=== PATIENT | male | born 1975 | race Two or more races ===

== ENCOUNTER → 2020-04-30 13:24 | Outpatient (BNVA) | payer OTHER, SELFPAY | PROVIDERS: PCP Internal Medicine Geriatric Medicine; Referring Provider Internal Medicine Geriatric Medicine; Visit Provider Orthopaedic Surgery | DX: M87.051 Idiopathic aseptic necrosis of right femur (principal); M87.052 Idiopathic aseptic necrosis of left femur | CPT/HCPCS: 99212 ==

== ENCOUNTER → 2020-07-11 10:07 | Outpatient (BNVA) | payer OTHER, SELFPAY | PROVIDERS: PCP Internal Medicine Geriatric Medicine; Visit Provider Orthopaedic Surgery | DX: Z01.812 Encounter for preprocedural laboratory examination (principal); Z01.810 Encounter for preprocedural cardiovascular examination ==

== ENCOUNTER 2020-08-09 13:16 | Outpatient (REF) | payer OTHER, SELFPAY ==
--- NOTE | ~2020-08-09 | XR_ITS ---
EXAMINATION: XR HIP, LEFT CLINICAL INFORMATION: Idiopathic avascular necrosis. COMPARISON: None TECHNIQUE: Two views of the left hip. FINDINGS: Again seen is deformity in the left femoral head with sclerotic and lucent components. Mild left hip degenerative joint changes are seen. The left hemipelvis is intact. The soft tissues are unremarkable. XR/XR hip LT 1V IMPRESSION: Deformity in the left hip consistent with the patient's known avascular necrosis. The overall appearance is similar to the previous study.
== END 2020-08-09 13:17 | disposition home or self-care (01) ==
LOC: HO.HOSX 13:16
PROVIDERS: Visit Provider Physician Assistant
DX: Z01.818 Encounter for other preprocedural examination (principal); M87.051 Idiopathic aseptic necrosis of right femur; M87.052 Idiopathic aseptic necrosis of left femur
CPT/HCPCS: 73501; 99212

== ENCOUNTER 2020-08-14 06:00 | Inpatient (IN) | payer OTHER, SELFPAY ==
--- NOTE | 2020-07-11 11:41 | ECG_ITS ---
Test Reason : PREPROC EXAM Blood Pressure : / mmHG Vent. Rate : 069 BPM Atrial Rate : 069 BPM P-R Int : 156 ms QRS Dur : 092 ms QT Int : 384 ms P-R-T Axes : 079 065 038 degrees QTc Int : 411 ms Normal sinus rhythm Possible Left atrial enlargement Borderline ECG When compared with ECG of 22-SEP-2017 23:40, Vent. rate has decreased BY 35 BPM QT has shortened Referred By: Christian Macias Electronically Signed By:RUDOLPH CARPENTER
[2020-07-11 12:30] LABS: MANUAL DIFF FLAG NO
[2020-07-11 12:41] LABS: Basophils Percent Auto 0.7 % (0-2); Eosinophils Absolute Auto 0.1 X10*3/uL (0.0-0.4); Eosinophils Percent Auto 1.8 % (0-4); Hematocrit 46.2 % (42-52); Hemoglobin 14.3 g/dl (14.0-18.0); Imm Gran Abs Auto 0.01 X10*3/uL (0.00-0.03); Imm Gran Pct Auto 0.2 % (0.0-0.4); Lymphocytes Absolute Auto 0.7 X10*3/uL (1.2-4.9); Lymphocytes Percent Auto 11.6 % (20-40); Mean Corpuscular Hemoglobin 26.5 pg (27.0-33.0); Mean Corpuscular Volume 85.6 fL (80-98); Mean Platelet Volume 11.8 fL (9.4-12.4); Monocytes Absolute Auto 0.5 X10*3/uL (0.1-1.2); Monocytes Percent Auto 7.8 % (2-11); Neutrophils Absolute Auto 4.7 X10*3/uL (2.0-8.3); Neutrophils Percent Auto 77.9 % (45-73); Platelet Count 213 X10*3/uL (160-400); Red Cell Distribution Width 13.2 % (11.0-16.0)
[2020-07-11 13:08] LABS: Anion Gap 15 (12-20); Blood Urea Nitrogen 14 mg/dL (9-16); Calcium 9.3 mg/dL (8.4-10.2); Carbon Dioxide 25 mmol/L (22-29); Chloride 101 mmol/L (96-108); Estimated Glomerular Filt Rate > 60; Glucose Random 94 mg/dL (60-115); Potassium 4.7 mmol/l (3.3-5.1); Sodium 136 mmol/L (135-145)
[2020-08-07 11:51] VITALS: BP 127/80; PULSE 80; RESP 20; O2SAT 97; BMI 29.0
--- NOTE | 2020-08-07 12:27 | HO.ANESPROP2 ---
Documented by User: Shellie Wisdomney 08/13/20 10:59 HPI - Anesthesia Eval Consult details Narrative: 45yo M for L Total Hip Replacement s/p Renal Transplant - h/o ESRD (htn nephrosclerosis) with dialysis. AV fistula in RUE. No dialysis now. PCP cleared Renal cleared [facility] Active Problems Active Problems: All Active Problems (Updated 08/07/20 @ 12:10 by Rosalinda Nieto) Avascular necrosis of bones of both hips (Acute) Past Medical History Medical History A-V fistula Allergic rhinitis Asthma Avascular necrosis Avascular necrosis of bones of both hips Chronic back pain CKD (chronic kidney disease) Depression ESRD (end stage renal disease) GERD (gastroesophageal reflux disease) Hx of anxiety disorder Hx of gout Hyperlipidemia Hypertension Hypothyroidism FLORENTINO (obstructive sleep apnea) Family History Family History Mother No problems noted. Father No problems noted. Family history of problems with anesthesia: No Surgical History Surgical History Kidney replaced by transplant History of Problems with Anesthesia: No Social History Social History Are you a primary customer care representative to a significant other at home: No Do you presently have visiting nurse or other home services: No (home health aide) Alcohol intake: never Smoking Status: Former smoker Smoked in Last 30 Days: No Smoking Quit Date: 2 yrs ago Second Hand Smoke Exposure: No Use of substances other than those prescribed or required for medical reasons: No Have you been hit, kicked, punched, or otherwise hurt by someone within the past year? If so, by whom?: No Confucianist Healthcare Practices: Religion Advance Directives: No Advance Directives Information Provided: No Advance Directives on File: No Recently lost weight without trying: No Current occupational status: disabled Current occupation: Right Handed Narrative Narrative: No recent illness. >4 mets with walking/rn radiation oncology. Asthma stable Meds Allergies Allergy/AdvReac Type Severity Reaction Status Date / Time ibuprofen [From MOTRIN] Allergy Unknown PT STATES Verified 08/07/20 11:50 HE CAN'T TAKE BECAUSE OF MY KIDNEY GRASS Allergy Unknown SINUS Uncoded 08/07/20 11:50 PROBLEMS Home Medications Medication Instructions Recorded Confirmed Last Taken Type albuterol sulfate 2.5 mg INHALATION NEEDED PRN 04/11/20 08/14/20 Unknown History aspirin 81 mg tablet,delayed 81 mg PO DAILY 04/11/20 08/03/20 08/09/20 History release atorvastatin 20 mg tablet 20 mg PO DAILY 04/11/20 08/03/20 Unknown History clonazepam 1 mg tablet 1 mg PO BID 04/11/20 08/14/20 08/14/20 History clotrimazole 10 mg wally 10 mg MUCOUS MEMBRANE TID 04/11/20 08/03/20 Unknown History levothyroxine 200 mcg tablet 200 mcg PO DAILY 04/11/20 08/03/20 08/14/20 History montelukast 10 mg tablet 10 mg PO BEDTIME 04/11/20 08/03/20 Unknown History omeprazole 20 mg capsule,delayed 40 mg PO DAILY 04/11/20 08/14/20 08/14/20 History release cholecalciferol (vitamin D3) 1 cap PO DAILY 08/03/20 08/03/20 Unknown History citalopram 1 tab PO DAILY 08/03/20 08/03/20 08/14/20 History docusate sodium [Stool Softener] 100 mg PO DAILY 08/03/20 08/03/20 Unknown History fluticasone propionate 1 spray INTRANASAL DAILY 08/03/20 08/14/20 Unknown History magnesium oxide 1 tab PO DAILY 08/03/20 08/03/20 Unknown History oxycodone 1 tab PO TID PRN 08/03/20 08/03/20 Unknown History zolpidem 1 tab PO BEDTIME 08/03/20 08/03/20 Unknown History mycophenolate sodium [Myfortic] 540 mg PO BID 08/07/20 08/07/20 08/14/20 History tacrolimus [Envarsus XR] 4 mg PO QAM 08/07/20 08/07/20 08/14/20 History Exam Exam Date and Time: August 07, 2020 1227 Height,Weight and Vital Signs: Height 5 ft 8.9 in Weight 88.904 kg Last Vital Signs Pulse 80 08/07/20 11:51 Resp 20 08/07/20 11:51 BP 127/80 08/07/20 11:51 Pulse Ox 97 08/07/20 11:51 Pertinent Lab Results Pertinent Lab Results: Laboratory Tests 07/11/20 07/11/20 11:51 11:51 WBC 6.0 RBC 5.40 Hgb 14.3 Hct 46.2 MCV 85.6 MCH 26.5 L MCHC 31.0 RDW 13.2 Plt Count 213 MPV 11.8 Immature Gran % (Auto) 0.2 Neut % (Auto) 77.9 H Lymph % (Auto) 11.6 L Lares % (Auto) 7.8 Eos % (Auto) 1.8 Baso % (Auto) 0.7 Lymph # (Auto) 0.7 L Lares # (Auto) 0.5 Eos # (Auto) 0.1 Baso # (Auto) 0.0 Abs Immat Gran (auto) 0.01 Absolute Neuts (auto) 4.7 Absolute Nucleated RBC 0.000 Nucleated RBC % (auto) 0.0 Sodium 136 Potassium 4.7 Chloride 101 Carbon Dioxide 25 Anion Gap 15 BUN 14 Creatinine 1.00 Estim Creat Clear Calc TNP Estimated GFR > 60 Random Glucose 94 Calcium 9.3 Laboratory Tests 07/11/20 07/11/20 08/07/20 11:51 11:51 13:05 Blood Type O Positive Antibody Screen NEGATIVE Narrative Narrative: EKG Normal sinus rhythm Possible Left atrial enlargement Borderline ECG When compared with ECG of 22-SEP-2017 23:40, Vent. rate has decreased BY 35 BPM QT has shortened Airway Mallampati Class: II TM Dist: >3cm Neck ROM: Full Loose/Missing/Broken Teeth: Yes (Missing molars) Heart: RRR Lungs: CTAB Assessment and Plan Assessment Anesthesia Assessment: Anesthesia Plan Discussed (Discussed GA with possible fascia iliaca block) and PAT Visit Documented by User: Timothy Rodriguez MD 08/14/20 07:32 [facility] Past Medical History Medical History A-V fistula Allergic rhinitis Asthma Avascular necrosis Avascular necrosis of bones of both hips Chronic back pain CKD (chronic kidney disease) Depression ESRD (end stage renal disease) GERD (gastroesophageal reflux disease) Hx of anxiety disorder Hx of gout Hyperlipidemia Hypertension Hypothyroidism FLORENTINO (obstructive sleep apnea) Family History Family History Mother No problems noted. Father No problems noted. Surgical History Surgical History Kidney replaced by transplant Social History Social History Are you a primary customer care representative to a significant other at home: No Do you presently have visiting nurse or other home services: No (home health aide) Alcohol intake: never Smoking Status: Former smoker Smoked in Last 30 Days: No Smoking Quit Date: 2 yrs ago Second Hand Smoke Exposure: No Use of substances other than those prescribed or required for medical reasons: No Have you been hit, kicked, punched, or otherwise hurt by someone within the past year? If so, by whom?: No Confucianist Healthcare Practices: Religion Advance Directives: No Advance Directives Information Provided: No Advance Directives on File: No Recently lost weight without trying: No Current occupational status: disabled Current occupation: Right Handed Meds Allergies Allergy/AdvReac Type Severity Reaction Status Date / Time ibuprofen [From MOTRIN] Allergy Unknown PT STATES Verified 08/07/20 11:50 HE CAN'T TAKE BECAUSE OF MY KIDNEY GRASS Allergy Unknown SINUS Uncoded 08/07/20 11:50 PROBLEMS Home Medications Medication Instructions Recorded Confirmed Last Taken Type albuterol sulfate 2.5 mg INHALATION NEEDED PRN 04/11/20 08/14/20 Unknown History aspirin 81 mg tablet,delayed 81 mg PO DAILY 04/11/20 08/03/20 08/09/20 History release atorvastatin 20 mg tablet 20 mg PO DAILY 04/11/20 08/03/20 Unknown History clonazepam 1 mg tablet 1 mg PO BID 04/11/20 08/14/20 08/14/20 History clotrimazole 10 mg wally 10 mg MUCOUS MEMBRANE TID 04/11/20 08/03/20 Unknown History levothyroxine 200 mcg tablet 200 mcg PO DAILY 04/11/20 08/03/20 08/14/20 History montelukast 10 mg tablet 10 mg PO BEDTIME 04/11/20 08/03/20 Unknown History omeprazole 20 mg capsule,delayed 40 mg PO DAILY 04/11/20 08/14/20 08/14/20 History release cholecalciferol (vitamin D3) 1 cap PO DAILY 08/03/20 08/03/20 Unknown History citalopram 1 tab PO DAILY 08/03/20 08/03/20 08/14/20 History docusate sodium [Stool Softener] 100 mg PO DAILY 08/03/20 08/03/20 Unknown History fluticasone propionate 1 spray INTRANASAL DAILY 08/03/20 08/14/20 Unknown History magnesium oxide 1 tab PO DAILY 08/03/20 08/03/20 Unknown History oxycodone 1 tab PO TID PRN 08/03/20 08/03/20 Unknown History zolpidem 1 tab PO BEDTIME 08/03/20 08/03/20 Unknown History mycophenolate sodium [Myfortic] 540 mg PO BID 08/07/20 08/07/20 08/14/20 History tacrolimus [Envarsus XR] 4 mg PO QAM 08/07/20 08/07/20 08/14/20 History Exam Airway Mallampati Class: II TM Dist: >3cm Neck ROM: Full Loose/Missing/Broken Teeth: Yes (None loose per report) Heart: Lungs: Nonlabored Assessment and Plan Assessment Anesthesia Assessment: Anesthesia Plan Discussed and Chart Reviewed Final Anesthetic Review NPO: Yes ASA Class: III Final Preanesthetic Review: No Changes in Pt Med Stat, Meds/Allgs Chart Reviewed, Consent Obtained/Reviewed and Anes Risks/Benef Reviewed Patient Risk: High Procedure Risk: Intermediate Anesthetic Plan Anesthetic Plan: GA Disposition: Standard PACU
[2020-08-07 16:16] LABS: MRSA Nasal PCR NEGATIVE (Negative); SA Nasal PCR NEGATIVE (Negative)
[2020-08-14] VITALS (13 sets, daily range): BP systolic 119–149; BP diastolic 71–87; PULSE 18–102; RESP 15–20; TEMP 36.5–37.7; O2SAT 94–100
--- NOTE | ~2020-08-14 | XR_ITS ---
EXAMINATION: XR CHEST CLINICAL INFORMATION: Fever, rule out pneumonia COMPARISON: 09/22/2017 TECHNIQUE: Frontal view of the chest was obtained. FINDINGS: Normal cardiac and mediastinal silhouette. Patchy left basilar opacities from atelectasis or infiltrate. No effusion, edema or pneumothorax. XR/XR chest 1V IMPRESSION: Left basilar patchy opacities from atelectasis or infiltrate.
--- NOTE | ~2020-08-14 | XR_ITS ---
EXAMINATION: XR PELVIS CLINICAL INFORMATION: Post left hip replacement COMPARISON: Previous x-ray 08/09/2020 TECHNIQUE: AP view of the pelvis. FINDINGS: There is a new left hip replacement in satisfactory position. No fracture or dislocation is seen. There are postoperative changes to the soft tissues. XR/XR pelvis 1-2V IMPRESSION: Satisfactory appearance of left hip replacement.
[2020-08-14] MEDS: Gabapentin 600 MG TABLET PO (06:41)
[2020-08-14] MEDS: oxyCODONE HCl ER 10 MG TAB.ER.12H PO ×2 (06:42→21:55)
[2020-08-14 06:44] LABS: COVID-19 Test Negative (Negative); IDNOW Serial# 9DD0AD1C
--- NOTE | 2020-08-14 06:55 | PC.NURSE ---
Right arm A-V fistula assessed. Positive thrill and bruit.
[2020-08-14] MEDS: 0.9 % Sodium Chloride 1,000 ML 50 ML IVCONT (07:09)
--- NOTE | 2020-08-14 07:31 | MHC.SHP ---
Pre-Procedural Eval Section A The patient is an INPATIENT: No Changes since office visit: Yes Patient answered all questions; No Cold of Flu in the past 2 weeks, No New Medical Problems and No Changes in Medication The History & Physical has been completed within 30 days and I have reviewed it.: Yes Section B Chief Complaint: s/p left total hip replacement Allergies: Allergies Allergy/AdvReac Type Severity Reaction Status Date / Time ibuprofen [From MOTRIN] Allergy Unknown PT STATES Verified 08/07/20 11:50 HE CAN'T TAKE BECAUSE OF MY KIDNEY GRASS Allergy Unknown SINUS Uncoded 08/07/20 11:50 PROBLEMS Plan I have reviewed the history and physical and performed a pertinent physical examination on my patient. No changes have occurred unless specified.
--- NOTE | 2020-08-14 09:29 | PM.OP ---
Brief Operative Note Date of Service: 08/14/20 Pre-op diagnosis: left hip avn Post-op diagnosis: same Procedure: left EHSAN Implants: styker trident2 52/20 deg liner accolade #4 with 36 + 2.5 fem head Surgeon: Christian Macias MD Anesthesia: GETA Estimated blood loss (mL): 200 IV fluids (mL): 1,000 Pathology: other Condition: stable Disposition: PACU
--- NOTE | 2020-08-14 09:35 | W.PM.OPN ---
Operative Note Operative Note Date of Service: 08/14/20 Narrative: Attending MD: Christian Macias Python Django Developer: CLIVE Calvert Pre-operative disgnosis: Left hip AVN Post op diagnosis: same Procedure performed; Left EHSAN Anesthesia:general Blood loss:200 Fluids:1000 Implants:nancy trident2 52/20 deg lip; accolade#4, 36 +2.5 ceramic head Complications: none known Indications: This is a 45 yo M with painful AVN left hip. He was consented to undergo left EHSAN Procedure in detail: Patient was brought into the operating room and placed in a right lateral decubitus position. All bony prominences were well padded and the limb was prepped and draped in standard sterile fashion. Time-out was called to identify proper site procedure proper surgeon IV antibiotics and 1 g of trans to make acid were administered. I began by making a curvilinear incision over the posterolateral aspect of the greater trochanter. Dissection was taken down to the tensor fascia which was incised in line with the incision and a Charnley retractor was placed. Hip was internally rotated and the external rotators were identified. The vessels were cauterized and a full-thickness capsular/external rotator layer was developed starting just proximal to the piriformis. Dull Hohmann retractor was placed underneath the neck in the hip was dislocated. A neck cut was made 1 cm proximal to the lesser trochanter and the head and neck were removed and measured on the back table. Placed my anterior-posterior acetabular retractors and performed a labrectomy. I then sequentially reamed up to a size _51__ and impacted a _52___ cup at approximately 45 degrees of inclination and 25 degrees of version. I then placed a 20 degree posterior lipped liner and turned my attention to the femur. All I used cautery to identify the piriformis start site and used this as a starting point for my abdirizakie cutter. I then used a Charnley awl to identify the canal and a curved curette to remove the lateral bone. I then sequentially broached in the patient's natural version to a size _4__ had and placed my trial implants. I took the hip through range of motion with a +0 head and I was very happy with the stability and length. Therefore removed all instrumentation copiously irrigated placed my final femoral implant. I again took the hip through range of motion and was happy with the stability and length and rain using a +2.5 head and so my final femoral head was placed. I then irrigated for 3 minutes with iodine and placed 1 g of local TXA. I then performed a capsular closure with FiberWire, Ally's fascia with 0 Vicryl, subcuticular with 2-0 vicryl and skin with shiraz. Patient was placed into a sterile dressing. Radiographs were obtained at the completion of the case and I was happy with the component position. Patient was extubated brought to the recovery room in stable condition.
[2020-08-14] MEDS: HYDROmorphone HCl 0.5 MG/0.5 ML SYRINGE IVPUSH (09:52)
[2020-08-14] MEDS: Dextrose 5 % and 0.45 % NaCl 1,000 ML 80 ML IVCONT (11:25)
[2020-08-14] MEDS: HYDROmorphone HCl 0.5 MG/0.5 ML SYRINGE 0.25 MG IVPUSH ×2 (13:20→18:19)
[2020-08-14] MEDS: ceFAZolin Sodium/Dextrose,Iso 2 GM/50 ML PIGGYBACK IV (13:21)
--- NOTE | 2020-08-14 16:39 | P.CONIM_ITS ---
History of Present Illness Data of Consult Service Date: 08/14/20 Requesting physician: Christian Macias Primary Care Provider: Shaka Ashley MD [facility] Reason for consult: Medical management 45-year-old male admitted for elective hip surgery, patient underwent hip surgery, Medicine was consulted for medical management, patient seen and examined at bedside Patient denies any chest pain shortness of breath abdominal pain Review of Systems Review of Systems: Yes all other systems are reviewed and are negative Constitutional: Constitutional: Denies weakness Cardiovascular: Cardiovascular: Denies dyspnea Respiratory: Respiratory: Denies dyspnea Gastrointestinal: Gastrointestinal: Denies vomiting Neurologic: Denies focal weakness and Denies weakness Endocrine: Endocrine: Denies no additional endocrine complaints [facility] Medical History (Updated 08/14/20 @ 16:47 by Jack Grier MD) A-V fistula Allergic rhinitis Asthma Avascular necrosis Avascular necrosis of bones of both hips Chronic back pain CKD (chronic kidney disease) Depression ESRD (end stage renal disease) GERD (gastroesophageal reflux disease) Hx of anxiety disorder Hx of gout Hyperlipidemia Hypertension Hypothyroidism FLORENTINO (obstructive sleep apnea) Family History Mother No problems noted. Father No problems noted. Surgical History Kidney replaced by transplant Social History Are you a primary customer care professional to a significant other at home: No Do you presently have visiting nurse or other home services: No (home health aide) Alcohol intake: never Smoking Status: Former smoker Smoked in Last 30 Days: No Smoking Quit Date: 2 yrs ago Second Hand Smoke Exposure: No Use of substances other than those prescribed or required for medical reasons: No Have you been hit, kicked, punched, or otherwise hurt by someone within the past year? If so, by whom?: No Scientology Healthcare Practices: Shinto Advance Directives: No Advance Directives Information Provided: No Advance Directives on File: No Recently lost weight without trying: No Current occupational status: disabled Current occupation: Right Handed Meds Allergies Allergy/AdvReac Type Severity Reaction Status Date / Time ibuprofen [From MOTRIN] Allergy Unknown PT STATES Verified 08/07/20 11:50 HE CAN'T TAKE BECAUSE OF MY KIDNEY GRASS Allergy Unknown SINUS Uncoded 08/07/20 11:50 PROBLEMS Active Medications: Current Medications Generic Name Dose Route Start Last Admin Trade Name Freq PRN Reason Stop Dose Admin Acetaminophen 650 mg 08/14/20 11:08 Acetaminophen 325 Mg Tablet PO Q6H PRN Pain, Mild (Pain Scale 1-3) Hydromorphone HCl 0.25 mg 08/14/20 11:08 08/14/20 13:20 Hydromorphone Hcl 0.5 Mg/0.5 Ml Syringe IVPUSH 0.25 mg Q4H PRN Administration Pain, Severe (Pain Scale 7-10) Dextrose/Sodium Chloride 1,000 mls @ 80 mls/hr 08/14/20 11:08 08/14/20 11:25 D51/2ns IVCONT 80 mls/hr .[id number] JOSEPH Administration Naloxone HCl 0.2 mg 08/14/20 11:08 Naloxone Hcl 0.4 Mg/Ml Vial IVPUSH Q2M PRN Excessive sedation or RR < 8 Non-Formulary Medication 4 mg 08/15/20 09:00 Tacrolimus [Envarsus Xr] PO DAILY [facility] Ondansetron HCl 4 mg 08/14/20 11:08 Ondansetron Hcl 4 Mg/2 Ml Vial IVPUSH Q8H PRN Nausea and Vomiting Oxycodone HCl 10 mg 08/14/20 11:08 Oxycodone Hcl Immed Release 5 Mg Tablet PO Q4H PRN Pain, Moderate (Pain Scale 4-6 Oxycodone HCl 10 mg 08/14/20 21:00 Oxycodone Hcl Er 10 Mg Tab.Er.12h PO BID [facility] Senna 17.2 mg 08/14/20 11:08 Sennosides 8.6 Mg Tablet PO BEDTIME PRN Constipation Sodium Chloride 3 ml 08/14/20 16:00 0.9 % Sodium Chloride Flush 3 Ml Syringe IVFLUSH QSHIFT [facility] Home Medications Medication Instructions Recorded Confirmed Last Taken Type albuterol sulfate 2.5 mg INHALATION NEEDED PRN 04/11/20 08/14/20 Unknown History aspirin 81 mg tablet,delayed 81 mg PO DAILY 04/11/20 08/03/20 08/09/20 History release atorvastatin 20 mg tablet 20 mg PO DAILY 04/11/20 08/03/20 Unknown History clonazepam 1 mg tablet 1 mg PO BID 04/11/20 08/14/20 08/14/20 History clotrimazole 10 mg wally 10 mg MUCOUS MEMBRANE TID 04/11/20 08/03/20 Unknown History levothyroxine 200 mcg tablet 200 mcg PO DAILY 04/11/20 08/03/20 08/14/20 History montelukast 10 mg tablet 10 mg PO BEDTIME 04/11/20 08/03/20 Unknown History omeprazole 20 mg capsule,delayed 40 mg PO DAILY 04/11/20 08/14/20 08/14/20 History release cholecalciferol (vitamin D3) 1 cap PO DAILY 08/03/20 08/03/20 Unknown History citalopram 1 tab PO DAILY 08/03/20 08/03/20 08/14/20 History docusate sodium [Stool Softener] 100 mg PO DAILY 08/03/20 08/03/20 Unknown History fluticasone propionate 1 spray INTRANASAL DAILY 08/03/20 08/14/20 Unknown Histo ry magnesium oxide 1 tab PO DAILY 08/03/20 08/03/20 Unknown History oxycodone 1 tab PO TID PRN 08/03/20 08/03/20 Unknown History zolpidem 1 tab PO BEDTIME 08/03/20 08/03/20 Unknown History mycophenolate sodium [Myfortic] 540 mg PO BID 08/07/20 08/07/20 08/14/20 History tacrolimus [Envarsus XR] 4 mg PO QAM 08/07/20 08/07/20 08/14/20 History Physical Exam Vital Signs and Narrative: Vital Signs: Last Vital Signs Temp 98.2 F 08/14/20 15:29 Pulse 96 08/14/20 15:29 Resp 18 08/14/20 15:29 BP 139/77 08/14/20 15:29 Pulse Ox 95 08/14/20 15:29 Body Mass Index 29.0 Const: General: cooperative and no acute distress Neck: Yes normal visual inspection Cardio: Jugular venous distension: no JVD Rate: regular rate GI: Inspection: Yes normal to inspection Auscultation: normal bowel sounds Skin: General skin exam: no rashes or lesions noted Neuro: Motor exam (neuro): 5/5 motor strength present throughout Results Labs CBC and Chem 7: 07/11/20 11:51 07/11/20 11:51 Labs: Laboratory Results - last 24 hr 08/14/20 06:13 COVID-19 (EDVIN) Negative COVID-19 Clin Com See Note Imaging Radiologist's Impressions: Impressions Pelvis X-Ray 08/14/20 08:22 IMPRESSION: Satisfactory appearance of left hip replacement. Assessment and Plan (1) Asthma: Status: Acute (2) Chronic back pain: Status: Acute (3) CKD (chronic kidney disease): Status: Acute (4) Hypothyroidism: Status: Acute (5) Hyperlipidemia: Status: Acute (6) FLORENTINO (obstructive sleep apnea): Problem details: 2018- Sleep Study Status: Acute 45-year-old male with history of ESRD status post renal transplant last year admitted for elective hip replacement, patient underwent EHSAN, Medicine was consulted for medical management Status post EHSAN Continue pain management PT consult Management per Ortho Asthma stable Continue inhaler as needed History of renal transplant Continue home medication Hypothyroidism Continue levothyroxine History of GERD Continue Prilosec History of anxiety and depression Continue home meds DVT prophylaxis currently on Venodyne , as per Ortho
[2020-08-14] MEDS: Levothyroxine Sodium 200 MCG TABLET PO (18:06)
[2020-08-14] MEDS: Fluticasone Propionate Nasal 16 GM SPRAY 1 SPRAY NOSTRIL-B (18:19)
[2020-08-14] MEDS: Mycophenolate Sodium 180 MG TABLET.DR 540 MG PO (21:54)
[2020-08-14] MEDS: Montelukast Sodium 10 MG TABLET PO (21:55)
[2020-08-14] MEDS: clonazePAM 1 MG TABLET PO (21:55)
[2020-08-14] MEDS: oxyCODONE HCl Immed Release 5 MG TABLET 10 MG PO (22:20)
[2020-08-14] MEDS: Zolpidem Tartrate 5 MG TABLET 10 MG PO (22:20)
[2020-08-15] VITALS (9 sets, daily range): BP systolic 131–178; BP diastolic 63–90; PULSE 94–113; RESP 17–20; TEMP 37.3–38.8; O2SAT 94–97
[2020-08-15] MEDS: Dextrose 5 % and 0.45 % NaCl 1,000 ML 80 ML IVCONT ×2 (00:02→13:53)
[2020-08-15] MEDS: HYDROmorphone HCl 0.5 MG/0.5 ML SYRINGE 0.25 MG IVPUSH ×4 (00:17→22:01)
[2020-08-15] MEDS: Acetaminophen 325 MG TABLET 650 MG PO ×3 (02:14→23:53)
[2020-08-15] MEDS: oxyCODONE HCl Immed Release 5 MG TABLET 10 MG PO ×4 (03:55→23:53)
[2020-08-15] MEDS: Omeprazole 20 MG CAPSULE.DR 40 MG PO (05:57)
[2020-08-15 07:01] LABS: MANUAL DIFF FLAG NO
[2020-08-15 07:09] LABS: Basophils Percent Auto 0.1 % (0-2); Eosinophils Percent Auto 0.2 % (0-4); Hematocrit 41.3 % (42-52); Hemoglobin 12.8 g/dl (14.0-18.0); Imm Gran Abs Auto 0.03 X10*3/uL (0.00-0.03); Imm Gran Pct Auto 0.3 % (0.0-0.4); Lymphocytes Absolute Auto 1.1 X10*3/uL (1.2-4.9); Lymphocytes Percent Auto 11.9 % (20-40); Mean Corpuscular Hemoglobin 26.3 pg (27.0-33.0); Mean Platelet Volume 12.1 fL (9.4-12.4); Monocytes Absolute Auto 1.3 X10*3/uL (0.1-1.2); Monocytes Percent Auto 14.7 % (2-11); Neutrophils Absolute Auto 6.6 X10*3/uL (2.0-8.3); Neutrophils Percent Auto 72.8 % (45-73); Platelet Count 185 X10*3/uL (160-400); Red Blood Count 4.86 X10*6/uL (4.60-5.80); Red Cell Distribution Width 12.7 % (11.0-16.0); White Blood Count 9.1 X10*3/uL (4.8-10.8)
--- NOTE | 2020-08-15 07:25 | P.PNOP_ITS ---
Subjective Subjective Date of Service: 08/15/20 Interval history: POD1 left EHSAN patient is resting comfortably in bed. He states he worked with [employer] yesterday and was walking. Pain is well managed. No overnight events. Physical Exam Vital Signs: Vital Signs: Last Vital Signs Temp 99.6 F 08/15/20 05:00 Pulse 96 08/15/20 05:00 Resp 20 08/15/20 05:00 BP 148/79 H 08/15/20 05:00 Pulse Ox 97 08/15/20 05:00 Body Mass Index 29.0 Const: General: cooperative, healthy appearing and no acute distress Resp: Effort & Inspection: normal respiratory effort and able to speak in complete sentences Cardio: Rate: regular rate Peripheral pulses: Peripheral pulses 2+ throughout GI: Palpation (GI): Soft to palpation Skin: Lesions: no lesions Rashes: no rashes Extrem: Other: left hip no ecchymosis, redness, or drainage. Aquacel is clean, dry, and intact. NVI. Progress Note: A&P Assessment and plan (1) Status post total hip replacement, left: Status: Acute Assessment and Plan: Continue pain mgmnt Consult with nephrology for dvt ppx Continue PT for left EHSAN Dispo planning-Pending PT eval, pain mgmnt Fall Risk Details Current Medications: Current Medications Generic Name Dose Route Start Last Admin Trade Name Freq PRN Reason Stop Dose Admin Acetaminophen 650 mg 08/14/20 11:08 08/15/20 02:14 Acetaminophen 325 Mg Tablet PO 650 mg Q6H PRN Administration Pain, Mild (Pain Scale 1-3) Albuterol Sulfate 2.5 mg 08/14/20 16:43 Albuterol Sulfate (0.083%) 2.5 Mg/3 Ml Vial.Neb INHALE Q4H PRN Shortness Of Breath Atorvastatin Calcium 20 mg 08/15/20 09:00 Atorvastatin Calcium 20 Mg Tablet PO DAILY [facility] Clonazepam 1 mg 08/14/20 21:00 08/14/20 21:55 Clonazepam 1 Mg Tablet PO 1 mg BID [facility]SEPH Administration Clotrimazole 10 mg 08/14/20 21:00 08/14/20 21:54 Clotrimazole 10 Mg Jaja MUCOUS MEM 10 mg TID JOSEPH Administration Docusate Sodium 100 mg 08/15/20 09:00 Docusate Sodium 100 Mg Capsule PO DAILY [facility] Escitalopram Oxalate 20 mg 08/15/20 09:00 Escitalopram Oxalate 20 Mg Tablet PO DAILY [facility] Fluticasone Propionate 1 spray 08/14/20 16:45 08/14/20 18:19 Fluticasone Propionate Nasal 16 Gm [place] NOSTRIL-B 1 spray DAILY [facility] Administration Hydromorphone HCl 0.25 mg 08/14/20 11:08 08/15/20 00:17 Hydromorphone Hcl 0.5 Mg/0.5 Ml Syringe IVPUSH 0.25 mg Q4H PRN Administration Pain, Severe (Pain Scale 7-10) Dextrose/Sodium Chloride 1,000 mls @ 80 mls/hr 08/14/20 11:08 08/15/20 00:02 D51/2ns IVCONT 80 mls/hr .[id number] [facility] Administration Levothyroxine Sodium 200 mcg 08/14/20 16:45 08/14/20 18:06 Levothyroxine Sodium 200 Mcg Tablet PO 200 mcg DAILY [facility] Administration Magnesium Oxide 200 mg 08/15/20 09:00 Magnesium Oxide 400 Mg Tablet PO DAILY [facility] Montelukast Sodium 10 mg 08/14/20 21:00 08/14/20 21:55 Montelukast Sodium 10 Mg Tablet PO 10 mg BEDTIME [facility] Administration Mycophenolate Sodium 540 mg 08/14/20 21:00 08/14/20 21:54 Mycophenolate Sodium 180 Mg Tablet. PO 540 mg BID [facility] Administration Naloxone HCl 0.2 mg 08/14/20 11:08 Naloxone Hcl 0.4 Mg/Ml Vial IVPUSH Q2M PRN Excessive sedation or RR < 8 Non-Formulary Medication 4 mg 08/15/20 09:00 Tacrolimus [Envarsus Xr] PO DAILY [facility] Omeprazole 40 mg 08/15/20 06:30 08/15/20 05:57 Omeprazole 20 Mg Capsule. PO 40 mg DAILY@0630 [facility] Administration Ondansetron HCl 4 mg 08/14/20 11:08 Ondansetron Hcl 4 Mg/2 Ml Vial IVPUSH Q8H PRN Nausea and Vomiting Oxycodone HCl 10 mg 08/14/20 11:08 08/15/20 03:55 Oxycodone Hcl Immed Release 5 Mg Tablet PO 10 mg Q4H PRN Administration Pain, Moderate (Pain Scale 4-6 Oxycodone HCl 10 mg 08/14/20 21:00 08/14/20 21:55 Oxycodone Hcl Er 10 Mg Tab.Er.12h PO 10 mg BID [facility] Administration Senna 17.2 mg 08/14/20 11:08 Sennosides 8.6 Mg Tablet PO BEDTIME PRN Constipation Sodium Chloride 3 ml 08/14/20 16:00 08/15/20 00:20 0.9 % Sodium Chloride Flush 3 Ml Syringe IVFLUSH Not Given QSHIFT [facility] Vitamin D 50 mcg 08/15/20 09:00 Cholecalciferol (Vitamin D3) 25 Mcg Tablet PO DAILY [facility] Zolpidem Tartrate 10 mg 08/14/20 22:15 08/14/20 22:20 Zolpidem Tartrate 5 Mg Tablet PO 10 mg BEDTIME [facility] Administration Time Spent With Patient Time: Total time spent is greater than 50% in coordination of care (as documented) at patient's floor/unit and/or counseling patient: Time with patient: less than 15 minutes Procedures Date of Service Date of Service: 08/15/20
[2020-08-15 07:43] LABS: Anion Gap 11 (12-20); Blood Urea Nitrogen 13 mg/dL (9-16); Calcium 8.5 mg/dL (8.4-10.2); Carbon Dioxide 27 mmol/L (22-29); Chloride 102 mmol/L (96-108); Creatinine Clr Calc Pharmacy 117.3; Estimated Glomerular Filt Rate > 60; Glucose Fasting 131 mg/dL (60-99); Sodium 136 mmol/L (135-145)
[2020-08-15] MEDS: oxyCODONE HCl ER 10 MG TAB.ER.12H PO ×2 (09:02→20:14)
[2020-08-15] MEDS: Atorvastatin Calcium 20 MG TABLET PO (09:02)
[2020-08-15] MEDS: 0.9 % Sodium Chloride Flush 3 ML SYRINGE IVFLUSH ×2 (09:02→15:11)
[2020-08-15] MEDS: Mycophenolate Sodium 180 MG TABLET.DR 540 MG PO ×2 (09:02→20:13)
[2020-08-15] MEDS: Levothyroxine Sodium 200 MCG TABLET PO (09:03)
[2020-08-15] MEDS: Cholecalciferol (Vitamin D3) 25 MCG TABLET 50 MCG PO (09:03)
[2020-08-15] MEDS: clonazePAM 1 MG TABLET PO ×2 (09:03→20:14)
[2020-08-15] MEDS: Docusate Sodium 100 MG CAPSULE PO (09:03)
[2020-08-15] MEDS: Escitalopram Oxalate 20 MG TABLET PO (09:03)
[2020-08-15] MEDS: Magnesium Oxide 400 MG TABLET 200 MG PO (09:03)
--- NOTE | 2020-08-15 09:11 | MHC.CM.PN ---
IMM08/15/20, EMR REVIEWED, PT ADMITTED S/P LEFT TOTAL HIP REPLACEMENT, CM MET WITH PT WHO IS ALERT AND ORIENTED, PT REPORTS HE LIVES WITH HIS 3 DAUGHTERS AND GRANDSON, PT REPORTS HE HAS ASSISTANCE FROM HIS DAUGHTER SAMUEL WHO IS HIS HAY BALER 24HR/WK, PT CANNOT RECALL WHICH COMPANY, PT REPORTS HE USES A WALKER AT HOME, A TOILET SEAT RAISER, A CPAP AND PT USES INHALERS AND HAS A NEBULIZER WHEN NEEDED, PT DENIES VNA SERVICES AND HAS NO PREFERENCE ON COMPANY, CM DID CALL [facility] AND SPOKE WITH ZEKE AT 9:10AM AT [phone] TO SEE IF THEY COULD PROVIDE SERVICES HOWEVER THEY ARE CURRENTLY UNABLE TO ACCOMMODATE AT THIS TIME, THEY WERE MADE AWARE OF PT'S ANTICIPATED D/C FOR 08/16/20. PT DOES HAVE DIAGNOSES OF ANXIETY AND DEPRESSION AND TAKES CITALOPRAM, KLONOPIN AND AMBIEN, PT REPORTS HIS THERAPIST AND PSYCHIATRIST ARE THROUGH THE [facility] [place] ON [facility] IN [place]. PT REPORTS HE FEELS STABLE ON CURRENT MEDS, DENIES SUICIDAL IDEATION AND DENIES NEED TO SPEAK WITH CARE TEAM. PT VERIFIES PCP AND PHARMACY. HCP: SAMUEL VALLES (DAUGHTER)[phone], [place] ALTERNATE, COPY REQUESTED BY AGATHA PCP: ANGIE NAME PHARACY: [facility]
[2020-08-15] MEDS: Fluticasone Propionate Nasal 16 GM SPRAY 1 SPRAY NOSTRIL-B (09:32)
[2020-08-15] MEDS: Enoxaparin Sodium 40 MG/0.4 ML SYRINGE SUBCUT (10:55)
--- NOTE | 2020-08-15 11:01 | P.PNIM_ITS ---
Subjective Subjective Date of Service: 08/15/20 Interval History: Patient seen and examined at bedside Patient reported some pain at surgical side Constitutional Constitutional: Denies weakness Cardiovascular Cardiovascular: Denies dyspnea Respiratory Respiratory: Denies dyspnea Gastrointestinal Gastrointestinal: Denies vomiting Neurologic Neurologic: Denies focal weakness and Denies weakness Endocrine Endocrine: Denies no additional endocrine complaints Physical Exam Vital Signs: Vital Signs: Last Vital Signs Temp 99.9 F 08/15/20 07:48 Pulse 94 08/15/20 07:48 Resp 18 08/15/20 07:48 BP 135/63 08/15/20 07:48 Pulse Ox 96 08/15/20 07:48 Body Mass Index 29.0 Const: General: cooperative and no acute distress Neck: Neck: Yes normal visual inspection Cardio: Jugular venous distension: no JVD Rate: regular rate GI: Inspection: Yes normal to inspection Auscultation: normal bowel sounds Skin: General skin exam: no rashes or lesions noted Neuro: Motor exam (neuro): 5/5 motor strength present throughout Objective Data Current Medications Generic Name Dose Route Start Last Admin Trade Name Freq PRN Reason Stop Dose Admin Acetaminophen 650 mg 08/14/20 11:08 08/15/20 02:14 Acetaminophen 325 Mg Tablet PO 650 mg Q6H PRN Administration Pain, Mild (Pain Scale 1-3) Albuterol Sulfate 2.5 mg 08/14/20 16:43 Albuterol Sulfate (0.083%) 2.5 Mg/3 Ml Vial.Neb INHALE Q4H PRN Shortness Of Breath Atorvastatin Calcium 20 mg 08/15/20 09:00 08/15/20 09:02 Atorvastatin Calcium 20 Mg Tablet PO 20 mg DAILY [facility] Administration Clonazepam 1 mg 08/14/20 21:00 08/15/20 09:03 Clonazepam 1 Mg Tablet PO 1 mg BID [facility] Administration Clotrimazole 10 mg 08/14/20 21:00 08/15/20 09:03 Clotrimazole 10 Mg Jaja MUCOUS MEM 10 mg TID [facility] Administration Docusate Sodium 100 mg 08/15/20 09:00 08/15/20 09:03 Docusate Sodium 100 Mg Capsule PO 100 mg DAILY [facility] Administration Enoxaparin Sodium 40 mg 08/15/20 10:00 08/15/20 10:55 Enoxaparin Sodium 40 Mg/0.4 Ml Syringe SUBCUT 40 mg Q24H [facility] Administration Escitalopram Oxalate 20 mg 08/15/20 09:00 08/15/20 09:03 Escitalopram Oxalate 20 Mg Tablet PO 20 mg DAILY [facility] Administration Fluticasone Propionate 1 spray 08/14/20 16:45 08/15/20 09:32 Fluticasone Propionate Nasal 16 Gm [place] NOSTRIL-B 1 spray DAILY [facility] Administration Hydromorphone HCl 0.25 mg 08/14/20 11:08 08/15/20 00:17 Hydromorphone Hcl 0.5 Mg/0.5 Ml Syringe IVPUSH 0.25 mg Q4H PRN Administration Pain, Severe (Pain Scale 7-10) Dextrose/Sodium Chloride 1,000 mls @ 80 mls/hr 08/14/20 11:08 08/15/20 00:02 D51/2ns IVCONT 80 mls/hr .[id number] [facility] Administration Levothyroxine Sodium 200 mcg 08/14/20 16:45 08/15/20 09:03 Levothyroxine Sodium 200 Mcg Tablet PO 200 mcg DAILY [facility] Administration Magnesium Oxide 200 mg 08/15/20 09:00 08/15/20 09:03 Magnesium Oxide 400 Mg Tablet PO 200 mg DAILY [facility] Administration Montelukast Sodium 10 mg 08/14/20 21:00 08/14/20 21:55 Montelukast Sodium 10 Mg Tablet PO 10 mg BEDTIME [facility] Administration Mycophenolate Sodium 540 mg 08/14/20 21:00 08/15/20 09:02 Mycophenolate Sodium 180 Mg Tablet. PO 540 mg BID [facility] Administration Naloxone HCl 0.2 mg 08/14/20 11:08 Naloxone Hcl 0.4 Mg/Ml Vial IVPUSH Q2M PRN Excessive sedation or RR < 8 Non-Formulary Medication 4 mg 08/15/20 09:00 08/15/20 09:30 Tacrolimus [Envarsus Xr] PO 4 mg DAILY [facility] Administration Omeprazole 40 mg 08/15/20 06:30 08/15/20 05:57 Omeprazole 20 Mg Capsule. PO 40 mg DAILY@0630 [facility] Administration Ondansetron HCl 4 mg 08/14/20 11:08 Ondansetron Hcl 4 Mg/2 Ml Vial IVPUSH Q8H PRN Nausea and Vomiting Oxycodone HCl 10 mg 08/14/20 11:08 08/15/20 03:55 Oxycodone Hcl Immed Release 5 Mg Tablet PO 10 mg Q4H PRN Administration Pain, Moderate (Pain Scale 4-6 Oxycodone HCl 10 mg 08/14/20 21:00 08/15/20 09:02 Oxycodone Hcl Er 10 Mg Tab.Er.12h PO 10 mg BID [facility] Administration Senna 17.2 mg 08/14/20 11:08 Sennosides 8.6 Mg Tablet PO BEDTIME PRN Constipation Sodium Chloride 3 ml 08/14/20 16:00 08/15/20 09:02 0.9 % Sodium Chloride Flush 3 Ml Syringe IVFLUSH 3 ml QSHIFT [facility] Administration Vitamin D 50 mcg 08/15/20 09:00 08/15/20 09:03 Cholecalciferol (Vitamin D3) 25 Mcg Tablet PO 50 mcg DAILY [facility] Administration Zolpidem Tartrate 10 mg 08/14/20 22:15 08/14/20 22:20 Zolpidem Tartrate 5 Mg Tablet PO 10 mg BEDTIME [facility] Administration Labs CBC & Chem 7: 08/15/20 05:53 08/15/20 05:53 Assessment and Plan (1) Asthma: Status: Acute (2) Chronic back pain: Status: Acute (3) CKD (chronic kidney disease): Status: Acute (4) Hypothyroidism: Status: Acute (5) Hyperlipidemia: Status: Acute (6) FLORENTINO (obstructive sleep apnea): Problem details: 2017- Sleep Study Status: Acute Assessment and Plan: 45-year-old male with history of ESRD status post renal transplant last year admitted for elective hip replacement, patient underwent EHSAN, Medicine was consulted for medical management Status post EHSAN Continue pain managemen Management per Ortho Asthma stable Continue inhaler as needed History of renal transplant Continue mycophenolate and tacrolimus Hypothyroidism Continue levothyroxine History of GERD Continue Prilosec History of anxiety and depression Continue Klonopin and citalopram Sleep apnea Continue CPAP at night DVT prophylaxis Lovenox per Ortho
--- NOTE | 2020-08-15 13:46 | HO.POSTANES ---
Post Anesthesia Evaluation Post Anesthesia Evaluation Vital Signs: Vital Signs Temp Pulse Resp BP Pulse Ox 08/15/20 11:49 99.1 F 97 17 131/67 94 08/15/20 07:48 99.9 F 94 18 135/63 96 08/15/20 05:00 99.6 F 96 20 148/79 H 97 08/15/20 03:45 99.6 F 96 20 148/79 H 97 Anesthesia: General Mental Status: Awake Pain Control: Satisfactory Nausea/Vomiting: None Hydration: Adequate Anesthesia-Related Issues: No Anes. Related Issues
[2020-08-15] MEDS: Montelukast Sodium 10 MG TABLET PO (20:14)
[2020-08-15] MEDS: Zolpidem Tartrate 5 MG TABLET 10 MG PO (22:00)
[2020-08-16] MEDS: Dextrose 5 % and 0.45 % NaCl 1,000 ML 80 ML IVCONT (03:15)
[2020-08-16] MEDS: HYDROmorphone HCl 0.5 MG/0.5 ML SYRINGE 0.25 MG IVPUSH (03:23)
[2020-08-16 03:28] LABS: Glucose Urine UA NEG (NEG); Leukocyte Esterase Urine NEG (NEG); Nitrite Urine NEG (NEG); PH 6.5 (5.0-8.0); Specific Gravity - Urine 1.015 (1.005-1.025); Urine Blood NEG (NEG); Urine Ketones NEG (NEG); Urine Protein NEG (NEG-TRACE)
[2020-08-16 03:29] VITALS: BP 148/82; PULSE 108; RESP 18; TEMP 37.7; O2SAT 92
[2020-08-16 03:33] LABS: Appearance Urine CLEAR; Color Urine YELLOW
[2020-08-16] MEDS: Omeprazole 20 MG CAPSULE.DR 40 MG PO (06:01)
[2020-08-16 06:17] LABS: MANUAL DIFF FLAG NO
[2020-08-16] MEDS: oxyCODONE HCl Immed Release 5 MG TABLET 10 MG PO (06:51)
[2020-08-16 06:52] LABS: Basophils Percent Auto 0.4 % (0-2); Eosinophils Absolute Auto 0.1 X10*3/uL (0.0-0.4); Eosinophils Percent Auto 1.1 % (0-4); Hematocrit 42.4 % (42-52); Imm Gran Abs Auto 0.02 X10*3/uL (0.00-0.03); Imm Gran Pct Auto 0.3 % (0.0-0.4); Lymphocytes Percent Auto 12.9 % (20-40); Mean Corpuscular HGB Conc 30.7 g/dl (31.0-36.0); Mean Corpuscular Hemoglobin 26.6 pg (27.0-33.0); Mean Corpuscular Volume 86.9 fL (80-98); Mean Platelet Volume 11.2 fL (9.4-12.4); Monocytes Percent Auto 12.7 % (2-11); Neutrophils Absolute Auto 5.7 X10*3/uL (2.0-8.3); Neutrophils Percent Auto 72.6 % (45-73); Platelet Count 185 X10*3/uL (160-400); Red Blood Count 4.88 X10*6/uL (4.60-5.80); Red Cell Distribution Width 12.9 % (11.0-16.0); White Blood Count 7.9 X10*3/uL (4.8-10.8)
[2020-08-16 07:01] LABS: Anion Gap 11 (12-20); Blood Urea Nitrogen 10 mg/dL (9-16); Calcium 9.1 mg/dL (8.4-10.2); Carbon Dioxide 30 mmol/L (22-29); Chloride 101 mmol/L (96-108); Creatinine Clr Calc Pharmacy 103.1; Estimated Glomerular Filt Rate > 60; Glucose Fasting 150 mg/dL (60-99); Potassium 4.4 mmol/L (3.3-5.1); Sodium 138 mmol/L (135-145)
--- NOTE | 2020-08-16 07:38 | PC.NURSE ---
Pt IV became dislodged, 22g placed in left forearm, fluids restarted. PT transferred OOB to recliner 1x assist using walker. He was able to bear weight on left lower extremity for short amount of time during the transfer.
[2020-08-16 07:43] VITALS: BP 145/73; PULSE 103; RESP 17; TEMP 36.8; O2SAT 94
[2020-08-16 08:30] LABS: COVID-19 Test Negative (Negative)
[2020-08-16] MEDS: Mycophenolate Sodium 180 MG TABLET.DR 540 MG PO (09:23)
[2020-08-16] MEDS: Escitalopram Oxalate 20 MG TABLET PO (09:23)
[2020-08-16] MEDS: clonazePAM 1 MG TABLET PO (09:23)
[2020-08-16] MEDS: Magnesium Oxide 400 MG TABLET 200 MG PO (09:23)
[2020-08-16] MEDS: Cholecalciferol (Vitamin D3) 25 MCG TABLET 50 MCG PO (09:24)
[2020-08-16] MEDS: Docusate Sodium 100 MG CAPSULE PO (09:24)
[2020-08-16] MEDS: oxyCODONE HCl ER 10 MG TAB.ER.12H PO (09:24)
[2020-08-16] MEDS: Levothyroxine Sodium 200 MCG TABLET PO (09:24)
[2020-08-16] MEDS: Atorvastatin Calcium 20 MG TABLET PO (09:24)
[2020-08-16] MEDS: Enoxaparin Sodium 40 MG/0.4 ML SYRINGE SUBCUT (09:24)
[2020-08-16] MEDS: Fluticasone Propionate Nasal 16 GM SPRAY 1 SPRAY NOSTRIL-B (09:34)
[2020-08-16 11:15] VITALS: BP 166/93; PULSE 91; RESP 15; TEMP 36.1; O2SAT 94
--- NOTE | 2020-08-16 11:33 | MHC.CM.PN ---
nurse critical care technician note electronic medical record reviewed case discussed with staff nurse and orthopedic surgical pa , patient will now be started on sc lovenox i spoke with his bedside nurse and she will have it ordered from pharmacy and begin the teaching for administration, he will require nursing with the critical access hospital in addition to his home physical therapy, i spoke with liawaqas Banks and confirmed that nursing will, out tomorrow 08/17/20
--- NOTE | 2020-08-16 12:15 | W.MHC.F2F ---
Service Date Service Date: 08/16/20 Reasons for Services Reason for physical therapy: home safety and mobility, therapeutic exercises, restore joint function, gait/transfer training and ADL training Reason for occupational therapy: home safety and mobility, therapeutic exercises, restore joint function, gait/transfer training and ADL training Homebound: Leaving the home is medically contraindicated at this time without the asist of a device and/or another person due th the listed conditions above and below. Reason homebound: unsteady gait / fall risk, leg weakness, pain with ambulation, pain with transfers, poor balance / fall risk and unable to drive Homebound supporting statement: Pt. is considered homebound due to recent surgery. Unable to drive, poor balance, poor gait mechanics. Certification: Based on the above findings, I certify that this patient is confined to the home and needs intermittent nursing home care, physical therapy and/or speech therapy, or continues to need occupational therapy. The patient is under my care, and I have initiated the establishment of the plan of care. The patient will be followed by a physician who will periodically review the plan of care.
--- NOTE | 2020-08-16 12:35 | CONS_ITS ---
DATE OF SERVICE: 08/15/2020 REASON FOR CONSULTATION: Consult requested by the orthopedic team to evaluate and help in management of patient with history of end-stage renal disease who is status post renal transplantation, who was admitted status post hip surgery. HISTORY OF PRESENT ILLNESS: The patient is a 45-year-old male with history of long-standing hypertension, history of obstructive sleep apnea, who was admitted for an elective hip surgery. The patient underwent the surgery yesterday and was admitted to the medical floor and renal consult has been requested to help with management of his renal issues. He is status post renal transplantation and followed up by our transplant team. He is resting in the chair at the present time, feeling well. He denies any chest pain. He denies any dysuria or urgency of urination. He does have some pain in the left hip area. He denies any problems with his appetite. His renal function has been stable with a creatinine level of 0.87. PAST MEDICAL HISTORY: History of ESRD on hemodialysis, status post renal transplant at the present time followed up by our renal transplant team, history of allergic rhinitis, asthma, avascular necrosis of both hips, chronic back pain, depression, GERD, history of anxiety, gout, hyperlipidemia, hypertension, hypothyroidism, and obstructive sleep apnea. PAST SURGICAL HISTORY: AV fistula placement. FAMILY HISTORY: Significant for hypertension. PAST SURGICAL HISTORY: Renal transplant done in the past. PERSONAL AND SOCIAL HISTORY: The patient does not smoke at the present time, quit about 2 years ago. Denies recreational drug use. ALLERGIES: INCLUDE IBUPROFEN. MEDICATIONS: Active medications include Tylenol, hydromorphone, , tacrolimus 4 mg daily, ondansetron 4 mg as needed for nausea, oxycodone, senna. He is also on mycophenolate (Myfortic) 540 mg p.o. b.i.d. PHYSICAL EXAMINATION: GENERAL: The patient is resting in the bed. Awake, alert, oriented x3. No significant distress. VITAL SIGNS: Blood pressure was 131/67, pulse 100, temperature 100.5 degree Fahrenheit. HEENT: Pupils equal, round, and reactive bilaterally to light. No jugular venous distention is noted. NECK: Supple. No thyromegaly is noted. Mucosa is moist. There is no scleral icterus or conjunctival congestion. CARDIOVASCULAR SYSTEM: S1, S2 without rub or murmur. RESPIRATORY SYSTEM: Air entry decreased in the bases. ABDOMEN: Obese, soft, nontender. No guarding. No rigidity. Bowel sounds normal. There was no tenderness of the transplant site. Left hip area had surgical dressing. EXTREMITIES: Showed no edema. There is no peripheral cyanosis or clubbing. NEURO: Essentially nonfocal. LABORATORY DATA: Labs done today. WBC 9.1, hemoglobin 12.8, hematocrit 41.3, platelets were normal. Sodium 136, potassium 4.0, chloride 102, CO2 of 27, BUN was 13, creatinine 0.87, glucose 131. IMPRESSION: 1. 45-year-old male with history of ESRD, status post renal transplant with renal function close to his baseline. 2. Status post hip surgery for left hip avascular necrosis. 3. Hypertension. 4. History of asthma. 5. Obstructive sleep apnea. RECOMMENDATIONS: At this juncture, the patient's volume status is acceptable. He is on IV fluids, normal saline at 80 mL/h, and if he is able to take adequate p.o., we can discontinue this IV fluids over the next 24 hours. He should continue his present dose of tacrolimus and Myfortic. We need to monitor his renal function. I discussed with the orthopedic team and informed them that they can use DVT prophylactic dose of Lovenox 40 mg subcu. I would avoid using more than 325 mg of aspirin per day in this patient with history of renal disease and transplant. The patient is discharged. He needs to follow up with renal transplant associate and he has a followup appointment. Thank you for allowing me to participate in the medical management of the patient. MD MAYUR Blackwood/JES / [id number]
--- NOTE | 2020-08-16 13:04 | HO.PM.IMPN ---
Subjective Subjective Date of Service: 08/16/20 Interval History: Patient seen and examined at bedside Patient spiked fever yesterday No fever since last night Denies any cough shortness of breath diarrhea nausea vomiting Reported feeling better Constitutional Constitutional: Denies weakness Cardiovascular Cardiovascular: Denies dyspnea Respiratory Respiratory: Denies dyspnea Gastrointestinal Gastrointestinal: Denies vomiting Neurologic Neurologic: Denies focal weakness and Denies weakness Endocrine Endocrine: Denies no additional endocrine complaints Physical Exam Vital Signs: Vital Signs: Last Vital Signs Temp 97.0 F 08/16/20 11:15 Pulse 91 08/16/20 11:15 Resp 15 08/16/20 11:15 BP 166/93 H 08/16/20 11:15 Pulse Ox 94 08/16/20 11:15 Body Mass Index 29.0 Const: General: cooperative and no acute distress Neck: Neck: Yes normal visual inspection Cardio: Jugular venous distension: no JVD Rate: regular rate GI: Inspection: Yes normal to inspection Auscultation: normal bowel sounds Skin: General skin exam: no rashes or lesions noted Neuro: Motor exam (neuro): 5/5 motor strength present throughout Objective Data Current Medications Generic Name Dose Route Start Last Admin Trade Name Freq PRN Reason Stop Dose Admin Acetaminophen 650 mg 08/14/20 11:08 08/15/20 23:53 Acetaminophen 325 Mg Tablet PO 650 mg Q6H PRN Administration Pain, Mild (Pain Scale 1-3) Albuterol Sulfate 2.5 mg 08/14/20 16:43 Albuterol Sulfate (0.083%) 2.5 Mg/3 Ml Vial.Neb INHALE Q4H PRN Shortness Of Breath Atorvastatin Calcium 20 mg 08/15/20 09:00 08/16/20 09:24 Atorvastatin Calcium 20 Mg Tablet PO 20 mg DAILY [facility] Administration Clonazepam 1 mg 08/14/20 21:00 08/16/20 09:23 Clonazepam 1 Mg Tablet PO 1 mg BID [facility]SEPH Administration Clotrimazole 10 mg 08/14/20 21:00 08/16/20 09:24 Clotrimazole 10 Mg Jaja MUCOUS MEM 10 mg TID JOSEPH Administration Docusate Sodium 100 mg 08/15/20 09:00 08/16/20 09:24 Docusate Sodium 100 Mg Capsule PO 100 mg DAILY [facility] Administration Enoxaparin Sodium 40 mg 08/15/20 10:00 08/16/20 09:24 Enoxaparin Sodium 40 Mg/0.4 Ml Syringe SUBCUT 40 mg Q24H JOSEPH Administration Escitalopram Oxalate 20 mg 08/15/20 09:00 08/16/20 09:23 Escitalopram Oxalate 20 Mg Tablet PO 20 mg DAILY [facility] Administration Fluticasone Propionate 1 spray 08/14/20 16:45 08/16/20 09:34 Fluticasone Propionate Nasal 16 Gm [place] NOSTRIL-B 1 spray DAILY [facility] Administration Hydromorphone HCl 0.25 mg 08/14/20 11:08 08/16/20 03:23 Hydromorphone Hcl 0.5 Mg/0.5 Ml Syringe IVPUSH 0.25 mg Q4H PRN Administration Pain, Severe (Pain Scale 7-10) Dextrose/Sodium Chloride 1,000 mls @ 80 mls/hr 08/14/20 11:08 08/16/20 03:15 D51/2ns IVCONT 80 mls/hr .[id number] [facility]SE[facility] Administration Levothyroxine Sodium 200 mcg 08/14/20 16:45 08/16/20 09:24 Levothyroxine Sodium 200 Mcg Tablet PO 200 mcg DAILY [facility] Administration Magnesium Oxide 200 mg 08/15/20 09:00 08/16/20 09:23 Magnesium Oxide 400 Mg Tablet PO 200 mg DAILY [facility] Administration Montelukast Sodium 10 mg 08/14/20 21:00 08/15/20 20:14 Montelukast Sodium 10 Mg Tablet PO 10 mg BEDTIME [facility] Administration Mycophenolate Sodium 540 mg 08/14/20 21:00 08/16/20 09:23 Mycophenolate Sodium 180 Mg Tablet. PO 540 mg BID [facility]SE[facility] Administration Naloxone HCl 0.2 mg 08/14/20 11:08 Naloxone Hcl 0.4 Mg/Ml Vial IVPUSH Q2M PRN Excessive sedation or RR < 8 Non-Formulary Medication 4 mg 08/15/20 09:00 08/16/20 09:34 Tacrolimus [Envarsus Xr] PO 4 mg DAILY [facility] Administration Omeprazole 40 mg 08/15/20 06:30 08/16/20 06:01 Omeprazole 20 Mg Capsule. PO 40 mg DAILY@0630 [facility] Administration Ondansetron HCl 4 mg 08/14/20 11:08 Ondansetron Hcl 4 Mg/2 Ml Vial IVPUSH Q8H PRN Nausea and Vomiting Oxycodone HCl 10 mg 08/14/20 11:08 08/16/20 06:51 Oxycodone Hcl Immed Release 5 Mg Tablet PO 10 mg Q4H PRN Administration Pain, Moderate (Pain Scale 4-6 Oxycodone HCl 10 mg 08/14/20 21:00 08/16/20 09:24 Oxycodone Hcl Er 10 Mg Tab.Er.12h PO 10 mg BID [facility] Administration Senna 17.2 mg 08/14/20 11:08 Sennosides 8.6 Mg Tablet PO BEDTIME PRN Constipation Sodium Chloride 3 ml 08/14/20 16:00 08/16/20 09:22 0.9 % Sodium Chloride Flush 3 Ml Syringe IVFLUSH Not Given QSHIFT [facility]SEPH Vitamin D 50 mcg 08/15/20 09:00 08/16/20 09:24 Cholecalciferol (Vitamin D3) 25 Mcg Tablet PO 50 mcg DAILY [facility] Administration Zolpidem Tartrate 10 mg 08/14/20 22:15 08/15/20 22:00 Zolpidem Tartrate 5 Mg Tablet PO 10 mg BEDTIME [facility] Administration Labs CBC & Chem 7: 08/16/20 05:50 08/16/20 05:50 Assessment and Plan (1) Asthma: Status: Acute (2) Chronic back pain: Status: Acute (3) CKD (chronic kidney disease): Status: Acute (4) Hypothyroidism: Status: Acute (5) Hyperlipidemia: Status: Acute (6) FLORENTINO (obstructive sleep apnea): Problem details: 2017- Sleep Study Status: Acute Assessment and Plan: 45-year-old male with history of ESRD status post renal transplant last year admitted for elective hip replacement, patient underwent EHSAN, Medicine was consulted for medical management Status post EHSAN Continue pain managemen Management per Ortho Spiked fever yesterday etiology not clear likely postop resolved now No fever since last night UA was negative Repeat COVID test was negative Chest x-ray shows left basilar infiltrates versus atelectasis but patient has no respiratory symptoms denies any cough shortness of breath No need for antibiotic at this time Cultures pending Asthma stable Continue inhaler as needed History of renal transplant Continue mycophenolate and tacrolimus Hypothyroidism Continue levothyroxine History of GERD Continue Prilosec History of anxiety and depression Continue Klonopin and citalopram Sleep apnea Continue CPAP at night DVT prophylaxis Lovenox per Ortho
--- NOTE | 2020-08-16 18:56 | P.DS_ITS ---
DS: Providers Provider Date of Service: 08/16/20 Date of admission: 08/14/20 06:00 Primary care physician: Shaka Ashley MD Consults: 08/14/20 11:08 Consult to Hospitalist Routine Consulting Provider: Hospitalist Reason For Exam: post op medical management, s/p kidney transplant Consult to Nephrology Routine Consulting Provider: Gilson Lester Reason for consultation: h/o kidney transplant, recs for post op dvt ppx DS: Diagnosis Discharge Diagnosis (1) Asthma: Status: Acute (2) Chronic back pain: Status: Acute (3) CKD (chronic kidney disease): Status: Acute (4) Hypothyroidism: Status: Acute (5) Hyperlipidemia: Status: Acute (6) FLORENTINO (obstructive sleep apnea): Status: Acute Problem details: 2018- Sleep Study (7) Status post total hip replacement, left: Status: Acute Problem details: Mr. Tyrone Bundy is a 45 yo male who presented to the office with ongoing left hip pain. He was found to have painful AVN of the left hip and failed all conservative treatment. He continued to have difficulties with ambulation and daily activities. Therefore, he consented to move forward with a left total hip arthroplasty. DS: Medications Discharge Medications Home Medications: Home Medications Medication Instructions Recorded Confirmed albuterol sulfate 2.5 mg INHALATION NEEDED PRN 04/11/20 08/14/20 atorvastatin 20 mg tablet 20 mg PO DAILY 04/11/20 08/03/20 clonazepam 1 mg tablet 1 mg PO BID 04/11/20 08/14/20 clotrimazole 10 mg wally 10 mg MUCOUS MEMBRANE TID 04/11/20 08/03/20 levothyroxine 200 mcg tablet 200 mcg PO DAILY 04/11/20 08/03/20 montelukast 10 mg tablet 10 mg PO BEDTIME 04/11/20 08/03/20 omeprazole 20 mg capsule,delayed 40 mg PO DAILY 04/11/20 08/14/20 release cholecalciferol (vitamin D3) 1 cap PO DAILY 08/03/20 08/03/20 citalopram 1 tab PO DAILY 08/03/20 08/03/20 docusate sodium [Stool Softener] 100 mg PO DAILY 08/03/20 08/03/20 fluticasone propionate 1 spray INTRANASAL DAILY 08/03/20 08/14/20 magnesium oxide 1 tab PO DAILY 08/03/20 08/03/20 oxycodone 1 tab PO TID PRN 08/03/20 08/03/20 zolpidem 1 tab PO BEDTIME 08/03/20 08/03/20 Envarsus XR 4 mg PO QAM 08/07/20 08/07/20 mycophenolate sodium [Myfortic] 540 mg PO BID 08/07/20 08/07/20 Previous Rx's Medication Instructions Recorded Raised toilet seat #1 ea 08/09/20 walker #1 ea 08/09/20 acetaminophen 650 mg PO Q6H PRN 30 Days #240 tab 08/16/20 aspirin 81 mg PO DAILY 30 Days #30 tab 08/16/20 enoxaparin 40 mg/0.4 mL 40 mg SUBCUT DAILY 28 Days #11.2 ml 08/16/20 subcutaneous syringe oxycodone 10 mg PO Q6H PRN #28 tab 08/16/20 sennosides [Senna Lax] 17.2 mg PO BEDTIME PRN 30 Days tab 08/16/20 DS: Summary Hospital Course Hospital Course: Mr. Tyrone Bundy underwent a successful left total hip arthroplasty, they were transferred to PACU and then to the floor to recover. During their stay, their vitals were stable, afebrile at 97.0. Labs were unremarkable, H/H 13.0/42.4. POD 1 they were started on Lovenox 40 mg SubQ qd for DVT ppx, he also received Physical Therapy services twice a day. Prior to discharge, their dressing was changed, incision clean dry and intact, new Aquacel dressing applied and the plan was to be discharged home with VNA services. Time Spent with Patient Time attestation: Total time spent providing and/or coordinating discharge services: Discharge coordination time: Less than 30 minutes Physical Exam Vital Signs: Vital Signs: Last Vital Signs Temp 97.0 F 08/16/20 11:15 Pulse 91 08/16/20 11:15 Resp 15 08/16/20 11:15 BP 166/93 H 08/16/20 11:15 Pulse Ox 94 08/16/20 11:15 Body Mass Index 29.0 Const: General: cooperative, healthy appearing and no acute distress Resp: Effort & Inspection: normal respiratory effort and able to speak in complete sentences Cardio: Rate: regular rate Peripheral pulses: Peripheral pulses 2+ throughout GI: Palpation (GI): Soft to palpation Skin: Lesions: no lesions Rashes: no rashes Extrem: Other: Left hip no ecchymosis, redness, or drainage. Eloise intact. Incision is approximated and healing well. Aquacel dressing was changed, clean, dry, and intact. NVI. DS: Data Data Completed and Pending Completed studies during hospitalization [Text1]: Pending at discharge 08/14/20 09:03 Surgical [PTH] Routine Labs on day of discharge: Laboratory Results - last 24 hr 08/16/20 08/16/20 08/16/20 03:20 05:50 05:50 WBC 7.9 RBC 4.88 Hgb 13.0 L Hct 42.4 MCV 86.9 MCH 26.6 L MCHC 30.7 L RDW 12.9 Plt Count 185 MPV 11.2 Immature Gran % (Auto) 0.3 Neut % (Auto) 72.6 Lymph % (Auto) 12.9 L [place] % (Auto) 12.7 H Eos % (Auto) 1.1 Baso % (Auto) 0.4 Lymph # (Auto) 1.0 L [place] # (Auto) 1.0 Eos # (Auto) 0.1 Baso # (Auto) 0.0 Abs Immat Gran (auto) 0.02 Absolute Neuts (auto) 5.7 Absolute Nucleated RBC 0.000 Nucleated RBC % (auto) 0.0 Sodium 138 Potassium 4.4 Chloride 101 Carbon Dioxide 30 H Anion Gap 11 L BUN 10 Creatinine 0.99 Estim Creat Clear Calc 103.1 Estimated GFR > 60 Fasting Glucose 150 H Calcium 9.1 D Urine Color YELLOW Urine Appearance CLEAR Urine pH 6.5 Ur Specific [place] 1.015 Urine Protein NEG Urine Glucose (UA) NEG Urine Ketones NEG Urine Blood NEG Urine Nitrite NEG Ur Leukocyte Esterase NEG COVID-19 (EDVIN) COVID-19 Clin Com 08/16/20 07:55 WBC RBC Hgb Hct MCV MCH MCHC RDW Plt Count MPV Immature Gran % (Auto) Neut % (Auto) Lymph % (Auto) [place] % (Auto) Eos % (Auto) Baso % (Auto) Lymph # (Auto) [place] # (Auto) Eos # (Auto) Baso # (Auto) Abs Immat Gran (auto) Absolute Neuts (auto) Absolute Nucleated RBC Nucleated RBC % (auto) Sodium Potassium Chloride Carbon Dioxide Anion Gap BUN Creatinine Estim Creat Clear Calc Estimated GFR Fasting Glucose Calcium Urine Color Urine Appearance Urine pH Ur Specific [place] Urine Protein Urine Glucose (UA) Urine Ketones Urine Blood Urine Nitrite Ur Leukocyte Esterase COVID-19 (EDVIN) Negative COVID-19 Clin Com See Note Discharge Plan Discharge Patient Disposition: Home Health Service Referrals: [facility] [Outside] - 1 Day (REFERRAL TO [facility] FOR HOME PHYSICAL THEAPRY PATIENT TO SELF RESUME HIS COUNSELING TRANSPORTATION FAMILY PCP PATIENT TO CALL FOR POST HOSPITAL DISCHARGE FOLLOW UP ORTHOPEDIC SURGERY FOLLOW UP INDICATED ON THE DISCHARGE INSTRUCTIONS) Caleb Calvert PA-C [Physician Insect Control Aide] - (08/30/20 at 2:15pm ) Discharge Medications: New acetaminophen 325 mg Tablet 650 mg PO Q6H PRN (Reason: Pain, Mild (Pain Scale 1-3)) 30 Days Qty: 240 RF: 0 sennosides [Senna Lax] 8.6 mg Tablet 17.2 mg PO BEDTIME PRN (Reason: Constipation) 30 Days RF: 0 oxycodone 10 mg tablet 10 mg PO Q6H PRN (Reason: pain, mild) Qty: 28 RF: 0 aspirin 81 mg tablet,delayed release (DR/EC) 81 mg PO DAILY 30 Days Qty: 30 RF: 0 Continued enoxaparin [Lovenox] 40 mg/0.4 mL syringe 40 mg subcut DAILY 28 Days Qty: 11.2 RF: 0 citalopram 40 mg tablet 1 tab PO DAILY RF: 0 docusate sodium [Stool Softener] 100 mg capsule 100 mg PO DAILY RF: 0 zolpidem 10 mg tablet 1 tab PO BEDTIME RF: 0 fluticasone propionate 50 mcg/actuation spray,suspension 1 spray intranasal DAILY RF: 0 magnesium oxide 250 mg magnesium tablet 1 tab PO DAILY RF: 0 oxycodone 10 mg tablet 1 tab PO TID PRN (Reason: Pain) RF: 0 cholecalciferol (vitamin D3) 50 mcg (2,000 unit) capsule 1 cap PO DAILY RF: 0 mycophenolate sodium [Myfortic] 180 mg Tablet,Delayed Release (Dr/Ec) 540 mg PO BID RF: 0 Envarsus XR 1 mg Tablet Extended Release 24 Hr 4 mg PO QAM RF: 0 omeprazole 20 mg capsule,delayed release(DR/EC) 40 mg PO DAILY RF: 0 clotrimazole 10 mg wally 10 mg mucous membrane TID RF: 0 atorvastatin 20 mg tablet 20 mg PO DAILY RF: 0 clonazepam 1 mg tablet 1 mg PO BID RF: 0 levothyroxine 200 mcg tablet 200 mcg PO DAILY RF: 0 albuterol sulfate 2.5 mg /3 mL (0.083 %) solution for nebulization 2.5 mg inhalation NEEDED PRN (Reason: Shortness Of Breath) RF: 0 montelukast 10 mg tablet 10 mg PO BEDTIME RF: 0 (DME) walker Misc See Rx Instructions .MEDSUPPLY Qty: 1 RF: 0 (DME) Raised toilet seat See Rx Instructions .ROUTE .MEDSUPPLY Qty: 1 RF: 0 Discontinued aspirin [Adult Low Dose Aspirin] 81 mg tablet,delayed release (DR/EC) 81 mg PO DAILY RF: 0 Discharge Orders: Discharge Order (Routine); Ordered 08/16/20 Ordered By: Tamia Jon Diet: regular diet Activity on Discharge: Use cane or walker Stand Alone Forms: Patient Portal Discharge page Care Plan Goals: restor fx of left hip Health Concerns: none Plan of Treatment: * Physical Therapy for Total hip arthroplasty: posterior precautions, gait training, ROM, strength * Limit stair climbing * No showering, no tub bath-keep dressing clean, dry and intact * No driving x6 weeks * Continue Lovenox tabs once a day x 4 weeks * Follow up with [facility] Orthopedics in 2 weeks Discharge Date/Time: 08/16/20 12:45
== END 2020-08-16 12:45 | disposition home health service (06) | DRG 469 ==
LOC: HO.SSSA 06:02 → HO.S3 10:27
PROVIDERS: Internal Medicine; Physician Assistant; Admitting Provider Orthopaedic Surgery; PCP Internal Medicine Geriatric Medicine; Visit Provider Orthopaedic Surgery
PROC: 0SRB0JA Replacement of Left Hip Joint with Synthetic Substitute, Uncemented, Open Approach (ICD-10-PCS; CPT 27130; principal; 2020-08-14 07:30)
DX: M87.9 Osteonecrosis, unspecified (principal); N18.6 End stage renal disease; Z94.0 Kidney transplant status; I12.0 Hypertensive chronic kidney disease with stage 5 chronic kidney disease or end stage renal disease; K21.9 Gastro-esophageal reflux disease without esophagitis; J45.909 Unspecified asthma, uncomplicated; G89.29 Other chronic pain; M54.9 Dorsalgia, unspecified; E03.9 Hypothyroidism, unspecified; E78.5 Hyperlipidemia, unspecified; G47.33 Obstructive sleep apnea (adult) (pediatric); Z99.2 Dependence on renal dialysis; Z20.822 Contact with and (suspected) exposure to COVID-19; Z79.52 Long term (current) use of systemic steroids; Z79.82 Long term (current) use of aspirin; Z79.891 Long term (current) use of opiate analgesic; Z79.899 Other long term (current) drug therapy
CPT/HCPCS: 36415; 71045; 72170; 80048; 81003; 85025; 86850; 86900; 86901; 87040; 87635; 87640; 87641; 88304; 88305; 88311; 93005; 97110; 97116; 97161; 97165; 97535; C1776; J0131; J0690; J1100; J1170; J1650; J2250; J2405; J3010

== ENCOUNTER 2020-08-18 11:17 | Emergency (ER) | payer OTHER, SELFPAY ==
--- NOTE | ~2020-08-18 | XR_ITS ---
EXAMINATION: CHEST 2 VIEWS CLINICAL INFORMATION: Fever. COMPARISON: August 16, 2020. TECHNIQUE: PA and lateral views of the chest were obtained. FINDINGS: The cardiac silhouette is not enlarged. The mediastinal and hilar contours are unremarkable. There are neither pleural effusions nor pneumothoraces. There are no consolidations. The osseous structures are unremarkable. XR/XR chest 2V IMPRESSION: No evidence for acute disease.
[2020-08-18 11:26] VITALS: BP 128/88; PULSE 100; PULSE 108; RESP 16; TEMP 36.6; O2SAT 94; O2SAT 96; BMI 27.9
[2020-08-18 12:09] VITALS: BP 144/86; PULSE 98; RESP 18; TEMP 36.9; O2SAT 96
--- NOTE | 2020-08-18 12:42 | ED_ITS ---
HPI - Fever General Chief Complaint: Fever Stated Complaint: S/P HIP REPLACEMENT,FEVER Time Seen by Provider: 08/18/20 11:46 Source: patient Mode of arrival: ambulatory Limitations: no limitations History of Present Illness HPI Narrative: 45-year-old male with a past medical history of hypertension, obstructive sleep apnea, history of end-stage renal disease status post renal transplant in 2019 (on envarnus and cellcept), allergic rhinitis, asthma, avascular necrosis of bilateral hips, chronic back pain, depression, GERD, anxiety, gout, hyperlipidemia, hypothyroidism here with reports of fever. Per patient he was discharged from this facility on August 16 after being admitted for left total hip for avascular necrosis. He tells me that he has had intermittent fevers during his hospitalization which have continued at home with a max temp of a 100.6 degrees. Took APAP [employer]. Patient denies cough, shortness of breath, abdominal pain, vomiting, diarrhea, urinary symptoms. Tells me he does have some pain at the left hip surgical site and a dressing was changed once with no reports of redness or drainage. On lovenox SQ daily since post-operative. MD elicited complaint: fever Related Data Home Medications Medication Instructions Recorded Confirmed albuterol sulfate 2.5 mg INHALATION NEEDED PRN 04/11/20 08/14/20 atorvastatin 20 mg tablet 20 mg PO DAILY 04/11/20 08/03/20 clonazepam 1 mg tablet 1 mg PO BID 04/11/20 08/14/20 clotrimazole 10 mg wally 10 mg MUCOUS MEMBRANE TID 04/11/20 08/03/20 levothyroxine 200 mcg tablet 200 mcg PO DAILY 04/11/20 08/03/20 montelukast 10 mg tablet 10 mg PO BEDTIME 04/11/20 08/03/20 omeprazole 20 mg capsule,delayed 40 mg PO DAILY 04/11/20 08/14/20 release cholecalciferol (vitamin D3) 1 cap PO DAILY 08/03/20 08/03/20 citalopram 1 tab PO DAILY 08/03/20 08/03/20 docusate sodium [Stool Softener] 100 mg PO DAILY 08/03/20 08/03/20 fluticasone propionate 1 spray INTRANASAL DAILY 08/03/20 08/14/20 magnesium oxide 1 tab PO DAILY 08/03/20 08/03/20 oxycodone 1 tab PO TID PRN 08/03/20 08/03/20 zolpidem 1 tab PO BEDTIME 08/03/20 08/03/20 Envarsus XR 4 mg PO QAM 08/07/20 08/07/20 mycophenolate sodium [Myfortic] 540 mg PO BID 08/07/20 08/07/20 Previous Rx's Medication Instructions Recorded Raised toilet seat #1 ea 08/09/20 walker #1 ea 08/09/20 acetaminophen 650 mg PO Q6H PRN 30 Days #240 tab 08/16/20 aspirin 81 mg PO DAILY 30 Days #30 tab 08/16/20 enoxaparin 40 mg/0.4 mL 40 mg SUBCUT DAILY 28 Days #11.2 ml 08/16/20 subcutaneous syringe oxycodone 10 mg PO Q6H PRN #28 tab 08/16/20 sennosides [Senna Lax] 17.2 mg PO BEDTIME PRN 30 Days tab 08/16/20 Allergies Allergy/AdvReac Type Severity Reaction Status Date / Time ibuprofen [From MOTRIN] Allergy Unknown PT STATES Verified 08/07/20 11:50 HE CAN'T TAKE BECAUSE OF MY KIDNEY GRASS Allergy Unknown SINUS Uncoded 08/07/20 11:50 PROBLEMS Review of Systems Review of Systems: Yes all other systems are reviewed and are negative Constitutional: Constitutional: Reports no additional constitutional complaints, Denies body ache(s), Denies chills, Reports fever(s), Denies headache(s) and Denies weakness Eyes: Eyes: Reports no additional eye complaints and Denies change in vision ENT: Reports system reviewed and no additional complaints, except as documented, Denies dizziness, Denies headache(s), Denies nasal congestion, Denies nasal discharge and Denies neck pain Cardiovascular: Cardiovascular: Reports no additional cardiovascular complaints, Denies chest pain, Denies leg edema and Denies dyspnea Respiratory: Respiratory: Reports no additional respiratory complaints, Denies cough and Denies dyspnea Gastrointestinal: Gastrointestinal: Reports no additional gastrointestinal complaints, Denies abdominal pain, Denies diarrhea, Denies nausea and Denies vomiting Genitourinary: Genitourinary: Denies urinary incontinence Musculoskeletal: Musculoskeletal: Reports no additional musculoskeletal complaints, Denies back pain, Reports arthralgias, Denies joint swelling, Denies neck pain, Denies numbness and Denies tingling Integumentary/Breasts: Skin/Breast: Reports system reviewed and no additional complaints, except as docu and Denies rash Neurologic: Reports system reviewed and no additional complaints, except as documented, Denies Abnormal speech present, Denies dizziness, Denies headache(s), Denies numbness, Denies tingling and Denies weakness PMFSH Past Medical History Attestation statement: The following information was validated with the patient. Source: old records reviewed and nursing notes reviewed Medical History A-V fistula Allergic rhinitis Asthma Avascular necrosis Avascular necrosis of bones of both hips Chronic back pain CKD (chronic kidney disease) Depression ESRD (end stage renal disease) GERD (gastroesophageal reflux disease) Hx of anxiety disorder Hx of gout Hyperlipidemia Hypertension Hypothyroidism FLORENTINO (obstructive sleep apnea) Surgical History Kidney replaced by transplant Family History Family History Mother No problems noted. Father No problems noted. Social History Social History Alcohol intake: never Smoking Status: Never smoker Smoked in Last 30 Days: No Second Hand Smoke Exposure: No Use of substances other than those prescribed or required for medical reasons: No Advance Directives: No Advance Directives Information Provided: Yes service: No Current occupational status: disabled Current occupation: Right Handed Physical Exam Vital Signs: Vital Signs: Last Vital Signs Temp 98.4 F 08/18/20 12:09 Pulse 98 08/18/20 12:09 Resp 18 08/18/20 12:09 BP 144/86 H 08/18/20 12:09 Pulse Ox 96 08/18/20 12:09 Body Mass Index 27.9 Const: General: cooperative, healthy appearing, comfortable and no acute distress Orientation/consciousness: patient oriented x3 Limitations: no limitations HENMT: Head: Yes normal to inspection Ears: hearing grossly normal bilaterally General nose exam: Normal external nose present Face and sinus: Yes normal facial exam Mouth: Normal oral and palatal mucosa present Throat: Yes posterior oropharynx normal Eyes: General: appearance normal, both eyes and all related structures Pupils: Equal, round and reactive pupils present Neck: Neck: Yes normal visual inspection Chest: Chest palpation & inspection: normal inspection of the chest Resp: Effort & Inspection: normal respiratory effort Auscultation: clear to auscultation bilaterally Cardio: Rate: regular rate Rhythm: regular rhythm Peripheral pulses: Peripheral pulses 2+ throughout GI: Inspection: Yes normal to inspection Palpation (GI): Soft to palpation and nontender Auscultation: normal bowel sounds Back/Spine/Pelvis: Thoracic/Lumbar Spine: thoracic and lumbar spine normal to inspection Skin: General skin exam: no rashes or lesions noted Neuro: General: patient oriented x3, no focal motor deficits and normal sensation to monofilament Cranial nerves: Yes Equal, round and reactive pupil s present Cognition (Neuro): normal cognition Speech: No Abnormal speech present Gait exam (Neuro): Normal gait present Motor exam (neuro): 5/5 motor strength present throughout Extrem: Other: Surgical sites noted to the left hip. Dressing was removed and there are shiraz present which are intact, the area is well approximated. There is no redness, drainage. General: Yes normal to inspection Course Course Course Narrative: 45-year-old male postop day 5 for left total hip for AVN here with reports of intermittent fever since postoperative. Max temp a 100.6 degrees. No complaints other than some mild discomfort at the surgical incision site. Will check labs including blood cultures and lactic acid, COVID screen, chest x- ray, UA 1300-Labs unremarkable. COVID screen negative. CXR negative. UA pending. No fever here. From patient's reports only having low grade fevers intermittent, ?post-operative. Orthopedic PA Nando) made aware with no additional recommendations. To f/u in office. 1400-UA negative. Will discuss with renal d/t history of transplant. 1500-discussed with renal. Less likely rejection with normal creatinine. Do not give prophylactic antibiotic. They will follow-up with patient in the office on Thursday. Orthopedics was updated on plan of care. Reviewed worrisome signs and symptoms and when to return to the emergency department. Comfortable discharge home. MDM - Fever MDM Narrative Medical decision making narrative: UTI, pneumonia, viral syndrome, infected surgical site, PE, transplant rejection Less likely UTI with normal UA. Less likely COVID 19 with negative test. Less likely PNA with negative chest x-ray and no symptoms of cough or shortness of breath. Less likely infected surgical site with normal appearance. Less likely PE with no hypoxia, no tachycardia, no clinical signs and symptoms of DVT and no reports of shortness of breath or cough or chest discomfort. Medical Records Attestation: I reviewed the patient's medical records. Lab Data Attestation: I reviewed the patient's lab results. Result diagrams: 08/18/20 12:35 08/18/20 12:35 Labs: Lab Results 08/18/20 08/18/20 08/18/20 Range/Units 12:35 12:35 12:35 WBC 7.0 (4.8-10.8) X10*3/uL RBC 4.39 L (4.60-5.80) X10*6/uL Hgb 11.5 L (14.0-18.0) g/dl Hct 37.7 L (42-52) % MCV 85.9 (80-98) fL MCH 26.2 L (27.0-33.0) pg MCHC 30.5 L (31.0-36.0) g/dl RDW 12.6 (11.0-16.0) % Plt Count 215 (160-400) X10*3/uL MPV 11.1 (9.4-12.4) fL Immature Gran % (Auto) 0.3 (0.0-0.4) % Neut % (Auto) 71.4 (45-73) % Lymph % (Auto) 14.6 L (20-40) % [place] % (Auto) 10.7 (2-11) % Eos % (Auto) 2.9 (0-4) % Baso % (Auto) 0.1 (0-2) % Lymph # (Auto) 1.0 L (1.2-4.9) X10*3/uL [place] # (Auto) 0.8 (0.1-1.2) X10*3/uL Eos # (Auto) 0.2 (0.0-0.4) X10*3/uL Baso # (Auto) 0.0 (0.0-0.2) X10*3/uL Abs Immat Gran (auto) 0.02 (0.00-0.03) X10*3/uL Absolute Neuts (auto) 5.0 (2.0-8.3) X10*3/uL Absolute Nucleated RBC 0.000 (0.0-0.012) X10*3/uL Nucleated RBC % (auto) 0.0 (0.0-0.2) /100WBC PT 13.6 H (10.8-13.0) SEC INR 1.1 (0.9-1.1) Sodium 137 (135-145) mmol/L Potassium 4.1 (3.3-5.1) mmol/L Chloride 103 (96-108) mmol/L Carbon Dioxide 29 (22-29) mmol/L Anion Gap 9 L (12-20) BUN 11 (9-16) mg/dL Creatinine 0.81 (0.5-1.4) mg/dL Estim Creat Clear Calc 130.3 Estimated GFR > 60 Random Glucose 125 H (60-115) mg/dL Lactic Acid (0.5-2.0) mmol/L Calcium 8.6 (8.4-10.2) mg/dL Magnesium 1.7 (1.6-2.6) mg/dL Total Bilirubin 0.6 (0.0-1.0) mg/dL Direct Bilirubin 0.3 (0.0-0.5) mg/dL AST 32 (5-37) U/L ALT 31 (0-40) U/L Alkaline Phosphatase 75 (39-117) U/L Total Protein 6.1 L (6.5-8.0) g/dL Albumin 3.6 (3.5-5.0) g/dL Urine Color Urine Appearance Urine pH (5.0-8.0) Ur Specific [place] (1.005-1.025) Urine Protein (NEG-TRACE) MG/DL Urine Glucose (UA) (NEG) MG/DL Urine Ketones (NEG) MG/DL Urine Blood (NEG) Urine Nitrite (NEG) Ur Leukocyte Esterase (NEG) COVID-19 (EDVIN) (Negative) COVID-19 Clin Com 08/18/20 08/18/20 08/18/20 Range/Units 12:35 12:36 13:33 WBC (4.8-10.8) X10*3/uL RBC (4.60-5.80) X10*6/uL Hgb (14.0-18.0) g/dl Hct (42-52) % MCV (80-98) fL MCH (27.0-33.0) pg MCHC (31.0-36.0) g/dl RDW (11.0-16.0) % Plt Count (160-400) X10*3/uL MPV (9.4-12.4) fL Immature Gran % (Auto) (0.0-0.4) % Neut % (Auto) (45-73) % Lymph % (Auto) (20-40) % [place] % (Auto) (2-11) % Eos % (Auto) (0-4) % Baso % (Auto) (0-2) % Lymph # (Auto) (1.2-4.9) X10*3/uL [place] # (Auto) (0.1-1.2) X10*3/uL Eos # (Auto) (0.0-0.4) X10*3/uL Baso # (Auto) (0.0-0.2) X10*3/uL Abs Immat Gran (auto) (0.00-0.03) X10*3/uL Absolute Neuts (auto) (2.0-8.3) X10*3/uL Absolute Nucleated RBC (0.0-0.012) X10*3/uL Nucleated RBC % (auto) (0.0-0.2) /100WBC PT (10.8-13.0) SEC INR (0.9-1.1) Sodium (135-145) mmol/L Potassium (3.3-5.1) mmol/L Chloride (96-108) mmol/L Carbon Dioxide (22-29) mmol/L Anion Gap (12-20) BUN (9-16) mg/dL Creatinine (0.5-1.4) mg/dL Estim Creat Clear Calc Estimated GFR Random Glucose (60-115) mg/dL Lactic Acid 0.7 (0.5-2.0) mmol/L Calcium (8.4-10.2) mg/dL Magnesium (1.6-2.6) mg/dL Total Bilirubin (0.0-1.0) mg/dL Direct Bilirubin (0.0-0.5) mg/dL AST (5-37) U/L ALT (0-40) U/L Alkaline Phosphatase (39-117) U/L Total Protein (6.5-8.0) g/dL Albumin (3.5-5.0) g/dL Urine Color YELLOW Urine Appearance CLEAR Urine pH 7.0 (5.0-8.0) Ur Specific [place] 1.010 (1.005-1.025) Urine Protein NEG (NEG-TRACE) MG/DL Urine Glucose (UA) NEG (NEG) MG/DL Urine Ketones NEG (NEG) MG/DL Urine Blood NEG (NEG) Urine Nitrite NEG (NEG) Ur Leukocyte Esterase NEG (NEG) COVID-19 (EDVIN) Negative (Negative) COVID-19 Clin Com See Note Imaging Data Chest x-ray: Attestation: I personally reviewed and interpreted this imaging study as follows: Radiologist's impression: cc: EZEQUIEL [employer]OR TESTER~ EXAMINATION: CHEST 2 VIEWS CLINICAL INFORMATION: Fever. COMPARISON: August 16, 2020. TECHNIQUE: PA and lateral views of the chest were obtained. FINDINGS: The cardiac silhouette is not enlarged. The mediastinal and hilar contours are unremarkable. There are neither pleural effusions nor pneumothoraces. There are no consolidations. The osseous structures are unremarkable. XR/XR chest 2V IMPRESSION: No evidence for acute disease. Discharge Plan Discharge Clinical Impression: Fever Patient Disposition: Home, Self-Care Instructions: Fever in Adults (ED) Additional Instructions: Continue to monitor temperatures. Return here for high fever or any other symptoms that are concerning. I did speak to Nephrology and they will follow-up with you on Thursday. I also spoke to the orthopedic team and they are aware that your here. Continue your follow-up with them Prescriptions: No Action enoxaparin [Lovenox] 40 mg/0.4 mL syringe 40 mg subcut DAILY 28 Days Qty: 11.2 RF: 0 citalopram 40 mg tablet 1 tab PO DAILY RF: 0 docusate sodium [Stool Softener] 100 mg capsule 100 mg PO DAILY RF: 0 zolpidem 10 mg tablet 1 tab PO BEDTIME RF: 0 fluticasone propionate 50 mcg/actuation spray,suspension 1 spray intranasal DAILY RF: 0 magnesium oxide 250 mg magnesium tablet 1 tab PO DAILY RF: 0 oxycodone 10 mg tablet 1 tab PO TID PRN (Reason: Pain) RF: 0 cholecalciferol (vitamin D3) 50 mcg (2,000 unit) capsule 1 cap PO DAILY RF: 0 mycophenolate sodium [Myfortic] 180 mg Tablet,Delayed Release (Dr/Ec) 540 mg PO BID RF: 0 Envarsus XR 1 mg Tablet Extended Release 24 Hr 4 mg PO QAM RF: 0 acetaminophen 325 mg Tablet 650 mg PO Q6H PRN (Reason: Pain, Mild (Pain Scale 1-3)) 30 Days Qty: 240 RF: 0 sennosides [Senna Lax] 8.6 mg Tablet 17.2 mg PO BEDTIME PRN (Reason: Constipation) 30 Days RF: 0 oxycodone 10 mg tablet 10 mg PO Q6H PRN (Reason: pain, mild) Qty: 28 RF: 0 aspirin 81 mg tablet,delayed release (DR/EC) 81 mg PO DAILY 30 Days Qty: 30 RF: 0 omeprazole 20 mg capsule,delayed release(DR/EC) 40 mg PO DAILY RF: 0 clotrimazole 10 mg wally 10 mg mucous membrane TID RF: 0 atorvastatin 20 mg tablet 20 mg PO DAILY RF: 0 clonazepam 1 mg tablet 1 mg PO BID RF: 0 levothyroxine 200 mcg tablet 200 mcg PO DAILY RF: 0 albuterol sulfate 2.5 mg /3 mL (0.083 %) solution for nebulization 2.5 mg inhalation NEEDED PRN (Reason: Shortness Of Breath) RF: 0 montelukast 10 mg tablet 10 mg PO BEDTIME RF: 0 (DME) walker Misc See Rx Instructions .MEDSUPPLY Qty: 1 RF: 0 (DME) Raised toilet seat See Rx Instructions .ROUTE .MEDSUPPLY Qty: 1 RF: 0 Referrals: Name,MD Shaka [Primary Care Provider] - 2 days Interventions: ED Discharge Assessment Last Done: 08/18/20 15:51 Discharge Date/Time: 08/18/20 16:47
[2020-08-18 12:45] LABS: MANUAL DIFF FLAG NO
[2020-08-18 12:47] LABS: Basophils Percent Auto 0.1 % (0-2); Eosinophils Absolute Auto 0.2 X10*3/uL (0.0-0.4); Eosinophils Percent Auto 2.9 % (0-4); Hematocrit 37.7 % (42-52); Hemoglobin 11.5 g/dl (14.0-18.0); Imm Gran Abs Auto 0.02 X10*3/uL (0.00-0.03); Imm Gran Pct Auto 0.3 % (0.0-0.4); Lymphocytes Percent Auto 14.6 % (20-40); Mean Corpuscular HGB Conc 30.5 g/dl (31.0-36.0); Mean Corpuscular Hemoglobin 26.2 pg (27.0-33.0); Mean Corpuscular Volume 85.9 fL (80-98); Mean Platelet Volume 11.1 fL (9.4-12.4); Monocytes Absolute Auto 0.8 X10*3/uL (0.1-1.2); Monocytes Percent Auto 10.7 % (2-11); Neutrophils Percent Auto 71.4 % (45-73); Platelet Count 215 X10*3/uL (160-400); Red Blood Count 4.39 X10*6/uL (4.60-5.80); Red Cell Distribution Width 12.6 % (11.0-16.0)
[2020-08-18 12:56] LABS: INTERNATIONAL NORM RATIO 1.1 (0.9-1.1); Prothrombin Time 13.6 SEC (10.8-13.0)
[2020-08-18 13:02] LABS: COVID-19 Test Negative (Negative); IDNOW Serial# 9DD0AD1C
[2020-08-18 13:06] LABS: Lactic Acid 0.7 mmol/L (0.5-2.0)
[2020-08-18 13:13] LABS: Alanine Aminotransferase 31 U/L (0-40); Albumin Level 3.6 g/dL (3.5-5.0); Alkaline Phosphatase 75 U/L (39-117); Anion Gap 9 (12-20); Aspartate Amino Transferase 32 U/L (5-37); Bilirubin Direct 0.3 mg/dL (0.0-0.5); Bilirubin Total 0.6 mg/dL (0.0-1.0); Blood Urea Nitrogen 11 mg/dL (9-16); Calcium 8.6 mg/dL (8.4-10.2); Carbon Dioxide 29 mmol/L (22-29); Chloride 103 mmol/L (96-108); Creatinine Clr Calc Pharmacy 130.3; Estimated Glomerular Filt Rate > 60; Glucose Random 125 mg/dL (60-115); Magnesium 1.7 mg/dL (1.6-2.6); Potassium 4.1 mmol/L (3.3-5.1); Sodium 137 mmol/L (135-145); Total Protein 6.1 g/dL (6.5-8.0)
[2020-08-18 13:42] LABS: Glucose Urine UA NEG (NEG); Leukocyte Esterase Urine NEG (NEG); Nitrite Urine NEG (NEG); Urine Blood NEG (NEG); Urine Ketones NEG (NEG); Urine Protein NEG (NEG-TRACE)
[2020-08-18 13:44] LABS: Appearance Urine CLEAR; Color Urine YELLOW
--- NOTE | 2020-08-18 15:27 | PC.NURSE ---
Received male patient alert and oriented times four. Provider at bedside re-eval. Patient receiving verbal discharge instructions.
[2020-08-18] MEDS: oxyCODONE HCl Immed Release 5 MG TABLET 10 MG PO (15:47)
== END 2020-08-18 16:47 | disposition home or self-care (01) ==
PROVIDERS: Nurse Practitioner Family; Emergency Provider Emergency Medicine Emergency Medical Services; PCP Internal Medicine Geriatric Medicine
DX: R50.9 Fever, unspecified (principal); M25.552 Pain in left hip; Z98.890 Other specified postprocedural states; Z96.642 Presence of left artificial hip joint; Z20.822 Contact with and (suspected) exposure to COVID-19; I10 Essential (primary) hypertension; J45.909 Unspecified asthma, uncomplicated; F32.9 Major depressive disorder, single episode, unspecified; F41.9 Anxiety disorder, unspecified; E78.5 Hyperlipidemia, unspecified; Z94.0 Kidney transplant status; Z79.01 Long term (current) use of anticoagulants; Z79.02 Long term (current) use of antithrombotics/antiplatelets; Z79.899 Other long term (current) drug therapy
CPT/HCPCS: 36415; 71046; 80048; 80076; 81003; 83605; 83735; 85025; 85610; 87040; 87635; 99284

== ENCOUNTER → 2020-08-27 14:42 | Outpatient (BNVA) | payer OTHER, SELFPAY | PROVIDERS: PCP Internal Medicine Geriatric Medicine; Visit Provider Orthopaedic Surgery ==

== ENCOUNTER → 2020-08-30 14:00 | Outpatient (BNVA) | payer OTHER, SELFPAY | PROVIDERS: PCP Internal Medicine Geriatric Medicine; Visit Provider Physician Assistant | DX: Z96.642 Presence of left artificial hip joint (principal) | CPT/HCPCS: 99212 ==

== ENCOUNTER 2020-09-27 08:15 | Outpatient (REF) | payer OTHER, SELFPAY ==
--- NOTE | ~2020-09-27 | XR_ITS ---
EXAMINATION: XR PELVIS XR HIP, LEFT CLINICAL INFORMATION: Pain. COMPARISON: 08/14/2020 TECHNIQUE: AP view of the pelvis. Crosstable lateral view of the left hip. FINDINGS: There is a total left hip arthroplasty. The femoral head component articulates appropriately with the acetabular component. No periprosthetic lucency or fracture. The right hip is well aligned with heterogeneous appearance of the femoral head, unchanged from previous. This may represent avascular process. The pelvic rim is intact. The sacroiliac joints and pubic symphysis are intact. Surgical clips overlie the right pelvis. The bowel gas pattern is unremarkable. XR/XR hip LT 1V IMPRESSION: Total left hip arthroplasty in typical positioning and alignment. Similar heterogeneous appearance of the right femoral head which may represent avascular necrosis.
--- NOTE | ~2020-09-27 | XR_ITS ---
EXAMINATION: XR PELVIS XR HIP, LEFT CLINICAL INFORMATION: Pain. COMPARISON: 08/14/2020 TECHNIQUE: AP view of the pelvis. Crosstable lateral view of the left hip. FINDINGS: There is a total left hip arthroplasty. The femoral head component articulates appropriately with the acetabular component. No periprosthetic lucency or fracture. The right hip is well aligned with heterogeneous appearance of the femoral head, unchanged from previous. This may represent avascular process. The pelvic rim is intact. The sacroiliac joints and pubic symphysis are intact. Surgical clips overlie the right pelvis. The bowel gas pattern is unremarkable. XR/XR pelvis 1-2V IMPRESSION: Total left hip arthroplasty in typical positioning and alignment. Similar heterogeneous appearance of the right femoral head which may represent avascular necrosis.
== END 2020-09-27 08:16 | disposition home or self-care (01) ==
LOC: HO.HOSX 08:15
PROVIDERS: Visit Provider Orthopaedic Surgery
DX: M25.552 Pain in left hip (principal); M87.9 Osteonecrosis, unspecified; I12.0 Hypertensive chronic kidney disease with stage 5 chronic kidney disease or end stage renal disease; N18.6 End stage renal disease; E78.5 Hyperlipidemia, unspecified; E03.9 Hypothyroidism, unspecified; G47.33 Obstructive sleep apnea (adult) (pediatric); J30.1 Allergic rhinitis due to pollen; Z96.642 Presence of left artificial hip joint; Z88.6 Allergy status to analgesic agent
CPT/HCPCS: 72170; 73501; 73502; 99212

== ENCOUNTER 2020-09-27 16:54 | Outpatient (REF) | payer OTHER, SELFPAY ==
--- NOTE | ~2020-09-27 | XR_ITS ---
EXAMINATION: XR HAND/WRIST, LEFT CLINICAL INFORMATION: Pain COMPARISON: None TECHNIQUE: 4 views of the left hand/wrist FINDINGS: There is no fracture or dislocation. Small osteophyte at the radial styloid. Carpal rows are well aligned. Joint spaces are maintained. The soft tissues are unremarkable. XR/XR hand wrist LT IMPRESSION: Mild degenerative change at the distal radius noted. Otherwise unremarkable appearance of the left wrist/hand.
--- NOTE | ~2020-09-27 | XR_ITS ---
EXAMINATION: XR SHOULDER, RIGHT CLINICAL INFORMATION: Pain COMPARISON: None TECHNIQUE: AP external rotation, Grashey, scapular Y, and axillary views of the right shoulder. FINDINGS: There is no fracture or dislocation. The glenohumeral joint is well aligned. The joint space is maintained. The acromioclavicular joint is intact. The visualized lung is clear. The visualized ribs are intact. XR/XR shoulder RT min 2V IMPRESSION: Normal right shoulder.
== END 2020-09-27 16:55 | disposition home or self-care (01) ==
LOC: HO.XRAY 16:54
PROVIDERS: PCP Internal Medicine Geriatric Medicine; Visit Provider Registered Nurse
DX: M25.511 Pain in right shoulder (principal); M25.532 Pain in left wrist; M79.642 Pain in left hand; M25.531 Pain in right wrist
CPT/HCPCS: 73030; 73110; 73130

== ENCOUNTER 2020-10-17 10:00 | Outpatient (RCR) | payer OTHER, SELFPAY ==
--- NOTE | 2020-09-07 14:39 | MHC.PT.EP ---
[facility] [place] Office [place] Office [place] Office [address] [phone] F: [phone] F: [phone] F: [phone] F: [phone] Physical Therapy Plan of Care Date of Evaluation: 09/07/20 Date of Surgery: 08/14/20 L THR SECONDARY TO AVN Diagnosis: L THR Assessment: Pt IS 45 YO M REFERRED TO PT FROM ORTHO ([place]) S/P L THR SECONDARY TO AVN ON 08/14/20. DC HOME 08/15/20 WITH HOME PT UNTIL 2 DAYS AGO. PRESENTS TO PT WITH ANTALGIC GT, L HIP PAIN, DECREASED L HIP STRENGTH AND ROM. SHOULD BENEFIT FROM PT TO ADDRESS THESE ISSUES Frequency and Duration: The patient will be seen 2X/WK X 6 WEEKS Short Term Goals: 1. GT WITH EQUAL STANCE TIME WITHOUT AD 2. INCREASED AWARENESS HIP CARE 3. I HEP WITH DC EX PLAN 4. IMPROVED SLEEP Half-Way Goals: 1. DECREASED L HIP PAIN AT LEAST 50% WITH ADLS 2. INCREASED L HIP STRENGTH 1/2-1 MM GRADE 3. INCREASED L HIP FLEX TO 90 DEGREES 4. IMPROVED SPADI Treatment Plan: Modalities to reduce pain, spasms and effusion. Manual therapy to restore motion and function. Therapeutic exercise to improve strength and flexibility. Neuromuscular re-education for posture and balance. Therapeutic activities to return to functional activities of daily living. Electronically signed by: JESUS CORREA PT Please sign and return to therapist. Thank you for your referral.
--- NOTE | 2020-11-05 15:51 | MHC.PT.DC ---
[facility] [place] Office [place] Office [place] Office [address] [phone] F: [phone] F: [phone] F: [phone] F: [phone] Physical Therapy Discharge Report Diagnosis: L THR Date of Surgery: 08/14/20 L THR SECONDARY TO AVN Date of Evaluation: 09/07/20 Date of Discharge: 11/05/20 Treatments to Date: 12 Cancellations to Date: No Shows to Date: Discharge Status: Achieved Goals Improved Function Independent with HEP Discharge Summary: PER LAST NOTE:Pt able to increase walking pace with no gait deviation and no pain. Pt demonstrating control with lifting and squatting techniques with no pain or deviation. Electronically signed by: JESUS CORREA PT Please sign and return to therapist. Thank you for your referral.
== END 2020-11-05 15:52 | disposition other institution (70) ==
LOC: HO.PT 10:00
PROVIDERS: PCP Internal Medicine Geriatric Medicine; Visit Provider Physician Assistant
DX: Z96.642 Presence of left artificial hip joint (principal)
CPT/HCPCS: 97110; 97112; 97162; 97530; 97535

== ENCOUNTER 2020-11-08 08:32 | Outpatient (REF) | payer OTHER, SELFPAY ==
--- NOTE | ~2020-11-08 | XR_ITS ---
EXAMINATION: XR PELVIS XR HIP, LEFT CLINICAL INFORMATION: Pain. COMPARISON: Most recent pelvic and left hip radiographs dated 09/27/2020. TECHNIQUE: AP view of the pelvis. AP and crosstable lateral views of the left hip. FINDINGS: Left hip arthroplasty. No acute hardware or osseous fracture. No periarticular lucency to suggest loosening or infection. No lytic or blastic osseous lesion. Mild right hip joint space narrowing with small marginal osteophytes, unchanged. Right pelvic surgical clips. XR/XR hip LT 1V IMPRESSION: Left hip arthroplasty without evidence of complication. Wwoa-fk-axbtoiao right hip osteotomy arthritis, unchanged.
--- NOTE | ~2020-11-08 | XR_ITS ---
EXAMINATION: XR PELVIS XR HIP, LEFT CLINICAL INFORMATION: Pain. COMPARISON: Most recent pelvic and left hip radiographs dated 09/27/2020. TECHNIQUE: AP view of the pelvis. AP and crosstable lateral views of the left hip. FINDINGS: Left hip arthroplasty. No acute hardware or osseous fracture. No periarticular lucency to suggest loosening or infection. No lytic or blastic osseous lesion. Mild right hip joint space narrowing with small marginal osteophytes, unchanged. Right pelvic surgical clips. XR/XR pelvis 1-2V IMPRESSION: Left hip arthroplasty without evidence of complication. Enty-wg-puuvpknp right hip osteotomy arthritis, unchanged.
== END 2020-11-08 08:33 | disposition home or self-care (01) ==
LOC: HO.HOSX 08:32
PROVIDERS: Visit Provider Orthopaedic Surgery
DX: M25.561 Pain in right knee (principal); M87.051 Idiopathic aseptic necrosis of right femur; M87.052 Idiopathic aseptic necrosis of left femur; Z96.642 Presence of left artificial hip joint
CPT/HCPCS: 20610; 72170; 73501; 99212; J1100

== ENCOUNTER 2020-12-03 10:15 | Outpatient (REF) | payer OTHER, SELFPAY ==
[2020-12-03 12:23] LABS: Source Synovial Fluid RT KNEE
[2020-12-03 13:00] LABS: MN% 97.2 %; PMN% 2.8 %; WBC Synovial Fluid 0.159 X10*3/uL
[2020-12-03 13:21] LABS: RBC Synovial Fluid < 0.002 X10*6/uL
[2020-12-03 14:09] LABS: Lymphocytes Synovial Fluid 2 %; Monocytes Synovial Fluid 14 %
[2020-12-03 14:10] LABS: BF Shift QC OK YES; Other Cells Synovial Fluid 84
== END 2020-12-03 10:16 | disposition home or self-care (01) ==
LOC: HO.LNP 10:15
PROVIDERS: Visit Provider Orthopaedic Surgery
DX: M25.461 Effusion, right knee (principal)
CPT/HCPCS: 20610; 87071; 87073; 87205; 89051; 89060; 99212

== ENCOUNTER 2020-12-06 10:04 | Outpatient (REF) | payer OTHER, SELFPAY ==
--- NOTE | 2020-12-06 10:08 | EMG_ITS ---
Left median and ulnar motor and sensory studies were performed. Left radial sensory study was performed and paraspinal muscles were tested. IMPRESSION: 1. Cejx-of-vlhaokjn left median neuropathy across carpal tunnel. 2. Mild left ulnar neuropathy across cubital tunnel. MD ALEXIS Patton/JSE / [id number]
== END 2020-12-06 10:05 | disposition home or self-care (01) ==
LOC: HO.NEURO 10:04
PROVIDERS: Visit Provider Registered Nurse
DX: M25.532 Pain in left wrist (principal); M79.642 Pain in left hand
CPT/HCPCS: 95886; 95909

== ENCOUNTER → 2021-01-21 08:21 | Outpatient (BNVA) | payer OTHER, SELFPAY | PROVIDERS: Visit Provider Orthopaedic Surgery | DX: M25.461 Effusion, right knee (principal) | CPT/HCPCS: 99212 ==

== ENCOUNTER → 2021-03-05 10:58 | Outpatient (BNVA) | payer OTHER, SELFPAY | PROVIDERS: PCP Internal Medicine Geriatric Medicine; Referring Provider Internal Medicine Geriatric Medicine; Visit Provider Psychiatry & Neurology Neurology | DX: G47.33 Obstructive sleep apnea (adult) (pediatric) (principal) | CPT/HCPCS: 99202 ==

== ENCOUNTER 2021-03-11 08:47 | Outpatient (REF) | payer OTHER, SELFPAY | END 2021-03-11 08:48 | disposition home or self-care (01) | LOC: HO.MRI 08:47 | PROVIDERS: PCP Internal Medicine Geriatric Medicine; Visit Provider Psychiatry & Neurology Neurology | DX: Z13.89 Encounter for screening for other disorder (principal) ==

== ENCOUNTER 2021-04-01 09:40 | Outpatient (REF) | payer OTHER, SELFPAY ==
--- NOTE | ~2021-04-01 | XR_ITS ---
EXAMINATION: RIGHT WRIST X-RAY CLINICAL INFORMATION: Pain COMPARISON: Previous x-ray July 2019 TECHNIQUE: 4 views of the right wrist FINDINGS: Bone alignment is normal. No fracture or dislocation is seen. The joint spaces are normal. There is soft tissue arterial calcification. There are surgical clips in the soft tissues of the radial distal forearm. XR/XR wrist RT w scaphoid IMPRESSION: Soft tissue arterial calcification and surgical clips in the soft tissues of the distal forearm. Otherwise unremarkable exam
== END 2021-04-01 09:41 | disposition home or self-care (01) ==
LOC: HO.XRAY 09:40
PROVIDERS: PCP Internal Medicine Geriatric Medicine; Visit Provider Psychiatry & Neurology Neurology
DX: M79.641 Pain in right hand (principal)
CPT/HCPCS: 73110

== ENCOUNTER → 2021-06-24 20:50 | Outpatient (REF) | payer OTHER, SELFPAY | LOC: HO.SL 20:50 | PROVIDERS: PCP Internal Medicine Geriatric Medicine; Visit Provider Psychiatry & Neurology Neurology | DX: G47.33 Obstructive sleep apnea (adult) (pediatric) (principal) | CPT/HCPCS: 95810 ==

== ENCOUNTER → 2021-07-23 11:18 | Outpatient (BNVA) | payer OTHER, SELFPAY | PROVIDERS: PCP Internal Medicine Geriatric Medicine; Referring Provider Internal Medicine Geriatric Medicine; Visit Provider Psychiatry & Neurology Neurology | DX: G47.33 Obstructive sleep apnea (adult) (pediatric) (principal) | CPT/HCPCS: 99212 ==

== ENCOUNTER → 2021-10-22 09:00 | Outpatient (BNVA) | payer OTHER, SELFPAY | PROVIDERS: PCP Internal Medicine Geriatric Medicine; Visit Provider Nurse Practitioner Family | DX: G47.33 Obstructive sleep apnea (adult) (pediatric) (principal); Z99.89 Dependence on other enabling machines and devices | CPT/HCPCS: 99212 ==

== ENCOUNTER 2021-10-24 10:06 | Emergency (ER) | payer OTHER, SELFPAY ==
--- NOTE | ~2021-10-24 | XR_ITS ---
EXAMINATION: XR FINGER, RIGHT CLINICAL INFORMATION: Laceration. Injury from saw. Question fracture or foreign body. COMPARISON: None TECHNIQUE: 3 views of the right hand second digit. FINDINGS: There are tiny fracture fragments involving the radial aspect of the tuft of the second digit distal phalanx. This is in the area of soft tissue injury. No additional fractures are seen. Joint spaces are maintained. XR/XR finger RT min 2V IMPRESSION: Injury to the soft tissues of the distal aspect of the second digit with underlying small ossific fragments of the distal phalanx tuft.
[2021-10-24 10:16] VITALS: BP 143/92; PULSE 77; RESP 18; TEMP 37.1; O2SAT 97; BMI 28.1
--- NOTE | 2021-10-24 10:17 | ED_ITS ---
HPI - Wound/Laceration General Chief Complaint: Wound/Laceration Stated Complaint: r index finger laceration Time Seen by Provider: 10/24/21 10:16 Source: patient Mode of arrival: ambulatory Limitations: no limitations History of Present Illness HPI narrative: Patient presents to the emergency department for evaluation of a laceration to his right index finger. He reports prior to arrival wall working with a saw he cut the finger. He placed an elastic bandage over it to stop the bleeding. Reports pain to this area but denies numbness or tingling. Unaware of his last tetanus vaccine. Denies any additional injury to the right hand. Related Data Home Medications Medication Instructions Recorded Confirmed albuterol sulfate 2.5 mg INHALATION NEEDED PRN 04/11/20 10/22/21 atorvastatin 20 mg tablet 20 mg PO DAILY 04/11/20 10/22/21 clonazepam 1 mg tablet 1 mg PO BID 04/11/20 10/22/21 clotrimazole 10 mg wally 10 mg MUCOUS MEMBRANE TID 04/11/20 10/22/21 montelukast 10 mg tablet 10 mg PO BEDTIME 04/11/20 10/22/21 omeprazole 20 mg capsule,delayed 40 mg PO DAILY 04/11/20 10/22/21 release docusate sodium 100 mg capsule 100 mg PO DAILY 08/03/20 10/22/21 (Stool Softener) fluticasone propionate 50 1 spray INTRANASAL DAILY 08/03/20 10/22/21 mcg/actuation nasal spray,suspension magnesium oxide 1 tab PO DAILY 08/03/20 10/22/21 oxycodone 10 mg tablet 1 tab PO TID PRN 08/03/20 10/22/21 zolpidem 10 mg tablet 1 tab PO BEDTIME 08/03/20 10/22/21 mycophenolate sodium 180 mg 540 mg PO BID 08/07/20 10/22/21 tablet,delayed release (Myfortic) tacrolimus 1 mg tablet,extended 4 mg PO QAM 08/07/20 10/22/21 release 24 hr (Envarsus XR) ciclopirox 0.77 % topical cream appl TOPICAL BID 12/03/20 10/22/21 ampicillin 500 mg capsule 0 cap PO 10/22/21 10/22/21 azelastine 0.05 % eye drops 0 drp OPHTHALMIC (EYE) 10/22/21 10/22/21 escitalopram oxalate 5 mg tablet 5 mg PO DAILY 10/22/21 10/22/21 levothyroxine 200 mcg tablet 150 mcg PO .COMPLEX tab 10/22/21 10/22/21 loratadine 10 mg tablet 10 mg PO DAILY 10/22/21 10/22/21 sildenafil 100 mg tablet (Viagra) 100 mg PO DAILY PRN 10/22/21 10/22/21 Previous Rx's Medication Instructions Recorded Raised toilet seat #1 ea 08/09/20 walker #1 ea 08/09/20 aspirin 81 mg tablet,delayed 81 mg PO DAILY 30 Days #30 tab 08/16/20 release cane #1 ea 08/30/20 acetaminophen 325 mg tablet 650 mg PO Q6H PRN 30 Days #240 tab 10/01/21 cephalexin 500 mg capsule 500 mg PO QID 7 Days #28 cap 10/24/21 Allergies Allergy/AdvReac Type Severity Reaction Status Date / Time ibuprofen [From MOTRIN] Allergy Unknown PT STATES Verified 10/22/21 09:02 HE CAN'T TAKE BECAUSE OF MY KIDNEY GRASS Allergy Unknown SINUS Uncoded 12/03/20 10:28 PROBLEMS Review of Systems Review of Systems: Constitutional: No, fever, chills, weakness or fatigue. Skin: Positive laceration. No rash or itching. Cardiovascular: No chest pain. No palpitations. Respiratory: No shortness of breath. no cough. Musculoskeletal: No muscle pain, back pain, joint pain or stiffness. Yes all other systems are reviewed and are negative PMFSH Past Medical History Attestation statement: The following information was validated with the patient. Source: old records reviewed Medical History A-V fistula Allergic rhinitis Asthma Avascular necrosis Avascular necrosis of bones of both hips Chronic back pain CKD (chronic kidney disease) Depression ESRD (end stage renal disease) GERD (gastroesophageal reflux disease) Hx of anxiety disorder Hx of gout Hyperlipidemia Hypertension Hypothyroidism Knee effusion, right FLORENTINO (obstructive sleep apnea) Surgical History Kidney replaced by transplant Family History Family History Mother No problems noted. Father No problems noted. Social History Social History Are you a primary career resource specialist to a significant other at home: No Do you presently have visiting nurse or other home services: No (home health aide) Alcohol intake: never Second Hand Smoke Exposure: No Advance Directives: No Advance Directives Information Provided: Yes service: No Current occupational status: disabled Current occupation: leftHanded Physical Exam Vital Signs: Vital Signs: Last Vital Signs Temp 98.7 F 10/24/21 10:16 Pulse 77 10/24/21 10:16 Resp 18 10/24/21 10:16 BP 143/92 H 10/24/21 10:16 Pulse Ox 97 10/24/21 10:16 BMI result Body Mass Index 28.1 Vital signs have been reviewed as normal and appeared to be correct. Blood pressure normal.? Heart rate normal.? Respiration rate normal. Temperature no rmal.? Oxygen saturation normal. Appearance: Alert.?Oriented to person, place and time. No acute distress.?Normal affect. Eyes: Pupils equal, round and reactive to light.? ENT: Pharynx normal.?? Neck: Normal inspection.? Neck supple.?? CVS: Heart sounds normal. Normal heart rate and rhythm.? Pulses normal.?? Respiratory: No respiratory distress.? Lung sounds clear to auscultation bilaterally?? Abdomen: Soft and non-tender.?? Skin: 3cm laceration to the palm are aspect of the 2nd digit starting near the DIP and extends laterally along radial aspect involving the nail plate. Skin warm and dry.? Normal skin color.? Extremities: No lower extremity edema.? Neuro: Moves all extremities spontaneously. Sensation intact bilaterally. No focal neuro deficits. Ambulates with normal steady gait. Course Course Course Narrative: Patient is a 46-year-old male presenting to the emergency department for evaluation of a laceration to his right index finger that he sustained from a saw. Last tetanus vaccine is unknown therefore updated today. X-ray reveals with underlying small ossific fragments of the phalanx tuft. At this time no subungual hematoma. Nail plate was adhered to nailbed with skin glue. Laceration cleansed with normal saline, repaired under aseptic technique requiring placement of 4 sutures, tolerated well, placed in finger splint, advised outpatient follow-up with Orthopedics within 3-5 days, given a prescription for Keflex 4 times daily for 1 week. Advised to reasons to return back to the emergency department. All questions were answered. He was discharged in stable condition. MDM - Wound/Laceration Medical Records Attestation: I reviewed the patient's medical records. Imaging Data xr finger: Radiologist's impression: XR/XR finger RT min 2V IMPRESSION: Injury to the soft tissues of the distal aspect of the second digit with underlying small ossific fragments of the distal phalanx tuft. Procedures Laceration Laceration 1: Side (If applicable): right Size (cm): 3 Description: irregular Depth: simple, single layer Local Anesthetic: lidocaine 1% Amount of anesthesia used (mL): 5 Pre-repair: wound explored and irrigated extensively Skin layer closed with: nylon Size (cm): 5-0 Number of sutures: 4 Technique: simple, interrupted Discharge Plan Discharge Clinical Impression: Laceration of finger nail bed, Fracture of phalanx of digit of hand Patient Disposition: Home, Self-Care Instructions: Finger Fracture (ED), Finger Laceration (ED) Additional Instructions: Contact Orthopedics to schedule a follow-up appointment with them 3-5 days. The stitches will need to be removed in 10 days, please return back to the emergency department for removal. Leave the finger splint in place. You have been given prescription for an antibiotic please take this entire course. Return back to the emergency department with any new symptoms or concerns, if you develop increasing redness, swelling, numbness, tingling, drainage, or pus from the wound you should be re-evaluated. Prescriptions: New cephalexin 500 mg capsule 500 mg PO QID 7 Days Qty: 28 0RF No Action acetaminophen 325 mg tablet 650 mg PO Q6H PRN (Reason: for mild pain) 30 Days Qty: 240 0RF docusate sodium [Stool Softener] 100 mg capsule 100 mg PO DAILY 0RF zolpidem 10 mg tablet 1 tab PO BEDTIME 0RF fluticasone propionate 50 mcg/actuation spray,suspension 1 spray intranasal DAILY 0RF magnesium oxide 250 mg magnesium tablet 1 tab PO DAILY 0RF oxycodone 10 mg tablet 1 tab PO TID PRN (Reason: Pain) 0RF mycophenolate sodium [Myfortic] 180 mg Tablet,Delayed Release (Dr/Ec) 540 mg PO BID 0RF Envarsus XR 1 mg Tablet Extended Release 24 Hr 4 mg PO QAM 0RF aspirin 81 mg tablet,delayed release (DR/EC) 81 mg PO DAILY 30 Days Qty: 30 0RF ciclopirox 0.77 % cream topical BID 0RF omeprazole 20 mg capsule,delayed release(DR/EC) 40 mg PO DAILY 0RF clotrimazole 10 mg wally 10 mg mucous membrane TID 0RF atorvastatin 20 mg tablet 20 mg PO DAILY 0RF clonazepam 1 mg tablet 1 mg PO BID 0RF Rx Instructions: administer 30 minutes before bedtime albuterol sulfate 2.5 mg /3 mL (0.083 %) solution for nebulization 2.5 mg inhalation NEEDED PRN (Reason: Shortness Of Breath) 0RF montelukast 10 mg tablet 10 mg PO BEDTIME 0RF levothyroxine 200 mcg tablet 150 mcg PO .COMPLEX 0RF Rx Instructions: 150 mcg PO Thu to Thursday, skip Thursday and Thursday; (DME) walker Misc See Rx Instructions .MEDSUPPLY Qty: 1 0RF Rx Instructions: Folding Front wheeled walker (DME) Raised toilet seat See Rx Instructions .ROUTE .MEDSUPPLY Qty: 1 0RF Rx Instructions: As directed (DME) cane Device See Rx Instructions .MEDSUPPLY Qty: 1 0RF Rx Instructions: As directed ampicillin 500 mg capsule 0 cap PO 0RF loratadine 10 mg tablet 10 mg PO DAILY 0RF sildenafil [Viagra] 100 mg tablet 100 mg PO DAILY PRN0RF azelastine 0.05 % drops 0 drp ophthalmic (eye) 0RF escitalopram oxalate 5 mg tablet 5 mg PO DAILY 0RF Referrals: Christian Macias MD [Physician] - 5 days Interventions: ED Discharge Assessment Last Done: 10/24/21 12:24 Discharge Date/Time: 10/24/21 12:26
[2021-10-24] MEDS: Lidocaine HCl 1 % MPF 5 ML VIAL 10 ML SUBCUT (10:38)
[2021-10-24] MEDS: Diphth,Pertus(ACell),Tet Adult 0.5 ML SYRINGE IM (10:38)
--- NOTE | 2021-10-24 10:49 | PC.NURSE ---
RIGHT HAND, RIGHT 2ND FINGER IRRIGATED AND SOAKED IN NORMAL SALINE.
== END 2021-10-24 12:26 | disposition home or self-care (01) ==
PROVIDERS: Emergency Provider Emergency Medicine; PCP Internal Medicine Geriatric Medicine
DX: S61.210A Laceration without foreign body of right index finger without damage to nail, initial encounter (principal); S62.600A Fracture of unspecified phalanx of right index finger, initial encounter for closed fracture; S60.511A Abrasion of right hand, initial encounter; M79.644 Pain in right finger(s); W27.0XXA Contact with workbench tool, initial encounter; Y93.9 Activity, unspecified; Y92.9 Unspecified place or not applicable; Y99.9 Unspecified external cause status
CPT/HCPCS: 12002; 29130; 73140; 90471; 90715; 99282; 99284

== ENCOUNTER → 2021-10-29 11:57 | Outpatient (BNVA) | payer OTHER, SELFPAY | PROVIDERS: PCP Internal Medicine Geriatric Medicine; Visit Provider Orthopaedic Surgery | DX: S62.630B Displaced fracture of distal phalanx of right index finger, initial encounter for open fracture (principal); S69.91XA Unspecified injury of right wrist, hand and finger(s), initial encounter | CPT/HCPCS: 26750; 99202 ==

== ENCOUNTER → 2021-11-06 14:23 | Outpatient (BNVA) | payer OTHER, SELFPAY | PROVIDERS: PCP Internal Medicine Geriatric Medicine; Visit Provider Orthopaedic Surgery | DX: Z48.02 Encounter for removal of sutures (principal); S69.91XD Unspecified injury of right wrist, hand and finger(s), subsequent encounter; S62.630D Displaced fracture of distal phalanx of right index finger, subsequent encounter for fracture with routine healing | CPT/HCPCS: 99212 ==

== ENCOUNTER → 2021-11-13 14:20 | Outpatient (BNVA) | payer OTHER, SELFPAY | PROVIDERS: PCP Internal Medicine Geriatric Medicine; Visit Provider Orthopaedic Surgery | DX: Z48.1 Encounter for planned postprocedural wound closure (principal); S62.630D Displaced fracture of distal phalanx of right index finger, subsequent encounter for fracture with routine healing; S69.91XD Unspecified injury of right wrist, hand and finger(s), subsequent encounter | CPT/HCPCS: 99212 ==

== ENCOUNTER 2021-12-31 13:36 | Outpatient (REF) | payer OTHER, SELFPAY ==
--- NOTE | ~2021-12-31 | XR_ITS ---
EXAMINATION: LEFT FOOT AND LEFT TIBIA AND FIBULA CLINICAL INFORMATION: Pain left foot COMPARISON: None TECHNIQUE: 3 views left foot. 2 views left tibia and fibula. FINDINGS: Left foot: There is no visible acute fracture, dislocation or subluxation seen. The ankle mortise and subtalar joints are normal. There is a small calcaneal heel and retrocalcaneal enthesophytes. There is mild dorsal midfoot soft tissue swelling. Left tibia and fibula: There is no visible fracture or bony abnormality. The ankle mortise and subtalar joints are normal. The soft tissues are normal. XR/XR foot LT min 3V IMPRESSION: Mild dorsal midfoot soft tissue swelling. No visible acute fracture, dislocation or subluxation seen.
--- NOTE | ~2021-12-31 | XR_ITS ---
EXAMINATION: LEFT FOOT AND LEFT TIBIA AND FIBULA CLINICAL INFORMATION: Pain left foot COMPARISON: None TECHNIQUE: 3 views left foot. 2 views left tibia and fibula. FINDINGS: Left foot: There is no visible acute fracture, dislocation or subluxation seen. The ankle mortise and subtalar joints are normal. There is a small calcaneal heel and retrocalcaneal enthesophytes. There is mild dorsal midfoot soft tissue swelling. Left tibia and fibula: There is no visible fracture or bony abnormality. The ankle mortise and subtalar joints are normal. The soft tissues are normal. XR/XR tibia fibula LT 2V IMPRESSION: Mild dorsal midfoot soft tissue swelling. No visible acute fracture, dislocation or subluxation seen.
== END 2021-12-31 13:37 | disposition home or self-care (01) ==
LOC: HO.XRAY 13:36
PROVIDERS: PCP Internal Medicine Geriatric Medicine; Visit Provider Emergency Medicine
DX: M79.672 Pain in left foot (principal); M89.8X6 Other specified disorders of bone, lower leg; Z91.81 History of falling
CPT/HCPCS: 73590; 73630

== ENCOUNTER 2022-04-29 12:02 | Emergency (ER) | payer OTHER, SELFPAY ==
--- NOTE | ~2022-04-29 | CT_ITS ---
EXAMINATION: CT ABDOMEN AND PELVIS WITHOUT CONTRAST CLINICAL INFORMATION: Right flank pain. Abdominal pain. COMPARISON: Ultrasound abdomen 04/29/2022 TECHNIQUE: Multidetector volumetric imaging was performed from the superior aspect of the liver through the pubic symphysis. Sagittal and coronal reformatted images were obtained on the technologist's workstation. This CT examination was performed using dose optimization techniques as appropriate, variously including the following: *Automated exposure control *Adjustment of mA and/or kV according to patient size (this includes techniques or standardized protocols for targeted exams where dose is matched to indication/reason for exam; i.e. extremities or head) *Use of iterative reconstruction technique DLP: 651 mGy-cm FINDINGS: LUNG BASES: The visualized lung bases are unremarkable. LIVER, GALLBLADDER, AND BILIARY TREE: The liver is normal in size, shape, and attenuation. No focal hepatic lesion or biliary ductal dilatation is present. The gallbladder is unremarkable with no evidence of radiopaque gallstones, gallbladder wall thickening, or obvious pericholecystic inflammatory changes. PANCREAS: Unremarkable. SPLEEN: Unremarkable. ADRENAL GLANDS: Unremarkable. KIDNEYS AND URETERS: The [place] kidneys are atrophic. Transplant kidney right lower quadrant. There is no calculus or hydronephrosis. BLADDER: Unremarkable. GASTROINTESTINAL TRACT: The small and large bowel are unremarkable. The appendix is unremarkable. ABDOMINAL WALL: No significant hernia is appreciated. LYMPH NODES: Normal. VASCULAR: Vascular calcifications of aorta and iliac arteries. There is no aneurysm. PELVIC VISCERA: Unremarkable. OSSEOUS STRUCTURES: Status post left hip replacement. CT/CT abdomen pelvis wo IV con IMPRESSION: No acute abnormality CT scan abdomen pelvis. Fleischner guidelines were followed.
--- NOTE | ~2022-04-29 | US_ITS ---
EXAMINATION: US ABDOMEN LIMITED CLINICAL INFORMATION: Right upper quadrant pain. COMPARISON: None TECHNIQUE: Real-time imaging of the right upper quadrant abdominal viscera. FINDINGS: PANCREAS: Pancreas could not be evaluated as it was obscured by bowel gas. LIVER: The liver is normal in size. The liver contour is normal. There is diffuse increased liver parenchymal echogenicity, consistent with hepatic steatosis. Focal fatty sparing noted around the gallbladder. No worrisome solid focal hepatic lesion. There is no intrahepatic biliary duct dilatation seen. GALLBLADDER: The gallbladder is physiologically distended without evidence of stones, sludge, polyps, wall thickening or pericholecystic fluid. COMMON BILE DUCT: Normal in caliber measuring 0.2 cm in diameter. TRANSPLANT KIDNEY: The transplant kidney is present in the pelvis without hydronephrosis, calculi or focal parenchymal lesions. The kidney measures 12.4 cm in maximum dimension. [place] kidneys are barely visible. FREE FLUID: None. US/US abdomen limited IMPRESSION: 1. Echogenic liver consistent with hepatic steatosis. 2. Normal-appearing transplant kidney. 3. The pancreas could not be evaluated. 4. A cause for the patient's acute right upper quadrant pain has not been elucidated.
[2022-04-29 12:32] VITALS: BP 170/103; PULSE 78; RESP 20; TEMP 36.4; O2SAT 98; BMI 29.8
[2022-04-29 12:57] LABS: MANUAL DIFF FLAG NO
[2022-04-29 13:01] LABS: Basophils Percent Auto 0.3 % (0-2); Eosinophils Absolute Auto 0.1 X10*3/uL (0.0-0.4); Eosinophils Percent Auto 1.1 % (0-4); Hematocrit 48.8 % (42.0-52.0); Hemoglobin 15.3 g/dl (14.0-18.0); Imm Gran Abs Auto 0.02 X10*3/uL (0.00-0.03); Imm Gran Pct Auto 0.3 % (0.0-0.4); Lymphocytes Absolute Auto 1.6 X10*3/uL (1.2-4.9); Lymphocytes Percent Auto 22.2 % (20-40); Mean Corpuscular HGB Conc 31.4 g/dl (31.0-36.0); Mean Corpuscular Hemoglobin 26.6 pg (27.0-33.0); Mean Corpuscular Volume 84.9 fL (80.0-98.0); Mean Platelet Volume 11.5 fL (9.4-12.4); Monocytes Absolute Auto 0.7 X10*3/uL (0.1-1.2); Monocytes Percent Auto 9.5 % (2-11); Neutrophils Absolute Auto 4.8 x10*3/uL (2.0-8.3); Neutrophils Percent Auto 66.6 % (45-73); Platelet Count 204 X10*3/uL (160-400); Red Blood Count 5.75 X10*6/uL (4.60-5.80); Red Cell Distribution Width 13.2 % (11.0-16.0); White Blood Count 7.3 X10*3/uL (4.8-10.8)
[2022-04-29 13:35] LABS: Alanine Aminotransferase 119 U/L (0-40); Albumin Level 4.8 g/dL (3.5-5.0); Alkaline Phosphatase 87 U/L (39-117); Anion Gap 18 (12-20); Aspartate Amino Transferase 48 U/L (5-37); Bilirubin Direct 0.2 mg/dL (0.0-0.5); Bilirubin Total 0.4 mg/dL (0.0-1.0); Blood Urea Nitrogen 12 mg/dL (9-16); Calcium 9.8 mg/dL (8.4-10.2); Carbon Dioxide 26 mmol/L (22-29); Chloride 101 mmol/L (96-108); Creatinine Clr Calc Pharmacy 101.3; Estimated Glomerular Filt Rate > 60; Glucose Random 129 mg/dL (60-115); Potassium 4.8 mmol/L (3.3-5.1); Sodium 140 mmol/L (135-145); Total Protein 8.1 g/dL (6.5-8.0)
[2022-04-29] MEDS: Acetaminophen 325 MG TABLET 650 MG PO (15:26)
--- OUTSIDE RECORDS SUMMARY | 2022-04-29 22:38 | XMS_ITS | Continuity of Care Document ---
:1975 Author Organization [facility] Address [address] [place] [id number]- Care Team Providers Name Role Phone Name Shaka TURNER Primary Care Phys[place] [facility] [place] 06/03/[address] [address]- Discharge Disposition: A-D/C Home Attending Physician: Maryann Pepper DO Admitting Physician: Maryann Pepper DO Referring Physician: Not on Staff, Referring MD Allergies, Adverse Reactions, Alerts Substance Reaction Severity Status Grass Sneezing Persistent Mild Active Medications albuterol 0.083% inhalation solution 3 mL = 2.5 mg, By Mouth, 3 times a day, PRN for wheezing, 0 Refills, Maintenance, 11/23/19 11:24:00 EDT, Solution Start Date: 11/23/19 Status: Orderedallopurinol 100 mg oral tablet 100 mg, 1, tablet, By Mouth, Daily, # 30 tablet, Refills 2, Tot. Refills 2, Maintenance, 12/15/19 9:54:00 EDT, Route to Pharmacy Electronically, [facility], Please deliver 12/16/19, 178, cm, 12/15/19 8:07:00 EDT, Height, 80.5, kg, 11/20... Start Date: 12/15/19 Stop Date: 03/14/20 Status: OrderedAmbien 10 mg oral tablet 1 tablet = 10 mg, By Mouth, Daily at bedtime, 0 Refills, Maintenance Start Date: 12/01/12 Status: OrderedAmmonium Lactate 12% Topical See Instructions, Topically 2 times a day, 0 Refills, Maintenance Start Date: 12/21/18 Status: Orderedaspirin 81 mg oral delayed release tablet 81 mg, 1, tablet, By Mouth, Daily, # 30 tablet, Refills 0, Maintenance, 12/07/19 10:38:00 EDT Start Date: 12/07/19 Status: Orderedatorvastatin 20 mg oral tablet 1 tablet = 20 mg, By Mouth, Daily, 0 Refills, Maintenance, Tablet Start Date: 11/22/15 Status: OrderedBactrim 400 mg-80 mg oral tablet 1 tablet, By Mouth, Daily, # 30 tablet, 6 Refills, Acute 06/20/20 10:00:00 EST, 12/06/19 9:56:00 EDT, Tablet, [facility], 1 tablet By Mouth Daily, 178, cm, 12/06/19 7:08:00 EDT, Height, 80.5, kg, 12/02/19 13:50:00 EDT, Dry Weight Start Date: 12/06/19 Stop Date: 06/20/20 Status: Orderedcitalopram 40 mg oral tablet 40 mg, 1, tablet, By Mouth, Daily, # 30 tablet, Refills 0, Maintenance, 12/21/18 14:55:00 EDT Start Date: 12/21/18 Status: OrderedclonazePAM 1 mg oral tablet, disintegrating = 1 mg, By Mouth, 2 times a day, # 60 tablet, 2 Refills, Maintenance, 12/15/19 11:15:00 EDT, DIS Tablet, Please deliver 12/16/19 Start Date: 12/15/19 Stop Date: 03/14/20 Status: Ordereddocusate sodium 100 mg oral capsule 100 mg, 1, capsule, By Mouth, 3 times a day, PRN, # 90 capsule, Refills 2, Tot. Refills 2, Maintenance, for constipation, 01/05/20 11:22:00 EDT, Route to Pharmacy Electronically, [facility], 178, cm, 01/05/20 7:58:00 EDT, Height, 80.5... Start Date: 01/05/20 Stop Date: 04/04/20 Status: OrderedEnvarsus XR 1 mg oral tablet, extended release 8 tablet = 8 mg, By Mouth, Daily in AM, # 240 tablet, 11 Refills, Maintenance, 12/06/19 10:01:00 EDT, [facility], 178, cm, 12/06/19 7:08:00 EDT, Height, 80.5, kg, 12/02/19 13:50:00 EDT, Dry Weight Start Date: 12/06/19 Status: Orderedferrous sulfate 325 mg oral enteric coated tablet 325 mg, 1, tablet, By Mouth, Daily, # 30 tablet, Refills 1, Tot. Refills 1, Maintenance, 12/08/19 16:40:00 EDT, Route to Pharmacy Electronically, [facility]/pharmacy #[id number], 178, cm, 12/08/19 8:05:00 EDT, Height, 80.5, kg, 12/02/19 13:50:00 EDT, Dry Weight Start Date: 12/08/19 Stop Date: 02/06/20 Status: OrderedKayexcelate Powder Kayexcelate Powder, 30 grams, By Mouth, Once, # 454 Gm, Refills 0, Tot. Refills 0, Soft Stop, Mix 8 teaspoons in water or apple juice & drink by mouth once & then as directed, 02/23/20 16:03:00EDT, Needs delivery 02/24/20, Supply, 178, cm, 02/23/20 8:5... Start Date: 02/23/20 Status: Orderedlevothyroxine 0.2 mg oral tablet 1 tablet = 200 mcg, By Mouth, Daily, # 90 tablet, 0 Refills, Maintenance, 12/21/18 14:45:31 EDT, Tablet Start Date: 12/21/18 Status: Orderedloratadine 10 mg oral tablet 1 tablet = 10 mg, By Mouth, Daily, 0 Refills, Maintenance Start Date: 12/01/12 Status: Orderedmontelukast 10 mg oral tablet 10 mg, 1, tablet, By Mouth, Daily before dinner, # 30 tablet, Refills 2, Tot. Refills 2, Maintenance, 12/15/19 9:50:00 EDT, Route to Pharmacy Electronically, [facility], Please deliver12/16/19, 178, cm, 12/15/19 8:07:00 EDT, Height, 8... Start Date: 12/15/19 Stop Date: 03/14/20 Status: Orderedmycophenolic acid 180 mg oral delayed release tablet 3 tablet = 540 mg, By Mouth, 2 times a day, # 180 tablet, 11 Refills, Maintenance, 12/07/19 17:01:00EDT, EC Tablet, [facility], 178, cm, 12/07/19 16:12:00 EDT, Height, 80.5, kg, 12/02/19 13:50:00 EDT, Dry Weight Start Date: 12/07/19 Status: Orderedomeprazole 20 mg oral enteric coated capsule 2 capsule = 40 mg, By Mouth, Daily, 0 Refills, Maintenance, 12/01/12 10:55:04 EDT Start Date: 12/01/12 Status: Orderedvalganciclovir 450 mg oral tablet 450 mg, 1, tablet, By Mouth, Daily, # 30 tablet, Refills 6, Tot. Refills 6, Acute 06/20/20 10:00:00 EST, 12/06/19 9:56:00 EDT, Route to Pharmacy Electronically, [facility], 178, cm, 12/06/19 7:08:00 EDT, Height, 80.5, kg, 12/02/19 13:... Start Date: 12/06/19 Stop Date: 06/20/20 Status: OrderedVicodin ES 1 tablet, By Mouth, 3 times a day, 0 Refills, Maintenance, 07/07/18 12:40:41 EST Start Date: 07/07/18 Status: Ordered Problem List Condition Effective Dates Status Health Status Informant Acne(Confirmed) Active Allergic rhinitis(Confirmed) Active Anxiety(Confirmed) Active Asthma(Confirmed) Active Chronic nonalcoholic liver Active disease(Confirmed) Essential hypertension(Confirmed) Active Heartburn(Confirmed) Active -donor kidney transplant 12/03/19 Active recipient(Confirmed)1 Hypothyroidism(Confirmed) Active Kidney disease(Confirmed) Active Low back pain(Confirmed) Active Pure hypercholesterolemia(Confirmed) Active 1campath induction Results Radiology Reports Exam Date Time Procedure Performing Provider Status 06/02/20 10:47 PM Chest 2 Views Frontal and Lat Bethany Jin; Dusty (Verified) Notes:(Chest 2 Views Frontal and Lat) Reason For Exam: Shortness of Breath RESULT: Chest 2 Views Frontal and Lat Chest 2 Views Frontal and Lat Hx of Present Illness: Kidney transplant patient presents from home with complaints of asthma symptoms including difficulty breathing, wheezing and cough since .; Reason: Shortness of Breath;Clinical Question(s): Pneumonia; Special Instructions: This is a protocol film and radiologist should call any findings to the Charge Nurse COMPARISON: None. FINDINGS: LINES AND TUBES: None. LUNGS AND PLEURA: Clear lungs. Normal pulmonary vascularity. No pleural effusion. No pneumothorax. HEART, MEDIASTINUM AND MACARENA: Heart is normal in size. Normal upper mediastinal and hilar contour. BONES AND SOFT TISSUES: No acute abnormality. IMPRESSION: No acute abnormality. WSN: [id number] Ordering Physician: Abhinav Gaona Dictated By: Sergio Jorge MD Dictated Date/Time: 06/02/20 10:50 p Reviewed By: Sergio Jorge MD Signed By: Sergio Jorge MD Signed Date/Time: 06/02/20 10:50 pm Transcribed By: MANDI Transcribed Date/Time: 06/02/20 10:48 pm Vital Signs Most recent to oldest 1 2 3 [Reference Range]: Oxygen Saturation [94-100 99 % 99 % 98 % %] (06/03/20 3:42 AM) (06/03/20 12:42 AM) (06/02/20 7:16 PM) Pulse Rate [55-90 bpm] 74 bpm 74 bpm 84 bpm (06/03/20 3:42 AM) (06/03/20 12:42 AM) (06/02/20 7:16 PM) Blood Pressure 149/81 mm Hg 156/93 mm Hg 133/65 mm Hg [90-138/55-84 mm Hg] *H* *H* (06/02/20 7 :16 PM) (06/03/20 3:42 AM) (06/03/20 12:42 AM) Respiratory Rate [16-30 16 br/min 18 br/min 16 br/mi n br/min] (06/03/20 3:42 AM) (06/03/20 12:42 AM) (06/02/20 7:16 PM) Temperature [96.8-100.4 97.8 DegF 97.9 DegF 98.1 Deg F 1 DegF] (06/03/20 3:42 AM) (06/03/20 12:42 AM) (06/02/20 3:35 PM) Mode of Delivery (Oxygen) Room air Room air Room a ir (06/03/20 3:42 AM) (06/03/20 12:42 AM) (06/02/20 7:16 PM) Blood pressure sites Arm, left Arm, left Arm, left (06/03/20 3:42 AM) (06/03/20 12:42 AM) (06/02/20 7:16 PM) Temperature Route Oral Oral Oral (06/03/20 3:42 AM) (06/03/20 12:42 AM) (06/02/20 3:35 PM) 1Result Comment: Verified 98.1 Social History Social History Type Response Smoking Status Current some day smoker; Tob acco user in household: No; Type: Cigarettes; Previous treatment: cold turkey; Interested in cessation: Yes; Tobacco use times per day: 1-2 cigarettes/day; Number of years: 15; entered on: 11/22/15 Sex
--- OUTSIDE RECORDS SUMMARY | 2022-04-29 22:38 | XMS_ITS | Continuity of Care Document ---
:1975 Author Organization [facility] Address Unavailable , Care Team Providers Name Role Phone Name Shaka TURNER Primary Care Physician Encounter [facility] Date(s): 01/10/22 - 02/09/22 [facility] Attending Physician: Saray Pritchard Admitting Physician: Saray Pritchard Referring Physician: Saray Pritchard Allergies, Adverse Reactions, Alerts No Known Medication Allergies Substance Reaction Severity Status Grass Sneezing Persistent Mild Active Immunizations Given and Recorded Vaccine Date Status Refusal Reason SARS-CoV-2 (COVID-19) mRNA BNT-162b2 vac 01/17/21 Recorde d Medications albuterol 0.083% inhalation solution 3 mL = 2.5 mg, By Mouth, 3 times a day, PRN for wheezing, 0 Refills, Maintenance, 11/23/19 11:24:00 EDT, Solution Start Date: 11/23/19 Status: Orderedallopurinol 100 mg oral tablet 100 mg, 1, tablet, By Mouth, Daily, # 30 tablet, Refills 2, Tot. Refills 2, Maintenance, 12/15/19 9:54:00 EDT, Route to Pharmacy Electronically, [facility], Please deliver 12/16/19, 178, cm, 12/15/19 8:07:00 EDT, Height, 80.5, kg, 11/20... Start Date: 12/15/19 Stop Date: 03/14/20 Status: OrderedAmbien 10 mg oral tablet 1 tablet = 10 mg, By Mouth, Daily at bedtime, 0 Refills, Maintenance, 12/01/12 10:56:30 EDT Start Date: 12/01/12 Status: Orderedaspirin 81 mg oral delayed release tablet 81 mg, 1, tablet, By Mouth, Daily, # 30 tablet, Refills 0, Maintenance, 12/07/19 10:38:00 EDT Start Date: 12/07/19 Status: Orderedatorvastatin 20 mg oral tablet 1 tablet = 20 mg, By Mouth, Daily at bedtime, 0 Refills, Maintenance, Tablet Start Date: 11/22/15 Status: OrderedclonazePAM 1 mg oral tablet, disintegrating = 1 mg, By Mouth, 2 times a day, # 60 tablet, 2 Refills, Maintenance, 12/15/19 11:15:00 EDT, DIS Tablet, Please deliver 12/16/19 Start Date: 12/15/19 Stop Date: 03/14/20 Status: Ordereddiclofenac 1% topical gel 1 application, Topically, 4 times a day, # 100 Gm, 0 Refills, Maintenance, 07/05/21 11:53:00 EST, Gel, Partial fill upon patient request if the prescription is for a schedule II opioid drug. Start Date: 07/05/21 Status: Ordereddocusate sodium 100 mg oral capsule 100 mg, 1, capsule, By Mouth, 3 times a day, PRN, # 90 capsule, Refills 2, Tot. Refills 2, Maintenance, for constipation, 01/05/20 11:22:00 EDT, Route to Pharmacy Electronically, [facility], 178, cm, 01/05/20 7:58:00 EDT, Height, 80.5... Start Date: 01/05/20 Stop Date: 04/04/20 Status: OrderedEnvarsus XR 1 mg oral tablet, extended release See Instructions, TAKE TWO TABLETS BY MOUTH ONCE DAILY, # 60 tablet, 5 Refills, [facility], 177.8, cm, 07/30/21 16:10:00 EST, Height, 100, kg, 07/05/21 12:06:00 EST, Dry Weight Start Date: 01/27/22 Status: Orderedfluticasone 50 mcg/inh nasal spray 0 Refills, Maintenance, 06/06/21 10:15:00 EST, Partial fill upon patient request if the prescriptionis for a schedule II opioid drug. Start Date: 06/06/21 Status: Orderedlevothyroxine 0.2 mg oral tablet 1 tablet = 200 mcg, By Mouth, Daily, # 90 tablet, 0 Refills, Maintenance, 12/21/18 14:45:31 EDT, Tablet Start Date: 12/21/18 Status: Orderedloratadine 10 mg oral tablet 1 tablet = 10 mg, By Mouth, Daily, 0 Refills, Maintenance Start Date: 12/01/12 Status: Orderedmagnesium oxide 250 mg oral tablet 0 Refills, Maintenance, 06/06/21 10:15:00 EST, Partial fill upon patient request if the prescriptionis for a schedule II opioid drug. Start Date: 06/06/21 Status: Orderedmontelukast 10 mg oral tablet 10 mg, 1, tablet, By Mouth, Daily before dinner, # 30 tablet, Refills 2, Tot. Refills 2, Maintenance, 12/15/19 9:50:00 EDT, Route to Pharmacy Electronically, [facility], Please deliver12/16/19, 178, cm, 12/15/19 8:07:00 EDT, Height, 8... Start Date: 12/15/19 Stop Date: 03/14/20 Status: Orderedmycophenolic acid 180 mg oral delayed release tablet 3 tablet = 540 mg, By Mouth, 2 times a day, # 180 tablet, 11 Refills, Maintenance, 12/07/19 17:01:00EDT, EC Tablet, [facility], 178, cm, 12/07/19 16:12:00 EDT, Height, 80.5, kg, 12/02/19 13:50:00 EDT, Dry Weight Start Date: 12/07/19 Status: Orderedomeprazole 20 mg oral enteric coated capsule 2 capsule = 40 mg, By Mouth, Daily, 0 Refills, Maintenance, 12/01/12 10:55:04 EDT Start Date: 12/01/12 Status: OrderedoxyCODONE 10 mg oral tablet 0 Refills, Maintenance, 06/06/21 10:15:00 EST, Partial fill upon patient request if the prescriptionis for a schedule II opioid drug. Start Date: 06/06/21 Status: Ordered Problem List Condition Effective Dates Status Health Status Informant Acne(Confirmed) Active Allergic rhinitis(Confirmed) Active Anxiety(Confirmed) Active Asthma(Confirmed) Active Chronic nonalcoholic liver Active disease(Confirmed) Essential hypertension(Confirmed) Active Heartburn(Confirmed) Active -donor kidney transplant 12/03/19 Active recipient(Confirmed)1 Hypothyroidism(Confirmed) Active Kidney disease(Confirmed) Active Low back pain(Confirmed) Active Obese class I(Confirmed) Active Pure hypercholesterolemia(Confirmed) Active 1campath induction Vital Signs Most recent to oldest [Reference Range]: 1 Height 174 cm (12/02/19 9:53 AM) Dry Weight 80 kg (12/02/19 9:53 AM) Social History Social History Type Response Smoking Status Current some day smoker; Tob acco user in household: No; Type: Cigarettes; Previous treatment: cold turkey; Interested in cessation: Yes; Tobacco use times per day: 1-2 cigarettes/day; Number of years: 15; entered on: 11/22/15 Sex
--- OUTSIDE RECORDS SUMMARY | 2022-04-29 22:38 | XMS_ITS | Continuity of Care Document ---
:1975 Author Organization [facility] Address [address] [place] [id number]- Care Team Providers Name Role Phone Name Shaka TURNER Primary Care Physician Encounter [facility] [place] Date(s): 07/30/21 - 08/06/21 [facility] [address] [place] [id number] Attending Physician: Cortez Hernandez MD Admitting Physician: Cortez Hernandez MD Referring Physician: Name Shaka TURNER Allergies, Adverse Reactions, Alerts No Known Medication [...] 12/15/19 9:54:00 EDT, Route to Pharmacy Electronically, [facility], Please deliver 12/16/19, 178, [...] 01/05/20 11:22:00 EDT, Route to Pharmacy Electronically, [facility], 178, cm, 01/05/20 7:58:00 EDT, Height, 80.5... Start Date: 01/05/20 Stop Date: 04/04/20 Status: OrderedEnvarsus XR 1 mg oral tablet, extended release 8 tablet = 8 mg, By Mouth, Daily in AM, # 240 tablet, 11 Refills, Maintenance, 12/06/19 10:01:00 EDT, [facility], 178, cm, 12/06/19 7:08:00 EDT, Height, 80.5, kg, 12/02/19 13:50:00 EDT, Dry Weight Start Date: 12/06/19 Status: Orderedfluticasone 50 mcg/inh nasal spray 0 [...] 12/15/19 9:50:00 EDT, Route to Pharmacy Electronically, [facility], Please deliver12/16/19, 178, cm, 12/15/19 8:07:00 EDT, Height, 8... Start Date: 12/15/19 Stop Date: 03/14/20 Status: Orderedmycophenolic acid 180 mg oral delayed release tablet 3 tablet = 540 mg, By Mouth, 2 times a day, # 180 tablet, 11 Refills, Maintenance, 12/07/19 17:01:00EDT, EC Tablet, [facility], 178, cm, 12/07/19 16:12:00 [...] recent to oldest [Reference Range]: 1 Height 177.8 cm (07/30/21 4:10 PM) Weight 97.72 kg (07/30/21 4:10 PM) Oxygen Saturation [94-100 %] 98 % (07/30/21 4:10 PM) Pulse Rate [55-90 bpm] 74 bpm (07/30/21 4:10 PM) Body Mass Index [18.5-24.99] 30.91 *>HHI* (07/30/21 4:10 PM) Blood Pressure [90-138/55-84 mm Hg] 110/70 mm Hg (07/30/21 4:10 PM) Mode of Delivery (Oxygen) Room air (07/30/21 4:10 PM) Blood pressure sites Arm, right (07/30/21 4:10 PM) Weight Obtained Via Patient/family stated (07/30/21 4:10 PM) Social History Social History Type Response Smoking Status Current some day smoker; Tob acco user in household: No; Type: Cigarettes; Previous treatment: cold turkey; Interested in cessation: Yes; Tobacco use times per day: 1-2 cigarettes/day; Number of years: 15; entered on: 11/22/15 Sex
--- OUTSIDE RECORDS SUMMARY | 2022-04-29 22:38 | XMS_ITS | Continuity of Care Document ---
:1975 Author Organization [facility] Address [address] [place] [id number]- Care Team Providers Name Role Phone Name Shaka TURNER Primary Care Physician Encounter [facility] [place] Date(s): 07/12/21 - 07/12/[address] [id number] Discharge Disposition: A-D/C Home Attending Physician: Cortez Hernandez MD Admitting Physician: Cortez Hernandez MD Referring Physician: Cortez Hernandez MD Allergies, Adverse Reactions, Alerts No Known Medication [...] 12/15/19 9:54:00 EDT, Route to Pharmacy Electronically, [facility], Please deliver 12/16/19, 178, [...] 01/05/20 11:22:00 EDT, Route to Pharmacy Electronically, [facility], 178, cm, 01/05/20 7:58:00 EDT, Height, 80.5... Start Date: 01/05/20 Stop Date: 04/04/20 Status: OrderedEnvarsus XR 1 mg oral tablet, extended release 8 tablet = 8 mg, By Mouth, Daily in AM, # 240 tablet, 11 Refills, Maintenance, 12/06/19 10:01:00 EDT, [facility], 178, cm, 12/06/19 7:08:00 [...] 12/15/19 9:50:00 EDT, Route to Pharmacy Electronically, [facility], Please deliver12/16/19, 178, cm, 12/15/19 8:07:00 EDT, Height, 8... Start Date: 12/15/19 Stop Date: 03/14/20 Status: Orderedmycophenolic acid 180 mg oral delayed release tablet 3 tablet = 540 mg, By Mouth, 2 times a day, # 180 tablet, 11 Refills, Maintenance, 12/07/19 17:01:00EDT, EC Tablet, [facility], 178, cm, 12/07/19 16:12:00 EDT, Height, [...] II opioid drug. Start Date: 06/06/21 Status: OrderedOxyCODONE IR Tablet 5 mg, Tablet, By Mouth, Every 4 hours for 1 days, in PACU ONLY, if patient can tolerate PO, PRN for Pain , Mild, Routine, 07/12/21 8:26:00 EST, Stop date 07/13/21 8:25:00 EST Start Date: 07/12/21 Stop Date: 07/12/21 Status: Discontinued Problem List Condition Effective Dates Status Health Status Informant Acne(Confirmed) Active Allergic rhinitis(Confirmed) Active Anxiety(Confirmed) Active Asthma(Confirmed) Active Chronic nonalcoholic liver Active disease(Confirmed) Essential hypertension(Confirmed) Active Heartburn(Confirmed) Active -donor kidney transplant 12/03/19 Active recipient(Confirmed)1 Hypothyroidism(Confirmed) Active Kidney disease(Confirmed) Active Low back pain(Confirmed) Active Obese class I(Confirmed) Active Pure hypercholesterolemia(Confirmed) Active 1campath induction Vital Signs Most recent to oldest 1 2 3 [Reference Range]: Height 177.8 cm 177.8 cm (07/12/21 6:51 AM) (07/05/21 12:06 PM) Weight 99.9 kg 100 kg (07/12/21 6:51 AM) (07/05/21 12:06 PM) Oxygen Saturation [94-100 96 % 95 % 96 % %] (07/12/21 1:00 PM) (07/12/21 12:45 PM) (07/12/21 12 :30 PM) Pulse Rate [55-90 bpm] 73 bpm (07/12/21 6:51 AM) Body Mass Index 31.6 31.63 [18.5-24.99] *>HHI* *>HHI* (07/12/21 6:51 AM) (07/05/21 12:06 PM) Blood Pressure 134/95 mm Hg 134/95 mm Hg 139/90 mm Hg [90-138/55-84 mm Hg] (07/12/21 1:00 PM) (07/12/21 12:45 PM) *H* (07/12/21 12:30 P M) Respiratory Rate [16-30 13 br/min 16 br/min 14 br/mi n br/min] *L* (07/12/21 12:50 PM) *L* (07/12/21 1:00 PM) (07/12/21 12:30 PM) Temperature [96.8-100.4 97.8 DegF 98.2 DegF DegF] (07/12/21 9:45 AM) (07/12/21 6:51 AM) Liters per Minute 2 L/min 2 L/min 2 L/min (07/12/21 11:00 AM) (07/12/21 10:45 AM) (07/12/21 1 0:30 AM) Mode of Delivery (Oxygen) Room air Room air Room a ir (07/12/21 1:00 PM) (07/12/21 12:45 PM) (07/12/21 12 :30 PM) Blood pressure sites Arm, left Arm, left Arm, left (07/12/21 1:00 PM) (07/12/21 12:45 PM) (07/12/21 12 :30 PM) Temperature Route Temporal Temporal (07/12/21 9:45 AM) (07/12/21 6:51 AM) Dry Weight 100 kg (07/05/21 12:06 PM) Weight Obtained Via Patient/family stated (07/05/21 12:06 PM) Dry Weight Obtained Via Patient/family stated (07/05/21 12:06 PM) Social History Social History Type Response Smoking Status Current some day smoker; Tob acco user in household: No; Type: Cigarettes; Previous treatment: cold turkey; Interested in cessation: Yes; Tobacco use times per day: 1-2 cigarettes/day; Number of years: 15; entered on: 11/22/15 Sex
--- OUTSIDE RECORDS SUMMARY | 2022-04-29 22:38 | XMS_ITS | Continuity of Care Document ---
:1975 Author Organization [facility] Address [address] [facility] [address] [place] [address]- Care Team Providers Name Role Phone Name Shaka TURNER Primary Care Physician [place] [facility] [place](s): 12/28/19 - 02/18/20 [facility] [address] [facility] [place] [address]- [facility] Attending Physician: Eleonora Strickland MD Admitting Physician: Eleonora Strickland MD Allergies, Adverse Reactions, Alerts Substance Reaction [...] 12/15/19 9:54:00 EDT, Route to Pharmacy Electronically, [facility], Please deliver 12/16/19, 178, [...] 06/20/20 10:00:00 EST, 12/06/19 9:56:00 EDT, Tablet, [facility], 1 tablet By Mouth [...] Start Date: 12/15/19 Stop Date: 03/14/20 Status: Orderedclotrimazole 10 mg oral lozenge 10 mg, 1, lozenge, By Mouth, 3 times a day, # 90 lozenge, Refills 3, Tot. Refills 3, Acute 03/21/20 10:00:00 EDT, 12/06/19 9:56:00 EDT, Route to Pharmacy Electronically, [facility], 178, cm, 12/06/19 7:08:00 EDT, Height, 80.5, kg, ... Start Date: 12/06/19 Stop Date: 03/21/20 Status: Ordereddocusate sodium 100 mg oral capsule 100 mg, 1, capsule, By Mouth, 3 times a day, PRN, # 90 capsule, Refills 2, Tot. Refills 2, Maintenance, for constipation, 01/05/20 11:22:00 EDT, Route to Pharmacy Electronically, [facility], 178, cm, 01/05/20 7:58:00 EDT, Height, 80.5... Start Date: 01/05/20 Stop Date: 04/04/20 Status: OrderedEnvarsus XR 1 mg oral tablet, extended release 8 tablet = 8 mg, By Mouth, Daily in AM, # 240 tablet, 11 Refills, Maintenance, 12/06/19 10:01:00 EDT, [facility], 178, cm, 12/06/19 7:08:00 EDT, Height, 80.5, kg, 12/02/19 13:50:00 EDT, Dry Weight Start Date: 12/06/19 Status: Orderedferrous sulfate 325 mg oral enteric coated tablet 325 mg, 1, tablet, By Mouth, Daily, # 30 tablet, Refills 1, Tot. Refills 1, Maintenance, 12/08/19 16:40:00 EDT, Route to Pharmacy Electronically, [facility]/pharmacy #[id number], 178, cm, 12/08/19 8:05:00 EDT, Height, 80.5, kg, 12/02/19 13:50:00 EDT, Dry Weight Start Date: 12/08/19 Stop Date: 02/06/20 Status: Orderedlevothyroxine 0.2 mg oral tablet 1 tablet = 200 mcg, By Mouth, Daily, # 90 tablet, 0 Refills, Maintenance, 12/21/18 14:45:31 EDT, Tablet Start Date: 12/21/18 Status: Orderedloratadine 10 mg oral tablet 1 tablet = 10 mg, By Mouth, Daily, 0 Refills, Maintenance Start Date: 12/01/12 Status: Orderedmagnesium oxide 250 mg oral tablet 1 tablet = 250 mg, By Mouth, Daily, for 30 days, # 30 tablet, 1 Refills, Acute 03/12/20 15:15:00 EDT, 01/12/20 15:15:00 EDT, [facility], [facility]Lease deliver 01/13/20, 178, cm, 01/12/20 8:15:00 EDT, Height, 80.5, kg, 12/02/19 13:50:00 EDT, D... Start Date: 01/12/20 Stop Date: 03/12/20 Status: Orderedmontelukast 10 mg oral tablet 10 mg, 1, tablet, By Mouth, Daily before dinner, # 30 tablet, Refills 2, Tot. Refills 2, Maintenance, 12/15/19 9:50:00 EDT, Route to Pharmacy Electronically, [facility], Please deliver12/16/19, 178, cm, 12/15/19 8:07:00 EDT, Height, 8... Start Date: 12/15/19 Stop Date: 03/14/20 Status: Orderedmycophenolic acid 180 mg oral delayed release tablet 3 tablet = 540 mg, By Mouth, 2 times a day, # 180 tablet, 11 Refills, Maintenance, 12/07/19 17:01:00EDT, EC Tablet, [facility], 178, cm, 12/07/19 16:12:00 EDT, Height, [...] 12/06/19 9:56:00 EDT, Route to Pharmacy Electronically, [facility], 178, cm, 12/06/19 7:08:00 EDT, Height, [...] Active disease(Confirmed) Essential hypertension(Confirmed) Active Heartburn(Confirmed) Active Hypothyroidism(Confirmed) Active Kidney disease(Confirmed) Active Low back pain(Confirmed) Active Pure hypercholesterolemia(Confirmed) Active Social History Social History Type Response Smoking Status Current some day smoker; Tob acco user in household: No; Type: Cigarettes; Previous treatment: cold turkey; Interested in cessation: Yes; Tobacco use times per day: 1-2 cigarettes/day; Number of years: 15; entered on: 11/22/15 Sex
--- OUTSIDE RECORDS SUMMARY | 2022-04-29 22:38 | XMS_ITS | Continuity of Care Document ---
:1975 Author Organization [facility] Address [address] [place] [address]- Care Team Providers Name Role Phone Name Shaka TURNER Primary Care Physician [place] [facility] [place] 07/30/21 - 08/29/21 [facility] [address] [place] [id number] Attending Physician: Saray Pritchard Admitting Physician: AdmSaray huston Referring Physician: Admtr, [id number] Allergies, Adverse Reactions, Alerts No Known Medication [...] 12/15/19 9:54:00 EDT, Route to Pharmacy Electronically, [facility], Please deliver 12/16/19, 178, [...] 01/05/20 11:22:00 EDT, Route to Pharmacy Electronically, [facility], 178, cm, 01/05/20 7:58:00 EDT, Height, 80.5... Start Date: 01/05/20 Stop Date: 04/04/20 Status: OrderedEnvarsus XR 1 mg oral tablet, extended release 8 tablet = 8 mg, By Mouth, Daily in AM, # 240 tablet, 11 Refills, Maintenance, 12/06/19 10:01:00 EDT, [facility], 178, cm, 12/06/19 7:08:00 [...] 12/15/19 9:50:00 EDT, Route to Pharmacy Electronically, [facility], Please deliver12/16/19, 178, cm, 12/15/19 8:07:00 EDT, Height, 8... Start Date: 12/15/19 Stop Date: 03/14/20 Status: Orderedmycophenolic acid 180 mg oral delayed release tablet 3 tablet = 540 mg, By Mouth, 2 times a day, # 180 tablet, 11 Refills, Maintenance, 12/07/19 17:01:00EDT, EC Tablet, [facility], 178, cm, 12/07/19 16:12:00 [...] I(Confirmed) Active Pure hypercholesterolemia(Confirmed) Active 1campath induction Social History Social History Type Response Smoking Status Current some day smoker; Tob acco user in household: No; Type: Cigarettes; Previous treatment: cold turkey; Interested in cessation: Yes; Tobacco use times per day: 1-2 cigarettes/day; Number of years: 15; entered on: 11/22/15 Sex
--- OUTSIDE RECORDS SUMMARY | 2022-04-29 22:39 | XMS_ITS | Continuity of Care Document ---
:1975 Author Organization [facility] Address [address] [facility] [address] [place] [address]- Care Team Providers Name Role Phone Name Shaka TURNER Primary Care Physician Encounter [facility] [place] [facility] [place] [id number] Date(s): 12/28/19 - 02/22/20 [facility] [address] [facility] [address] [place] [address]- [facility] Attending Physician: Eleonora Strickland MD Admitting [...] 12/15/19 9:54:00 EDT, Route to Pharmacy Electronically, [facility], Please deliver 12/16/19, 178, cm, [...] 06/20/20 10:00:00 EST, 12/06/19 9:56:00 EDT, Tablet, [facility], 1 tablet By Mouth Daily, [...] 12/06/19 9:56:00 EDT, Route to Pharmacy Electronically, [facility], 178, cm, 12/06/19 7:08:00 EDT, Height, 80.5, kg, ... Start Date: 12/06/19 Stop Date: 03/21/20 Status: Ordereddocusate sodium 100 mg oral capsule 100 mg, 1, capsule, By Mouth, 3 times a day, PRN, # 90 capsule, Refills 2, Tot. Refills 2, Maintenance, for constipation, 01/05/20 11:22:00 EDT, Route to Pharmacy Electronically, [facility], 178, cm, 01/05/20 7:58:00 EDT, Height, 80.5... Start Date: 01/05/20 Stop Date: 04/04/20 Status: OrderedEnvarsus XR 1 mg oral tablet, extended release 8 tablet = 8 mg, By Mouth, Daily in AM, # 240 tablet, 11 Refills, Maintenance, 12/06/19 10:01:00 EDT, [facility], 178, cm, 12/06/19 7:08:00 EDT, Height, 80.5, kg, 12/02/19 13:50:00 EDT, Dry Weight Start Date: 12/06/19 Status: Orderedferrous sulfate 325 mg oral enteric coated tablet 325 mg, 1, tablet, By Mouth, Daily, # 30 tablet, Refills 1, Tot. Refills 1, Maintenance, 12/08/19 16:40:00 EDT, Route to Pharmacy Electronically, [facility]/pharmacy #[id number], 178, cm, 12/08/19 8:05:00 EDT, [...] Acute 03/12/20 15:15:00 EDT, 01/12/20 15:15:00 EDT, [facility], [facility] deliver 01/13/20, 178, cm, 01/12/20 8:15:00 EDT, Height, 80.5, kg, 12/02/19 13:50:00 EDT, D... Start Date: 01/12/20 Stop Date: 03/12/20 Status: Orderedmontelukast 10 mg oral tablet 10 mg, 1, tablet, By Mouth, Daily before dinner, # 30 tablet, Refills 2, Tot. Refills 2, Maintenance, 12/15/19 9:50:00 EDT, Route to Pharmacy Electronically, [facility], Please deliver12/16/19, 178, cm, 12/15/19 8:07:00 EDT, Height, 8... Start Date: 12/15/19 Stop Date: 03/14/20 Status: Orderedmycophenolic acid 180 mg oral delayed release tablet 3 tablet = 540 mg, By Mouth, 2 times a day, # 180 tablet, 11 Refills, Maintenance, 12/07/19 17:01:00EDT, EC Tablet, [facility], 178, cm, 12/07/19 16:12:00 EDT, Height, [...] 12/06/19 9:56:00 EDT, Route to Pharmacy Electronically, [facility], 178, cm, 12/06/19 7:08:00 EDT, Height, [...]
--- OUTSIDE RECORDS SUMMARY | 2022-04-29 22:39 | XMS_ITS | Continuity of Care Document ---
:1975 Author Organization [facility] Address [address] [place] [address]- Care Team Providers Name Role Phone Name Shaka TURNER Primary Care Physician Encounter [facility] [place] Date(s): 07/15/21 - 08/14/21 [facility] [address] [place] [id number] Allergies, Adverse Reactions, Alerts No Known Medication [...] 12/15/19 9:54:00 EDT, Route to Pharmacy Electronically, [facility], Please deliver 12/16/19, [...] 01/05/20 11:22:00 EDT, Route to Pharmacy Electronically, [facility], 178, cm, 01/05/20 7:58:00 EDT, Height, 80.5... Start Date: 01/05/20 Stop Date: 04/04/20 Status: OrderedEnvarsus XR 1 mg oral tablet, extended release 8 tablet = 8 mg, By Mouth, Daily in AM, # 240 tablet, 11 Refills, Maintenance, 12/06/19 10:01:00 EDT, [facility], 178, cm, 12/06/19 [...] 12/15/19 9:50:00 EDT, Route to Pharmacy Electronically, [facility], Please deliver12/16/19, 178, cm, 12/15/19 8:07:00 EDT, Height, 8... Start Date: 12/15/19 Stop Date: 03/14/20 Status: Orderedmycophenolic acid 180 mg oral delayed release tablet 3 tablet = 540 mg, By Mouth, 2 times a day, # 180 tablet, 11 Refills, Maintenance, 12/07/19 17:01:00EDT, EC Tablet, [facility], 178, cm, 12/07/19 16:12:00 EDT, [...]
--- OUTSIDE RECORDS SUMMARY | 2022-04-29 22:39 | XMS_ITS | Continuity of Care Document ---
:1975 Author Organization [facility] Address [address] [place] [address]- Care Team Providers Name Role Phone Name Shaka TURNER Primary Care Physician [place] [facility] [place] 12/[place]19 - 02/11/20 [facility] [address] [place] [address]- [facility] Attending Physician: Eleonora Strickland MD [...] 12/15/19 9:54:00 EDT, Route to Pharmacy Electronically, [facility], Please deliver 12/16/19, 178, cm, [...] 06/20/20 10:00:00 EST, 12/06/19 9:56:00 EDT, Tablet, [facility], 1 tablet By Mouth Daily, [...] 12/06/19 9:56:00 EDT, Route to Pharmacy Electronically, [facility], 178, cm, 12/06/19 7:08:00 EDT, Height, 80.5, kg, ... Start Date: 12/06/19 Stop Date: 03/21/20 Status: Ordereddocusate sodium 100 mg oral capsule 100 mg, 1, capsule, By Mouth, 3 times a day, PRN, # 90 capsule, Refills 2, Tot. Refills 2, Maintenance, for constipation, 01/05/20 11:22:00 EDT, Route to Pharmacy Electronically, [facility], 178, cm, 01/05/20 7:58:00 EDT, Height, 80.5... Start Date: 01/05/20 Stop Date: 04/04/20 Status: OrderedEnvarsus XR 1 mg oral tablet, extended release 8 tablet = 8 mg, By Mouth, Daily in AM, # 240 tablet, 11 Refills, Maintenance, 12/06/19 10:01:00 EDT, [facility], 178, cm, 12/06/19 7:08:00 EDT, Height, 80.5, kg, 12/02/19 13:50:00 EDT, Dry Weight Start Date: 12/06/19 Status: Orderedferrous sulfate 325 mg oral enteric coated tablet 325 mg, 1, tablet, By Mouth, Daily, # 30 tablet, Refills 1, Tot. Refills 1, Maintenance, 12/08/19 16:40:00 EDT, Route to Pharmacy Electronically, [facility]acy #[id number], 178, cm, 12/08/19 8:05:00 EDT, Height, [...] Acute 03/12/20 15:15:00 EDT, 01/12/20 15:15:00 EDT, [facility], [facility]ase deliver 01/13/20, 178, cm, 01/12/20 8:15:00 EDT, Height, 80.5, kg, 12/02/19 13:50:00 EDT, D... Start Date: 01/12/20 Stop Date: 03/12/20 Status: Orderedmontelukast 10 mg oral tablet 10 mg, 1, tablet, By Mouth, Daily before dinner, # 30 tablet, Refills 2, Tot. Refills 2, Maintenance, 12/15/19 9:50:00 EDT, Route to Pharmacy Electronically, [facility], Please deliver12/16/19, 178, cm, 12/15/19 8:07:00 EDT, Height, 8... Start Date: 12/15/19 Stop Date: 03/14/20 Status: Orderedmycophenolic acid 180 mg oral delayed release tablet 3 tablet = 540 mg, By Mouth, 2 times a day, # 180 tablet, 11 Refills, Maintenance, 12/07/19 17:01:00EDT, EC Tablet, [facility], 178, cm, 12/07/19 16:12:00 EDT, [...] 12/06/19 9:56:00 EDT, Route to Pharmacy Electronically, [facility], 178, cm, 12/06/19 7:08:00 EDT, Height, [...]
--- OUTSIDE RECORDS SUMMARY | 2022-04-29 22:39 | XMS_ITS | Continuity of Care Document ---
:1975 Author Organization [facility] Address [address] [facility] [address] [place] [address]- Care Team Providers Name Role Phone Name Shaka TURNER Primary Care Physician En[place] [facility] [place](s): 03/05/20 - 04/04/20 [facility] [address] [facility] [address] [place] [address]- [facility] Attending Physician: Saray Pritchard Admitting Physician: AdmSaray huston Referring Physician: [id number] Allergies, Adverse Reactions, Alerts Substance Reaction Severity [...] 12/15/19 9:54:00 EDT, Route to Pharmacy Electronically, [facility], Please deliver 12/16/19, 178, [...] 06/20/20 10:00:00 EST, 12/06/19 9:56:00 EDT, Tablet, [facility], 1 tablet By Mouth [...] 01/05/20 11:22:00 EDT, Route to Pharmacy Electronically, [facility], 178, cm, 01/05/20 7:58:00 EDT, Height, 80.5... Start Date: 01/05/20 Stop Date: 04/04/20 Status: OrderedEnvarsus XR 1 mg oral tablet, extended release 8 tablet = 8 mg, By Mouth, Daily in AM, # 240 tablet, 11 Refills, Maintenance, 12/06/19 10:01:00 EDT, [facility], 178, cm, 12/06/19 7:08:00 EDT, Height, 80.5, kg, 12/02/19 13:50:00 EDT, Dry Weight Start Date: 12/06/19 Status: Orderedferrous sulfate 325 mg oral enteric coated tablet 325 mg, 1, tablet, By Mouth, Daily, # 30 tablet, Refills 1, Tot. Refills 1, Maintenance, 12/08/19 16:40:00 EDT, Route to Pharmacy Electronically, [facility]/pharmacy #[id number], 178, cm, 12/08/19 8:05:00 EDT, [...] 12/15/19 9:50:00 EDT, Route to Pharmacy Electronically, [facility], Please deliver12/16/19, 178, cm, 12/15/19 8:07:00 EDT, Height, 8... Start Date: 12/15/19 Stop Date: 03/14/20 Status: Orderedmycophenolic acid 180 mg oral delayed release tablet 3 tablet = 540 mg, By Mouth, 2 times a day, # 180 tablet, 11 Refills, Maintenance, 12/07/19 17:01:00EDT, EC Tablet, [facility], 178, cm, 12/07/19 16:12:00 [...] 12/06/19 9:56:00 EDT, Route to Pharmacy Electronically, [facility], 178, cm, 12/06/19 7:08:00 [...] pain(Confirmed) Active Pure hypercholesterolemia(Confirmed) Active 1campath induction Social History Social History Type Response Smoking Status Current some day smoker; Tob acco user in household: No; Type: Cigarettes; Previous treatment: cold turkey; Interested in cessation: Yes; Tobacco use times per day: 1-2 cigarettes/day; Number of years: 15; entered on: 11/22/15 Sex
--- OUTSIDE RECORDS SUMMARY | 2022-04-29 22:39 | XMS_ITS | Continuity of Care Document ---
:1975 Author Organization [facility] Address [address] [place] [address]- Care Team Providers Name Role Phone Name Shaka TURNER Primary Care Physician Encounter [facility] [place] Date(s): 06/06/21 - 06/13/21 [facility] [address] [place] [id number] Attending Physician: Cortez Hernandez MD Admitting Physician: Cortez Hernandez MD Referring Physician: Chang Hernandez MD Allergies, Adverse Reactions, Alerts Substance Reaction [...] 12/15/19 9:54:00 EDT, Route to Pharmacy Electronically, [facility], Please deliver 12/16/19, [...] 01/05/20 11:22:00 EDT, Route to Pharmacy Electronically, [facility], 178, cm, 01/05/20 7:58:00 EDT, Height, 80.5... Start Date: 01/05/20 Stop Date: 04/04/20 Status: OrderedEnvarsus XR 1 mg oral tablet, extended release 8 tablet = 8 mg, By Mouth, Daily in AM, # 240 tablet, 11 Refills, Maintenance, 12/06/19 10:01:00 EDT, [facility], 178, cm, 12/06/19 7:08:00 EDT, Height, 80.5, kg, 12/02/19 13:50:00 EDT, Dry Weight Start Date: 12/06/19 Status: Orderedferrous sulfate 325 mg oral enteric coated tablet 325 mg, 1, tablet, By Mouth, Daily, # 30 tablet, Refills 1, Tot. Refills 1, Maintenance, 12/08/19 16:40:00 EDT, Route to Pharmacy Electronically, [facility]/pharmacy #[id number], 178, cm, 12/08/19 8:05:00 EDT, Height, 80.5, kg, 12/02/19 13:50:00 EDT, Dry Weight Start Date: 12/08/19 Stop Date: 02/06/20 Status: Orderedfluticasone 50 mcg/inh nasal spray 0 Refills, Maintenance, 06/06/21 10:15:00 EST, Partial fill upon patient request if the prescriptionis for a schedule II opioid drug. Start Date: 06/06/21 Status: OrderedKayexcelate Powder Kayexcelate Powder, 30 grams, [...] 12/15/19 9:50:00 EDT, Route to Pharmacy Electronically, [facility], Please deliver12/16/19, 178joe, 12/15/19 8:07:00 EDT, Height, 8... Start Date: 12/15/19 Stop Date: 03/14/20 Status: Orderedmycophenolic acid 180 mg oral delayed release tablet 3 tablet = 540 mg, By Mouth, 2 times a day, # 180 tablet, 11 Refills, Maintenance, 12/07/19 17:01:00EDT, EC Tablet, [facility], 178, cm, 12/07/19 16:12:00 EDT, [...] recent to oldest [Reference Range]: 1 Height 178 cm (06/06/21 10:04 AM) Weight 97.72 kg (06/06/21 10:04 AM) Oxygen Saturation [94-100 %] 98 % (06/06/21 10:04 AM) Pulse Rate [55-90 bpm] 88 bpm (06/06/21 10:04 AM) Body Mass Index [18.5-24.99] 30.84 *>HHI* (06/06/21 10:04 AM) Blood Pressure [90-138/55-84 mm Hg] 134/70 mm Hg (06/06/21 10:04 AM) Mode of Delivery (Oxygen) Room air (06/06/21 10:04 AM) Blood pressure sites Arm, left (06/06/21 10:04 AM) Weight Obtained Via Patient/family stated (06/06/21 10:04 AM) Social History Social History Type Response Smoking Status Current some day smoker; Tob acco user in household: No; Type: Cigarettes; Previous treatment: cold turkey; Interested in cessation: Yes; Tobacco use times per day: 1-2 cigarettes/day; Number of years: 15; entered on: 11/22/15 Sex
--- OUTSIDE RECORDS SUMMARY | 2022-04-29 22:39 | XMS_ITS | Continuity of Care Document ---
:1975 Author Organization [facility] Address [address] [facility] [address] [place] [address]- Care Team Providers Name Role Phone Name Shaka TURNER Primary Care Physician Encounter [facility] [place] Date(s): 12/21/20 - 01/20/21 [facility] [address] [facility] [address] [place], [place] [address] Attending Physician: Saray Pritchard Admitting Physician: AdmSaray huston Referring Physician: AdmtrSaray Allergies, Adverse Reactions, Alerts Substance Reaction Severity [...] 12/15/19 9:54:00 EDT, Route to Pharmacy Electronically, [facility], Please deliver 12/16/19, 178, cm, [...] Refills, Maintenance, Tablet Start Date: 11/22/15 Status: Orderedcitalopram 40 mg oral tablet 40 [...] 01/05/20 11:22:00 EDT, Route to Pharmacy Electronically, [facility], 178, cm, 01/05/20 7:58:00 EDT, Height, 80.5... Start Date: 01/05/20 Stop Date: 04/04/20 Status: OrderedEnvarsus XR 1 mg oral tablet, extended release 8 tablet = 8 mg, By Mouth, Daily in AM, # 240 tablet, 11 Refills, Maintenance, 12/06/19 10:01:00 EDT, [facility], 178, cm, 12/06/19 7:08:00 EDT, Height, 80.5, kg, 12/02/19 13:50:00 EDT, Dry Weight Start Date: 12/06/19 Status: Orderedferrous sulfate 325 mg oral enteric coated tablet 325 mg, 1, tablet, By Mouth, Daily, # 30 tablet, Refills 1, Tot. Refills 1, Maintenance, 12/08/19 16:40:00 EDT, Route to Pharmacy Electronically, [facility]/pharmacy #[id number], 178, cm, 12/08/19 8:05:00 EDT, Height, [...] 12/15/19 9:50:00 EDT, Route to Pharmacy Electronically, [facility], Please deliver12/16/19, 178, cm, 12/15/19 8:07:00 EDT, Height, 8... Start Date: 12/15/19 Stop Date: 03/14/20 Status: Orderedmycophenolic acid 180 mg oral delayed release tablet 3 tablet = 540 mg, By Mouth, 2 times a day, # 180 tablet, 11 Refills, Maintenance, 12/07/19 17:01:00EDT, EC Tablet, [facility], 178, cm, 12/07/19 16:12:00 EDT, Height, 80.5, kg, 12/02/19 13:50:00 EDT, Dry Weight Start Date: 12/07/19 Status: Orderedomeprazole 20 mg oral enteric coated capsule 2 capsule = 40 mg, By Mouth, Daily, 0 Refills, Maintenance, 12/01/12 10:55:04 EDT Start Date: 12/01/12 Status: OrderedVicodin ES 1 tablet, By Mouth, [...] pain(Confirmed) Active Pure hypercholesterolemia(Confirmed) Active 1campath induction Vital [...]
--- OUTSIDE RECORDS SUMMARY | 2022-04-29 22:39 | XMS_ITS | Continuity of Care Document ---
:1975 Author Organization [facility] Address [address] [place] [address]- Care Team Providers Name Role Phone Name Shaka TURNER Primary Care Physician Encounter [facility] [place] Date(s): 07/02/21 - 08/01/[address] [address] Attending Physician: Cortez Hernandez MD Admitting Physician: Cortez Hernandez MD Allergies, Adverse Reactions, [...] 12/15/19 9:54:00 EDT, Route to Pharmacy Electronically, [facility], Please deliver [...] 01/05/20 11:22:00 EDT, Route to Pharmacy Electronically, [facility], 178, cm, 01/05/20 7:58:00 EDT, Height, 80.5... Start Date: 01/05/20 Stop Date: 04/04/20 Status: OrderedEnvarsus XR 1 mg oral tablet, extended release 8 tablet = 8 mg, By Mouth, Daily in AM, # 240 tablet, 11 Refills, Maintenance, 12/06/19 10:01:00 EDT, [facility], 178, cm, [...] 12/15/19 9:50:00 EDT, Route to Pharmacy Electronically, [facility], Please deliver12/16/19, 178, cm, 12/15/19 8:07:00 EDT, Height, 8... Start Date: 12/15/19 Stop Date: 03/14/20 Status: Orderedmycophenolic acid 180 mg oral delayed release tablet 3 tablet = 540 mg, By Mouth, 2 times a day, # 180 tablet, 11 Refills, Maintenance, 12/07/19 17:01:00EDT, EC Tablet, [facility], 178, cm, 12/07/19 [...]
--- OUTSIDE RECORDS SUMMARY | 2022-04-29 22:39 | XMS_ITS | Continuity of Care Document ---
:1975 Author Organization [facility] Address [address] [place] [address]- Care Team Providers Name Role Phone Name Shaka TURNER Primary Care Physician Encounter [facility] [place] [facility] R [id number] Date(s): 06/06/21 - 07/25/21 [facility] [address] [place] [id number] [place] Attending Physician: Cortez Hernandez MD Admitting Physician: [...] 12/15/19 9:54:00 EDT, Route to Pharmacy Electronically, [facility], Please deliver 12/16/19, 178, [...] 01/05/20 11:22:00 EDT, Route to Pharmacy Electronically, [facility], 178, cm, 01/05/20 7:58:00 EDT, Height, 80.5... Start Date: 01/05/20 Stop Date: 04/04/20 Status: OrderedEnvarsus XR 1 mg oral tablet, extended release 8 tablet = 8 mg, By Mouth, Daily in AM, # 240 tablet, 11 Refills, Maintenance, 12/06/19 10:01:00 EDT, [facility], 178, cm, 12/06/19 7:08:00 [...] 12/15/19 9:50:00 EDT, Route to Pharmacy Electronically, [facility], Please deliver12/16/19, 178, cm, 12/15/19 8:07:00 EDT, Height, 8... Start Date: 12/15/19 Stop Date: 03/14/20 Status: Orderedmycophenolic acid 180 mg oral delayed release tablet 3 tablet = 540 mg, By Mouth, 2 times a day, # 180 tablet, 11 Refills, Maintenance, 12/07/19 17:01:00EDT, EC Tablet, [facility], 178, cm, 12/07/19 16:12:00 [...]
--- OUTSIDE RECORDS SUMMARY | 2022-04-29 22:39 | XMS_ITS | Continuity of Care Document ---
:1975 Author Organization [facility] Address [address] [place] [address]- Care Team Providers Name Role Phone Name Shaka TURNER Primary Care Physician Encounter [facility] [place] Date(s): 06/11/21 - 07/11/21 [facility] [address] [place] [id number] Attending Physician: Saray Pritchard Admitting Physician: AdmSaray huston Referring Physician: Admtr, Saray Allergies, Adverse Reactions, Alerts No Known Medication [...] 12/15/19 9:54:00 EDT, Route to Pharmacy Electronically, [facility], Please deliver 12/16/19, 178, [...] 01/05/20 11:22:00 EDT, Route to Pharmacy Electronically, [facility], 178, cm, 01/05/20 7:58:00 EDT, Height, 80.5... Start Date: 01/05/20 Stop Date: 04/04/20 Status: OrderedEnvarsus XR 1 mg oral tablet, extended release 8 tablet = 8 mg, By Mouth, Daily in AM, # 240 tablet, 11 Refills, Maintenance, 12/06/19 10:01:00 EDT, [facility], 178, cm, 12/06/19 7:08:00 [...] 12/15/19 9:50:00 EDT, Route to Pharmacy Electronically, [facility], Please deliver12/16/19, 178, cm, 12/15/19 8:07:00 EDT, Height, 8... Start Date: 12/15/19 Stop Date: 03/14/20 Status: Orderedmycophenolic acid 180 mg oral delayed release tablet 3 tablet = 540 mg, By Mouth, 2 times a day, # 180 tablet, 11 Refills, Maintenance, 12/07/19 17:01:00EDT, EC Tablet, [facility], 178, cm, 12/07/19 16:12:00 [...]
--- OUTSIDE RECORDS SUMMARY | 2022-04-29 22:39 | XMS_ITS | Continuity of Care Document ---
:1975 Author Organization [facility] Address [address] [facility] [address] [place] [address]- Care Team Providers Name Role Phone Name Shaka TURNER Primary Care Physician [facility] [place] [id number] Date(s): 08/31/19 - 09/10/19 [facility] [address] [facility] [address] [place] [address]- [facility] Attending Physician: Saray Pritchard Admitting Physician: Saray Pritchard Referring Physician: trSaray Allergies, Adverse Reactions, Alerts Substance Reaction Severity Status Grass Sneezing Persistent Mild Active Medications Allopurinol Tablet 100 mg, By Mouth, Maintenance, 12/01/12 10:53:52 Start Date: 12/01/12 Status: OrderedAmbien 10 mg oral tablet 1 tablet = 10 mg, By Mouth, Daily at bedtime, 0 Refills, Maintenance Start Date: 12/01/12 Status: OrderedAmmonium Lactate 12% Topical See Instructions, Topically 2 times a day, 0 Refills, Maintenance Start Date: 12/21/18 Status: Orderedaspirin 81 mg oral tablet 1 tablet = 81 mg, By Mouth, Daily, 0 Refills, Maintenance, 11/22/15 9:18:37, Tablet Start Date: 11/22/15 Status: Orderedatorvastatin 20 mg oral tablet 1 tablet = 20 mg, By Mouth, Daily, 0 Refills, Maintenance, Tablet Start Date: 11/22/15 Status: Orderedcitalopram 40 mg oral tablet 40 mg, 1, tablet, By Mouth, Daily, # 30 tablet, Refills 0, Maintenance, 12/21/18 14:55:00 EDT Start Date: 12/21/18 Status: OrderedClonazepam = 1 mg, By Mouth, 3 times a day, 0 Refills, Maintenance, 02/10/13 7:57:44 EDT Start Date: 02/10/13 Status: OrderedDaily Anne oral tablet 1 tablet, By Mouth, Daily, # 30 tablet, 0 Refills, Maintenance, 12/21/18 14:54:24 EDT, Tablet Start Date: 12/21/18 Status: Orderedlevothyroxine 0.2 mg oral tablet 1 tablet = 200 mcg, By Mouth, Daily, # 90 tablet, 0 Refills, Maintenance, 12/21/18 14:45:31 EDT, Tablet Start Date: 12/21/18 Status: Orderedloratadine 10 mg oral tablet 1 tablet = 10 mg, By Mouth, Daily, 0 Refills, Maintenance Start Date: 12/01/12 Status: Orderedmontelukast 10 mg oral tablet 1 tablet = 10 mg, By Mouth, Daily before dinner, 0 Refills, Maintenance Start Date: 12/01/12 Status: Orderedomeprazole 20 mg oral enteric coated capsule 1 capsule = 20 mg, By Mouth, Daily, 0 Refills, Maintenance Start Date: 12/01/12 Status: OrderedRenvela 800 mg oral tablet 4 tablet = 3,200 mg, By Mouth, 3 times a day, 1-2 tablets for light meals, 0 Refills, Maintenance, 11/22/15 9:16:56 EDT, Tablet Start Date: 11/22/15 Status: OrderedVicodin ES 1 tablet, By Mouth, Every 12 hours, per last fills 12/09/18, 0 Refills, Maintenance, 07/07/18 12:40:41 EST Start Date: 07/07/18 Status: OrderedVitamin D3 2000 intl units oral capsule 1 capsule = 2,000 International_Units, By Mouth, Daily, 0 Refills, Maintenance, 12/21/18 14:54:46 EDT Start Date: 12/21/18 Status: Ordered Problem List Condition Effective Dates [...]
--- OUTSIDE RECORDS SUMMARY | 2022-04-29 22:39 | XMS_ITS | Continuity of Care Document ---
:1975 Author Organization [facility] Address [address] [place] [address]- Care Team Providers Name Role Phone Name Shaka TURNER Primary Care Physician [place] [facility] [place] 12/28/19 - 02/08/20 [facility] [address] [place] [address]- [facility] Attending Physician: Eleonora Strickland MD Admitting [...] 12/15/19 9:54:00 EDT, Route to Pharmacy Electronically, [facility], Please deliver 12/16/19, 178, [...] 06/20/20 10:00:00 EST, 12/06/19 9:56:00 EDT, Tablet, [facility], 1 tablet By Mouth [...] 12/06/19 9:56:00 EDT, Route to Pharmacy Electronically, [facility], 178, cm, 12/06/19 7:08:00 EDT, Height, 80.5, kg, ... Start Date: 12/06/19 Stop Date: 03/21/20 Status: Ordereddocusate sodium 100 mg oral capsule 100 mg, 1, capsule, By Mouth, 3 times a day, PRN, # 90 capsule, Refills 2, Tot. Refills 2, Maintenance, for constipation, 01/05/20 11:22:00 EDT, Route to Pharmacy Electronically, [facility], 178, cm, 01/05/20 7:58:00 EDT, Height, 80.5... Start Date: 01/05/20 Stop Date: 04/04/20 Status: OrderedEnvarsus XR 1 mg oral tablet, extended release 8 tablet = 8 mg, By Mouth, Daily in AM, # 240 tablet, 11 Refills, Maintenance, 12/06/19 10:01:00 EDT, [facility], 178, cm, 12/06/19 7:08:00 EDT, Height, 80.5, kg, 12/02/19 13:50:00 EDT, Dry Weight Start Date: 12/06/19 Status: Orderedferrous sulfate 325 mg oral enteric coated tablet 325 mg, 1, tablet, By Mouth, Daily, # 30 tablet, Refills 1, Tot. Refills 1, Maintenance, 12/08/19 16:40:00 EDT, Route to Pharmacy Electronically, [facility]/pharmacy #[id number], 178, cm, 12/08/19 8:05:00 [...] Acute 03/12/20 15:15:00 EDT, 01/12/20 15:15:00 EDT, [facility], [facility] deliver 01/13/20, 178, cm, 01/12/20 8:15:00 EDT, Height, 80.5, kg, 12/02/19 13:50:00 EDT, D... Start Date: 01/12/20 Stop Date: 03/12/20 Status: Orderedmontelukast 10 mg oral tablet 10 mg, 1, tablet, By Mouth, Daily before dinner, # 30 tablet, Refills 2, Tot. Refills 2, Maintenance, 12/15/19 9:50:00 EDT, Route to Pharmacy Electronically, [facility], Please deliver12/16/19, 178, cm, 12/15/19 8:07:00 EDT, Height, 8... Start Date: 12/15/19 Stop Date: 03/14/20 Status: Orderedmycophenolic acid 180 mg oral delayed release tablet 3 tablet = 540 mg, By Mouth, 2 times a day, # 180 tablet, 11 Refills, Maintenance, 12/07/19 17:01:00EDT, EC Tablet, [facility], 178, cm, 12/07/19 16:12:00 EDT, [...] 12/06/19 9:56:00 EDT, Route to Pharmacy Electronically, [facility], 178, cm, 12/06/19 7:08:00 EDT, [...]
--- OUTSIDE RECORDS SUMMARY | 2022-04-29 22:39 | XMS_ITS | Continuity of Care Document ---
:1975 Author Organization [facility] Address [address] [place] [id number]- Care Team Providers Name Role Phone Name Shaka TURNER Primary Care Physician Encounter [facility] [place] Date(s): 12/02/19 - 12/07/[address] [address]- [facility] Discharge Disposition: A-D/C Home Attending Physician: Kevin Gallego MD Admitting Physician: Kevin Gallego MD Referring Physician: Kevin Gallego MD Allergies, Adverse Reactions, Alerts Substance Reaction Severity Status Grass Sneezing Persistent Mild Active Medications albuterol 0.083% inhalation solution 3 mL = 2.5 mg, By Mouth, 3 times a day, PRN for wheezing, 0 Refills, Maintenance, 11/23/19 11:24:00 EDT, Solution Start Date: 11/23/19 Status: OrderedAllopurinol Tablet 100 mg, By Mouth, Maintenance, 12/01/12 [...] 06/20/20 10:00:00 EST, 12/06/19 9:56:00 EDT, Tablet, [facility], 1 tablet By Mouth Daily, [...] 02/10/13 7:57:44 EDT Start Date: 02/10/13 Status: Orderedclotrimazole 10 mg oral lozenge 10 mg, 1, lozenge, By Mouth, 3 times a day, # 90 lozenge, Refills 3, Tot. Refills 3, Acute 03/21/20 10:00:00 EDT, 12/06/19 9:56:00 EDT, Route to Pharmacy Electronically, [facility], 178, cm, 12/06/19 7:08:00 EDT, Height, 80.5, kg, ... Start Date: 12/06/19 Stop Date: 03/21/20 Status: OrderedDaily Anne oral tablet 1 tablet, By Mouth, Daily, # 30 tablet, 0 Refills, Maintenance, 12/21/18 14:54:24 EDT, Tablet Start Date: 12/21/18 Status: Ordereddocusate sodium 100 mg oral capsule 100 mg, 1, capsule, By Mouth, 3 times a day, PRN, # 90 capsule, Refills 0, Tot. Refills 0, Maintenance, for constipation, 12/06/19 9:57:00 EDT, Route to Pharmacy Electronically, [facility], 178, cm, 12/06/19 7:08:00 EDT, Height, 80.5,... Start Date: 12/06/19 Status: OrderedEnvarsus XR 1 mg oral tablet, extended release 8 tablet = 8 mg, By Mouth, Daily in AM, # 240 tablet, 11 Refills, Maintenance, 12/06/19 10:01:00 EDT, [facility], 178, cm, 12/06/19 7:08:00 EDT, Height, 80.5, kg, 12/02/19 13:50:00 EDT, Dry Weight Start Date: 12/06/19 Status: Orderedfurosemide 80 mg oral tablet 80 mg, 1, tablet, By Mouth, Daily, # 15 tablet, Refills 0, Tot. Refills 0, Maintenance, 12/07/19 9:26:00 EDT, Route to Pharmacy Electronically, [facility], 178, cm, 12/07/19 7:21:00 EDT, Height, 80.5, kg, 12/02/19 13:50:00 EDT, Dry We... Start Date: 12/07/19 Status: OrderedhydrOXYzine pamoate 50 mg oral capsule See Instructions, 3-4capsule By Mouth Daily at bedtime as needed, 0 Refills, Maintenance, 11/23/19 11:23:00 EDT, Capsule Start Date: 11/23/19 Status: Orderedlevothyroxine 0.2 mg oral tablet 1 [...] 0 Refills, Maintenance Start Date: 12/01/12 Status: Orderedmycophenolic acid 180 mg oral delayed release tablet 3 tablet = 540 mg, By Mouth, 2 times a day, # 180 tablet, 11 Refills, Maintenance, 12/07/19 17:01:00EDT, EC Tablet, [facility], 178, cm, 12/07/19 16:12:00 EDT, Height, 80.5, kg, 12/02/19 13:50:00 EDT, Dry Weight Start Date: 12/07/19 Status: Orderedomeprazole 20 mg oral enteric coated capsule 1 capsule = 20 mg, By Mouth, Daily, 0 Refills, Maintenance Start Date: 12/01/12 Status: OrderedoxyCODONE 5 mg oral tablet 5 mg, 1, tablet, By Mouth, Every 4 hours, PRN, for 5 days, # 20 tablet, Refills 0, Tot. Refills 0, Acute 12/12/19 14:18:00 EDT, as needed for pain, 12/07/19 14:18:00 EDT, Route to Pharmacy Electronically, [facility], Partial fill upon pa... Start Date: 12/07/19 Stop Date: 12/12/19 Status: Orderedvalganciclovir 450 mg oral tablet 450 mg, 1, tablet, By Mouth, Daily, # 30 tablet, Refills 6, Tot. Refills 6, Acute 06/20/20 10:00:00 EST, 12/06/19 9:56:00 EDT, Route to Pharmacy Electronically, [facility], 178, cm, 12/06/19 7:08:00 EDT, [...] Low back pain(Confirmed) Active Pure hypercholesterolemia(Confirmed) Active Results Orders for Microbiology Reports Name Date Sterile Body Fluid Culture W/ Gram Smear (STERILE FLUI D CULT.) 12/03/19 Microbiology Reports TEST:Sterile Fluid Culture STATUS:Auth (Verified) BODY SITE: SOURCE:DONOR COLLECTED DATE/TIME:12/03/19 4:46 PMSterile Fluid Culture SPECIMEN DESCRIPTION : DONOR MEDIA DONOR KIDNEY PRESERVATIVE FLUID SPECIAL REQUESTS : NONE GRAM STAIN : NOT DONE CULTURE : NO GROWTH 2 DAYS REPORT STATUS : FINAL 12/06/2019Radiology Reports Exam Date Time Procedure Performing Provider Status 12/02/19 3:19 PM Chest 2 Views Frontal and Lat aPlmira Ferreira; [facility] ([facility] Notes:(Chest 2 Views Frontal and Lat) Reason For Exam: PreopRESULT: Chest 2 Views Frontal and Lat Chest 2 Views Frontal and Lat Indication: Preop; Renal Transplant COMPARISON: Multiple priors most recent 10/22/2017. FINDINGS: LINES AND TUBES: None. LUNGS AND PLEURA: Clear lungs. Normal pulmonary vascularity. No pleural effusion. No pneumothorax. Chronic elevation of the right hemidiaphragm. HEART, MEDIASTINUM AND MACARENA: Heart is normal in size. Normal mediastinal and hilar contour. BONES AND SOFT TISSUES: No acute abnormality. IMPRESSION: No acute abnormality. I have personally reviewed the images and I agree with this report. WSN: [id number] Ordering Physician: Leeanne Camejo Dictated By: Kate Boland MD Dictated Date/Time: 12/02/19 3:37 pm Reviewed By: Varun Garcia MD Signed By: Varun Garcia MD Signed Date/Time: 12/02/19 3:42 pm Transcribed By: MANDI Transcribed Date/Time: 12/02/19 3:23 pm Vital Signs Most recent to oldest 1 2 3 [Reference Range]: Height 178 cm 178 cm 178 cm (12/07/19 4:12 PM) (12/07/19 3:02 PM) (12/07/19 7:2 1 AM) Weight 83.75 kg 87.7 kg 86.5 kg (12/07/19 6:46 AM) (12/06/19 6:35 AM) (12/05/19 5:2 1 AM) Oxygen Saturation [94-100 97 % 97 % 99 % %] (12/07/19 3:02 PM) (12/07/19 7:21 AM) (12/06/19 11: 23 PM) Pulse Rate [55-90 bpm] 87 bpm 78 bpm 73 bpm (12/07/19 3:02 PM) (12/07/19 7:21 AM) (12/06/19 11: 23 PM) Body Mass Index 25.6 25.44 [18.5-24.99] *H* *H* (12/03/19 3:48 PM) (12/02/19 1:04 PM) Blood Pressure 114/79 mm Hg 159/95 mm Hg 147/91 mm Hg [90-138/55-84 mm Hg] (12/07/19 4:12 PM) *H* *H* (12/07/19 3:02 PM) (12/07/19 7:21 AM) Respiratory Rate [16-30 18 br/min 18 br/min 18 br/mi n br/min] (12/07/19 3:02 PM) (12/07/19 1:44 PM) (12/07/19 1:4 1 PM) Temperature [96.8-100.4 98.5 DegF 98.0 DegF 97.9 Deg F DegF] (12/07/19 3:02 PM) (12/07/19 7:21 AM) (12/06/19 11: 23 PM) Liters per Minute 2 L/min 3 L/min 3 L/min (12/04/19 1:50 PM) (12/04/19 5:14 AM) (12/04/19 1:0 6 AM) Mode of Delivery (Oxygen) Room air Room air Room a ir (12/07/19 3:02 PM) (12/07/19 7:21 AM) (12/06/19 11: 23 PM) Blood pressure sites Arm, left Arm, left Arm, left (12/07/19 4:12 PM) (12/07/19 7:21 AM) (12/06/19 11: 23 PM) Temperature Route Oral Oral Oral (12/07/19 3:02 PM) (12/07/19 7:21 AM) (12/06/19 11: 23 PM) Dry Weight 80.5 kg (12/02/19 1:04 PM) Weight Obtained Via Standing scale Standing scale Standing sca le (12/07/19 6:46 AM) (12/06/19 6:35 AM) (12/05/19 5:2 1 AM) Dry Weight Obtained Via Patient/family stated (6/12/20 1:04 PM) Social History Social History Type Response Smoking Status Current some day smoker; Tob acco user in household: No; Type: Cigarettes; Previous treatment: cold turkey; Interested in cessation: Yes; Tobacco use times per day: 1-2 cigarettes/day; Number of years: 15; entered on: 11/22/15 Sex
--- OUTSIDE RECORDS SUMMARY | 2022-04-29 22:39 | XMS_ITS | Continuity of Care Document ---
:1975 Author Organization [facility] Address [address] [place] [address]- Care Team Providers Name Role Phone Name Shaka TURNER Primary Care Physician Encounter [facility] [place] Date(s): 12/28/19 - 02/25/20 [facility] [address] [place] [address]- [facility] Attending Physician: Eleonora Strickland MD Admitting Physician: [...] 12/15/19 9:54:00 EDT, Route to Pharmacy Electronically, [facility], Please deliver 12/16/19, [...] 06/20/20 10:00:00 EST, 12/06/19 9:56:00 EDT, Tablet, [facility], 1 tablet By [...] 12/06/19 9:56:00 EDT, Route to Pharmacy Electronically, [facility], 178, cm, 12/06/19 7:08:00 EDT, Height, 80.5, kg, ... Start Date: 12/06/19 Stop Date: 03/21/20 Status: Ordereddocusate sodium 100 mg oral capsule 100 mg, 1, capsule, By Mouth, 3 times a day, PRN, # 90 capsule, Refills 2, Tot. Refills 2, Maintenance, for constipation, 01/05/20 11:22:00 EDT, Route to Pharmacy Electronically, [facility], 178, cm, 01/05/20 7:58:00 EDT, Height, 80.5... Start Date: 01/05/20 Stop Date: 04/04/20 Status: OrderedEnvarsus XR 1 mg oral tablet, extended release 8 tablet = 8 mg, By Mouth, Daily in AM, # 240 tablet, 11 Refills, Maintenance, 12/06/19 10:01:00 EDT, [facility], 178, cm, 12/06/19 7:08:00 EDT, Height, 80.5, kg, 12/02/19 13:50:00 EDT, Dry Weight Start Date: 12/06/19 Status: Orderedferrous sulfate 325 mg oral enteric coated tablet 325 mg, 1, tablet, By Mouth, Daily, # 30 tablet, Refills 1, Tot. Refills 1, Maintenance, 12/08/19 16:40:00 EDT, Route to Pharmacy Electronically, [facility]/pharmacy #[id number], 178, cm, 12/08/19 8:05:00 EDT, Height, [...] Acute 03/12/20 15:15:00 EDT, 01/12/20 15:15:00 EDT, [facility], [facility] deliver 01/13/20, 178, cm, 01/12/20 8:15:00 EDT, Height, 80.5, kg, 12/02/19 13:50:00 EDT, D... Start Date: 01/12/20 Stop Date: 03/12/20 Status: Orderedmontelukast 10 mg oral tablet 10 mg, 1, tablet, By Mouth, Daily before dinner, # 30 tablet, Refills 2, Tot. Refills 2, Maintenance, 12/15/19 9:50:00 EDT, Route to Pharmacy Electronically, [facility], Please deliver12/16/19, 178, cm, 12/15/19 8:07:00 EDT, Height, 8... Start Date: 12/15/19 Stop Date: 03/14/20 Status: Orderedmycophenolic acid 180 mg oral delayed release tablet 3 tablet = 540 mg, By Mouth, 2 times a day, # 180 tablet, 11 Refills, Maintenance, 12/07/19 17:01:00EDT, EC Tablet, [facility], 178, cm, 12/07/19 16:12:00 [...] 12/06/19 9:56:00 EDT, Route to Pharmacy Electronically, [facility], 178, cm, 12/06/19 7:08:00 EDT, [...]
--- OUTSIDE RECORDS SUMMARY | 2022-04-29 22:39 | XMS_ITS | Continuity of Care Document ---
:1975 Author Organization [facility] Address [address] [place] [address]- Care Team Providers Name Role Phone Name Shaka TURNER Primary Care Physician Encounter [facility] [place] Date(s): 12/28/19 - 02/15/20 [facility] [address] [place] [address]- [facility] Attending Physician: Eleonora Strickland MD Admitting Physician: [...] 12/15/19 9:54:00 EDT, Route to Pharmacy Electronically, [facility], Please deliver 12/16/19, 178, [...] 06/20/20 10:00:00 EST, 12/06/19 9:56:00 EDT, Tablet, [facility], 1 tablet By Mouth [...] 12/06/19 9:56:00 EDT, Route to Pharmacy Electronically, [facility], 178, cm, 12/06/19 7:08:00 EDT, Height, 80.5, kg, ... Start Date: 12/06/19 Stop Date: 03/21/20 Status: Ordereddocusate sodium 100 mg oral capsule 100 mg, 1, capsule, By Mouth, 3 times a day, PRN, # 90 capsule, Refills 2, Tot. Refills 2, Maintenance, for constipation, 01/05/20 11:22:00 EDT, Route to Pharmacy Electronically, [facility], 178, cm, 01/05/20 7:58:00 EDT, Height, 80.5... Start Date: 01/05/20 Stop Date: 04/04/20 Status: OrderedEnvarsus XR 1 mg oral tablet, extended release 8 tablet = 8 mg, By Mouth, Daily in AM, # 240 tablet, 11 Refills, Maintenance, 12/06/19 10:01:00 EDT, [facility], 178, cm, 12/06/19 7:08:00 EDT, Height, [...] Acute 03/12/20 15:15:00 EDT, 01/12/20 15:15:00 EDT, [facility], [facility] deliver 01/13/20, 178, cm, 01/12/20 8:15:00 EDT, Height, 80.5, kg, 12/02/19 13:50:00 EDT, D... Start Date: 01/12/20 Stop Date: 03/12/20 Status: Orderedmontelukast 10 mg oral tablet 10 mg, 1, tablet, By Mouth, Daily before dinner, # 30 tablet, Refills 2, Tot. Refills 2, Maintenance, 12/15/19 9:50:00 EDT, Route to Pharmacy Electronically, [facility], Please deliver12/16/19, 178, cm, 12/15/19 8:07:00 EDT, Height, 8... Start Date: 12/15/19 Stop Date: 03/14/20 Status: Orderedmycophenolic acid 180 mg oral delayed release tablet 3 tablet = 540 mg, By Mouth, 2 times a day, # 180 tablet, 11 Refills, Maintenance, 12/07/19 17:01:00EDT, EC Tablet, [facility], 178, cm, 12/07/19 16:12:00 EDT, Height, [...] 12/06/19 9:56:00 EDT, Route to Pharmacy Electronically, [facility], 178, cm, 12/06/19 7:08:00 EDT, Height, [...]
--- OUTSIDE RECORDS SUMMARY | 2022-04-29 22:39 | XMS_ITS | Continuity of Care Document ---
:1975 Author Organization [address], [address] [place] [address]- Care Team Providers Name Role Phone Name Shaka TURNER Primary Care Phys[place] [facility] [place] 04/22/[address], [address] [place], [place] [address] Attending Physician: Bebo Becerra MD Referring Physician: Quincy TURNER , Boyd Cat Allergies, Adverse Reactions, Alerts Substance Reaction Severity [...] 12/15/19 9:54:00 EDT, Route to Pharmacy Electronically, [facility], Please deliver 12/16/19, 178, [...] 01/05/20 11:22:00 EDT, Route to Pharmacy Electronically, [facility], 178, cm, 01/05/20 7:58:00 EDT, Height, 80.5... Start Date: 01/05/20 Stop Date: 04/04/20 Status: OrderedEnvarsus XR 1 mg oral tablet, extended release 8 tablet = 8 mg, By Mouth, Daily in AM, # 240 tablet, 11 Refills, Maintenance, 12/06/19 10:01:00 EDT, [facility], 178, cm, 12/06/19 7:08:00 EDT, Height, 80.5, kg, 12/02/19 13:50:00 EDT, Dry Weight Start Date: 12/06/19 Status: Orderedferrous sulfate 325 mg oral enteric coated tablet 325 mg, 1, tablet, By Mouth, Daily, # 30 tablet, Refills 1, Tot. Refills 1, Maintenance, 12/08/19 16:40:00 EDT, Route to Pharmacy Electronically, [facility]/pharmacy #[id number], 178, cm, 12/08/19 8:05:00 EDT, [...] 12/15/19 9:50:00 EDT, Route to Pharmacy Electronically, [facility], Please deliver12/16/19, 178, cm, 12/15/19 8:07:00 EDT, Height, 8... Start Date: 12/15/19 Stop Date: 03/14/20 Status: Orderedmycophenolic acid 180 mg oral delayed release tablet 3 tablet = 540 mg, By Mouth, 2 times a day, # 180 tablet, 11 Refills, Maintenance, 12/07/19 17:01:00EDT, EC Tablet, [facility], 178, cm, 12/07/19 16:12:00 [...] oldest [Reference Range]: 1 Height 178 cm (04/15/21 2:25 PM) Weight 84.4 kg (04/15/21 2:25 PM) Body Mass Index [18.5-24.99] 26.64 *H* (04/15/21 2:25 PM) Social History Social History Type Response Smoking Status Current some day smoker; Tob acco user in household: No; Type: Cigarettes; Previous treatment: cold turkey; Interested in cessation: Yes; Tobacco use times per day: 1-2 cigarettes/day; Number of years: 15; entered on: 11/22/15 Sex
--- OUTSIDE RECORDS SUMMARY | 2022-04-29 22:39 | XMS_ITS | Continuity of Care Document ---
:1975 Author Organization [address], [address] [place] [address]- Care Team Providers Name Role Phone Name Shaka TURNER Primary Care Physician Encounter [facility] [place] Date(s): 04/15/21 - 05/15/[address], [address] [place] [address]- Attending Physician: Saray Pritchard Admitting Physician: Admtr, Saray Referring Physician: Admtr, Ar8 Allergies, Adverse Reactions, Alerts Substance Reaction Severity [...] 12/15/19 9:54:00 EDT, Route to Pharmacy Electronically, [facility], Please deliver 12/16/19, 178, [...] 01/05/20 11:22:00 EDT, Route to Pharmacy Electronically, [facility], 178, cm, 01/05/20 7:58:00 EDT, Height, 80.5... Start Date: 01/05/20 Stop Date: 04/04/20 Status: OrderedEnvarsus XR 1 mg oral tablet, extended release 8 tablet = 8 mg, By Mouth, Daily in AM, # 240 tablet, 11 Refills, Maintenance, 12/06/19 10:01:00 EDT, [facility], 178, cm, 12/06/19 7:08:00 EDT, Height, 80.5, kg, 12/02/19 13:50:00 EDT, Dry Weight Start Date: 12/06/19 Status: Orderedferrous sulfate 325 mg oral enteric coated tablet 325 mg, 1, tablet, By Mouth, Daily, # 30 tablet, Refills 1, Tot. Refills 1, Maintenance, 12/08/19 16:40:00 EDT, Route to Pharmacy Electronically, [facility]/pharmacy #[id number], 178, cm, 12/08/19 8:05:00 EDT, Height, [...] 12/15/19 9:50:00 EDT, Route to Pharmacy Electronically, [facility], Please deliver12/16/19, 178, cm, 12/15/19 8:07:00 EDT, Height, 8... Start Date: 12/15/19 Stop Date: 03/14/20 Status: Orderedmycophenolic acid 180 mg oral delayed release tablet 3 tablet = 540 mg, By Mouth, 2 times a day, # 180 tablet, 11 Refills, Maintenance, 12/07/19 17:01:00EDT, EC Tablet, [facility], 178, cm, 12/07/19 16:12:00 [...]
--- NOTE | 2022-04-29 23:02 | ED.ABDPAIN ---
HPI - Abdominal Pain General Chief Complaint: Abdominal Pain Stated Complaint: Gallstones? Sent by Name Time Seen by Provider: 04/29/22 22:34 Source: patient Mode of arrival: ambulatory Limitations: no limitations History of Present Illness HPI narrative: This is a 47-year-old male with a history of right renal transplant 2 years ago who presents with right upper abdominal pain since Thursday after eating a greasy burger. Patient reports he was seen at a hospital in [place] and diagnosed with gallstones and mildly elevated liver enzymes. Followed up with his primary care doctor today who referred him into the emergency room for continued pain and decreased oral intake. Patient reports no nausea or vomiting. Patient does report when he eats food he has worsened pain. He does take Percocet chronically for pain. He denies any fevers, chills, diarrhea, constipation, urinary symptoms. Related Data Home Medications Medication Instructions Recorded Confirmed albuterol sulfate 2.5 mg/3 mL 2.5 mg inhalation NEEDED PRN 04/11/20 10/22/21 (0.083 %) solution for nebulization Shortness Of Breath atorvastatin 20 mg tablet 20 mg PO DAILY 04/11/20 10/22/21 clonazepam 1 mg tablet 1 mg PO BID 04/11/20 10/22/21 clotrimazole 10 mg wally 10 mg mucous membrane TID 04/11/20 10/22/21 montelukast 10 mg tablet 10 mg PO BEDTIME 04/11/20 10/22/21 omeprazole 20 mg capsule,delayed 40 mg PO DAILY 04/11/20 10/22/21 release docusate sodium 100 mg capsule 100 mg PO DAILY 08/03/20 10/22/21 (Stool Softener) fluticasone propionate 50 1 spray intranasal DAILY 08/03/20 10/22/21 mcg/actuation nasal spray,suspension magnesium oxide 1 tab PO DAILY 08/03/20 10/22/21 oxycodone 10 mg tablet 1 tab PO TID PRN Pain 08/03/20 10/22/21 zolpidem 10 mg tablet 1 tab PO BEDTIME 08/03/20 10/22/21 mycophenolate sodium 180 mg 540 mg PO BID 08/07/20 10/22/21 tablet,delayed release (Myfortic) tacrolimus 1 mg tablet,extended 4 mg PO QAM 08/07/20 10/22/21 release 24 hr (Envarsus XR) ciclopirox 0.77 % topical cream appl topical BID 12/03/20 10/22/21 ampicillin 500 mg capsule 0 cap PO 10/22/21 10/22/21 azelastine 0.05 % eye drops 0 drp ophthalmic (eye) 10/22/21 10/22/21 escitalopram oxalate 5 mg tablet 5 mg PO DAILY 10/22/21 10/22/21 levothyroxine 200 mcg tablet 150 mcg PO .COMPLEX 10/22/21 10/22/21 loratadine 10 mg tablet 10 mg PO DAILY 10/22/21 10/22/21 sildenafil 100 mg tablet (Viagra) 100 mg PO DAILY PRN 10/22/21 10/22/21 Previous Rx's Medication Instructions Recorded Raised toilet seat #1 ea 08/09/20 walker #1 ea 08/09/20 aspirin 81 mg tablet,delayed 81 mg PO DAILY 30 days #30 tabs 08/16/20 release cane #1 ea 08/30/20 cephalexin 500 mg capsule 500 mg PO QID 7 days #28 caps 10/24/21 acetaminophen 325 mg tablet 650 mg PO Q6H PRN for mild pain 12/12/21 #240 tabs Allergies Allergy/AdvReac Type Severity Reaction Status Date / Time ibuprofen [From MOTRIN] Allergy Unknown PT STATES Verified 11/13/21 14:43 HE CAN'T TAKE BECAUSE OF MY KIDNEY grass pollen Allergy Itching Verified 04/29/22 15:24 Review of Systems Review of Systems Yes all other systems are reviewed and are negative Constitutional: Reports no additional constitutional complaints, Denies body ache(s), Denies chills, Denies fever(s), Denies headache(s) and Denies weakness Eyes: Reports no additional eye complaints and Denies change in vision Reports system reviewed and no additional complaints, except as documented, Denies dizziness, Denies headache(s), Denies nasal congestion, Denies nasal discharge and Denies neck pain Cardiovascular: Reports no additional cardiovascular complaints, Denies chest pain, Denies leg edema and Denies dyspnea Respiratory: Reports no additional respiratory complaints, Denies cough and Denies dyspnea Gastrointestinal: Reports no additional gastrointestinal complaints, Denies abdominal pain, Denies diarrhea, Denies nausea and Denies vomiting Genitourinary: Denies urinary incontinence Musculoskeletal: Reports no additional musculoskeletal complaints, Denies back pain, Denies arthralgias, Denies joint swelling, Denies neck pain, Denies numbness and Denies tingling Skin/Breast: Reports system reviewed and no additional complaints, except as docu and Denies rash Reports system reviewed and no additional complaints, except as documented, Denies dizziness, Denies headache(s), Denies numbness, Denies tingling and Denies weakness [facility] Past Medical History Attestation statement: The following information was validated with the patient. Source: old records reviewed and nursing notes reviewed Medical History A-V fistula Allergic rhinitis Asthma Avascular necrosis Avascular necrosis of bones of both hips Chronic back pain CKD (chronic kidney disease) Depression ESRD (end stage renal disease) GERD (gastroesophageal reflux disease) Hx of anxiety disorder Hx of gout Hyperlipidemia Hypertension Hypothyroidism Knee effusion, right FLORENTINO (obstructive sleep apnea) Surgical History Kidney replaced by transplant Family History Family History Mother No problems noted. Father No problems noted. Social History Social History Are you a primary long term care pharmacist to a significant other at home: No Do you presently have visiting nurse or other home services: No (home health aide) Alcohol intake: never Second Hand Smoke Exposure: No Advance Directives: No service: No Current occupational status: disabled Current occupation: leftHanded Physical Exam ED Vital Signs: Vital Signs - 24 hr 04/29/22 12:32 04/30/22 00:07 Temperature 97.5 F 97.7 F Pulse Rate 78 55 Respiratory Rate 20 16 Blood Pressure 170/103 H 159/94 H Pulse Oximetry 98 98 Oxygen Delivery Method Room Air Room Air BMI result Body Mass Index 29.8 Const General: cooperative, healthy appearing, comfortable and no acute distress Orientation/consciousness: patient oriented x3 Limitations: no limitations HENMT Head: Yes normal to inspection Ears: hearing grossly normal bilaterally Eyes General: appearance normal, both eyes and all related structures Pupils: Equal, round and reactive pupils present Neck Neck: Yes normal visual inspection, Yes full ROM and Yes no lymphadenopathy Chest Chest palpation & inspection: normal inspection of the chest Resp Effort & Inspection: normal respiratory effort Auscultation: clear to auscultation bilaterally Cardio Rate: regular rate Rhythm: regular rhythm Peripheral pulses: Peripheral pulses 2+ throughout GI Inspection: Yes normal to inspection Palpation (GI): Soft to palpation and Tenderness to palpation present (GI) (Right upper quadrant no rebound or guarding) General: Yes no CVA tenderness Back/Spine/Pelvis Back: no CVA tenderness Thoracic/Lumbar Spine: thoracic and lumbar spine normal to inspection Skin General skin exam: no rashes or lesions noted Neuro General: patient oriented x3 and moves all extremities Cranial nerves: Yes Equal, round and reactive pupils present Cognition (Neuro): normal cognition Gait exam (Neuro): Normal gait present Extrem General: Yes normal to inspection Course Course Course Narrative: Abdominal ultrasound is negative for cholecystitis or gallstones. Patient had a CT scan of the abdomen and pelvis which shows unremarkable appendix and no other acute finding. Labs are unremarkable with exception of mildly elevated AST and ALT. Reviewed records from patient's outside hospital visit in [place]. Patient had AST and ALT that were in the high 100s. His LFTs are improved when compared to this today. Patient is able to tolerate p.o.. Command he continue to follow-up with his primary care doctor. Reviewed worrisome signs and symptoms of when to return to the emergency room. Comfortable discharge home. Medications Administered Discontinued Medications Generic Name Dose Route Start Last Admin Trade Name Harrisonq PRN Reason Stop Dose Admin Acetaminophen 650 mg 04/29/22 15:24 04/29/22 15:26 Acetaminophen 325 Mg Tablet PO 04/29/22 15:25 650 mg ONCE ONE Administration MDM - Abdominal Pain MDM Narrative Medical decision making narrative: 47-year-old male here with right upper quadrant pain after eating a greasy Burger on Thursday. Seen at another hospital and diagnosed with gallstones and elevated liver enzymes. Patient followed up with primary today and reported continued pain so was sent into the ER for further evaluation. Will check labs, UA, abdominal ultrasound Consider cholecystitis, cholelithiasis, renal colic Medical Records Attestation: I reviewed the patient's medical records. Lab Data Attestation: I reviewed the patient's lab results. Result diagrams: 04/29/22 12:40 04/29/22 12:40 Labs: Lab Results 04/29/22 04/29/22 04/29/22 Range/Units 12:40 12:40 23:06 WBC 7.3 (4.8-10.8) X10*3/uL RBC 5.75 (4.60-5.80) X10*6/uL Hgb 15.3 (14.0-18.0) g/dl Hct 48.8 (42.0-52.0) % MCV 84.9 (80.0-98.0) fL MCH 26.6 L (27.0-33.0) pg MCHC 31.4 (31.0-36.0) g/dl RDW 13.2 (11.0-16.0) % Plt Count 204 (160-400) X10*3/uL MPV 11.5 (9.4-12.4) fL Immature Gran % (Auto) 0.3 (0.0-0.4) % Neut % (Auto) 66.6 (45-73) % Lymph % (Auto) 22.2 (20-40) % [place] % (Auto) 9.5 (2-11) % Eos % (Auto) 1.1 (0-4) % Baso % (Auto) 0.3 (0-2) % Lymph # (Auto) 1.6 (1.2-4.9) X10*3/uL [place] # (Auto) 0.7 (0.1-1.2) X10*3/uL Eos # (Auto) 0.1 (0.0-0.4) X10*3/uL Baso # (Auto) 0.0 (0.0-0.2) X10*3/uL Abs Immat Gran (auto) 0.02 (0.00-0.03) X10*3/uL Absolute Neuts (auto) 4.8 (2.0-8.3) x10*3/uL Absolute Nucleated RBC 0.000 (0.0-0.012) X10*3/uL Nucleated RBC % (auto) 0.0 (0.0-0.2) /100WBC Sodium 140 (135-145) mmol/L Potassium 4.8 (3.3-5.1) mmol/L Chloride 101 (96-108) mmol/L Carbon Dioxide 26 (22-29) mmol/L Anion Gap 18 (12-20) BUN 12 (9-16) mg/dL Creatinine 1.05 (0.5-1.4) mg/dL Estim Creat Clear Calc 101.3 Estimated GFR > 60 Random Glucose 129 H (60-115) mg/dL Calcium 9.8 D (8.4-10.2) mg/dL Total Bilirubin 0.4 (0.0-1.0) mg/dL Direct Bilirubin 0.2 (0.0-0.5) mg/dL AST 48 H D (5-37) U/L ALT 119 H (0-40) U/L Alkaline Phosphatase 87 (39-117) U/L Total Protein 8.1 H D (6.5-8.0) g/dL Albumin 4.8 D (3.5-5.0) g/dL Urine Color Yellow Urine Appearance Clear Urine pH 7.0 (5.0-9.0) Ur Specific [place] 1.010 (1.005-1.025) Urine Protein Negative (Neg-Trace) mg/dL Urine Glucose (UA) Negative (Negative) mg/dL Urine Ketones Negative (Negative) mg/dL Urine Blood Negative (Negative) Urine Nitrite Negative (Negative) Ur Leukocyte Esterase Negative (Negative) Imaging Data US - abdomen: Attestation: I personally reviewed and interpreted this imaging study as follows: Radiologist's impression: [place] [id number] Ultrasound Report Signed Patient: William Zavala MR#: [id number] : 1975 Acct:[id number] Age/Sex: 47 / M ADM Date: 04/29/22 Loc: .ED Attending Dr: Ordering Physician: Paulo Akbar Date of Service: 04/29/22 Procedure(s): US abdomen limited Accession Number(s): [id number] cc: Paulo Akbar~ EXAMINATION: US ABDOMEN LIMITED CLINICAL INFORMATION: Right upper quadrant pain. COMPARISON: None TECHNIQUE: Real-time imaging of the right upper quadrant abdominal viscera. FINDINGS: PANCREAS: Pancreas could not be evaluated as it was obscured by bowel gas. LIVER: The liver is normal in size. The liver contour is normal. There is diffuse increased liver parenchymal echogenicity, consistent with hepatic steatosis. Focal fatty sparing noted around the gallbladder. No worrisome solid focal hepatic lesion. There is no intrahepatic biliary duct dilatation seen. GALLBLADDER: The gallbladder is physiologically distended without evidence of stones, sludge, polyps, wall thickening or pericholecystic fluid. COMMON BILE DUCT: Normal in caliber measuring 0.2 cm in diameter. TRANSPLANT KIDNEY: The transplant kidney is present in the pelvis without hydronephrosis, calculi or focal parenchymal lesions. The kidney measures 12.4 cm in maximum dimension. [place] kidneys are barely visible. FREE FLUID: None. US/US abdomen limited IMPRESSION: 1.? Echogenic liver consistent with hepatic steatosis. 2.? Normal-appearing transplant kidney. 3.? The pancreas could not be evaluated. 4.? A cause for the patient's acute right upper quadrant pain has not been elucidated. ? CT scan - abdomen: Attestation: I personally reviewed and interpreted this imaging study as follows: Radiologist's impression: FINDINGS: LUNG BASES: The visualized lung bases are unremarkable.? LIVER, GALLBLADDER, AND BILIARY TREE: The liver is normal in size, shape, and attenuation. No focal hepatic lesion or biliary ductal dilatation is present. The gallbladder is unremarkable with no evidence of radiopaque gallstones, gallbladder wall thickening, or obvious pericholecystic inflammatory changes.? PANCREAS: Unremarkable.? SPLEEN: Unremarkable.? ADRENAL GLANDS: Unremarkable.? KIDNEYS AND URETERS: The [place] kidneys are atrophic. Transplant kidney right lower quadrant.? There is no calculus or hydronephrosis. BLADDER: Unremarkable.? GASTROINTESTINAL TRACT: The small and large bowel are unremarkable. The appendix is unremarkable.? ABDOMINAL WALL: No significant hernia is appreciated.? LYMPH NODES: Normal. VASCULAR: Vascular calcifications of aorta and iliac arteries. There is no aneurysm. PELVIC VISCERA: Unremarkable.? OSSEOUS STRUCTURES: Status post left hip replacement.? CT/CT abdomen pelvis wo IV con IMPRESSION: No acute abnormality CT scan abdomen pelvis. ? Fleischner guidelines were followed. Discharge Plan Discharge Clinical Impression: Abdominal pain Patient Disposition: Home, Self-Care Instructions: Abdominal Pain (ED) Additional Instructions: Your gallbladder looks okay on the ultrasound. I do not see any stones or swelling. Your liver enzymes have decreased from your previous visit Continue your home medication Start with a bland diet like boiled chicken and white rice and increase her diet as tolerated Continue to up with your primary care Prescriptions: No Action acetaminophen 325 mg tablet 650 mg PO Q6H PRN (Reason: for mild pain) Qty: 240 0RF docusate sodium [Stool Softener] 100 mg capsule 100 mg PO DAILY zolpidem 10 mg tablet 1 tab PO BEDTIME fluticasone propionate 50 mcg/actuation spray,suspension 1 spray intranasal DAILY magnesium oxide 250 mg magnesium tablet 1 tab PO DAILY oxycodone 10 mg tablet 1 tab PO TID PRN (Reason: Pain) mycophenolate sodium [Myfortic] 180 mg Tablet,Delayed Release (Dr/Ec) 540 mg PO BID Envarsus XR 1 mg Tablet Extended Release 24 Hr 4 mg PO QAM aspirin 81 mg tablet,delayed release (DR/EC) 81 mg PO DAILY 30 Days Qty: 30 0RF cephalexin 500 mg capsule 500 mg PO QID 7 Days Qty: 28 0RF ciclopirox 0.77 % cream topical BID omeprazole 20 mg capsule,delayed release(DR/EC) 40 mg PO DAILY clotrimazole 10 mg wally 10 mg mucous membrane TID atorvastatin 20 mg tablet 20 mg PO DAILY clonazepam 1 mg tablet 1 mg PO BID Rx Instructions: administer 30 minutes before bedtime albuterol sulfate 2.5 mg /3 mL (0.083 %) solution for nebulization 2.5 mg inhalation NEEDED PRN (Reason: Shortness Of Breath) montelukast 10 mg tablet 10 mg PO BEDTIME levothyroxine 200 mcg tablet 150 mcg PO .COMPLEX Rx Instructions: 150 mcg PO Thu to Thursday, skip Thursday and Thursday; (DME) walker [facility] See Rx Instructions .MEDSUPPLY Qty: 1 0RF Rx Instructions: Folding Front wheeled walker (DME) Raised toilet seat See Rx Instructions .ROUTE .MEDSUPPLY Qty: 1 0RF Rx Instructions: As directed (DME) cane Device See Rx Instructions .MEDSUPPLY Qty: 1 0RF Rx Instructions: As directed ampicillin 500 mg capsule 0 cap PO loratadine 10 mg tablet 10 mg PO DAILY sildenafil [Viagra] 100 mg tablet 100 mg PO DAILY PRN azelastine 0.05 % drops 0 drp ophthalmic (eye) escitalopram oxalate 5 mg tablet 5 mg PO DAILY Referrals: Name,MD Shaka [Primary Care Provider] - 3 days
[2022-04-29 23:19] LABS: Appearance Urine Clear; Color Urine Yellow; Glucose Urine UA Negative (Negative); Leukocyte Esterase Urine Negative (Negative); Nitrite Urine Negative (Negative); Urine Blood Negative (Negative); Urine Ketones Negative (Negative); Urine Protein Negative (Neg-Trace)
[2022-04-30 00:07] VITALS: BP 159/94; PULSE 55; RESP 16; TEMP 36.5; O2SAT 98
== END 2022-04-30 00:27 | disposition home or self-care (01) ==
PROVIDERS: Emergency Medicine; Nurse Practitioner Family; Emergency Provider Internal Medicine; PCP Internal Medicine Geriatric Medicine
DX: R10.11 Right upper quadrant pain (principal); I12.0 Hypertensive chronic kidney disease with stage 5 chronic kidney disease or end stage renal disease; N18.6 End stage renal disease; G89.29 Other chronic pain; M54.9 Dorsalgia, unspecified; Z79.891 Long term (current) use of opiate analgesic; Z94.0 Kidney transplant status
CPT/HCPCS: 36415; 74176; 76705; 80048; 80076; 81003; 85025; 99283; 99284

== ENCOUNTER 2022-10-20 13:33 | Outpatient (REF) | payer OTHER, SELFPAY ==
[2022-10-20 14:45] LABS: MANUAL DIFF FLAG NO
[2022-10-20 15:01] LABS: Basophils Percent Auto 0.4 % (0-2); Eosinophils Absolute Auto 0.1 X10*3/uL (0.0-0.4); Eosinophils Percent Auto 1.5 % (0-4); Hematocrit 46.9 % (42.0-52.0); Hemoglobin 15.2 g/dl (14.0-18.0); Imm Gran Abs Auto 0.03 X10*3/uL (0.00-0.03); Imm Gran Pct Auto 0.4 % (0.0-0.4); Lymphocytes Absolute Auto 1.5 X10*3/uL (1.2-4.9); Lymphocytes Percent Auto 18.9 % (20-40); Mean Corpuscular HGB Conc 32.4 g/dl (31.0-36.0); Mean Corpuscular Hemoglobin 26.4 pg (27.0-33.0); Mean Corpuscular Volume 81.4 fL (80.0-98.0); Mean Platelet Volume 12.1 fL (9.4-12.4); Monocytes Absolute Auto 0.8 X10*3/uL (0.1-1.2); Monocytes Percent Auto 9.5 % (2-11); Neutrophils Absolute Auto 5.6 x10*3/uL (2.0-8.3); Neutrophils Percent Auto 69.3 % (45-73); Platelet Count 213 X10*3/uL (160-400); Red Blood Count 5.76 X10*6/uL (4.60-5.80); Red Cell Distribution Width 12.9 % (11.0-16.0)
[2022-10-20 15:44] LABS: Alanine Aminotransferase 43 U/L (0-40); Albumin Level 4.5 g/dL (3.5-5.0); Alkaline Phosphatase 107 U/L (39-117); Anion Gap 12 (12-20); Aspartate Amino Transferase 26 U/L (5-37); Bilirubin Total 0.5 mg/dL (0.0-1.0); Blood Urea Nitrogen 14 mg/dL (9-16); Calcium 9.5 mg/dL (8.4-10.2); Carbon Dioxide 27 mmol/L (22-29); Chloride 108 mmol/L (96-108); Estimated Glomerular Filt Rate > 60; Glucose Random 122 mg/dL (60-115); Potassium 4.6 mmol/L (3.3-5.1); Sodium 142 mmol/L (135-145); Total Protein 7.4 g/dL (6.5-8.0)
[2022-10-22 04:33] LABS: HBS Num1 > 1000.00 mIU/mL (0-7.99); HBc Num1 0.07 S/CO (0.00-0.79); HBsAGNum1 0.42 S/CO (0.00-0.99); Hepatitis A Antibody IgM 0.15 Index (0-0.79); Hepatitis B Core Antibody Nonreactive (Nonreactive); Hepatitis B Surface Antigen Negative (Negative); ~HepC Num1 1.15 S/CO (0.00-0.79); ~Hepatitis A Antibody IgM Nonreactive (Nonreactive); ~Hepatitis B Surface Antibody REACTIVE (Nonreactive); ~Hepatitis C Antibody Reactive (Nonreactive)
[2022-10-22 15:09] LABS: Prot Elec - Albumin 4.5 g/dL (3.8-4.8); Prot Elec - Alpha1 0.3 g/dL (0.2-0.3); Prot Elec - Alpha2 0.8 g/dL (0.5-0.9); Prot Elec - Beta 1 0.5 g/dL (0.4-0.6); Prot Elec - Beta 2 0.4 g/dL (0.2-0.5); Prot Elec - Gamma 1.2 g/dL (0.8-1.7); Prot Elec - Total Protein 7.5 g/dL (6.1-8.1)
[2022-10-23 08:03] LABS: Alpha 1 Anti-trypsin 140 mg/dL (83-199)
[2022-10-24 08:43] LABS: Anti Nuclear Antibody Screen NEGATIVE (NEGATIVE)
[2022-10-24 11:39] LABS: Mitochondrial Antibodies NEGATIVE (NEGATIVE)
[2022-10-26 04:39] LABS: Smooth Muscle Antibody <20 U (<20)
== END 2022-10-20 13:34 | disposition home or self-care (01) ==
LOC: HO.LAB 13:33
PROVIDERS: PCP Internal Medicine Geriatric Medicine; Visit Provider Physician Assistant
DX: K58.9 Irritable bowel syndrome, unspecified (principal); R79.89 Other specified abnormal findings of blood chemistry; R74.8 Abnormal levels of other serum enzymes; R74.01 Elevation of levels of liver transaminase levels; R77.9 Abnormality of plasma protein, unspecified
CPT/HCPCS: 36415; 80053; 82103; 84165; 85025; 86015; 86038; 86039; 86255; 86256; 86704; 86706; 86709; 86803; 87340; 99202

== ENCOUNTER 2022-10-27 08:28 | Outpatient (REF) | payer OTHER, SELFPAY ==
[2022-10-27 10:06] LABS: HIV AB/AG Nonreactive (Nonreactive); HIV Num 1 0.06 S/CO (0.00-0.99)
[2022-10-30 17:09] LABS: HCV Log PCR <1.18 NOT DETECTED Log IU/mL (NOT DETECTED); HepC Viral Load <15 NOT DETECTED IU/mL (NOT DETECTED)
[2022-11-04 01:49] LABS: FIB-ALT 32 U/L (9-46); FIB-Alpha-2-Macroglobulin 194 mg/dL (106-279); FIB-Apolipoprotein A1 144 mg/dL (94-176); FIB-GGT 24 U/L (3-95); FIB-Haptoglobin 109 mg/dL (43-212); FIB-Total Bilirubin 0.3 mg/dL (0.2-1.2); Liver Fibrosis Score 0.15; Liver Fibrosis Stage F0; Nec Inflam Act Grade A0; Nec Inflam Act Score 0.13
== END 2022-10-27 08:29 | disposition home or self-care (01) ==
LOC: HO.LAB 08:28
PROVIDERS: PCP Internal Medicine Geriatric Medicine; Visit Provider Physician Assistant
DX: B19.20 Unspecified viral hepatitis C without hepatic coma (principal); R79.89 Other specified abnormal findings of blood chemistry
CPT/HCPCS: 36415; 81596; 87389; 87522

== ENCOUNTER 2023-01-19 12:54 | Outpatient (REF) | payer OTHER, SELFPAY ==
[2023-01-19 16:39] LABS: Anion Gap 16 (12-20); Blood Urea Nitrogen 14 mg/dL (9-16); Calcium 9.6 mg/dL (8.4-10.2); Carbon Dioxide 23 mmol/L (22-29); Chloride 106 mmol/L (96-108); Estimated Glomerular Filt Rate > 60; Glucose Random 167 mg/dL (60-115); Potassium 4.2 mmol/L (3.3-5.1); Sodium 141 mmol/L (135-145)
== END 2023-01-19 12:55 | disposition home or self-care (01) ==
LOC: HO.HHCL 12:54
PROVIDERS: Visit Provider Internal Medicine Geriatric Medicine
DX: I10 Essential (primary) hypertension (principal)
CPT/HCPCS: 36415; 80048

== ENCOUNTER 2023-01-23 08:55 | Outpatient (REF) | payer OTHER, SELFPAY ==
--- NOTE | ~2023-01-23 | XR_ITS ---
EXAMINATION: Knee x-ray CLINICAL INFORMATION: Pain COMPARISON: Radius knee x-ray February 2020 and left lower leg x-ray December 2021 TECHNIQUE: Standing AP view of both knees and lateral and sunrise view of the right knee FINDINGS: Right: Bone alignment is normal. No fracture or dislocation. Normal joint spaces. Small osteophyte at the patellar tendon origin and quadriceps tendon insertion. No joint effusion. Standing AP view of the left knee is unremarkable. XR/XR knee RT 2V IMPRESSION: Small right patellar osteophytes otherwise unremarkable exam.
--- NOTE | ~2023-01-23 | XR_ITS ---
EXAMINATION: Knee x-ray CLINICAL INFORMATION: Pain COMPARISON: Radius knee x-ray February 2020 and left lower leg x-ray December 2021 TECHNIQUE: Standing AP view of both knees and lateral and sunrise view of the right knee FINDINGS: Right: Bone alignment is normal. No fracture or dislocation. Normal joint spaces. Small osteophyte at the patellar tendon origin and quadriceps tendon insertion. No joint effusion. Standing AP view of the left knee is unremarkable. XR/XR knee standing BI IMPRESSION: Small right patellar osteophytes otherwise unremarkable exam.
== END 2023-01-23 08:56 | disposition home or self-care (01) ==
LOC: HO.HOSX 08:55
PROVIDERS: Visit Provider Orthopaedic Surgery
DX: M25.561 Pain in right knee (principal); M87.08 Idiopathic aseptic necrosis of bone, other site
CPT/HCPCS: 73560; 73565

== ENCOUNTER 2023-01-23 09:27 | Outpatient (AMB) | payer OTHER, SELFPAY ==
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
[2023-01-23 09:50] VITALS: BMI 30.1
== END 2023-01-23 10:06 | disposition home or self-care (01) ==
PROVIDERS: PCP Internal Medicine Geriatric Medicine; Visit Provider Orthopaedic Surgery
DX: M87.0 Idiopathic aseptic necrosis of bone (principal)
CPT/HCPCS: 99213

== ENCOUNTER 2023-09-09 11:08 | Outpatient (REF) | payer OTHER, SELFPAY ==
[2023-09-09 13:42] LABS: Estimated Average Glucose 134 mg/dL; Hemoglobin A1c % 6.3 % (<6.0)
[2023-09-09 14:03] LABS: Anion Gap 11 (12-20); Blood Urea Nitrogen 16 mg/dL (9-16); Calcium 9.4 mg/dL (8.4-10.2); Carbon Dioxide 28 mmol/L (22-29); Chloride 105 mmol/L (96-108); Estimated Glomerular Filt Rate > 60; Glucose Random 109 mg/dL (60-115); Potassium 4.6 mmol/L (3.3-5.1); Sodium 139 mmol/L (135-145)
[2023-09-09 14:05] LABS: TSH reflex Free T4 6.22 uIU/mL (0.32-4.0)
[2023-09-09 14:40] LABS: Free T4 (Free Thyroxine) 1.11 ng/dL (0.71-1.85)
== END 2023-09-09 11:09 | disposition home or self-care (01) ==
LOC: HO.HHCL 11:08
PROVIDERS: Visit Provider Internal Medicine Geriatric Medicine
DX: E03.9 Hypothyroidism, unspecified (principal); R73.03 Prediabetes
CPT/HCPCS: 36415; 80048; 83036; 84439; 84443

== ENCOUNTER 2023-10-30 10:18 | Outpatient (AMB) | payer OTHER, SELFPAY ==
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
[2023-10-30 10:39] VITALS: BMI 30.1
== END 2023-10-30 11:06 | disposition home or self-care (01) ==
PROVIDERS: PCP Internal Medicine Geriatric Medicine; Visit Provider Orthopaedic Surgery
DX: M25.561 Pain in right knee (principal)
CPT/HCPCS: 99212

== ENCOUNTER → 2023-10-30 10:18 | Outpatient (BNVA) | payer OTHER, SELFPAY | PROVIDERS: PCP Internal Medicine Geriatric Medicine; Visit Provider Orthopaedic Surgery | DX: S80.02XA Contusion of left knee, initial encounter (principal); S80.01XA Contusion of right knee, initial encounter | CPT/HCPCS: 99212 ==

== ENCOUNTER 2024-06-01 11:59 | Outpatient (REF) | payer OTHER, SELFPAY ==
[2024-06-01 14:15] LABS: TSH reflex Free T4 1.19 uIU/mL (0.32-4.0)
--- OUTSIDE RECORDS SUMMARY | 2024-06-02 01:56 | XMS_ITS | Continuity of Care Document ---
Author Organization [facility] Address [address] [place] [address] Phone Care Team Providers Care Bootmaker Hand Name Role Phone Home Toro MD Unavailable Unavailable Procedures Procedure Date Ecg-routine 12 Lead; Intrpt & Advance Directives Directive Yes / No Effective Date File Name No Information Encounters Encounter Description Practice Location Reason(s) For Visit Diagnoses Date Provider Providers Copied on Encounter [facility], [address] [place] Esther Vincent MD, [id number], tel:[phone] [facility] No Information Cortez Bhat. [address], [address] Esther [place], [id number]. tel:[phone] Referring Provider: [place] , [address] [place], [address]. tel:[phone] Family History Family Member Type Diagnosis Age At Onset No Information Payers Payer name Insurance type Covered green party ID Authoriza tion(s) [facility] CI [id number] Social History Type Description Quantity Date Captured [...]
== END 2024-06-01 12:00 | disposition home or self-care (01) ==
LOC: HO.HHCL 11:59
PROVIDERS: Visit Provider Internal Medicine Geriatric Medicine
DX: E03.8 Other specified hypothyroidism (principal)
CPT/HCPCS: 36415; 84443

== ENCOUNTER 2024-06-02 17:03 | Emergency (ER) | payer OTHER, SELFPAY ==
[2024-06-02 17:11] VITALS: BP 164/92; PULSE 74; RESP 16; TEMP 36.5; O2SAT 98; BMI 30.9
--- NOTE | 2024-06-02 17:18 | ED_ITS ---
HPI - Wound/Laceration General Chief Complaint: Wound/Laceration Stated Complaint: head laceration Time Seen by Provider: 06/02/24 17:16 Source: patient Limitations: no limitations History of Present Illness ED Provider: Sindy Cain PA-C HPI narrative: 49-year-old male with a history of hypertension, hyperlipidemia, hypothyroidism, presents with scalp laceration prior to arrival. Patient hit his head on s omething hanging from the basement ceiling, as he is he was walking. No LOC. patient has sustained a scalp laceration on the top of his head. Patient is unsure if tetanus is up-to-date. Patient does take aspirin. Related Data Home Medications ?Medication ?Instructions ?Recorded ?Confirmed albuterol sulfate 2.5 mg/3 mL 2.5 mg inhalation NEEDED PRN 04/11/20 10/22/21 (0.083 %) solution for nebulization Shortness Of Breath atorvastatin 20 mg tablet 20 mg PO DAILY 04/11/20 10/22/21 clonazepam 1 mg tablet 1 mg PO BID 04/11/20 10/22/21 montelukast 10 mg tablet 10 mg PO BEDTIME 04/11/20 10/22/21 omeprazole 20 mg capsule,delayed 40 mg PO DAILY 04/11/20 10/22/21 release fluticasone propionate 50 1 spray intranasal DAILY 08/03/20 10/22/21 mcg/actuation nasal spray,suspension oxycodone 10 mg tablet 1 tab PO TID PRN Pain 08/03/20 10/22/21 zolpidem 10 mg tablet 1 tab PO BEDTIME 08/03/20 10/22/21 mycophenolate sodium 180 mg 540 mg PO BID 08/07/20 10/22/21 tablet,delayed release (Myfortic) tacrolimus 1 mg tablet,extended 4 mg PO QAM 08/07/20 10/22/21 release 24 hr (Envarsus XR) ciclopirox 0.77 % topical cream appl topical BID 12/03/20 10/22/21 ampicillin 500 mg capsule 0 cap PO 10/22/21 10/22/21 azelastine 0.05 % eye drops 0 drp ophthalmic (eye) 10/22/21 10/22/21 escitalopram oxalate 5 mg tablet 5 mg PO DAILY 10/22/21 10/22/21 levothyroxine 200 mcg tablet 150 mcg PO .COMPLEX 10/22/21 10/22/21 loratadine 10 mg tablet 10 mg PO DAILY 10/22/21 10/22/21 sildenafil 100 mg tablet (Viagra) 100 mg PO DAILY PRN 10/22/21 10/22/21 amlodipine 10 mg tablet 10 mg PO DAILY 10/20/22 tacrolimus 4 mg tablet,extended 8 mg PO DAILY 10/20/22 release 24 hr (Envarsus XR) Previous Rx's ?Medication ?Instructions ?Recorded Raised toilet seat #1 ea 08/09/20 walker #1 ea 08/09/20 aspirin 81 mg tablet,delayed 81 mg PO DAILY 30 days #30 tabs 08/16/20 release cane #1 ea 08/30/20 acetaminophen 325 mg tablet 650 mg (2 x 325 mg) PO Q6H PRN for 05/03/24 mild pain #240 tabs Allergies Allergy/AdvReac Type Severity Reaction Status Date / Time ibuprofen [From MOTRIN] Allergy Unknown PT STATES Verified 06/02/24 17:12 HE CAN'T TAKE BECAUSE OF MY KIDNEY grass pollen Allergy Itching Verified 06/02/24 17:12 Review of Systems Review of Systems: Yes all other systems are reviewed and are negative Constitutional: Constitutional: Denies fatigue, Denies fever(s) and Denies headache(s) Eyes: Eyes: Denies change in vision ENT: Denies headache(s) and Denies neck pain Musculoskeletal: Musculoskeletal: Denies neck pain, Denies numbness and Denies tingling Neurologic: Denies headache(s), Denies numbness, Denies tingling and Denies paresthesias Endocrine: Endocrine: Denies fatigue PMF Past Medical History Attestation statement: The following information was validated with the patient. Medical History A-V fistula Allergic rhinitis Asthma Avascular necrosis Avascular necrosis of bones of both hips Chronic back pain CKD (chronic kidney disease) Depression ESRD (end stage renal disease) GERD (gastroesophageal reflux disease) Hx of anxiety disorder Hx of gout Hyperlipidemia Hypertension Hypothyroidism Knee effusion, right FLORENTINO (obstructive sleep apnea) Surgical History Kidney replaced by transplant S/P hip replacement Family History Family History Mother No problems noted. Father No problems noted. Paternal Grandmother Cancer Social History Social History Are you a primary care coordination manager to a significant other at home: No Do you presently have visiting nurse or other home services: No (home health aide) Alcohol intake: never Comment: patient sleeping Second Hand Smoke Exposure: No Advance Directives: Yes Advance Directives Information Provided: No Advance Directives on File: No Do you have a plan to hurt others: No Plan service: No Current occupational status: disabled Current occupation: leftHanded Physical Exam Vital Signs: Vital Signs: Last Vital Signs Temp 97.7 F 06/02/24 17:11 Pulse 74 06/02/24 17:11 Resp 16 06/02/24 17:11 BP 164/92 H 06/02/24 17:11 Pulse Ox 98 06/02/24 17:11 O2 Del Method Room Air 06/02/24 17:11 BMI result Body Mass Index 30.9 Const: Other: Alert, well-appearing, 3 cm superficial laceration noted superior scalp, minimally bleeding Orientation/consciousness: patient oriented x3 Resp: Effort & Inspection: normal respiratory effort Cardio: Other: Normal peripheral perfusion Skin: Other: Warm dry no rash Neuro: General: patient oriented x3, no focal motor deficits and CN's II-XI intact bilaterally Psych: Other: Calm cooperative Medications Administered Discontinued Medications Generic Name Dose Route Start Last Admin Trade Name Freq PRN Reason Stop Dose Admin Diphtheria/Tetanus/Acell Pertussis 0.5 ml 06/02/24 17:15 06/02/24 17:20 Diphth,Pertus(Acell),Tet Adult 0.5 Ml Syringe IM 06/02/24 17:16 0.5 ml .ONCE ONE Administration Lidocaine/Epinephrine 10 ml 06/02/24 17:15 06/02/24 17:20 Lidocaine Hcl 1%/Epi 1:100,000 10 Ml Vial INFILTRATI 06/02/24 17:16 10 ml ONCE ONE Administration Medical Decision Making Medical Decision Making MDM Narrative: 49-year-old male with a history of hypertension, hyperlipidemia, hypothyroidism, presents with scalp laceration prior to arrival. Patient hit his head on something hanging from the basement ceiling, as he is he was walking. No LOC. patient has sustained a scalp laceration on the top of his head. Patient is unsure if tetanus is up-to-date. Patient does take aspirin. Problem: On aspirin History: Per patient I have considered the following differential diagnoses: Intracranial hemorrhage, cervical spine injury, laceration, abrasion, contusion Plan: Patient has a simple scalp laceration, we will use shiraz. We will be updating his tetanus vaccine. There was no indication for imaging given the mechanism. Can follow up with primary care as needed. Discharge Plan Discharge Clinical Impression: Laceration of scalp Patient Disposition: Home, Self-Care Instructions: Laceration (ED) Additional Instructions: 4 shiraz eyes to repair the laceration. They can be removed in 7-10 days. Watch for signs of infection which would include redness, swelling, pus draining from the site or fever. Follow up with your primary care provider as needed. The tetanus vaccine was updated today, it is valid for 10 years. Prescriptions: No Action acetaminophen 325 mg tablet 650 mg PO Q6H PRN (Reason: for mild pain) Qty: 240 0RF zolpidem 10 mg tablet 1 tab PO BEDTIME fluticasone propionate 50 mcg/actuation spray,suspension 1 spray intranasal DAILY oxycodone 10 mg tablet 1 tab PO TID PRN (Reason: Pain) mycophenolate sodium [Myfortic] 180 mg Tablet,Delayed Release (Dr/Ec) 540 mg PO BID Envarsus XR 1 mg Tablet Extended Release 24 Hr 4 mg PO QAM aspirin 81 mg tablet,delayed release (DR/EC) 81 mg PO DAILY 30 Days Qty: 30 0RF ciclopirox 0.77 % cream topical BID omeprazole 20 mg capsule,delayed release(DR/EC) 40 mg PO DAILY atorvastatin 20 mg tablet 20 mg PO DAILY clonazepam 1 mg tablet 1 mg PO BID Rx Instructions: administer 30 minutes before bedtime albuterol sulfate 2.5 mg /3 mL (0.083 %) solution for nebulization 2.5 mg inhalation NEEDED PRN (Reason: Shortness Of Breath) montelukast 10 mg tablet 10 mg PO BEDTIME levothyroxine 200 mcg tablet 150 mcg PO .COMPLEX Rx Instructions: 150 mcg PO Thu to Thursday, skip Thursday and Thursday; radha Diaz (DME) See Rx Instructions .MEDSUPPLY Qty: 1 0RF Rx Instructions: Folding Front wheeled walker (DME) Raised toilet seat See Rx Instructions .ROUTE .MEDSUPPLY Qty: 1 0RF Rx Instructions: As directed (DME) cane Device See Rx Instructions .MEDSUPPLY Qty: 1 0RF Rx Instructions: As directed ampicillin 500 mg capsule 0 cap PO loratadine 10 mg tablet 10 mg PO DAILY sildenafil [Viagra] 100 mg tablet 100 mg PO DAILY PRN azelastine 0.05 % drops 0 drp ophthalmic (eye) escitalopram oxalate 5 mg tablet 5 mg PO DAILY amlodipine 10 mg tablet 10 mg PO DAILY Envarsus XR 4 mg tablet extended release 24 hr 8 mg PO DAILY Print Language: Swedish
[2024-06-02] MEDS: Lidocaine HCl 1%/Epi 1:100,000 10 ML VIAL INFILTRATI (17:20)
[2024-06-02] MEDS: Diphth,Pertus(ACell),Tet Adult 0.5 ML SYRINGE IM (17:20)
[2024-06-02 17:37] VITALS: BP 164/92; PULSE 74; RESP 16; TEMP 36.5; O2SAT 98
== END 2024-06-02 17:38 | disposition home or self-care (01) ==
PROVIDERS: Emergency Provider Emergency Medicine
DX: S01.01XA Laceration without foreign body of scalp, initial encounter (principal); W22.8XXA Striking against or struck by other objects, initial encounter; I10 Essential (primary) hypertension; E78.5 Hyperlipidemia, unspecified; Y93.9 Activity, unspecified; Y92.038 Other place in apartment as the place of occurrence of the external cause; Y99.9 Unspecified external cause status; Z23 Encounter for immunization
CPT/HCPCS: 12002; 90471; 90715; 99282; 99284; J2004

== ENCOUNTER 2024-06-11 11:28 | Emergency (ER) | payer OTHER, SELFPAY ==
[2024-06-11 11:50] VITALS: BP 167/100; PULSE 79; RESP 19; TEMP 36.9; O2SAT 99; BMI 31.6
--- OUTSIDE RECORDS SUMMARY | 2024-06-11 11:58 | XMS_ITS | Continuity of Care Document ---
Author Organization [facility], [facility] Address [address] [place] [address] Phone Care Team Providers Care Mine Safety Engineer Name Role Phone Home Toro MD Unavailable Unavailable Procedures Procedure Date Ecg-routine 12 Lead; Intrpt & Advance Directives Directive Yes / No Effective Date File Name No Information Encounters Encounter Description Practice Location Reason(s) For Visit Diagnoses Date Provider Providers Copied on Encounter [facility], [address] [place] Vincent [place], [id number], tel:[phone] [facility] No Information Cortez Bhat. [address], [address] [place], [id number]. tel:[phone] Referring Provider: [place] , [address] [place], [address]. tel:[phone] Family History Family Member Type Diagnosis Age At Onset No Information Payers Payer name Insurance type Covered democrat ID Authoriza tion(s) [facility] CI [id number] Social History Type Description Quantity Date Captured [...]
[2024-06-11 12:05] VITALS: BP 167/100; PULSE 79; RESP 19; TEMP 36.9; O2SAT 99
--- NOTE | 2024-06-11 12:06 | ED.GENADULT ---
HPI - General Adult General Chief complaint: General Medical Stated complaint: suture removal Time Seen by Provider: 06/11/24 11:48 Source: patient Mode of arrival: ambulatory Limitations: no limitations History of Present Illness ED Provider: Emely Lilly PA-C HPI narrative: 49 yo male presents to the ER for staple removal. he was seen here on 06/02 after he hit his head and sustained a lac from walking into a heating duct in the basement. 4 shiraz were placed. he denies any issues with the wound, mild tenderness when he touches it. denies bleeding from the area or any drainage. no ongoing headaches or other issues. no complaints today. MD complaint: staple removal Treatments prior to arrival: none Related Data Home Medications ?Medication ?Instructions ?Recorded ?Confirmed albuterol sulfate 2.5 mg/3 mL 2.5 mg inhalation NEEDED PRN 04/11/20 10/22/21 (0.083 %) solution for nebulization Shortness Of Breath atorvastatin 20 mg tablet 20 mg PO DAILY 04/11/20 10/22/21 clonazepam 1 mg tablet 1 mg PO BID 04/11/20 10/22/21 montelukast 10 mg tablet 10 mg PO BEDTIME 04/11/20 10/22/21 omeprazole 20 mg capsule,delayed 40 mg PO DAILY 04/11/20 10/22/21 release fluticasone propionate 50 1 spray intranasal DAILY 08/03/20 10/22/21 mcg/actuation nasal spray,suspension oxycodone 10 mg tablet 1 tab PO TID PRN Pain 08/03/20 10/22/21 zolpidem 10 mg tablet 1 tab PO BEDTIME 08/03/20 10/22/21 mycophenolate sodium 180 mg 540 mg PO BID 08/07/20 10/22/21 tablet,delayed release (Myfortic) tacrolimus 1 mg tablet,extended 4 mg PO QAM 08/07/20 10/22/21 release 24 hr (Envarsus XR) ciclopirox 0.77 % topical cream appl topical BID 12/03/20 10/22/21 ampicillin 500 mg capsule 0 cap PO 10/22/21 10/22/21 azelastine 0.05 % eye drops 0 drp ophthalmic (eye) 10/22/21 10/22/21 escitalopram oxalate 5 mg tablet 5 mg PO DAILY 10/22/21 10/22/21 levothyroxine 200 mcg tablet 150 mcg PO .COMPLEX 10/22/21 10/22/21 loratadine 10 mg tablet 10 mg PO DAILY 10/22/21 10/22/21 sildenafil 100 mg tablet (Viagra) 100 mg PO DAILY PRN 10/22/21 10/22/21 amlodipine 10 mg tablet 10 mg PO DAILY 10/20/22 tacrolimus 4 mg tablet,extended 8 mg PO DAILY 10/20/22 release 24 hr (Envarsus XR) Previous Rx's ?Medication ?Instructions ?Recorded Raised toilet seat #1 ea 08/09/20 walker #1 ea 08/09/20 aspirin 81 mg tablet,delayed 81 mg PO DAILY 30 days #30 tabs 08/16/20 release cane #1 ea 08/30/20 acetaminophen 325 mg tablet 650 mg (2 x 325 mg) PO Q6H PRN for 05/03/24 mild pain #240 tabs Allergies Allergy/AdvReac Type Severity Reaction Status Date / Time ibuprofen [From MOTRIN] Allergy Unknown PT STATES Verified 06/11/24 11:53 HE CAN'T TAKE BECAUSE OF MY KIDNEY grass pollen Allergy Itching Verified 06/11/24 11:53 Review of Systems Review of Systems: Yes all other systems are reviewed and are negative PMFSH Past Medical History Medical History A-V fistula Allergic rhinitis Asthma Avascular necrosis Avascular necrosis of bones of both hips Chronic back pain CKD (chronic kidney disease) Depression ESRD (end stage renal disease) GERD (gastroesophageal reflux disease) Hx of anxiety disorder Hx of gout Hyperlipidemia Hypertension Hypothyroidism Knee effusion, right FLORENTINO (obstructive sleep apnea) Surgical History Kidney replaced by transplant S/P hip replacement Family History Family History Mother No problems noted. Father No problems noted. Paternal Grandmother Cancer Social History Social History Are you a primary director of health care marketing to a significant other at home: No Do you presently have visiting nurse or other home services: No (home health aide) Alcohol intake: never Comment: patient sleeping Second Hand Smoke Exposure: No Advance Directives: No Advance Directives Information Provided: No Do you have a plan to hurt others: No Plan service: No Current occupational status: disabled Current occupation: leftHanded Physical Exam ED Vital Signs: Vital Signs - 24 hr 06/11/24 11:50 06/11/24 12:05 Temperature 98.4 F 98.4 F Pulse Rate 79 79 Respiratory Rate 19 19 Blood Pressure 167/100 H 167/100 H Pulse Oximetry 99 99 Oxygen Delivery Method Room Air Room Air BMI result Body Mass Index 31.6 Appearance: Alert. Oriented X3. No acute distress. HEENT: norormocephalic, well healed lac on the vertix of the head w/ 4 shiraz, scabbing present. no bleedomg Respiratory: No respiratory distress. Skin: Skin warm and dry. Normal skin color. Normal skin turgor. No rashes. Extremities: normal inspection x4 Neuro: Oriented X 3. grossly normal, nonfocal. steady gait Medical Decision Making Medical Decision Making MDM Narrative: 49 yo male presents for staple removal. no issues no signs of infection. healing well area was cleaned w/ alcohol swab and 4 staple removed successful. local wound care provided. stable for d/c home Differential Diagnosis Differential Diagnoses: The differential diagnosis associated with the presentation includes appropriate wound healing, delayed wound healing, cellulitis, concussion External Record Review External record reviewed: Outpatient record Critical Care Time Critical Care Time Critical Care Time: No Discharge Plan Discharge Clinical Impression: Encounter for removal of shiraz Patient Disposition: Home, Self-Care Instructions: Stitches Removal (ED) Additional Instructions: if you develop bleeding apply pressure with gauze it is safe to shower and wash your hair as normal If you develop new or worsening symptoms call 911 or come back to the ER for further evaluation. Prescriptions: No Action acetaminophen 325 mg tablet 650 mg PO Q6H PRN (Reason: for mild pain) Qty: 240 0RF zolpidem 10 mg tablet 1 tab PO BEDTIME fluticasone propionate 50 mcg/actuation spray,suspension 1 spray intranasal DAILY oxycodone 10 mg tablet 1 tab PO TID PRN (Reason: Pain) mycophenolate sodium [Myfortic] 180 mg Tablet,Delayed Release (Dr/Ec) 540 mg PO BID Envarsus XR 1 mg Tablet Extended Release 24 Hr 4 mg PO QAM aspirin 81 mg tablet,delayed release (DR/EC) 81 mg PO DAILY 30 Days Qty: 30 0RF ciclopirox 0.77 % cream topical BID omeprazole 20 mg capsule,delayed release(DR/EC) 40 mg PO DAILY atorvastatin 20 mg tablet 20 mg PO DAILY clonazepam 1 mg tablet 1 mg PO BID Rx Instructions: administer 30 minutes before bedtime albuterol sulfate 2.5 mg /3 mL (0.083 %) solution for nebulization 2.5 mg inhalation NEEDED PRN (Reason: Shortness Of Breath) montelukast 10 mg tablet 10 mg PO BEDTIME levothyroxine 200 mcg tablet 150 mcg PO .COMPLEX Rx Instructions: 150 mcg PO Thu to Thursday, skip Thursday and Thursday; (DME) walker Misc See Rx Instructions .MEDSUPPLY Qty: 1 0RF Rx Instructions: Folding Front wheeled walker (DME) Raised toilet seat See Rx Instructions .ROUTE .MEDSUPPLY Qty: 1 0RF Rx Instructions: As directed (DME) cane Device See Rx Instructions .MEDSUPPLY Qty: 1 0RF Rx Instructions: As directed ampicillin 500 mg capsule 0 cap PO loratadine 10 mg tablet 10 mg PO DAILY sildenafil [Viagra] 100 mg tablet 100 mg PO DAILY PRN azelastine 0.05 % drops 0 drp ophthalmic (eye) escitalopram oxalate 5 mg tablet 5 mg PO DAILY amlodipine 10 mg tablet 10 mg PO DAILY Envarsus XR 4 mg tablet extended release 24 hr 8 mg PO DAILY Interventions: ED Discharge Assessment Last Done: 06/11/24 12:05 Discharge Date/Time: 06/11/24 12:05 Print Language: Arabic
== END 2024-06-11 12:05 | disposition home or self-care (01) ==
PROVIDERS: Emergency Provider Emergency Medicine Emergency Medical Services; PCP Internal Medicine Geriatric Medicine
DX: Z48.02 Encounter for removal of sutures (principal)
CPT/HCPCS: 99282

== ENCOUNTER 2024-08-23 16:29 | Outpatient (REF) | payer OTHER, SELFPAY ==
[2024-08-23 18:16] LABS: MANUAL DIFF FLAG NO
[2024-08-23 19:39] LABS: Basophils Percent Auto 0.4 % (0-2); Eosinophils Absolute Auto 0.1 X10*3/uL (0.0-0.4); Eosinophils Percent Auto 1.6 % (0-4); Hemoglobin 12.7 g/dl (14.0-18.0); Imm Gran Abs Auto 0.02 X10*3/uL (0.00-0.03); Imm Gran Pct Auto 0.3 % (0.0-0.4); Lymphocytes Absolute Auto 1.8 X10*3/uL (1.2-4.9); Lymphocytes Percent Auto 25.8 % (20-40); Mean Corpuscular HGB Conc 31.8 g/dl (31.0-36.0); Mean Corpuscular Hemoglobin 26.7 pg (27.0-33.0); Monocytes Absolute Auto 0.7 X10*3/uL (0.1-1.2); Monocytes Percent Auto 10.7 % (2-11); Neutrophils Absolute Auto 4.2 x10*3/uL (2.0-8.3); Neutrophils Percent Auto 61.2 % (45-73); Platelet Count 200 X10*3/uL (160-400); Red Blood Count 4.76 X10*6/uL (4.60-5.80); Red Cell Distribution Width 12.7 % (11.0-16.0); White Blood Count 6.8 X10*3/uL (4.8-10.8)
--- OUTSIDE RECORDS SUMMARY | 2024-08-23 20:14 | XMS_ITS | Encounter Summary ---
Author Organization [employer] Address [address] [facility] [address] [place] [address] Care Team Providers Care Drive Thru Order Taker Name Role Phone Name, Shaka TURNER Primary Care Provider [phone] Alison Maurice PharmD Unavailable [phone] Reason for Visit * Reason Comments Cough Nasal Congestion Encounter Details Date Type Department Care Team (Late st Contact Info) Description 08/11/2024 11:00 AM EST Office Visit [facility] [address] [place] [address] [phone] Bonny Coto MD [address], [place] [phone] Acute maxillary sinusitis, recurrence not specified (Primary Dx); Cough in adult patient; Influenza A Social History Tobacco Use Types Packs/Day Years Used Date Smoking Tobacco: Never Passive Smoke Exposure: Never Smokeless Tobacco: Never Alcohol Use Standard Drinks/Week Comments Yes 3 (1 standard drink = 0.6 oz pur e alcohol) socially Alcohol Answer Date Recorded Frequency of Alcohol Consumption Not on file 12/08/2023 Average Number of Drinks Not on file 024 Frequency of Binge Drinking Not on file 11/20 Score 0 12/08/2023 Depression Answer Date Recorded Patient Health Questionnaire-9 Score 0 08/12/2023 Patient Health Questionnaire-9 Score 0 08/12/2023 Last PHQ-9: Questionnaire Data Not on file 0 08/12/2023 Housing Stability Answer Date Recorded What is your housing situation today? I have brennan chavez 08/12/[address] you li ve. Do you have problems with any of the following? None of the above 08/12/2023 Food Insecurity Answer Date Recorded Within the past 12 months, y ou worried that your food would run out before you got money to buy more: Never True 08/12/2023 Within the past 12 months,th e food you bought just didn't last and you didn't have enough money to get more: Never True Transportation Answer Date Recorded In the past 12 months, has l ack of transportation kept you from medical appts, meetings, work or from getting things needed for daily living? No 08/12/2023 Utilities Answer Date Recorded In the past 12 months, has t he electric, gas, oil or water company threatened to shut off services in your home? No 08/12/2023 Depression Answer Date Recorded Patient Health Questionnaire-2 Score 0 08/12/2023 Sex and Gender Information Value Date Recorded Sex Assigned at Male 04/21/2022 10:17 AM EDT Legal Sex Male 10:17 AM EDT Gender Identity Male 04/21/2022 10:17 AM EDT Sexual Orientation Straight 04/21/2022 10 :17 AM EDT documented as of this encounter Last Filed Vital Signs Vital Sign Reading Time Taken Comments Blood Pressure 135/87 08/11/2024 10:54 AM EST Pulse 67 08/11/2024 10:54 AM EST Temperature 37 ??C (98.6 ??F) 08/11/2024 10:54 AM EST Respiratory Rate 18 08/11/2024 10:54 AM EST Oxygen Saturation 97% 08/11/2024 10:54 AM EST Inhaled Oxygen Concentration - - Weight 96.6 kg (213 lb) 08/11/2024 10:54 AM EST Height - - Body Mass Index 30.56 06/01/2024 11:23 AM EST documented in this encounter Progress Notes * Bonny Talavera MD - 08/11/2024 11:00 AM EST SUBJECTIVE: William Bundy is a 49 y.o. year old male who presents for sick visit . Acute Concerns: Patient reports 2 weeks of symptoms but states he has being feeling worse the past 3 days, reports sinus pressures, purulent rhinorrhea, back pain, body aches, fatigue, malaise, fever, nausea Social History Social History Narrative Not on file Patient Active Problem List Diagnosis Hypothyroidism Allergic rhinitis Asthma Avascular necrosis of bone of hip (CMS/HCC) Carpal tunnel syndrome Low back pain at multiple sites End stage renal disease (CMS/HCC) Erectile dysfunction Essential hypertension History of kidney transplant Pure hypercholesterolemia History of total hip arthroplasty Immunosuppression (CMS/HCC) Spinal stenosis of cervical region Seasonal allergies Obstructive sleep apnea syndrome History of anxiety state Acne Anxiety Arteriovenous 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 Review of Systems Constitutional: Positive for activity change, appetite change, chills, diaphoresis, fatigue and fever. HENT: Positive for congestion, postnasal drip, rhinorrhea, sinus pressure and sinus pain. Negative for dental problem, drooling, ear discharge, ear pain, facial swelling, hearing loss, mouth sores, nosebleeds, sneezing, sore throat, tinnitus, trouble swallowing and voice change. Respiratory: Positive for cough. Negative for apnea, choking, chest tightness, shortness of breath,wheezing and stridor. Cardiovascular: Negative. OBJECTIVE: Vitals: 08/11/24 1054 BP: 135/87 BP Location: Left arm Patient Position: Sitting BP Cuff Size: Large adult Pulse: 67 Resp: 18 Temp: 98.6 ??F (37 ??C) TempSrc: Temporal SpO2: 97% Weight: 213 lb (96.6 kg) Physical Exam Constitutional: Appearance: Normal appearance. HENT: Nose: Right Sinus: Maxillary sinus tenderness and frontal sinus tenderness present. Left Sinus: Maxillary sinus tenderness and frontal sinus tenderness present. Cardiovascular: Rate and Rhythm: Normal rate and regular rhythm. Pulmonary: Effort: Pulmonary effort is normal. Breath sounds: Normal breath sounds. Abdominal: General: Abdomen is flat. Palpations: Abdomen is soft. Neurological: Mental Status: He is alert. Follow Up: No follow-ups on file. Current Outpatient Medications on File Prior to Visit Medication Sig Dispense Refill acetaminophen (Tylenol) 325 MG tablet TAKE 2 TABLETS BY MOUTH EVERY 6 HOURS NEEDED FOR FOR MILD PAIN 90 tablet 3 albuterol (2.5 MG/3ML) 0.083% nebulizer solution inhale 3 milliliter by nebulization route 3 times every day albuterol 108 (90 Base) MCG/ACT inhaler inhale 2 puff by inhalation route every 4 - 6 hours as needed ampicillin (Principen) 500 MG capsule TAKE 2 CAPSULE BY MOUTH DIRECTED TAKE 1 HOUR PRIOR TO DENTAL PROCEDURE aspirin (Aspirin Low Dose) 81 MG EC tablet Take 1 tablet (81 mg) by mouth in the morning. 90 tablet3 atorvastatin (Lipitor) 20 MG tablet TAKE 1 TABLET BY MOUTH EVERY DAY 90 tablet 1 azelastine (Optivar) 0.05 % ophthalmic solution instill 1 drop by ophthalmic route 2 times every day into affected eye(s) Blood Pressure kit Use one a day 1 kit 0 calcitriol (Rocaltrol) 0.25 MCG capsule Take 0.25 mcg by mouth every other day. cholecalciferol (Vitamin D-3) 50 MCG (2000 UT) capsule take 1 capsule by oral route every day clonazePAM (KlonoPIN) 1 MG tablet take 1 tablet by oral route twice daily doxazosin (Cardura) 2 MG tablet Take 2 mg by mouth. Envarsus XR 1 MG tablet ER Take in addition to 4 mg tab(s) as directed by transplant team. Envarsus XR 4 MG tablet ER Dose as per transplant ergocalciferol (Vitamin D2) 1.25 MG (81108 UT) capsule TAKE 1 CAPSULE (50,000 UNITS TOTAL) BY MOUTH1 (ONE) TIME PER WEEK FOR 14 DOSES escitalopram (Lexapro) 5 MG tablet Take 5 mg by mouth in the morning. as directed famotidine (Pepcid) 20 MG tablet TAKE 1 TABLET BY MOUTH EVERY DAY 90 tablet 1 fluocinonide (Lidex) 0.05 % cream (Patient not taking: Reported on 06/02/2024) fluticasone (Flonase) 50 MCG/ACT nasal spray SPRAY 1 SPRAY INTO EACH NOSTRIL TWICE A DAY 48 mL 0 fluticasone (Flovent) 220 MCG/ACT inhaler inhale 1 puff by inhalation route 2 times every day hydrOXYzine pamoate (Vistaril) 50 MG capsule take 3-4 capsules by oral route at bedtime levothyroxine (Synthroid, Levoxyl) 150 MCG tablet TAKE 1 TABLET (150 MCG) BY MOUTH ONCE DAILY. 90 tablet 3 loratadine (Claritin) 10 MG tablet TAKE 1 TABLET BY MOUTH EVERY DAY 90 tablet 1 losartan (Cozaar) 50 MG tablet Take 2 tablets by mouth Once daily. magnesium oxide (Mag-Ox) 400 MG tablet Take 1 tablet by mouth 2 times daily. montelukast (Singulair) 10 MG tablet TAKE 1 TABLET BY MOUTH EVERY DAY IN THE EVENING 90 tablet 1 mycophenolate (Myfortic) 180 MG EC tablet 3 in the AM and 3 in the PM naloxone (Narcan) 4 mg/0.1 mL nasal spray spray 0.1 milliliter by intranasal route in 1 nostril mayrepeat dose every 2-3 minutes as needed alternating nostrils with each dose omeprazole (PriLOSEC) [address] capsule Take 1 capsule (20 mg) by mouth before breakfast. Do not crush or chew. 90 capsule 1 oxyCODONE (Roxicodone) 10 MG immediate release tablet Take 1 tablet (10 mg) by mouth every 8 (eight) hours if needed for severe pain for up to 28 days. 84 tablet 0 sildenafil (Viagra) 100 MG tablet take 1 tablet by oral route every day as needed approximately 1 hour before sexual activity zolpidem (Ambien) 10 MG tablet take 1 tablet (10MG) by oral route every day at bedtime No current facility-administered medications on file prior to visit. Problem List Items Addressed This Visit Acute maxillary sinusitis - Primary Relevant Medications amoxicillin-clavulanate (Augmentin) 875-125 MG tablet Influenza A Drink plenty of fluids and rest Acetaminophen as needed Other Visit Diagnoses Cough in adult patient Relevant Orders Influenza A (ID NOW Rapid Molecular) (Completed) Influenza B (ID NOW Rapid Molecular) (Completed) POCT Rapid COVID Ag (Completed) documented in this encounter Miscellaneous Notes * Assessment & Plan Note - Bonny Talavera MD - 08/11/2024 12:09 PM EST Associated Problem(s): Influenza A Drink plenty of fluids and rest Acetaminophen as needed documented in this encounter Plan of Treatment Upcoming Encounters Date Type Department Care Team (Late st Contact Info) Description 09/13/2024 11:00 AM EDT Office Visit [facility] [address] [place] [phone] 12/06/2024 3:30 PM EDT Office Visit [facility] [address] [place] [phone] Name, MD Shaka [address] [place] [phone] documented as of this encounter Goals Goal Patient Goal Type Associated Problems Recent Progress Patient-Stated? Author Record your blood pressure once per day Blood Pressure No Puia, Alison, PharmD Blood Pressure < 140/90 Blood Pressure 143/83( 025 3:53 PM EST) No Puia, Alison, PharmD documented as of this encounter Procedures Procedure Name Priority Date/Time Associated Diagnosis Comments POCT INFLUENZA B (ID NOW RAPID MOLECULAR) Routine 08/11/2024 11:03 AM EST Cough in adult patient POCT INFLUENZA A (ID NOW RAPID MOLECULAR) Routine 08/11/2024 11:03 AM EST Cough in adult patient POCT RAPID COVID ANTIGEN Routine 08/11/2024 10:57 AM EST Cough in adult patient documented in this encounter Results * Influenza B (ID NOW Rapid Molecular) (08/11/2024 11:03 AM EST) Influenza B Negative Negative, Indeterminate [facility] Swab 08/11/2024 11:0 3 AM EST us Bonny Talavera MD POINT OF CARE TEST EN TER/EDIT ORDERABLES Final Result [facility] [address] [place] [address] [phone] * (ABNORMAL) Influenza A (ID NOW Rapid Molecular) (08/11/2024 11:03 AM EST) Influenza A Positive( A) Negative, Indeterminate [facility] Swab 08/11/2024 11:0 3 AM EST Bonny Talavera MD POINT OF CARE TEST EN TER/EDIT ORDERABLES Final Result Performing Organization Address City/[facility]/ZIP Co de Phone Number [facility] [address] [place] [address] [phone] * POCT Rapid COVID Ag (08/11/2024 10:57 AM EST) Rapid COVID Ag Negative Swab 08/11/2024 10:5 7 AM EST Bonny Talavera MD POINT OF CARE TEST EN TER/EDIT ORDERABLES Final Result documented in this encounter Visit Diagnoses Diagnosis Acute maxillary sinusitis, recurrence not specified- Primary Cough in adult patient Influenza A Influenza with other respiratory manifestations documented in this encounter Additional Health Concerns Assessment Noted Time PHQ-9 Depression Total Score: 0 08/12/19 24 11:03 AM EST documented as of this encounter Care Teams Drive Thru Order Taker Relationship Specialty Start Date End Date Name, MD Shaka [address] [place] [address] PCP - General Family Medicine 08/27/15 Alison Maurice PharmD [address] [place] [address] Pharmacist Internal Medicine 12/16/22 documented as of this encounter
--- OUTSIDE RECORDS SUMMARY | 2024-08-23 20:14 | XMS_ITS | Clinical Summary ---
Author Organization [facility] Address [address] [place] [address] Care Team Providers Care Dispatch Specialist Name Role Phone Pcp, No Primary Care Provider Unavailabl e Social History Tobacco Use Types Packs/Day Years Used Date Smoking Tobacco: Never Assessed Sex and Gender Information Value Date Recorded Sex Assigned at Not on file Gender Identity Not on file Sexual Orientation Not on file Plan of Treatment Health Maintenance Due Date Last Done Comments Hepatitis C Virus Screening 1976 DTaP/Tdap/Td Vaccines (1 - Tdap) 1995 Pneumococcal Vaccine: Pediat artur (0-5 Years) and At-Risk Patients (6 to 49 Years) (1 of 2 - PCV) 1995 Hepatitis B Vaccines (1 of 3 - Risk Dialysis 4-dose series) 1996 Colonoscopy 2021 Influenza Vaccine 01/21/2024 COVID-19 Vaccine (2 - 2023- season) 2024 HIV Screening Completed 02/20/2021 Care Teams Dispatch Specialist Relationship Specialty Start Date End Date Pcp, No [address] [place] [address] PCP - General 02/20/21
--- OUTSIDE RECORDS SUMMARY | 2024-08-23 20:14 | XMS_ITS | Encounter Summary ---
Author Organization [employer] Address [address] [place] [address] Care Team Providers Care Violin Maker Hand Name Role Phone Name, Shaka TURNER Primary Care Provider [phone] Alison Maurice PharmD Unavailable [phone] Encounter Details Date Type Department Care Team (Late st Contact Info) Description 05/10/2023 Abstract [facility] [address] [place] [address] Sariah Rodriguez Social History Tobacco Use Types Packs/Day Years Used Date Smoking Tobacco: Never Passive Smoke Exposure: Never Smokeless Tobacco: Never Alcohol Use Standard Drinks/Week Comments Yes 3 (1 standard drink = 0.6 oz pur e alcohol) socially Depression Answer Date Recorded Patient Health Questionnaire-9 Score 10 06/05/2022 Housing Stability Answer Date Recorded What is your housing situation today? I have brennan chavez 04/08/[address] you li ve. Do you have problems with any of the following? None of the above 04/08/2023 Food Insecurity Answer Date Recorded Within the past 12 months, y ou worried that your food would run out before you got money to buy more: Never True 04/08/2023 Within the past 12 months,th e food you bought just didn't last and you didn't have enough money to get more: Never True Transportation Answer Date Recorded In the past 12 months, has l ack of transportation kept you from medical appts, meetings, work or from getting things needed for daily living? No 04/08/2023 Utilities Answer Date Recorded In the past 12 months, has t he electric, gas, oil or water company threatened to shut off services in your home? No 04/08/2023 Depression Answer Date Recorded Patient Health Questionnaire-2 Score 5 06/05/2022 Sex and Gender Information Value Date Recorded Sex Assigned at Male 04/21/2022 10:17 AM EDT Legal Sex Male 10:17 AM EDT Gender Identity Male 04/21/2022 10:17 AM EDT Sexual Orientation Straight 04/21/2022 10 :17 AM EDT documented as of this encounter Plan of Treatment Upcoming Encounters Date Type Department Care Team (Late st Contact Info) Description 09/13/2024 11:00 AM EDT Office Visit [facility] [address] [place] [phone] 12/06/2024 3:30 PM EDT Office Visit [facility] [address] [place] [phone] Name, MD Shaka [address] [place] [phone] documented as of this encounter Goals Goal Patient Goal Type Associated Problems Recent Progress Patient-Stated? Author Record your blood pressure once per day Blood Pressure No PuiaAlison, PharmD Blood Pressure < 140/90 Blood Pressure 143/83( 025 3:53 PM EST) No PuiaVelAlison, PharmD documented as of this encounter Visit Diagnoses Not on filedocumented in this encounter Additional Health Concerns Assessment Noted Time PHQ-9 Depression Total Score: 10 022 10:24 AM EST documented as of this encounter Care Teams Violin Maker Hand Relationship Specialty Start Date End Date Shaka Ashley MD [address] [place] [phone] PCP - General Family Medicine 08/27/15 PuiaAlison, PharmD [address] [place] [phone] Pharmacist Internal Medicine 12/16/22 documented as of this encounter
--- OUTSIDE RECORDS SUMMARY | 2024-08-23 20:14 | XMS_ITS | Encounter Summary ---
Author Organization [facility] Address [address] [place] [phone] Phone Care Team Providers Care Wind Turbine Mechanical Engineer Name Role Phone Name, Shaka TURNER Primary Care Provider [phone] Reason for Visit * Reason Comments Kidney Transplant Encounter Details Date Type Department Care Team ([facility] Contact Info) Description 08/05/2024 8:45 AM EST Office Visit [facility] [address] [phone] Zhen Sifuentes MD [address] [phone] Kidney transplant status (Primary Dx); Persistent proteinuria Social History Tobacco Use Types Packs/Day Years Used Date Smoking Tobacco: Former Cigarettes Q uit: 03/13/2018 Smokeless Tobacco: Never Tobacco Cessation:Counseling Given: Not Answered Comments:Smoking History Info:Every day Alcohol Use Standard Drinks/Week Comments Yes 0 (1 standard drink = 0.6 oz pure alcohol) Alcoholic Drinks/day: Occasional social drink Sex and Gender Information Value Date Recorded Sex Assigned at Not on file Legal Sex Male 4:41 PM EST Gender Identity Not on file Sexual Orientation Not on file documented as of this encounter Last Filed Vital Signs Vital Sign Reading Time Taken Comments Blood Pressure 150/90 08/05/2024 8:51 AM EST Pulse 69 08/05/2024 8:51 AM EST Temperature - - Respiratory Rate - - Oxygen Saturation - - Inhaled Oxygen Concentration - - Weight 97.5 kg (215 lb) 08/05/2024 8:51 AM EST Height - - Body Mass Index 30.85 04/21/2023 11:10 AM EDT documented in this encounter Patient Instructions * Patient Instructions* Zhen Sifuentes MD - 08/05/2024 8:45 AM EST Sodium and Your CKD Diet: How to Spice Up Your Cooking What is sodium? Sodium is a mineral found naturally in foods and is the major part of table salt. What are the effects of eating too much sodium? When your kidneys are not healthy, extra sodium and fluid build up in your body. This can cause swollen ankles, puffiness, a rise in blood pressure, shortness of breath, and/or fluid around your heart and lungs. See the following table for suggestions on how to reduce sodium in your diet. LIMIT THE [AMOUNT OF... FOOD TO LIMIT BECAUSE OF THEIR HIGH SODIUM CONTENT ACCEPTABLE SUBSTITUTES SALT & SALT SEASONINGS Table salt Seasoning salt Garlic salt Onion salt Celery salt Lemon pepper Lite salt Meat tenderizer Bouillon cubes Flavor enhancers Fresh garlic, fresh onion, garlic powder, onion powder, black [pepper, lemon juice, low-sodium/salt-free seasoning blends, vinegar SALTY FOODS Barbecue sauce Steak sauce Soy sauce Teriaky sauce Oyster sauce Salted Snacks such as Crackers Potato chips Zachary chips Pretzels Tortilla chips Nuts Popcorn [place] seeds Homemade or low- sodium sauces and salad dressings; Vinegar, dry mustard, unsalted popcorn, pretzels, tortilla or corn chips Cured Foods Ham Salt pork Truong Sauerkraut Pickles, pickle relish Lox & Carlson Olives Fresh beef, veal, pork, poultry, fish, eggs [place] MEATS Hot Dogs Cold cuts, deli meats Pastrami Sausage Corned beef Spam Low-salt deli meats PROCESSED FOODS Buttermilk Cheese Canned: Soups Tomato products Vegetable juices Canned vegetables Convenience Foods such as: TV Dinners Canned raviolis [place] Macaroni & Cheese Spaghetti Frozen prepared foods Fast foods Natural cheese (1-2 oz Per week) Homemade or sekou,1- sodium soups, canned food without added salt Homemade casseroles without added salt, made with fresh or raw vegetables, fresh meat, layne, pasta, or unsalted canned vegetables Some salt or sodium is needed for body water balance. But when your kidneys lose the ability to control sodium and water balance, you may experience the following: thirst fluid gain high blood pressure discomfort during dialysis By using less sodium in your diet, you can control these problems. Hints to keep your sodium intake down Cook with herbs and spices instead of salt. (Refer to Spice Up Your Cooking section for further suggestions.) Read food labels and choose those foods low in sodium. Avoid salt substitutes and specialty low-sodium foods made with salt substitutes because they are high in potassium. When eating out, ask for meat or fish without salt. Ask for gravy or sauce on the side; these may contain large amounts of salt and should be used in small amounts . Limit use of canned, processed and frozen foods. Some information about reading labels Understanding the terms: Sodium Free - Only a trivial amount of sodium per serving. Very Low Sodium - 35 mg or less per serving. Low Sodium - 140 mg or less per serving. Reduced Sodium - Foods in which the level of sodium is reduced by 25%. Light or Lite in Sodium - Foods in which the sodium is reduced by at least 50% . Simple rule of thumb : If salt is listed in the first five ingredients, the item is probably too high in sodium to use. All food labels now have milligrams (mg) of sodium listed. Follow these steps when reading the sodiwn information on the label: 1. Know how much sodium you are allowed each day. Remember that there are 1000 milligrams (mg) in 1gram. For klnz7xan, if your diet prescription is 2 grams of sodium , your limit is 2000 milligrams per day. Consider the sodium value or other food to be eaten during the day. 2. Look at the package label. Check the serving size. Nutrition values are expressed per jamison g. How does this compare to your total daily allowance? If the sodium level is 500 mg or more per serving, the item is not a good choice. 3. Compare labels of similar products. Select the lowest sodium level for the same serving size. How to Spice Up Your Cooking Giving up salt does not mean giving up flavor. Learn to season your food with herbs and spices. Be creative and experiment for a new and exciting flavor. What kinds of spices and herbs should I use instead of salt to add flavor? Try the following spices with the foods listed. Allspice: Use with beef, fish, beets, cabbage, canots, peas, fruit. Basil: Use with beef, pork, most vegetables. [place]: Use with beef, pork, most vegetables. Cassie: Use with beef, pork, green beans, cauliflower, cabbage, beets, asparagus, and in dips and marinades. Cardamom: Use with fruit and in baked goods. Lynne: Use with beef, chicken, pork, fish, green beans, carrots and in marinades. Dill: Use with beef, chicken, green beans, cabbage, carrots, peas and in dips. Mel: Use with beef, chicken, pork, green beans, cauliflower and eggplant. Marjoram: Use with beef, chicken, pork, green beans, cauliflower and eggplant. Elissa: Use with chicken, pork, cauliflower, peas and in marinades. Thyme: Use with beef, chicken, pork, fish, green beans, beets and carrots. Prince: Use with chicken, pork, eggplant and in dressing. Tarragon: Use with fish, chicken, asparagus, beets, cabbage, cauliflower and in marinades. Tips for cooking with herbs and spices Purchase spices and herbs in small amounts . When they sit on the shelf for years they lose their flavor. Use no more than ?? teaspoon of dried spice (?? of fresh) per pound of meat. Add ground spices to food about 15 minutes before the end of the cooking period. Add whole spices to food at least one hour before the end of the cooking period. Combine herbs with oil or butter, set for 30 minutes to bring out their flavor, then brush on foodswhile they cook, or brush meat with oil and sprinkle herbs one hour before coolcing. Crush dried herbs before adding to foods. Can I use salt substitutes? Caution! If you are told to limit potassium in your diet, be very cautious about using salt substitutes because most of them contain some form of potassium. Check with your doctor or dietitian beforeusing and salt substitute. [place] and create your own seasoning containing those spices that you like. If you would like to become a volunteer and find out more about what's happening where you live, contact your local [facility] Affiliate. No NSAIDS - Do not take non-steroidal anti-inflammatory medications (NSAIDS) such as Ibuprofen (Advil, Motrin, etc), Naproxen (Aleve, etc), Celecoxib (Celebrex) or Ketoprofen. These common arthritis medications can cause permanent kidney damage or worsen your kidney damage. For mild occasional pain, Acetaminophen (Tylenol, etc) is safe for your kidneys. Blood pressure monitoring education: Monitor home blood pressure values after sitting for 5 minutes with back and arm support. Keep a log. Bring your log and blood pressure cuff to your next visit. documented in this encounter Progress Notes * Zhen Sifuentes MD - 08/05/2024 8:45 AM EST Images from the original note were not included. Patient Name: William Bundy, Male Date of : 1975, 49 y.o. Date: 08/05/24 History of Present Illness ./Ms. William Bundy is a 48 y.o.-year-old male with PMH as below, here for follow up for kidney transplant management. Overall doing well. No specific c/o's Past Medical History Past Medical History: Diagnosis Date Acute injury of kidney Anemia Asthma Cholelithiasis AND cholecystitis without obstruction Chronic kidney disease Dependence on hemodialysis due to end stage renal disease (HCC) 09/22/2014 Essential hypertension Hypertensive renal disease with end stage renal failure 08/07/2020 Nephrolithiasis Past Surgical History Past Surgical History: Procedure Laterality Date AV FISTULA PLACEMENT LIVING RELATED DONOR KIDNEY TRANSPLANT OTHER SURGICAL HISTORY RENAL BIOPSY Family History Family History Problem Relation Age of Onset Diabetes Father Hypertension Father Stroke Mother Social History Social History Tobacco Use Smoking status: Former Current packs/day: 0.00 Types: Cigarettes Quit date: 03/13/2018 Years since quittin.4 Smokeless tobacco: Never Tobacco comments: Smoking History Info:Every day Substance Use Topics Alcohol use: Yes Comment: Alcoholic Drinks/day: Occasional social drink Review of Systems Constitutional: Negative for chills and fever. Respiratory: Negative for shortness of breath. Cardiovascular: Negative for chest pain and leg swelling. Gastrointestinal: Negative for diarrhea, nausea and vomiting. Genitourinary: Negative for dysuria and urgency. Skin: Negative for rash. Neurological: Negative for dizziness. Medication List Current Outpatient Medications Medication Sig Dispense Refill acetaminophen (TYLENOL) 325 MG tablet albuterol (2.5 MG/3ML) 0.083% nebulizer solution USE 1 VIAL VIA NEBULIZER 3 TIMES A DAY ammonium lactate (LAC-HYDRIN) 12 % lotion by Other route 1 (one) time each day ampicillin (PRINCIPEN) 500 MG capsule TAKE 2 CAPSULE BY MOUTH DIRECTED TAKE 1 HOUR PRIOR TO DENTAL PROCEDURE 2 capsule 3 aspirin (ST TRIPP) 81 MG EC tablet Comments: Patient Notes: TAKE 1 TABLET BY MOUTH ONCE A DAY atorvastatin (LIPITOR) 20 MG tablet Take 1 tablet by mouth at bed time calcitriol (Rocaltrol) 0.25 MCG capsule Take 1 capsule (0.25 mcg total) by mouth every other day 45capsule 3 clonazePAM (KlonoPIN) 1 MG tablet Take 1 tablet (1 mg total) by mouth 2 (two) times a day if neededfor anxiety 60 tablet 0 doxazosin (Cardura) 4 MG tablet Take 1 tablet (4 mg total) by mouth every night 90 tablet 3 Flovent HFA 220 MCG/ACT inhaler INHALE 1 PUFF BY MOUTH TWICE DAILY. RINSE MOUTH AFTER USING. fluticasone (FLONASE) 50 MCG/ACT nasal spray Administer 1 spray into each nostril 2 (two) times a day levothyroxine (SYNTHROID, LEVOTHROID) 150 MCG tablet loratadine (CLARITIN) 10 MG tablet Take 1 tablet by mouth 1 (one) time each day losartan (Cozaar) 50 MG tablet Take 2 tablets (100 mg total) by mouth 1 (one) time each day 180 tablet 3 magnesium oxide (MAG-OX) 400 MG tablet Take 1 tablet (400 mg total) by mouth 1 (one) time each day 90 tablet 3 montelukast (Singulair) 10 MG tablet Take 1 tablet (10 mg total) by mouth 1 (one) time each day 30 tablet 3 mycophenolate (MYFORTIC) 180 MG EC tablet Take 3 tablets (540 mg total) by mouth in the morning and3 tablets (540 mg total) in the evening. 540 tablet 3 omeprazole (PriLOSEC) [address] capsule Take 2 capsules by mouth 1 (one) time each day oxyCODONE (ROXICODONE) 10 MG immediate release tablet 10 mg Tacrolimus ER 1 MG tablet sustained-release 24 hour Take 3 mg by mouth 1 (one) time each day Take three 1 mg tablet along with two 4 mg tablets for a total daily dose of 11 mg. 150 tablet 1 Tacrolimus ER 4 MG tablet sustained-release 24 hour Take 12 mg by mouth 1 (one) time each day Take two 4 mg tablets along with three 1 mg tablet for a total daily dose of 11 mg. 270 tablet 3 zolpidem (AMBIEN) 10 MG tablet labetalol (NORMODYNE) 200 MG tablet Take 1 tablet (200 mg total) by mouth in the morning and 1 tablet (200 mg total) in the evening. 180 tablet 0 No current facility-administered medications for this visit. Allergy List Allergies Allergen Reactions Gramineae Pollens Other (see comments) Other reaction(s): Sneezing Grass Pollen Standardized Ext Other (see comments) Physical Exam BP 150/90 Pulse 69 Wt 215 lb (97.5 kg) BMI 30.85 kg/m?? 148/92 HEENT: Mouth/Throat: Oropharynx is clear and moist. Eyes: Conjunctivae are normal. Cardiovascular: Normal rate and regular rhythm. He exhibits no edema. Pulmonary/Chest: Breath sounds normal. Abdominal: Bowel sounds are normal. Neurological: He is alert. Skin: Skin is warm and dry. Psychiatric: He has a normal mood and affect. Labs Chemistry Lab Units 05/11/24 0927 02/09/24 0855 02/09/24 0000 11/18/23 0820 08/25/23 0820 06/24/23 0930 04/21/23 0812 02/16/23 0922 10/21/22 0840 CREATININE mg/dL 1.04 1.03 1.03 1.04 1.0 1.0 1.1 0.9 0.8 BUN mg/dL 18 12 12 22 12 12 18 12 13 POTASSIUM mmol/L 4.6 4.6 4.6 5.0 4.4 4.9 4.9 5.0 4.4 SODIUM mmol/L 142 140 140 142 142 141 141 141 142 CO2 mmol/L 25 22 22 21 26 29 27 26 28 CHLORIDE mmol/L 102 102 102.0 105 103 105 103 105 105 ALBUMIN g/dL -- 4.7 4.7 4.8 4.9* 4.6 5.1* 4.7 4.7 EGFRNAFR -- -- -- 99 91 87 105 109 EGFR mL/min/1.73 89 -- -- -- -- -- -- WBC AUTO x10E3/uL 5.4 -- -- 6.5 7.0 6.1 6.9 7.0 8.2 HEMATOCRIT % 41.4 -- -- 43.8 43.9 43.3 44.0 46.1 44.6 HEMOGLOBIN g/dL 12.9* -- -- 12.8* 13.7 13.4* 13.6* 14.2 14.1 PLATELETS AUTO x10E3/uL 182 -- -- 228 224 206 236 212 214 Bone Mineral Lab Units 05/11/2492602/09/24 0802/09/24 0000 11/18/23 0820 08/25/23 0820 06/24/23 0930 04/21/23 0812 02/16/23 0922 10/21/22 0840 CALCIUM mg/dL 9.8 9.8 -- 9.8 9.5 9.5 10.3 9.6 9.8 PHOSPHORUS mg/dL -- 3.0 3.0 3.1 2.8 2.5 3.4 2.7 3.3 PTH PG/ML -- -- -- -- 156* -- 104* 129* 153* VITAMIN D NG/ML -- -- -- -- 43.9 -- 32.7 35.6 19.5* VIT D 25 HYDROXY ng/mL 37.9 -- -- -- -- -- -- -- -- Urine Lab Units 05/11/2492602/09/24 0855 11/18/23 0820 08/25/23 0820 06/24/23 0930 PROT/CREAT RATIO UR mg/g creat 129 129 195 -- -- ALB MG/G CREAT UR mg/g creat 42* -- 57* 73.1* 172.7 137.4* 98.4 Iron Studies Lab Units 08/25/23 0820 10/21/22 0840 FERRITIN NG/ML 724* 927* TIBC MCG/DL 345 285 IRON SATURATION % 21 Transplant Lab Units 05/11/24 0927 05/11/24 0926 02/09/24 0854 11/18/23 0820 09/09/23 1026 08/25/23 0820 08/12/23 0930 TACROLIMUS LVL NG/ML -- 6.8 11.5 3.7 4.7 13.7 7.4 BK VIRUS DNA, PCR IU/mL Negative -- -- -- -- -- -- Labs Lab Units 06/24/23 0930 HDL MG/DL 47 NON HDL CHOL. (LDL+ VLDL) MG/DL 97 TRIGLYCERIDES MG/DL 73 Urine Lab Units 05/11/24 0927 02/09/24 0855 11/18/23 0820 08/25/23 0820 06/24/23 0930 PROT/CREAT RATIO UR mg/g creat 129 129 195 -- -- ALB MG/G CREAT UR mg/g creat 42* -- 57* 73.1* 172.7 137.4* 98.4 Urine Lab Units 05/11/24 0927 02/09/24 0855 11/18/23 0820 08/25/23 0820 06/24/23 0930 04/21/23 0812 02/16/23 0923 10/21/22 0841 PH U 7.0 -- 6.0 7.0 6.5 6.0 6.5 6.5 COLOR U Yellow -- Yellow -- -- -- -- -- GLUCOSE UR Negative -- Negative NEGATIVE NEGATIVE NEGATIVE TRACE* TRACE* KETONES U MG/DL -- -- -- NEGATIVE NEGATIVE NEGATIVE NEGATIVE NEGATIVE WBC UR HPF /hpf None seen -- None seen <1 <1 <1 1 1 RBC UR HPF /hpf None seen -- None seen <1 1 1 1 3 PROTEIN UR mg/dL 16.3 9.2 24.0 -- -- -- -- -- UROBILINOGEN U MG/DL MG/DL -- -- -- NORMAL NORMAL NORMAL NORMAL NORMAL UROBILINOGEN UA mg/dL 1.0 -- 0.2 -- -- -- -- -- Iron Studies Lab Units 08/25/23 0820 10/21/22 0840 FERRITIN NG/ML 724* 927* TIBC MCG/DL 345 285 IRON SATURATION % Labs Lab Units 05/11/24 0926 02/09/24 0854 11/18/23 0820 09/09/23 1026 08/25/23 0820 08/12/23 0930 06/24/23 0930 04/21/23 0812 02/16/23 0922 10/21/22 0840 MYCOPHENOLIC ACID UG/ML -- -- -- -- -- -- 4.0* 2.0 4.0* 2.8 TACROLIMUS LVL NG/ML 6.8 11.5 3.7 4.7 13.7 7.4 4.3* 5.2 10.1 7.7 Assessment & Plan 1. Kidney transplant status 2. 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 Immunosuppression - Taking Envarsus 11 mg oral daily( 2 pills of 4mg+ 3 of 1mg) and myfortic 540 mg oral BID - Last FK level 6.8 ( ) 3. Infection - BK PCR neg 4. Heme - Hb and PLT ok no neutropenia 5. HTN - add labetalol 200 bid - BP not at target today, however he did not take am losartan yet- counselled to take on time in am - Currently taking Losartan 100 mg oral daily , Doxazosin 4 mg oral qhs - Nifedipine stopped in past visit for LE edema, - Low salt diet 6. Bone metabolism/electrolytes - Phos at goal - Mag - on mag ox 400 mg oral daily - Vit D at goal PLAN: needs repeat labs and stress improtance of getting g labs q 3 motnhs, add labetalol 200 bid and track HBPs, check tacro level and adjsut accordingly, avoid NSAIDs Orders Placed This Encounter labetalol (NORMODYNE) 200 MG tablet Return in about 3 months (around 11/02/2024). Zhen Sifuentes MD documented in this encounter Plan of Treatment Upcoming Encounters Date Type Department Care Team (Late st Contact Info) Description 11/02/2024 10:45 AM EDT Office Visit [facility] [address] [phone] Zhen Sifuentes MD [facility] [phone] documented as of this encounter Visit Diagnoses Diagnosis Kidney transplant status- Primary Persistent proteinuria documented in this encounter Care Teams Wind Turbine Mechanical Engineer Relationship Specialty Start Date End Date Name, MD Shaka [address] [place] [phone] PCP - General 07/02/20 documented as of this encounter
--- OUTSIDE RECORDS SUMMARY | 2024-08-23 20:14 | XMS_ITS | Encounter Summary ---
Author Organization [employer] Address [address] [facility] [address] [place] [address] Care Team Providers Care Tape Recording Machine Operator Name Role Phone Name, Shaka TURNER Primary Care Provider [phone] Alison Maurice PharmD Unavailable [phone] Encounter Details Date Type Department Care Team (Late st Contact Info) Description 07/07/2023 Orders Only [facility] [address] [place], [place] [phone] Name, MD Shaka [address] [place], [place] [phone] Social History Tobacco Use Types Packs/Day Years Used Date Smoking Tobacco: Never Passive Smoke Exposure: Never Smokeless Tobacco: Never Alcohol Use Standard Drinks/Week Comments Yes 3 (1 standard drink = 0.6 oz pur e alcohol) socially Depression Answer Date Recorded Patient Health Questionnaire-9 Score 10 06/05/2022 Housing Stability Answer Date Recorded What is your housing situation today? I have brennanbubba chavez 04/08/[address] you [...] Description 09/13/2024 11:00 AM EDT Office Visit [facility] [address] [place] [address] 12/06/2024 3:30 PM EDT Office Visit [address] [address] Name, MD Shaka [address] [place] [phone] documented as of this encounter Goals Goal Patient Goal Type Associated Problems Recent Progress Patient-Stated? Author Record your blood pressure once per day Blood Pressure No Puia, Alison, PharmD Blood Pressure < 140/90 Blood Pressure 143/83( 025 3:53 PM EST) No Puia, Alison, PharmD documented as of this encounter Visit Diagnoses Not on filedocumented in this encounter Additional Health Concerns Assessment Noted Time PHQ-9 Depression Total Score: 10 022 10:24 AM EST documented as of this encounter Care Teams Tape Recording Machine Operator Relationship Specialty Start Date End Date NameShaka MD [address] [place] [phone] PCP - General Family Medicine 08/27/15 Puia, Alison, PharmD [address] [place] [phone] Pharmacist Internal Medicine 12/16/22 documented as of this encounter
--- OUTSIDE RECORDS SUMMARY | 2024-08-23 20:14 | XMS_ITS | Encounter Summary ---
Author Organization [facility] Address [address] [place] [phone] Phone Care Team Providers Care High Scaler Name Role Phone Name, Shaka TURNER Primary Care Provider [phone] Encounter Details Date Type Department Care Team (Late st Contact Info) Description 08/11/2024 Orders Only [facility] [address] [phone] Ghassan Junior MD [address] [place] [phone] Kidney transplant status Social History Tobacco Use Types Packs/Day Years Used Date Smoking Tobacco: Former Cigarettes Q uit: 03/13/2018 Smokeless Tobacco: Never Comments:Smoking History Inf o:Every day Alcohol Use Standard Drinks/Week Comments Yes 0 (1 standard drink = 0.6 oz pure alcohol) Alcoholic Drinks/day: Occasional social drink Sex and Gender Information Value Date Recorded Sex Assigned at Not on file Legal Sex Male 4:41 PM EST Gender Identity Not on file Sexual Orientation Not on file documented as of this encounter Plan of Treatment Upcoming Encounters Date Type Department Care Team (Late st Contact Info) Description 11/02/2024 10:45 AM EDT [facility] [address] [phone] Zhen Sifuentes MD [address] [place] [phone] documented as of this encounter Visit Diagnoses Diagnosis Kidney transplant status documented in this encounter Care Teams High Scaler Relationship Specialty Start Date End Date Name, MD Shaka [address] [place] [phone] PCP - General 07/02/20 documented as of this encounter
--- OUTSIDE RECORDS SUMMARY | 2024-08-23 20:14 | XMS_ITS | Encounter Summary ---
Author Organization [employer] Address [address] [facility] [address] [place] [address] Care Team Providers Care Co Founder And Cto Name Role Phone Name, Shaka TURNER Primary Care Provider [phone] Alison Maurice PharmD Unavailable [phone] Reason for Visit * Reason Comments Med Refill Encounter Details Date Type Department Care Team (Late st Contact Info) Description 07/27/[address] [facility] [address] [place], [place] [phone] Name, MD Shaka [address] [place], [place] [phone] Essential hypertension Social History Tobacco Use Types Packs/Day Years [...] Description 09/13/2024 11:00 AM EDT Office Visit [facility] [address] [place] [phone] 12/06/2024 3:30 PM EDT Office Visit [facility] [address] [place] [phone] NameShaka MD [address] [place] [phone] documented as of this encounter Goals Goal Patient Goal Type Associated Problems Recent Progress Patient-Stated? Author Record your blood pressure once per day Blood Pressure No Alison Maurice, PharmD Blood Pressure < 140/90 Blood Pressure 143/83( 025 3:53 PM EST) No Alison Maurice PharmD documented as of this encounter Visit Diagnoses Diagnosis Essential hypertension Unspecified essential hypertension documented in this encounter Additional Health Concerns Assessment Noted Time PHQ-9 Depression Total Score: 0 08/12/19 24 11:03 AM EST documented as of this encounter Care Teams Co Founder And Cto Relationship Specialty Start Date End Date Shaka Ashley MD [address] [place] [address] PCP - General Family Medicine 08/27/15 Alison Maurice, Renata [address] [place] [address] Pharmacist Internal Medicine 12/16/22 documented as of this encounter
--- OUTSIDE RECORDS SUMMARY | 2024-08-23 20:14 | XMS_ITS | Encounter Summary ---
Author Organization [facility] Address [address] [facility] 200 [place] [address] Phone Care Team Providers Care Collar Worker Name Role Phone Name, Shaka TURNER Primary Care Provider [phone] Encounter Details Date Type Department Care Team (Latest Contact Info) Description 07/22/2024 Orders Only [facility] [address] [facility] [address] [place] [address] Ghassan Junior MD [address] [facility] [address] [place] [address] Kidney transplant status; Other manager intermediate current drug therapy; Secondary hyperparathyroidism of renal origin (HCC); Anemia, not otherwise specified Social History Tobacco Use Types Packs/Day Years Used Date Smoking Tobacco: Former Cigarettes Q uit: 03/13/2018 Smokeless Tobacco: Never Comments:Smoking History Inf o:Every day Alcohol Use Standard Drinks/Week Comments Never 0 (1 standard drink = 0.6 oz [...] Office Visit [facility] [address] [facility] [address] [place] [address] Zhen Sifuentes MD [address] [facility] [address] [place] [address] documented as of this encounter Visit Diagnoses Diagnosis Kidney transplant status Other manager intermediate current drug therapy Secondary hyperparathyroidism of renal origin (HCC) Secondary hyperparathyroidism of renal origin Anemia, not otherwise specified documented in this encounter Care Teams Collar Worker Relationship Specialty Start Date End Date Name, MD Shaka [address] [place] [address] PCP - General 07/02/20 documented as of this encounter
--- OUTSIDE RECORDS SUMMARY | 2024-08-23 20:14 | XMS_ITS | Encounter Summary ---
Author Organization [employer] Address 75 [facility] 7t [place] [address] Care Team Providers Care Pan Shover Name Role Phone Name, Shaka TURNER Primary Care Provider [phone] Alison Maurice PharmD Unavailable [phone] Reason for Visit * Reason Onset Date Comments Med Refill 08/01/2024 Encounter Details Date Type Department Care Team (Late st Contact Info) Description 08/01/2024 Refill [facility] 230 [place], [place] [phone] Name, MD Shaka [address] [place], [place] [phone] Chronic hip pain, unspecified laterality Social History Tobacco Use Types Packs/Day Years [...] AM EDT documented as of this encounter Miscellaneous Notes * Telephone Encounter - Zara Michael - 08/01/2024 12:03 PM EST TC from pt requesting medication refill. Medications needing refill : oxyCODONE (Roxicodone) 10 MG immediate release tablet To be sent to: [id number] [facility] [place] [facility]Kristal documented in this encounter Plan of Treatment Upcoming Encounters Date Type Department Care Team (Late st Contact Info) Description 09/13/2024 11:00 AM EDT Office Visit [facility] [address] [place] [phone] 12/06/2024 3:30 PM EDT Office Visit [facility] [address] [place] [address] Name, MD Shaka [address] [place] [address] documented as of this encounter Goals Goal Patient Goal Type Associated Problems Recent Progress Patient-Stated? Author Record your blood pressure once per day Blood Pressure No Alison Maurice PharmD Blood Pressure < 140/90 Blood Pressure 143/83( 025 3:53 PM EST) No Alison Maurice PharmD documented as of this encounter Visit Diagnoses Diagnosis Chronic hip pain, unspecified laterality documented in this encounter Additional Health Concerns Assessment Noted Time PHQ-9 Depression Total Score: 0 08/12/19 24 11:03 AM EST documented as of this encounter Care Teams Pan Shover Relationship Specialty Start Date End Date Name, MD Shaka [address] [place] [address] PCP - General Family Medicine 08/27/15 Alison Maurice PharmD [address] [place] [address] Pharmacist Internal Medicine 12/16/22 documented as of this encounter
--- OUTSIDE RECORDS SUMMARY | 2024-08-23 20:14 | XMS_ITS | Encounter Summary ---
Author Organization [employer] Address 75 [facility] 7t [place] [address] Care Team Providers Care Chief Operator Lock Tender Name Role Phone Name, Shaka TURNER Primary Care Provider Alison Maurice PharmD Unavailable Reason for Visit * Reason Comments Med Refill Encounter Details Date Type Department Care Team (Late st Contact Info) Description 12/17/2022 Refill [facility] 230 [place], [place] [phone] Name, MD Shaka 230 [place], [place] [phone] Essential hypertension; Allergic rhinitis, unspecified seasonality, unspecified trigger Social History Tobacco Use Types Packs/Day Years Used Date Smoking Tobacco: Former Cigarettes Q uit: 2020 Smokeless Tobacco: Never Alcohol Use Standard Drinks/Week Comments Yes 2 (1 standard drink = 0.6 oz pur e alcohol) Depression Answer Date Recorded Patient Health Questionnaire-9 Score 10 06/05/2022 Depression Answer Date Recorded Patient Health Questionnaire-2 Score 5 06/05/2022 Sex and Gender Information Value Date Recorded Sex Assigned at Male 04/21/2022 10:17 AM EDT Legal Sex Male 10:17 AM EDT Gender Identity Male 04/21/2022 10:17 AM EDT Sexual Orientation Straight 04/21/2022 10 :17 AM EDT COVID-19 Exposure Response Date Recorded In the last 10 days, have yo u been in contact with someone who was confirmed or suspected to have Coronavirus/COVID-19? Unable to assess 12/16/2022 9:46 AM EDT documented as of this encounter Plan of Treatment Upcoming Encounters Date Type Department Care Team (Late st Contact Info) Description 09/13/2024 11:00 AM EDT Office Visit [facility] [place] [address] 12/06/2024 3:30 PM EDT Office Visit [facility] [place] [address] Name, MD Shaka [facility] [place] [address] documented as of this encounter Goals Goal Patient Goal Type Associated Problems Recent Progress Patient-Stated? Author Record your blood pressure once per day Blood Pressure No Alison Maurice PharmD Blood Pressure < 140/90 Blood Pressure 143/83( 025 3:53 PM EST) No Alison Maurice PharmD documented as of this encounter Visit Diagnoses Diagnosis Essential hypertension Unspecified essential hypertension Allergic rhinitis, unspecified seasonality, unspecified trigger documented in this encounter Additional Health Concerns Assessment Noted Time PHQ-9 Depression Total Score: 10 022 10:24 AM EST documented as of this encounter Care Teams Chief Operator Lock Tender Relationship Specialty Start Date End Date Shaka Ashley MD [facility] [place] [address] PCP - General Family Medicine 08/27/15 Alison Maurice PharmD [address] [place] [address] Pharmacist Internal Medicine 12/16/22 documented as of this encounter
--- OUTSIDE RECORDS SUMMARY | 2024-08-23 20:14 | XMS_ITS | Encounter Summary ---
Author Organization [facility] Address [address] [place] [address] Phone Care Team Providers Care Varnish Maker Helper Name Role Phone Name, Shaka TURNER Primary Care Provider [phone] Encounter Details Date Type Department Care Team (Late st Contact Info) Description 07/28/2024 Office Communication [facility] [address] [address] Zhen Sifuentes MD [address] [place] [address] Social History Tobacco Use Types Packs/Day Years [...] Office Visit [facility] [address] [phone] Zhen Sifuentes MD [address] [place] [address] documented as of this encounter Visit Diagnoses Not on filedocumented in this encounter Care Teams Varnish Maker Helper Relationship Specialty Start Date End Date Name, MD Shaka [address] [place] [address] PCP - General 07/02/20 documented as of this encounter
--- OUTSIDE RECORDS SUMMARY | 2024-08-23 20:14 | XMS_ITS | Encounter Summary ---
Author Organization [facility] Address [address] [facility] 200 [place] [address] Phone Care Team Providers Care Adult Specialist Name Role Phone Name, Shaka TURNER Primary Care Provider [phone] Encounter Details Date Type Department Care Team (Late st Contact Info) Description 12/03/2023 Office Communication [facility] [address] [facility] 200 [place] [address] Zhen Sifuentes MD [address] [address] Social History Tobacco Use Types Packs/Day [...] Office Visit [facility] [address] [address] Zhen Sifuentes MD [address] [address] documented as of this encounter Visit Diagnoses Not on filedocumented in this encounter Care Teams Adult Specialist Relationship Specialty Start Date End Date Name, MD Shaka [address] [place] [address] PCP - General 07/02/20 documented as of this encounter
--- OUTSIDE RECORDS SUMMARY | 2024-08-23 20:14 | XMS_ITS | Encounter Summary ---
Author Organization [facility] Address 3550 [facility] 204 [place] [address] Phone Care Team Providers Care Photographic Specialist Name Role Phone Name, Shaka TURNER Primary Care Provider [phone] Reason for Visit * Reason Onset Date Comments Med Refill 07/29/2024 Encounter Details Date Type Department Care Team (Late Contact Info) Description 07/29/2024 Refill [facility] [place] [phone] [address] Araceli, Yulissa [address] [facility] [address] [place] [address] Social History Tobacco Use Types Packs/Day Years [...] Encounters Date Type Department Care Team (Late Contact Info) Description 11/02/2024 10:45 AM EDT Office Visit [facility] 3550 [facility] [address] [place] [address] Zhen Sifuentes MD [address] [address] documented as of this encounter Visit Diagnoses Not on filedocumented in this encounter Care Teams Photographic Specialist Relationship Specialty Start Date End Date Name, MD Shaka [address] [place] [address] PCP - General 07/02/20 documented as of this encounter
--- OUTSIDE RECORDS SUMMARY | 2024-08-23 20:14 | XMS_ITS | Encounter Summary ---
Author Organization [employer] Address 75 [facility] 7t [place] [address] Care Team Providers Care Training Specialist Name Role Phone Name, Shaka TURNER Primary Care Provider [phone] Alison Maurice PharmD Unavailable [phone] Reason for Visit * Reason Comments Med Refill Encounter Details Date Type Department Care Team (Late st Contact Info) Description 04/22/2023 Refill [facility] [address] [place], [place] [phone] Name, MD Shaka 230 [place], [place] [phone] Allergic rhinitis, unspecified seasonality, unspecified trigger Social [...] Description 09/13/2024 11:00 AM EDT Office Visit [address] [address] 12/06/2024 3:30 PM EDT Office Visit [address] [address] Name, MD Shaka [address] [place] [address] documented as of this encounter Goals Goal Patient Goal Type Associated Problems Recent Progress Patient-Stated? Author Record your blood pressure once per day Blood Pressure No Puia, Alison, PharmD Blood Pressure < 140/90 Blood Pressure 143/83( 025 3:53 PM EST) No Puia, Alison, PharmD documented as of this encounter Visit Diagnoses Diagnosis Allergic rhinitis, unspecified seasonality, unspecified trigger documented in this encounter Additional Health Concerns Assessment Noted Time PHQ-9 Depression Total Score: 10 022 10:24 AM EST documented as of this encounter Care Teams Training Specialist Relationship Specialty Start Date End Date Shaka Ashley MD [address] [place] [address] PCP - General Family Medicine 08/27/15 Puia, Alison, PharmD 230 [place] [address] Pharmacist Internal Medicine 12/16/22 documented as of this encounter
--- OUTSIDE RECORDS SUMMARY | 2024-08-23 20:14 | XMS_ITS | Encounter Summary ---
Author Organization [employer] Address 75 [facility] 7t [place] [address] Care Team Providers Care Manager Division Name Role Phone Name, Shaka TURNER Primary Care Provider [phone] Alison Maurice PharmD Unavailable [phone] Reason for Visit * Reason Onset Date Comments Clonazepam & Ambien outside provider 07/27/2024 Encounter Details Date Type Department Care Team (Late st Contact Info) Description 07/27/2024 Telephone [facility] 230 [place], [place] [phone] Merlyn Bennett RN Clonazepam & Ambien outside provider Social History Tobacco Use Types Packs/Day Years [...] the past 12 months, has t he [employer], gas, oil or water [employer] threatened to shut off services in your [...] encounter Miscellaneous Notes * Telephone Encounter - Merlyn Bennett RN - 07/27/2024 10:24 AM EST Received message from Nandini Rowland ETHYLENE PLANT OPERATOR - I was looking at Mr. Hansen's PDMP and med list and I can't see a fill for either outside rx of BZO or ambien since November 2023. Do we know if he is still taking them? TC to patient, patient states he no longer uses Clonazepam. He said he does still use his Ambien PRN. documented in this encounter Plan of Treatment Upcoming Encounters Date Type Department Care Team (Late st Contact Info) Description 09/13/2024 11:00 AM EDT Office Visit [facility] [address] [place] [address] 12/06/2024 3:30 PM EDT Office Visit [facility] [address] [place] [address] Name, MD Shaka [address] [place] [address] documented as of this encounter Goals Goal [...] documented as of this encounter Care Teams Manager Division Relationship Specialty Start Date End Date Name, MD Shaka 230 [place] [address] PCP - General Family Medicine 08/27/15 Alison Maurice PharmD 230 [place] [address] Pharmacist Internal Medicine 12/16/22 documented as of this encounter
--- OUTSIDE RECORDS SUMMARY | 2024-08-23 20:14 | XMS_ITS | Encounter Summary ---
Author Organization [facility], Address [address] [place] [address] Phone Care Team Providers Care Integrated Logistics Programs Director Name Role Phone Name, Shaka TURNER Primary Care Provider [phone] Reason for Visit * Reason Comments Med Refill Encounter Details Date Type Department Care Team ([facility] Contact Info) Description 05/31/2022 Refill [facility] [address] [place] [address] Cady Powell PA Social History Tobacco Use Types Packs/Day Years [...] on file Sexual Orientation Not on file COVID-19 Exposure Response Date Recorded In the last 10 days, have yo u been in contact with someone who was confirmed or suspected to have Coronavirus/COVID-19? No / Unsure 05/08/2022 8:50 AM EST documented as of this encounter Miscellaneous Notes * Telephone Encounter - Cady Powell PA - 06/09/2022 3:07 PM EST Medication refused due to failing protocol. Requested Prescriptions Pending Prescriptions Disp Refills ??? glycopyrrolate (ROBINUL) 1 MG tablet [Pharmacy Med Name: GLYCOPYRROLATE 1 MG TABLET] 90 tablet 0 Sig: TAKE 1 TABLET BY MOUTH IN THE MORNING AND 1 TABLET IN THE EVENING AND 1 TABLET BEFORE BEDTIME. Urinary Cholinergic Agonist Antispasmodics Protocol Passed - 05/31/2022 10:33 AM Passed - Recent or future visit with authorizing provider Spoke with patient, he is no longer using this medication and is feeling better. documented in this encounter Plan of Treatment Upcoming Encounters Date Type Department Care Team (Late st Contact Info) Description 11/02/2024 10:45 AM EDT Office Visit [facility] [address] [address] Zhen Sifuentes MD [facility] [address] [address] documented as of this encounter Visit Diagnoses Not on filedocumented in this encounter Care Teams Integrated Logistics Programs Director Relationship Specialty Start Date End Date Name, MD Shaka [address] [place] [address] PCP - General 07/02/20 documented as of this encounter
--- OUTSIDE RECORDS SUMMARY | 2024-08-23 20:14 | XMS_ITS | Encounter Summary ---
Author Organization [employer] Address 75 [facility] 7t [place] [address] Care Team Providers Care Shingle Trimmer Name Role Phone Name, Shaka TURNER Primary Care Provider [phone] Alison Maurice PharmD Unavailable [phone] Reason for Visit * Reason Comments Med Refill Encounter Details Date Type Department Care Team (Late st Contact Info) Description 08/31/2023 Refill [facility] 230 [place], [place] [phone] Name, MD Shaka 230 [place], [place] [phone] Essential hypertension Social History Tobacco Use Types [...] Description 09/13/2024 11:00 AM EDT Office Visit [facility] [address] [place] [address] 12/06/2024 3:30 PM EDT Office Visit [facility] [address] [place] [address] NameShaka MD [address] [place] [address] documented as of this encounter Goals Goal Patient Goal Type Associated Problems Recent Progress Patient-Stated? Author Record your blood pressure once per day Blood Pressure No Alison Maurice, PharmD Blood Pressure < 140/90 Blood Pressure 143/83( 025 3:53 PM EST) No Alison Maurice, PharmD documented as of this encounter Visit Diagnoses Diagnosis Essential hypertension Unspecified essential hypertension documented in this encounter Additional Health Concerns Assessment Noted Time PHQ-9 Depression Total Score: 0 08/12/19 24 11:03 AM EST documented as of this encounter Care Teams Shingle Trimmer Relationship Specialty Start Date End Date Shaka Ashley MD [address] [place] [address] PCP - General Family Medicine 08/27/15 Alison Maurice, PharmD [address] [place] [address] Pharmacist Internal Medicine 12/16/22 documented as of this encounter
--- OUTSIDE RECORDS SUMMARY | 2024-08-23 20:14 | XMS_ITS | Encounter Summary ---
Author Organization [employer] Address 75 [facility] 7t [place] [address] Care Team Providers Care Railroad Car Checker Name Role Phone Name, Shaka TURNER Primary Care Provider [phone] Alison Maurice PharmD Unavailable [phone] Reason for Visit * Reason Onset Date Comments Med Refill 12/19/2022 Encounter Details Date Type Department Care Team ([facility] st Contact Info) Description 12/19/2022 Telephone [facility] 230 [place], [place] [phone] Name, MD Shaka 230 [place], [place] [phone] Med Refill Social History Tobacco Use Types Packs/Day Years [...] encounter Miscellaneous Notes * Telephone Encounter - Collette Rosado - 12/19/2022 11:17 AM EDT Tc from pt requesting medication refill on oxyCODONE (Roxicodone) 10 MG immediate release tablet chana sent to [facility]/pharmacy #[id number] - [place], [place] - [address] [facility] documented in this encounter Plan of Treatment Upcoming Encounters Date Type Department Care Team (Late st Contact Info) Description 09/13/2024 11:00 AM EDT Office Visit [facility] [address] [place] [address] 12/06/2024 3:30 PM EDT Office Visit [address] [address] Name, MD Shaka [address] [place] [address] documented as of this encounter Goals Goal [...] documented as of this encounter Care Teams Railroad Car Checker Relationship Specialty Start Date End Date Name, MD Shaka [address] [place] [address] PCP - General Family Medicine 08/27/15 PuiaVelAlison, PharmD [address] [place] [address] Pharmacist Internal Medicine 12/16/22 documented as of this encounter
--- OUTSIDE RECORDS SUMMARY | 2024-08-23 20:14 | XMS_ITS | Encounter Summary ---
Author Organization [facility] Address [address] [address] Phone Care Team Providers Care Pump Press Operator Name Role Phone Name, Shaka TURNER Primary Care Provider [phone] Reason for Visit * Reason Onset Date Comments Med Refill 08/02/2024 Encounter Details Date Type Department Care Team (Late st Contact Info) Description 08/02/2024 Refill [facility] [address] [address] Lizzie Braun [address] [place] [address] Social History Tobacco Use Types Packs/Day [...] [facility] [address] [address] Zhen Sifuentes MD [address] [address] documented as of this encounter Visit Diagnoses Not on filedocumented in this encounter Care Teams Pump Press Operator Relationship Specialty Start Date End Date Name, MD Shaka [address] [place] [address] PCP - General 07/02/20 documented as of this encounter
--- OUTSIDE RECORDS SUMMARY | 2024-08-23 20:14 | XMS_ITS | Encounter Summary ---
Author Organization [facility], Address [address] [place] [address] Phone Care Team Providers Care Clinical Nursing Manager Name Role Phone Name, Shaka TURNER Primary Care Provider [phone] Encounter Details Date Type Department Care Team ([facility] Contact Info) Description 05/06/2022 Telephone [facility] [address] [place] [address] Shalini Rascon [address] [place] [phone] Social History Tobacco Use Types Packs/Day Years [...] AM EST documented as of this encounter Plan of Treatment Upcoming Encounters Date Type Department Care Team ([facility] Contact Info) Description 11/02/2024 10:45 AM EDT Office Visit [facility] [address] [address] Zhen Sifuentes MD 3550 [facility] 204 [place] [address] documented as of this encounter Visit Diagnoses Not on filedocumented in this encounter Care Teams Clinical Nursing Manager Relationship Specialty Start Date End Date Name, MD Shaka [address] [place] [address] PCP - General 07/02/20 documented as of this encounter
--- OUTSIDE RECORDS SUMMARY | 2024-08-23 20:14 | XMS_ITS | Encounter Summary ---
Author Organization [employer] Address [address] [facility] 7t [place] [address] Care Team Providers Care Housekeeping Manager Name Role Phone Name, Shaka TURNER Primary Care Provider [phone] Alison Maurice PharmD Unavailable [phone] Reason for Visit * Reason Onset Date Comments ER Follow-up 07/27/2024 Encounter Details Date Type Department Care Team (Late st Contact Info) Description 07/27/2024 Telephone [facility] [address], [place] [phone] Name, MD Shaka [address] [place], [place] [phone] ER Follow-up Social History Tobacco Use Types Packs/Day Years [...] encounter Miscellaneous Notes * Telephone Encounter - Nakita Higginbotham RN - 07/29/2024 10:35 AM EST No consent listed in chart to be able to speak to pt's daughter. T/C to pt via [employer] #[id number]. Advised pt no sooner appt available with PCP. Pt agrees to office visit with Blue team provider this afternoon for ED f/u. * Telephone Encounter - Bharat Alvarado - 07/29/2024 9:21 AM EST TC from pt daughter requesting to see if pt can be seen sooner than the 26 due to Pt blood pressureFluctuating, Daughter states talked to as Kidney doctor and he said hat it could end with the Pts kidney failing, Contact pt daughter at [phone] * Telephone Encounter - Donovan Reed - 07/28/2024 3:44 PM EST Tc from pt requesting to change appointment on 09/14/2024 because pt is having concerns after ER visit. Sister Contact: * Telephone Encounter - Rubia Russell RN - 07/27/2024 11:52 AM EST TC placed to pt via [employer] machinery repair maintenance supervisor (Alvino ID#[id number]) to do a status check following ED visit on 07/26/24. Pt states, I am not so good. The ED told me to follow up with PCP to see if they want to changeany of my blood pressure medications since it was so high and that I should see cardiology . Pt reports he is currently fine since coming home from ED. Pt denies chest pain, SOB, headache, dizziness,blurred vision, fever, chills. Pt denies any other symptoms. Pt reports BP reading yesterday was 174/103 in the ED and today is 147/89. Advised pt if blood pressure increases, or if he develops chestpain, SOB, headache, dizziness, and/or blurred vision to call office or return to ED for evaluation. Pt agrees to plan and denies questions or concerns at this time. Pt scheduled for f/u with PCP on 09/14/24 at 9:45. Message forwarded to PCP for review. * Telephone Encounter - Audi Deng - 07/27/2024 11:17 AM EST Patient calling to report ED visit on : Date: 07/26/24 Hospital: [facility] ED Seen for: high b/p and discomfort Symptomatic No Patient advised will forward to team nurse for follow up documented in this encounter Plan of Treatment Upcoming Encounters Date Type Department Care Team (Late st Contact Info) Description 09/13/2024 11:00 AM EDT Office Visit [facility] [address] [place] [address] [phone] 12/06/2024 3:30 PM EDT Office Visit [facility] [address] [place] [address] Name, [place] [address] documented as of this encounter Goals Goal [...] documented as of this encounter Care Teams Housekeeping Manager Relationship Specialty Start Date End Date Name, [place] [address] PCP - General Family Medicine 08/27/15 AmosiaAlison, [place] [address] Pharmacist Internal Medicine 12/16/22 documented as of this encounter
--- OUTSIDE RECORDS SUMMARY | 2024-08-23 20:14 | XMS_ITS | Encounter Summary ---
Author Organization [employer] Address [address] [facility] 7t [place] [address] Care Team Providers Care Billiard Player Name Role Phone Name, Shaka TURNER Primary Care Provider [phone] Alison Maurice PharmD Unavailable [phone] Encounter Details Date Type Department Care Team ([facility] Contact Info) Description 03/20/2023 Abstract [facility] [address] [place] [address] Kandru, Dillan, DMD [address] [place] [address] Social History Tobacco Use Types Packs/Day Years [...] Department Care Team (Late Contact Info) Description 09/13/2024 11:00 AM EDT Office Visit [facility] [address] [place], [place] [phone] 12/06/2024 3:30 PM EDT Office Visit [facility] [address] [place] [address] Name, [place] [address] documented as of this encounter Goals Goal [...] documented as of this encounter Care Teams Billiard Player Relationship Specialty Start Date End Date Name, [place] [address] PCP - General Family Medicine 08/27/15 Alison Maurice, [place] [address] Pharmacist Internal Medicine 12/16/22 documented as of this encounter
--- OUTSIDE RECORDS SUMMARY | 2024-08-23 20:14 | XMS_ITS | Encounter Summary ---
Author Organization [employer] Address [address] [facility] 7t [place] [address] Care Team Providers Care Can Dragger Name Role Phone NameShaka MD Primary Care Provider [phone] Alison Maurice PharmD Unavailable Reason for Referral * Consultation (Routine) - Pending Review Specialty Diagnoses / Procedures Referred By Laura colón Referred To Contact Cardiology Diagnoses Chest pain, unspecified type Shaka Ashley MD [address] [place] [address] Phone: tel: fax: Referral ID Status Reason Start Date Expiration Date Visits Requested Visits Authorized [id number] Pending Review Specialty Services Required 08/23/2024 08/23/2025 1 1 Reason for Visit * Reason Comments Hypertension Encounter Details Date Type Department Care Team (Late st Contact Info) Description 08/23/2024 3:45 PM EST Office Visit [facility] [address] [place], [place] [phone] Shaka Ashley MD [address] [place], [place] [phone] Chest pain, unspecified type (Primary Dx); Essential hypertension; Low platelet count (CMS/HCC) Social History Tobacco Use Types Packs/Day Years Used Date Smoking Tobacco: Never Passive Smoke Exposure: Never Smokeless Tobacco: Never Tobacco Cessation:Counseling Given: Not Answered Alcohol Use Standard Drinks/Week Comments Yes 3 [...] Sign Reading Time Taken Comments Blood Pressure 143/83 08/23/2024 3:53 PM EST Pulse 66 08/23/2024 3:53 PM EST Temperature 36.5 ??C (97.7 ??F) 08/23/2024 3:53 PM ES T Respiratory Rate 21 08/23/2024 3:53 PM EST Oxygen Saturation 98% 08/23/2024 3:53 PM EST Inhaled Oxygen Concentration - - Weight 99.2 kg (218 lb 9.6 oz) 08/23/2024 3:53 P M EST Height 177.8 cm (5' 10 ) 08/23/2024 3:53 PM EST Body Mass Index 31.37 08/23/2024 3:53 PM EST documented in this encounter Progress Notes * Shaka Ashley, - 08/23/2024 3:45 PM EST Subjective Patient ID: William Bundy is a 49 y.o. male who presents for Hypertension. Patient comes for a follow-up visit. He is asymptomatic. He was seen last month at [facility] with complaints of chest pain associated with very elevated blood pressure. He was ruled out for SC at the ERwith blood work and he had negative EKG, he also had unremarkable chest x-ray. His CBC in the hospital showed slight decreased platelet count. He was instructed to follow-up with me to arrange for outpatient stress test. Since he was seen at the ER his head transfer clerk added labetalol to his antihypertensives with significant improvement of BP at home. He denies any recurrent episodes of chest pain, no shortness of breath. He is using his medications as prescribed. Patient is prescribed atorvastatin 20 mg and baby aspirin already. He is a former smoker. Review of Systems Constitutional: Negative for chills, fatigue and fever. HENT: Negative for sore throat. Respiratory: Negative for cough, chest tightness and shortness of breath. Cardiovascular: Negative for chest pain, palpitations and leg swelling. See HPI Gastrointestinal: Negative for abdominal pain and blood in stool. Visit Vitals BP (!) 143/83 (BP Location: Left arm, Patient Position: Sitting, BP Cuff Size: Adult) Pulse 66 Temp 97.7 ??F (36.5 ??C) (Temporal) Resp 21 Ht 5' 10 (1.778 m) Wt 218 lb 9.6 oz (99.2 kg) SpO2 98% BMI 31.37 kg/m?? Smoking Status Never BSA 2.21 m?? Objective Physical Exam Constitutional: Appearance: Normal appearance. Cardiovascular: Rate and Rhythm: Normal rate and regular rhythm. Heart sounds: No murmur heard. Pulmonary: Effort: Pulmonary effort is normal. No respiratory distress. Breath sounds: No wheezing, rhonchi or rales. Abdominal: Palpations: Abdomen is soft. Tenderness: There is no abdominal tenderness. Musculoskeletal: Right lower leg: No edema. Left lower leg: No edema. Neurological: Mental Status: He is alert. Assessment/Plan Diagnoses and all orders for this visit: Chest pain, unspecified type Comments: Patient denies any recurrent episode of chest pain. His BP is much better controlled since labetalol was added to his medications. He is recommended to continue using medications as prescribed including aspirin and statin. Referral to cardiology for evaluation and workup recommendations. Orders: - Referral to Cardiology; Future Essential hypertension Low platelet count (CMS/HCC) Comments: I recommend to recheck CBC. Orders: - CBC auto differential; Future documented in this encounter Plan of Treatment Upcoming Encounters Date Type Department Care Team (Late st Contact Info) Description 09/13/2024 11:00 AM EDT Office Visit [facility] [address] [place] [address] 12/06/2024 3:30 PM EDT Office Visit [facility] [address] [place] [address] Name, MD Shaka [address] [place] [address] Scheduled Referrals Name Type Priority Associated Diagnoses Orde r Schedule Referral to Cardiology Outpatient Referral Routine Chest pain, unspecified type Expected: 08/23/2024 (Approximate), Expires: 08/23/2025 documented as of this encounter Goals Goal Patient Goal Type Associated Problems Recent Progress Patient-Stated? Author Record your blood pressure once per day Blood Pressure No Puia, Alison, PharmD Blood Pressure < 140/90 Blood Pressure 143/83( 025 3:53 PM EST) No Puia, Alison, PharmD documented as of this encounter Procedures Procedure Name Priority Date/Time Associated Diagnosis Comments CBC WITH AUTO DIFFERENTIAL Routine 08/23/2024 4:30 PM EST Low platelet count (CMS/HCC) documented in this encounter Results * (ABNORMAL) CBC auto differential (08/23/2024 4:30 PM EST) White Blood Count 6.8 4.8 - 10.8 X10*3/uL [facility] Red Blood Count 4.76 4.60 - 5.80 X10*6/uL [facility] Hemoglobin 12.7(L) 14.0 - 18.0 g/dl [facility] Hematocrit 40.0(L) 42.0 - 52.0 % [facility] Mean Corpuscular Volume 84.0 80.0 - 98.0 fL [facility] Mean Corpuscular Hemoglobin 26.7(L) 27.0 - 33.0 pg [facility] Mean Corpuscular HGB Conc 31.8 31.0 - 36.0 g/dl [facility] Red Cell Distribution Width 12.7 11.0 - 16.0 % [facility] Platelet Count 200 160 - 400 X10*3/uL [facility] Mean Platelet Volume 13.0(H) 9.4 - 12.4 fL [facility] Neutrophils Percent Auto 61.2 45 - 73 % [facility] Imm Gran Pct Auto 0.3 0.0 - 0.4 % [facility] Lymphocytes Percent Auto 25.8 20 - 40 % [facility] Monocytes Percent Auto 10.7 2 - 11 % [facility] Eosinophils Percent Auto 1.6 0 - 4 % [facility] Basophils Percent Auto 0.4 0 - 2 % [facility] NRBC Pct Auto 0.0 0.0 - 0.2 /100WBC [facility] Neutrophils Absolute Auto 4.2 2.0 - 8.3 x10*3/uL [facility] Imm Gran Abs Auto 0.02 0.00 - 0.03 X10*3/uL [facility] Lymphocytes Absolute Auto 1.8 1.2 - 4.9 X10*3/uL [facility] Monocytes Absolute Auto 0.7 0.1 - 1.2 X10*3/uL [facility] Eosinophils Absolute Auto 0.1 0.0 - 0.4 X10*3/uL [facility] Basophils Absolute Auto 0.0 0.0 - 0.2 X10*3/uL [facility] NRBC Abs Auto 0.000 0.0 - 0.012 X10*3/uL [facility] Blood Venous blood specimen / Unknown 08/23/2024 4:30 PM EST 08/23/2024 6:14 PM EST us Shaka Ashley MD LAB BLOOD ORDERABLES Final Resul t [facility] [address] [place] [address] [phone] documented in this encounter Visit Diagnoses Diagnosis Chest pain, unspecified type- Primary Essential hypertension Unspecified essential hypertension Low platelet count (CMS/HCC) documented in this encounter Additional Health Concerns Assessment Noted Time PHQ-9 Depression Total Score: 0 08/12/19 24 11:03 AM EST documented as of this encounter Care Teams Can Dragger Relationship Specialty Start Date End Date Name, MD Shaka [address] [place] [address] PCP - General Family Medicine 08/27/15 Alison Maurice PharmD [address] [place] [address] Pharmacist Internal Medicine 12/16/22 documented as of this encounter
--- OUTSIDE RECORDS SUMMARY | 2024-08-23 20:14 | XMS_ITS | Encounter Summary ---
Author Organization [facility] Address [address] [facility] [address] [place] [address] Phone Care Team Providers Care Status Controller Name Role Phone Name, Shaka TURNER Primary Care Provider [phone] Encounter Details Date Type Department Care Team ([facility] st Contact Info) Description 07/28/2024 Telephone [facility] [address] [facility] [address] [place] [address] Cady Alvarado [address] [facility] [address] [place] [phone] Social History Tobacco Use Types Packs/Day Years [...] on file documented as of this encounter Miscellaneous Notes * Telephone Encounter - Yulissa Charles - 07/29/2024 11:46 AM EST Rx sent to provider to sign. Pt currently dose is 11 mg total per Pt . 2 tabs of the 4 mg and 3 tabs of the 1 mg . * Telephone Encounter - Cady Alvarado - 07/28/2024 10:47 AM EST Transplant pt needs tacrolimus 1mg but its not on his med list. documented in this encounter Plan of Treatment Upcoming Encounters Date Type Department Care Team (Late st Contact Info) Description 11/02/2024 10:45 AM EDT Office Visit [facility] [address] [address] Zhen Sifuentes MD [address] [phone] documented as of this encounter Visit Diagnoses Not on filedocumented in this encounter Care Teams Status Controller Relationship Specialty Start Date End Date Name, MD Shaka [address] [place] [address] PCP - General 07/02/20 documented as of this encounter
--- OUTSIDE RECORDS SUMMARY | 2024-08-23 20:14 | XMS_ITS | Clinical Summary ---
Author Organization [facility] Address [address] [facility] [address] [place] [address] Phone Care Team Providers Care Management Professor Name Role Phone Name, Shaka TURNER Primary Care Provider [phone] Allergies Active Allergy Reactions Criticality Noted Date Comments Gramineae Pollens Other (see comments) 02/27/20 Other reaction(s): Sneezing Grass Pollen Standardized Ext Other (see comments) 02/26/2022 Medications ammonium lactate (LAC-HYDRIN) 12 % lotion by Other route 1 (one) time each day Active aspirin (ST TRIPP) 81 MG EC tablet Comments: Patient Notes: TAKE 1 TABLET BY MOUTH ONCE A DAY Active atorvastatin (LIPITOR) 20 MG tablet Take 1 tablet by mouth at bed time Active loratadine (CLARITIN) 10 MG tablet Take 1 tablet by mouth 1 (one) time each day Active omeprazole (PriLOSEC) [address] capsule Take 2 capsules by mouth 1 (one) time each day Active acetaminophen (TYLENOL) 325 MG tablet 1 Active albuterol (2.5 MG/3ML) 0.083% nebulizer solution USE 1 VIAL VIA NEBULIZER 3 TIMES A DAY 1 Active montelukast (Singulair) 10 MG tablet Take 1 tablet (10 mg total) by mouth 1 (one) time each day 30 tablet 3 1 Active fluticasone (FLONASE) 50 MCG/ACT nasal spray Administer 1 spray into each nostril 2 (two) times a day 1 Active zolpidem (AMBIEN) 10 MG tablet 1 Active Flovent HFA 220 MCG/ACT inhaler INHALE 1 PUFF BY MOUTH TWICE DAILY. RINSE MOUTH AFTER USING. 1 Active oxyCODONE (ROXICODONE) 10 MG immediate release tablet 10 mg 2 Active levothyroxine (SYNTHROID, LEVOTHROID) 150 MCG tablet 2 Active calcitriol (Rocaltrol) 0.25 MCG capsule Take 1 capsule (0.25 mcg total) by mouth every other day 45 capsule 3 4 Active losartan (Cozaar) 50 MG tabletIndicati ons:Hypertensi on Take 2 tablets (100 mg total) by mouth 1 (one) time each day 180 tablet 3 4 09/22/19 25 Active magnesium oxide (MAG-OX) 400 MG tabletIndicati ons:Hypomagnes emia Take 1 tablet (400 mg total) by mouth 1 (one) time each day 90 tablet 3 4 11/18/19 25 Active doxazosin (Cardura) 4 MG tablet Take 1 tablet (4 mg total) by mouth every night 90 tablet 3 4 11/18/19 25 Active clonazePAM (KlonoPIN) 1 MG tabletIndicati ons:Other specified anxiety disorders Take 1 tablet (1 mg total) by mouth 2 (two) times a day if needed for anxiety 60 tablet 4 Active Tacrolimus ER 4 MG tablet sustained-rele ase 24 hourIndication s:Kidney transplant status Take 12 mg by mouth 1 (one) time each day Take two 4 mg tablets along with three 1 mg tablet for a total daily dose of 11 mg. 270 tablet 3 4 12/02/19 25 Active ampicillin (PRINCIPEN) 500 MG capsule TAKE 2 CAPSULE BY MOUTH DIRECTED TAKE 1 HOUR PRIOR TO DENTAL PROCEDURE 2 capsule 3 4 Active mycophenolate (MYFORTIC) 180 MG EC tablet Take 3 tablets (540 mg total) by mouth in the morning and 3 tablets (540 mg total) in the evening. 540 tablet 3 4 05/11/20 25 Active Tacrolimus ER 1 MG tablet sustained-rele ase 24 hour Take 3 mg by mouth 1 (one) time each day Take three 1 mg tablet along with two 4 mg tablets for a total daily dose of 11 mg. 150 tablet 1 5 11/01/19 25 Active labetalol (NORMODYNE) 200 MG tablet Take 1 tablet (200 mg total) by mouth in the morning and 1 tablet (200 mg total) in the evening. 180 tablet 5 11/04/19 25 Active Tacrolimus ER 1 MG tablet sustained-rele ase 24 hour Take 3 mg by mouth 1 (one) time each day Take three 1 mg tablet along with two 4 mg tablets for a total daily dose of 11 mg. 07/29/19 25 Discontinu ed(Reorder (does not appear on AVS)) Tacrolimus ER 1 MG tablet sustained-rele ase 24 hour Take 3 mg by mouth 1 (one) time each day Take three 1 mg tablet along with two 4 mg tablets for a total daily dose of 11 mg. 150 tablet 1 5 08/02/19 25 Discontinu ed(Reorder (does not appear on AVS)) Active Problems Problem Noted Date Diagnosed Date Acne 10/21/2022 Chronic nonalcoholic liver disease 10/21/2022 Heartburn 10/21/2022 Obese class I 10/21/2022 Hypomagnesemia 10/21/2022 Carpal tunnel syndrome 05/26/2022 H/O: anxiety state 05/26/2022 Immunosuppression 05/26/2022 H/O: gout 05/26/2022 H/O: depression 05/26/2022 History of total hip arthroplasty 05/26/2022 Postoperative pain 05/26/2022 Arteriovenous fistula 04/23/2021 Spinal stenosis of cervical region 04/08/2021 Stage 1 chronic kidney disease 09/11/2020 Chronic back pain 08/07/2020 Proteinuria 08/07/2020 Erectile dysfunction 08/07/2020 Kidney transplant status 08/02/2020 Immunosuppressed 08/02/2020 Osteonecrosis of hip 03/13/2020 Depressive disorder 07/25/2019 Gastroesophageal reflux disease 07/25/2019 Hypothyroidism 07/25/2019 Obstructive sleep apnea syndrome 03/01/2018 Acute maxillary sinusitis 06/10/2017 Allergic rhinitis 07/25/2015 Atherosclerotic heart diseas e of [place] coronary artery without angina pectoris 05/15/2015 Anxiety disorder 09/22/2014 Asthma 09/22/2014 Chronic low back pain 09/22/2014 Hypertension 09/22/2014 Gout 09/22/2014 Hyperlipidemia 09/22/2014 Hypertensive renal disease with renal failure Secondary hyperparathyroidism of renal origin Non-alcoholic fatty liver 09/22/2014 Renal stone 09/22/2014 Seasonal allergy 09/22/2014 Vitamin D below reference range 09/22/2014 Awaiting transplantation of kidney 03/27/2014 Cytomegaloviral disease 03/27/2014 Encounter for other preprocedural examination Major depression, single episode 03/27/2014 Screening examination for infectious disease 11/2013 Resolved Problems Problem Noted Date Diagnosed Date Resolved Date Thumb joint painful on movem ent <Right side; Finger> 04/23/2021 07/23/2022 Long-term drug therapy 11/26/202004/23 Hypertensive renal disease w ith end stage renal failure 08/07/2020 04/23/2021 End stage renal disease 09/22/2014 020 06/2022 Dependence on hemodialysis d ue to end stage renal disease 09/22/2014 04/23/2021 Encounters Date Type Department Care Team Description 08/11/2024 Orders Only [facility] [address] [phone] Ghassan Junior MD Kidney transplant status 08/05/2024 8:45 AM EST Office Visit [facility] [address] [phone] Zhen Sifuentes MD Kidney transplant status (Primary Dx); Persistent proteinuria 08/02/2024 Refill [facility] [address] [phone] Lizzie Braun 07/29/2024 Refill [facility] [address] [phone] Yulissa Charles 07/28/2024 Office Communication [facility] [address] [phone] Zhen Sifuentes MD 07/28/2024 Telephone [facility] [address] [facility] [address] [place] [address] Cady Alvarado 07/22/2024 Orders Only [facility] [address] [place] [address] Ghassan Junior MD Kidney transplant status; Other fpc current drug therapy; Secondary hyperparathyroidism of renal origin (HCC); Anemia, not otherwise specified from Last 3 Months Immunizations Name Administration Dates Next Due Hepatitis A 03/27/2014 Influenza (IM) Preservative Free 03/27/2014 Influenza Split High Dose Pr eservative Free IM 03/19/2018 Influenza, MDCK, PF, Quadrivalent 03/08/2020 Influenza, Quadrivalent, Preservative Free 03/10,03/23/2021,03/11/2019 Influenza, Quadrivalent, With Preservative 03/06 MMR 11/20/2017 Moderna SARS-COV-2 10/22/2020,09/24/2020 PPD Test 04/19/2014 Pfizer SARS-COV-2 01/17/2021 Pneumococcal Conjugate 13-Valent 03/27/2014 Pneumococcal Polysaccharide 01/12/2018 Tdap 10/24/2021,03/27/2014,10/31/2011 Varicella 11/20/2017 Family History Medical History Relation Comments Diabetes Father Hypertension Father Stroke Mother Relation Status Comments Father Alive Mother Social History Tobacco Use Types Packs/Day Years [...] on file Sexual Orientation Not on file Last Filed Vital Signs Vital Sign Reading Time Taken Comments Blood Pressure 150/90 08/05/2024 8:51 AM EST Pulse 69 08/05/2024 8:51 AM EST Temperature 36.2 ??C (97.1 ??F) 05/08/2022 10:[address] Respiratory Rate 18 07/28/2017 12:00 PM EST Oxygen Saturation 97% 05/11/2024 8:49 AM EST Inhaled Oxygen Concentration - - Weight 97.5 kg (215 lb) 08/05/2024 8:51 AM EST Height 177.8 cm (5' 10 ) 04/21/2023 11:10 AM EDT Body Mass Index 30.85 04/21/2023 11:10 AM EDT Plan of Treatment Upcoming Encounters Date Type Department Care Team (Late st Contact Info) Description 11/02/2024 10:45 AM EDT Office Visit [facility] [address] [phone] Zhen Sifuentes MD [address] [phone] Health Maintenance Due Date Last Done Comments Hepatitis B Vaccine (1 of 3 - 19+ 3-dose series) 1995 Pneumococcal Vaccine: Pediat rics (0 to 5 Years) and At-Risk Patients (6 to 64 Years) Completed 08/12/2023, 01/12/2018, 03/27/2014 Influenza Vaccine Completed 06/01/2024, , 03/10/2022, Additional history exists Insurance [facility] ([id number]) [place] RICE [id number] [place] [address] [facility] ([id number]) Care Teams Management Professor Relationship Specialty Start Date End Date Name, MD Shaka [address] [place] [id number] PCP - General 07/02/20
--- OUTSIDE RECORDS SUMMARY | 2024-08-23 20:14 | XMS_ITS | Encounter Summary ---
Author Organization [facility] Address [address] [facility] [address] [place] [address] Phone Care Team Providers Care Agency Cashier Name Role Phone Name, Shaka TURNER Primary Care Provider [phone] Reason for Visit * Reason Comments Med Change Request Encounter Details Date Type Department Care Team ([facility] Contact Info) Description 11/30/2023 Refill [facility] [address] [facility] [address] [place] [address] Daysi Truong MD Kidney transplant status Social History Tobacco Use [...] Upcoming Encounters Date Type Department Care Team ([facility] Contact Info) Description 11/02/2024 10:45 AM EDT Office Visit [facility] [address] [facility] [address] [place] [address] Zhen Sifuentes MD [address] [facility] [address] [place] [address] documented as of this encounter Visit Diagnoses Diagnosis Kidney transplant status documented in this encounter Care Teams Agency Cashier Relationship Specialty Start Date End Date Name, MD Shaka [address] [place] [id number] PCP - General 07/02/20 documented as of this encounter
--- OUTSIDE RECORDS SUMMARY | 2024-08-23 20:14 | XMS_ITS | Encounter Summary ---
Author Organization [id number] Address [address] [facility] 7[address] [place] [address] Care Team Providers Care Display Trimmer Name Role Phone Name, Shaka TURNER Primary Care Provider [phone] Alison Maurice PharmD Unavailable [phone] Reason for Visit * Reason Onset Date Comments No Show 07/29/2024 Encounter Details Date Type Department Care Team ([facility] st Contact Info) Description 07/29/2024 Telephone [facility] MED[facility]INE [address] [place], [place] [phone] Name, MD Shaka [address] [place], [place] [phone] No Show Social History Tobacco Use Types Packs/Day Years [...] encounter Miscellaneous Notes * Telephone Encounter - Vee Rosado - 07/29/2024 2:06 PM EST Patient no show to OFFICE VISIT appointment on 07/29/24. documented in this encounter Plan of Treatment Upcoming Encounters Date Type Department Care Team (Late st Contact Info) Description 09/13/2024 11:00 AM EDT Office Visit [facility] MEDICINE [address] [place] [address] 12/06/2024 3:30 PM EDT Office Visit [facility] MED[facility]INE [address] [place] [phone] Name, MD Shaka [address] [place] [address] documented as of this encounter Goals Goal Patient Goal Type Associated Problems Recent Progress Patient-Stated? Author Record your blood pressure once per day Blood Pressure No Alison Maurice, Renata Blood Pressure < 140/90 Blood Pressure 143/83( 025 3:53 PM EST) No Alison Maurice, PharmD documented as of this encounter Visit Diagnoses Not on filedocumented in this encounter Additional Health Concerns Assessment Noted Time PHQ-9 Depression Total Score: 0 08/12/19 24 11:03 AM EST documented as of this encounter Care Teams Display Trimmer Relationship Specialty Start Date End Date Name, MD Shaka [address] [place] [address] PCP - General Family Medicine 08/27/15 Alison Maurice, PharmD [address] [place] [address] Pharmacist Internal Medicine 12/16/22 documented as of this encounter
--- OUTSIDE RECORDS SUMMARY | 2024-08-23 20:14 | XMS_ITS | Encounter Summary ---
Author Organization [employer] Address [address] [facility] 7[address] [place] [address] Care Team Providers Care Silver Brazer Name Role Phone Name, Shaka TURNER Primary Care Provider [phone] Alison Maurice PharmD Unavailable [phone] Reason for Visit * Reason Comments [place] Patient presenst tod ay for crown delivery Verna TORRES Encounter Details Date Type Department Care Team (Late st Contact Info) Description 07/26/2024 8:30 AM EST Office Visit [facility] D[facility]AL [address] [place], [place] [phone] Richmond Herrera, NEO [address] [place], [place] [phone] Full coverage crown needed for tooth at risk for fracture (Primary Dx) Social History Tobacco Use Types Packs/Day Years [...] AM EDT documented as of this encounter Progress Notes * Richmond Herrera DMD - 07/26/2024 8:30 AM EST Patient ID: William Bundy is a 49 y.o. male. Time Out: Timeout Date: 07/26/24, Timeout Time: 0832 ([place] Delivery # 30,31) Location: [facility] Tooth: #30 and #31 Procedure: [place] Verified the above with patient, internet marketing assistant, and provider. Confirmed via patient's chart, intraorally and by radiographs. Supervisor Publications Production: not applicable Chief Complaint Patient presents with [place] Patient presenst today for crown delivery Verna TORRES Medical Hx: Vitals: There were no vitals taken for this visit. Medications, Med Hx reviewed with patient and updated in chart. Consent Obtained: The risks, benefits, indications, potential complications, and alternatives were explained to the patient and informed consent was obtained with good understanding. Treatment Provided: Dental procedures in this visit D2740 - CROWN - PORCELAIN/CERAMIC 31 (Completed) Converted outstanding - crown - porcelain/ceramic substrate Service provider: Richmond Herrera DMD Billing provider: Richmond Herrera DMD D2740 - CROWN - PORCELAIN/CERAMIC 30 (Completed) Service provider: Richmond Herrera DMD Billing provider: Richmond Herrera DMD [id number] - ADJUNCTIVE GENERAL SERVICES - PROFESSIONAL VISITS - CASE PRESENTATION, SUBSEQUENT TO DETAILED AND EXTENSIVE TREATMENT PLANNING (Completed) Service provider: Richmond Hererra DMD Billing provider: Richmond Herrera DMD Topical: 20% Benzocaine Anesthesia: 2% Lidocaine (Xylocaine) w/ 1:100,000 epinephrine Number of Cartridges: 1 Injection Type: Inferior alveolar nerve block and Long buccal nerve block Confirmed profound anesthesia. Isolation: high speed suction, cotton rolls, and cheek guard Removed Provisional and cleaned excess cement, pumiced tooth as needed. Tried on final sabianist Verified interproximal contacts and margins BW taken to confirm margins and contacts Occlusion adjusted as needed Tooth Treatment: Gluma applied Cemented with: Relyx Unicem Cleaned excess cement, flossed Post op BW taken and noted cement interproximally. Removed with heat treater helper. Patient satisfied with comfort and esthetics. POI given. Patient discharged alert, oriented, and in stable condition NV: Impression for occlusal guard Jigsawyer: Verna Dumont Dentist: Richmond Herrera DMD documented in this encounter Plan of Treatment Upcoming Encounters Date Type Department Care Team (Late st Contact Info) Description 09/13/2024 11:00 AM EDT Office Visit [facility] MEDICINE [address] [place] [address] 12/06/2024 3:30 PM EDT Office Visit [facility] MED[facility] [address] [place] [phone] Name, MD Shaka [address] [place] [address] documented as of this encounter Goals Goal Patient Goal Type Associated Problems Recent Progress Patient-Stated? Author Record your blood pressure once per day Blood Pressure No Alison Maurice, PharmKristal Blood Pressure < 140/90 Blood Pressure 143/83( 025 3:53 PM EST) No Alison Maurice PharmD documented as of this encounter Procedures Procedure Name Priority Date/Time Associated Diagnosis Comments 30 CROWN - PORCELAIN/CERAMIC Routine 07/26/2024 8:30 AM EST Full coverage crown needed for tooth at risk for fracture 31 CROWN - PORCELAIN/CERAMIC Routine 07/26/2024 8:30 AM EST Full coverage crown needed for tooth at risk for fracture CASE PRESENTATION, DETAILED AND EXTENSIVE TREATMENT PLANNING Routine 07/26/2024 8:30 AM EST Full coverage crown needed for tooth at risk for fracture documented in this encounter Visit Diagnoses Diagnosis Full coverage crown needed for tooth at risk for fracture- Primary documented in this encounter Additional Health Concerns Assessment Noted Time PHQ-9 Depression Total Score: 0 08/12/19 24 11:03 AM EST documented as of this encounter Care Teams Silver Brazer Relationship Specialty Start Date End Date Name, MD Shaka [address] [place] [address] PCP - General Family Medicine 08/27/15 Alison Maurice, PharmD [address] [place] [address] Pharmacist Internal Medicine 12/16/22 documented as of this encounter
--- OUTSIDE RECORDS SUMMARY | 2024-08-23 20:15 | XMS_ITS | Encounter Summary ---
Author Organization [employer] Address [address] [facility] 7 [place] [address] Care Team Providers Care Hardwood Floor Layer Name Role Phone Name, Shaka TURNER Primary Care Provider [phone] Alison Maurice PharmD Unavailable Encounter Details Date Type Department Care Team ([facility] Contact Info) Description 06/04/2022 Orders Only [facility] [address] [place], [place] [phone] Name, MD Shaka [address] [place], [place] [phone] Social History Tobacco Use Types Packs/Day Years Used Date Smoking Tobacco: Never Assessed Depression Answer Date Recorded Patient Health Questionnaire-9 [...] suspected to have Coronavirus/COVID-19? No / Unsure 06/05/2022 9:45 AM EST documented as of this encounter Plan of Treatment Upcoming Encounters Date Type Department Care Team ([facility] Contact Info) Description 09/13/2024 11:00 AM EDT Office Visit [facility] [place] [address] 12/06/2024 3:30 PM EDT Office Visit [facility] [place] [address] Name, MD Sh[facility] [place] [place] [address] documented as of this encounter Procedures Procedure Name Priority Date/Time Associated Diagnosis Comments BASIC METABOLIC PANEL Routine 01/19/2023 12:57 PM EDT HIV ANTIBODY/ANTIGEN ([place] DPH) Routine 10/27/2022 8:46 AM EDT LIVER FIBROSIS, FIBROTEST ACTITEST PANEL Routine 10/27/2022 8:46 AM EDT HEPATITIS C VIRAL RNA, QUANTITATIVE, REAL-TIME PCR Routine 10/27/2022 8:46 AM EDT PROTEIN ELECTROPHORESIS AND KAPPA/LAMBDA LIGHT CHAINS, SERUM Routine 10/20/2022 2:44 PM EDT HEPATITIS PANEL, GENERAL Routine 10/20/2022 2:44 PM EDT CBC WITH AUTO DIFFERENTIAL Routine 10/20/2022 2:44 PM EDT ACTIN (SMOOTH MUSCLE) ANTIBODY (IGG) Routine 10/20/2022 2:44 PM EDT [id number]-7-[id number] QN Routine 2:44 PM EDT MITOCHONDRIAL ANTIBODY WITH REFLEX TO TITER Routine 10/20/2022 2:44 PM EDT DAVID SCREEN, IFA, W/REFL TITER AND PATTERN Routine 10/20/2022 2:44 PM EDT COMPREHENSIVE METABOLIC PANEL Routine 10/20/2022 2:44 PM EDT documented in this encounter Results * (ABNORMAL) Basic Metabolic Panel (01/19/2023 12:57 PM EDT) Sodium 141 135 - 145 mmol/L [facility] Potassium 4.2 3.3 - 5.1 mmol/L [facility] Chloride 106 96 - 108 mmol/L [facility] Carbon Dioxide 23 22 - 29 mmol/L [facility] Anion Gap 16 12 - 20 [facility] Urea Nitrogen (BUN) 14 9 - 16 mg/dL [facility] Creatinine, Serum 0.86 0.5 - 1.4 mg/dL [facility] Estimated Glomerular Filt Rate >60 [facility] Comment:NOTE: For -Am erican individuals, multiply the result by 1.210.Chronic Kidney Disease: Estimated GFR < 60 mL/min/1.96f3Xcyuii Kidney Disease: Estimated GFR < 15 mL/min/1.73m2 Glucose 167(H) 60 - 115 mg/dL [facility] Calcium 9.6 8.4 - 10.2 mg/dL [facility] 01/19/2023 12:5 7 PM EDT 01/19/2023 4:10 PM EDT us Shaka Ashley MD LAB BLOOD ORDERABLES Final Resul t [facility] [address] [place] [phone] * Liver Fibrosis, FibroTest-ActiTest Panel (10/27/2022 8:46 AM EDT) Liver Fibrosis Score 0.15 [facility] Liver Fibrosis Stage F0 [facility] Liver Fibrosis Interpretation SEE NOTE [facility] Comment:no fibrosisFibro Emily t Score (f) Metavir Score f>=0 and f<=0.21 : F0 (no fibrosis)f>0.21 and f<=0.27 : F0-F1 (no fibrosis)f>0.27 and f<=0.31 : F1 (minimal fibrosis)f>0.31 and f<=0.48 : F1-F2 (minimal fibrosis)f>0.48 and f<=0.58 : F2 (moderate fibrosis)f>0.58 and f<=0.72 : F3 (advanced fibrosis)f>0.72 and f<=0.74 : F3-F4 (advanced fibrosis)f>0.74 and f<=1.00 : F4 (severe fibrosis) Nec Inflam Act Score 0.13 [facility] Nec Inflam Act Grade A0 [facility] Nec Inflam Act Interpretation SEE NOTE [facility] Comment:no activityActiTest Score (a) Metavir Score a>=0 and a<=0.17 : A0 (no activity)a>0.17 and a<=0.29 : A0-A1 (no activity)a>0.29 and a<=0.36 : A1 (minimal activity)a>0.36 and a<=0.52 : A1-A2 (minimal activity)a>0.52 and a<=0.60 : A2 (significant activity)a>0.60 and a<=0.62 : A2-A3 (significant activity)a>0.62 and a<=1.00 : A3 (severe activity) ETO-Ksudb-5-Macroglo bulin 194 106 - 279 mg/dL [facility] FIB-Haptoglobin 109 43 - 212 mg/dL [facility] FIB-Apolipoprotein A1 144 94 - 176 mg/dL [facility] FIB-Total Bilirubin 0.3 0.2 - 1.2 mg/dL [facility] FIB-GGT 24 3 - 95 U/L [facility] FIB-ALT 32 9 - 46 U/L [facility] Reference ID [id number] [facility] Footnote SEE NOTE [facility] Comment: The reliability of results is dependent on compliance withthe preanalytical and analytical conditions recommended byBioPredictive. The tests have to be deferred for: acutehemolysis, acute hepatitis, acute inflammation, extrahepatic cholestasis. The advice of a specialist should besought for interpretation in chronic hemolysis and Gilbert'ssyndrome. The test interpretation is not validated in livertransplant patients. Isolated extreme values of one of thecomponents should lead to caution in interpreting theresults. In case of discordance between a biopsy result holly test, it is recommended to seek the advice of aspecialist. The causes of these discordances could be due toa flaw of the test or to a flaw in the biopsy: i.e. a liverbiopsy has a 33% variability rate for one fibrosis stage.FibroTest is interpretable for chronic hepatitis B and C,alcoholic and non alcoholic steatosis. ActiTest isinterpretable for chronic hepatitis B and C.The performance characteristics have been determined by[facility]. Ithas not been cleared or approved by the U.S. Food and DrugAdministration. Performance characteristics refer to theanalytical performance of the test.[employer], [employer], the associated logo, [employer] and all associated [employer] jay are theregistered trademarks of [employer]. All third partymarks - (R) and (TM) - are the property of their respectiveowners. (C) [id number] [employer]. Allrights reserved.THIS TEST WAS PERFORMED AT:[employer] [id number] [facility], [place] ??[phone] STOCKTON MD,PHD,SATHISH 10/27/2022 8:46 AM EDT 10/27/2022 8:46 AM EDT [facility] External Provider LAB BLO OD ORDERABLES Final Result [facility] [address] [place] [phone] * Hepatitis C Viral RNA, Quantitative, Real-Time PCR (10/27/2022 8:46 AM EDT) Hepatitis C Viral Load <15 NOT DETECTED NOT DETECTED IU/mL [facility] HCV Log PCR <1.18 NOT DETECTED NOT DETECTED Log IU/mL [facility] Comment:This test was perfor med using Real-Time Polymerase ChainReaction.Reportable Range: 15 IU/mL to 100,000,000 IU/mL(1.18 Log IU/mL to 8.00 Log IU/mL).The analytical performance characteristics of thisassay have been determined by [employer].The modifications have not been cleared or approved bythe FDA. This assay has been validated pursuant to theCLIA regulations and is used for clinical purposes.For more information on this test, go to:http://education.[employer]/faq/SMO88g4(This link is being provided for informational/educational purposes only.)THIS TEST WAS PERFORMED AT:[employer] [place] [phone] LUIS RAINES MD 10/27/2022 8:46 AM EDT 10/27/2022 8:46 AM EDT [facility] External Provider LAB BLO OD ORDERABLES Final Result [facility] [address] [place] [phone] * HIV Ab/Ag ([facility]) (10/27/2022 8:46 AM EDT) Pathologist [facility] HIV AB/AG Nonreactive Nonreactive [facility] Comment:HIV-1 p24 Ag and/or HIV-1/HIV-2 Ab not detected.A test result that is nonreactive does not exclude thepossibility of exposure to or infection with HIV-1 and/orHIV-2. Nonreactive results in this assay for individualswith prior exposure to HIV-1 and/or HIV-2 may be due toantigen and antibody levels that are below the limit ofdetection of this assay.The [employer]ing Machine Adjuster HIV Ag/Ab Combo assay result andsupplemental assay results should be interpreted inconjunction with the patient's clinical presentation,history and other laboratory results. If the results areinconsistent with clinical evidence, additional testing issuggested to confirm the result. 10/27/2022 8:46 AM EDT 10/27/2022 8:46 AM EDT [facility] External Provider LAB BLO OD ORDERABLES Final Result Performing Organization Address [facility]/ZIP Co de Phone Number [facility] [address] [place] [address] [phone] * Actin (Smooth Muscle) Antibody (IgG) (10/20/2022 2:44 PM EDT) Smooth Muscle Antibody <20 <20 U [facility] Comment:Reference Range: <20 U: Negative>or=20 U: PositiveAntibodies recognizing actin are the main componentof smooth muscle antibodies associated with auto- immune liver disease. Actin antibodies are found inapproximately 75% of patients with autoimmunehepatitis (AIH) type 1, approximately 65% of patientswith autoimmune cholangitis, approximately 30% ofpatients with primary biliary cirrhosis andapproximately 2% of healthy controls. High values areclosely correlated with AIH type 1.THIS TEST WAS PERFORMED AT:[employer]/[id number] [place] [address]MCRXYICSCOTTIE PELLETIER MD,PHD 10/20/2022 2:44 PM EDT 10/20/2022 2:44 PM EDT [facility] External Provider LAB BLO OD ORDERABLES Final Result Performing Organization Address [facility] Co de Phone Number [facility] [address] [place] [phone] * Mitochondrial Antibody with Reflex to Titer (10/20/2022 2:44 PM EDT) Mitochondrial Antibodies NEGATIVE NEGATIVE [facility] Comment:THIS TEST WAS PERFOR MED AT:[employer] [address] [phone] LUIS RAINES MD Mitochondrial Ab Titer TNP [facility] 10/20/2022 2:44 PM EDT 10/20/2022 2:44 PM EDT [facility] External Provider LAB BLO OD ORDERABLES Final Result Performing Organization Address [facility]/ZIP Co de Phone Number [facility] [address] [place] [address] [phone] * DAVID SCR, IFA W/Refl Titer and Pattern (10/20/2022 2:44 PM EDT) Pathologist [facility] Anti Nuclear Antibody Screen NEGATIVE NEGATIVE [facility] Comment:DAVID IFA is a first l ine screen for detecting thepresence of up to approximately 150 autoantibodies invarious autoimmune diseases. A negative DAVID IFA resultsuggests an DAVID-associated autoimmune disease is notpresent at this time, but is not definitive. If thereis high clinical suspicion for Sjogren's syndrome,testing for anti-SS-A/Ro antibody should be considered.Anti-Peg-1 antibody should be considered for clinicallysuspected inflammatory myopathies.AC-0: NegativeInternational Consensus on DAVID Patterns(https://doi.org/10.1515/vdcr-4881-6283)For additional information, please refer tohttp://education.[employer] [place]/faq/BOI849(This link is being provided for informational/educational purposes only.)THIS TEST WAS PERFORMED AT:[employer] [place] [phone] LUIS RAINES MD DAVID Titer [facility] DAVID Pattern [facility] DAVID TITER 2 (REF LAB) [facility] DAVID Pattern 2 [facility] DAVID TITER 3 [facility] DAVID PATTERN 3 [facility] 10/20/2022 2:44 PM EDT 10/20/2022 2:44 PM EDT [facility] External Provider LAB BLO OD ORDERABLES Final Result Performing Organization Address [facility]/ZIP Co de Phone Number [facility] [address] [place] [address] [phone] * Krjfk-6-Dfcsipguhrw, Quantitative (10/20/2022 2:44 PM EDT) Keljk-1-Hvcragqp sin QN 140 83 - 199 mg/dL [facility] Comment:THIS TEST WAS PERFOR MED AT:[employer] [place] [phone] LUIS RAINES MD 10/20/2022 2:44 PM EDT 10/20/2022 2:44 PM EDT [facility] External Provider LAB BLO OD ORDERABLES Final Result [facility] [address] [place] [phone] * Protein Electrophoresis and [place]/[employer] (10/20/2022 2:44 PM EDT) Prot Elec - Total Protein 7.5 6.1 - 8.1 g/dL [facility] Prot Elec - Albumin 4.5 3.8 - 4.8 g/dL [facility] Prot Elec - Alpha1 0.3 0.2 - 0.3 g/dL [facility] Prot Elec - Alpha2 0.8 0.5 - 0.9 g/dL [facility] Prot Elec - Beta 1 0.5 0.4 - 0.6 g/dL [facility] Prot Elec - Beta 2 0.4 0.2 - 0.5 g/dL [facility] Prot Elec - Gamma 1.2 0.8 - 1.7 g/dL [facility] PES - Abn Protein Band 1 TNP [facility] PES-Abn Protein Band 2 TNP [facility] PES-Abn Protein Band 3 TNP [facility] Prot Elec - Interpretation SEE NOTE [facility] Comment:Normal Electrophoret ic PatternTHIS TEST WAS PERFORMED AT:[employer] [place] [phone] LUIS RAINES MD 10/20/2022 2:44 PM EDT 10/20/2022 2:44 PM EDT [facility] External Provider LAB BLO OD ORDERABLES Final Result [facility] [address] [place] [phone] [phone] * (ABNORMAL) Hepatitis Panel, General (10/20/2022 2:44 PM EDT) Hepatitis A IgM Nonreactive Nonreactive [facility] Comment:IgM antibodies to SIMON V not detected; does not exclude earlyacute or recovered HAV infection. ~Hepatitis B Surface Antibody REACTIVE Nonreactive [facility] Comment:REACTIVE: > 11.99 mI U/mL Hepatitis B Core Antibody Nonreactive Nonreactive [facility] Hepatitis C Antibody Reactive(A) Nonreactive [facility] Comment:Presumptive evidence of antibodies to HCV. Hepatitis B Surface Ag Negative Negative [facility] 10/20/2022 2:44 PM EDT 10/20/2022 2:44 PM EDT [facility] External Provider LAB BLO OD ORDERABLES Final Result [facility] [address] [place] [address] [phone] * (ABNORMAL) Comprehensive Metabolic Panel (10/20/2022 2:44 PM EDT) Sodium 142 135 - 145 mmol/L [facility] Potassium 4.6 3.3 - 5.1 mmol/L [facility] Chloride 108 96 - 108 mmol/L [facility] Carbon Dioxide 27 22 - 29 mmol/L [facility] Anion Gap 12 12 - 20 [facility] Urea Nitrogen (BUN) 14 9 - 16 mg/dL [facility] Creatinine, Serum 0.82 0.5 - 1.4 mg/dL [facility] Estimated Glomerular Filt Rate >60 [facility] Comment:NOTE: For -Am erican individuals, multiply the result by 1.210.Chronic Kidney Disease: Estimated GFR < 60 mL/min/1.77o5Fsjwgk Kidney Disease: Estimated GFR < 15 mL/min/1.73m2 Glucose 122(H) 60 - 115 mg/dL [facility] Calcium 9.5 8.4 - 10.2 mg/dL [facility] Bilirubin, Total 0.5 0.0 - 1.0 mg/dL [facility] Aspartate Amino Transferase 26 5 - 37 U/L [facility] Alanine Aminotransferase 43(H) 0 - 40 U/L [facility] Total Protein 7.4 6.5 - 8.0 g/dL [facility] Albumin Level 4.5 3.5 - 5.0 g/dL [facility] Alkaline Phosphatase 107 39 - 117 U/L [facility] 10/20/2022 2:44 PM EDT 10/20/2022 2:44 PM EDT us [facility] External Provider LAB BLO OD ORDERABLES Final Result [facility] [address] [place] [phone] * (ABNORMAL) CBC auto differential (10/20/2022 2:44 PM EDT) White Blood Count 8.0 4.8 - 10.8 X10*3/uL [facility] Red Blood Count 5.76 4.60 - 5.80 X10*6/uL [facility] Hemoglobin 15.2 14.0 - 18.0 g/dl [facility] Hematocrit 46.9 42.0 - 52.0 % [facility] Mean Corpuscular Volume 81.4 80.0 - 98.0 fL [facility] Mean Corpuscular Hemoglobin 26.4(L) 27.0 - 33.0 pg [facility] Mean Corpuscular HGB Conc 32.4 31.0 - 36.0 g/dl [facility] Red Cell Distribution Width 12.9 11.0 - 16.0 % [facility] Platelet Count 213 160 - 400 X10*3/uL [facility] Mean Platelet Volume 12.1 9.4 - 12.4 fL [facility] Neutrophils Percent Auto 69.3 45 - 73 % [facility] Imm Gran Pct Auto 0.4 0.0 - 0.4 % [facility] Lymphocytes Percent Auto 18.9(L) 20 - 40 % [facility] Monocytes Percent Auto 9.5 2 - 11 % [facility] Eosinophils Percent Auto 1.5 0 - 4 % [facility] Basophils Percent Auto 0.4 0 - 2 % [facility] NRBC Pct Auto 0.0 0.0 - 0.2 /100WBC [facility] Neutrophils Absolute Auto 5.6 2.0 - 8.3 x10*3/uL [facility] Imm Gran Abs Auto 0.03 0.00 - 0.03 X10*3/uL [facility] Lymphocytes Absolute Auto 1.5 1.2 - 4.9 X10*3/uL [facility] Monocytes Absolute Auto 0.8 0.1 - 1.2 X10*3/uL [facility] Eosinophils Absolute Auto 0.1 0.0 - 0.4 X10*3/uL [facility] Basophils Absolute Auto 0.0 0.0 - 0.2 X10*3/uL [facility] NRBC Abs Auto 0.000 0.0 - 0.012 X10*3/uL [facility] 10/20/2022 2:44 PM EDT 10/20/2022 2:44 PM EDT us [facility] External Provider LAB BLO OD ORDERABLES Final Result [facility] [address] [place] [phone] documented in this encounter Visit Diagnoses Not on filedocumented in this encounter Care Teams Hardwood Floor Layer Relationship Specialty Start Date End Date Name, MD Shaka [address] [place] [phone] PCP - General Family Medicine 08/27/15 Alison Maurice, DlD [address] [place] [phone] Pharmacist Internal Medicine 12/16/22 documented as of this encounter
--- OUTSIDE RECORDS SUMMARY | 2024-08-23 20:15 | XMS_ITS | Encounter Summary ---
Author Organization [employer] Address [address] [facility] [address]t [place] [address] Care Team Providers Care Call Center Team Leader Name Role Phone Name, Shaka TURNER Primary Care Provider [phone] Alison Maurice PharmD Unavailable [phone] Reason for Visit * Reason Comments Med Refill Encounter Details Date Type Department Care Team (Late st Contact Info) Description 10/03/[address] [facility] [address] [place], [place] [phone] Name, MD Shaka [address] [place], [place] [phone] Social History Tobacco Use Types Packs/Day Years [...] suspected to have Coronavirus/COVID-19? No / Unsure 09/15/2022 10:43 AM EDT documented as of this encounter Plan of Treatment Upcoming Encounters Date Type Department Care Team (Late st Contact Info) Description 09/13/2024 11:00 AM EDT Office Visit [facility] [address] [place] [phone] 12/06/2024 3:30 PM EDT Office Visit [address] [address] Name, MD Shaka [address] [place] [phone] documented as of this encounter Visit Diagnoses Not on filedocumented in this encounter Additional Health Concerns Assessment Noted Time PHQ-9 Depression Total Score: 10 06/05/ 022 10:24 AM EST documented as of this encounter Care Teams Call Center Team Leader Relationship Specialty Start Date End Date Name, MD Shaka [address] [place] [phone] PCP - General Family Medicine 08/27/15 Alison Maurice, DlD [address] [place] [phone] Pharmacist Internal Medicine 12/16/22 documented as of this encounter
--- OUTSIDE RECORDS SUMMARY | 2024-08-23 20:15 | XMS_ITS | Encounter Summary ---
Author Organization [employer] Address [address] [facility] 7t [place] [address] Care Team Providers Care Flatwork Finisher Name Role Phone Name, Shaka TURNER Primary Care Provider [phone] Alison Maurice PharmD Unavailable [phone] Encounter Details Date Type Department Care Team (Latest Contact Info) Description 06/23/2018 Abstract [facility] CONVERSION[facility] Dental, Provider, DDS Social History Tobacco Use Types Packs/Day Years [...] Description 09/13/2024 11:00 AM EDT Office Visit [facility] [address] [place] [phone] 12/06/2024 3:30 PM EDT Office Visit [facility] [address] [place] [phone] Shaka Ashley MD [address] [place] [phone] documented as of this encounter Visit Diagnoses Not on filedocumented in this encounter Care Teams Flatwork Finisher Relationship Specialty Start Date End Date NameShaka MD [address] [place] [phone] PCP - General Family Medicine 08/27/15 Alison Maurice, Renata [address] [place] [address] Pharmacist Internal Medicine 12/16/22 documented as of this encounter
--- OUTSIDE RECORDS SUMMARY | 2024-08-23 20:15 | XMS_ITS | Encounter Summary ---
Author Organization [employer] Address [address] [facility] 7t [place] [address] Care Team Providers Care Urogynaecologist Name Role Phone Name, Shaka TURNER Primary Care Provider [phone] Alison Maurice PharmD Unavailable [phone] Encounter Details Date Type Department Care Team (Latest Contact Info) Description 01/18/2021 Abstract [facility] CONVERSIONS Dental, Provider, DDS Social History Tobacco [...] Description 09/13/2024 11:00 AM EDT Office Visit [facility] [address] [place] [phone] 12/06/2024 3:30 PM EDT Office Visit [facility] [address] [place] [phone] Shaka Ashley MD [address] [place] [phone] documented as of this encounter Visit Diagnoses Not on filedocumented in this encounter Care Teams Urogynaecologist Relationship Specialty Start Date End Date NameShaka MD [address] [place] [phone] PCP - General Family Medicine 08/27/15 Alison Maurice PharmD [address] [place] [address] Pharmacist Internal Medicine 12/16/22 documented as of this encounter
--- OUTSIDE RECORDS SUMMARY | 2024-08-23 20:15 | XMS_ITS | Encounter Summary ---
Author Organization [employer] Address [address] [facility] [address] [place] [address] Care Team Providers Care Station Engineer Chief Name Role Phone Name, Shaka TURNER Primary Care Provider [phone] Alison Maurice PharmD Unavailable [phone] Encounter Details Date Type Department Care Team (Latest Contact Info) Description 06/19/2020 Abstract [facility] CONVERSIONS Dental, Provider, DDS Social History Tobacco [...] Description 09/13/2024 11:00 AM EDT Office Visit [facility] MEDICINE [address] [place] [phone] 12/06/2024 3:30 PM EDT Office Visit [facility] MEDICINE [address] [place] [phone] Shaka Ashley MD [address] [place] [phone] documented as of this encounter Visit Diagnoses Not on filedocumented in this encounter Care Teams Station Engineer Chief Relationship Specialty Start Date End Date NameShaka MD [address] [place] [phone] PCP - General Family Medicine 08/27/15 Alison Maurice, [address] [place] [address] Pharmacist Internal Medicine 12/16/22 documented as of this encounter
--- OUTSIDE RECORDS SUMMARY | 2024-08-23 20:15 | XMS_ITS | Clinical Summary ---
Author Organization [employer] Address [address] [facility] [address] [place] [address] Care Team Providers Care Pulp Plant Supervisor Name Role Phone Name, Shaka TURNER Primary Care Provider [phone] PuAlison arriola PharmD Unavailable [phone] Allergies Active Allergy Reactions Criticality Noted Date Comments Gramineae Pollens Unknown 02/26/2022 Other reaction(s): Sneezing Other reaction(s): Other (see comments) Other reaction(s): Sneezing Grass Pollen([id number]-O-[id number]-T-Swt Gregg) Hives 02/26/2022 Other reaction(s): Other (See Comments) Medications albuterol 108 (90 Base) MCG/ACT inhaler inhale 2 puff by inhalation route every 4 - 6 hours as needed 018 Active albuterol (2.5 MG/3ML) 0.083% nebulizer solution inhale 3 milliliter by nebulization route 3 times every day 021 Active azelastine (Optivar) 0.05 % ophthalmic solution instill 1 drop by ophthalmic route 2 times every day into affected eye(s) 021 Active cholecalciferol (Vitamin D-3) 50 MCG (1999 UT) capsule take 1 capsule by oral route every day Active clonazePAM (KlonoPIN) 1 MG tablet take 1 tablet by oral route twice daily Active fluticasone (Flovent) 220 MCG/ACT inhaler inhale 1 puff by inhalation route 2 times every day 021 Active hydrOXYzine pamoate (Vistaril) 50 MG capsule take 3-4 capsules by oral route at bedtime Active mycophenolate (Myfortic) 180 MG EC tablet 3 in the AM and 3 in the PM Active naloxone (Narcan) 4 mg/0.1 mL nasal spray spray 0.1 milliliter by intranasal route in 1 nostril may repeat dose every 2-3 minutes as needed alternating nostrils with each dose Active sildenafil (Viagra) 100 MG tablet take 1 tablet by oral route every day as needed approximately 1 hour before sexual activity Active zolpidem (Ambien) 10 MG tablet take 1 tablet (10MG) by oral route every day at bedtime Active acetaminophen (Tylenol) 325 MG tabletIndicatio ns:COVID-19 TAKE 2 TABLETS BY MOUTH EVERY 6 HOURS NEEDED FOR FOR MILD PAIN 90 tablet 3 023 Active Blood Pressure kit Use one a day 1 kit 023 Active ergocalciferol (Vitamin D2) 1.25 MG (03534 UT) capsule TAKE 1 CAPSULE (50,000 UNITS TOTAL) BY MOUTH 1 (ONE) TIME PER WEEK FOR 14 DOSES Active escitalopram (Lexapro) 5 MG tablet Take 5 mg by mouth in the morning. as directed 023 Active magnesium oxide (Mag-Ox) 400 MG tablet Take 1 tablet by mouth 2 times daily. 023 Active Envarsus XR 4 MG tablet ER Dose as per transplant Active ampicillin (Principen) 500 MG capsule TAKE 2 CAPSULE BY MOUTH DIRECTED TAKE 1 HOUR PRIOR TO DENTAL PROCEDURE 023 Active Envarsus XR 1 MG tablet ER Take in addition to 4 mg tab(s) as directed by transplant team. 023 Active losartan (Cozaar) 50 MG tablet Take 2 tablets by mouth Once daily. 023 Active aspirin (Aspirin Low Dose) 81 MG EC tabletIndicatio ns:Essential hypertension Take 1 tablet (81 mg) by mouth in the morning. 90 tablet 3 024 Active fluocinonide (Lidex) 0.05 % cream 024 Active calcitriol (Rocaltrol) 0.25 MCG capsule Take 0.25 mcg by mouth every other day. 024 Active loratadine (Claritin) 10 MG tablet TAKE 1 TABLET BY MOUTH EVERY DAY 90 tablet 1 024 Active omeprazole (PriLOSEC) [address] capsule Take 1 capsule (20 mg) by mouth before breakfast. Do not crush or chew. 90 capsule 1 024 2024 Active levothyroxine (Synthroid, Levoxyl) 150 MCG tabletIndicatio ns:Hypothyroidi sm, unspecified type TAKE 1 TABLET (150 MCG) BY MOUTH ONCE DAILY. 90 tablet 3 024 Active famotidine (Pepcid) 20 MG tablet TAKE 1 TABLET BY MOUTH EVERY DAY 90 tablet 1 025 Active fluticasone (Flonase) 50 MCG/ACT nasal sprayIndication s:Allergic rhinitis, unspecified seasonality, unspecified trigger SPRAY 1 SPRAY INTO EACH NOSTRIL TWICE A DAY 48 mL 025 Active montelukast (Singulair) 10 MG tablet TAKE 1 TABLET BY MOUTH EVERY DAY IN THE EVENING 90 tablet 1 025 Active atorvastatin (Lipitor) 20 MG tabletIndicatio ns:Essential hypertension TAKE 1 TABLET BY MOUTH EVERY DAY 90 tablet 1 025 Active oxyCODONE (Roxicodone) 10 MG immediate release tabletIndicatio ns:Chronic hip pain, unspecified laterality Take 1 tablet (10 mg) by mouth every 8 (eight) hours if needed for severe pain for up to 28 days. 84 tablet 025 2024 Active doxazosin (Cardura) 4 MG tablet Take 4 mg by mouth at bedtime. 025 Active labetalol (Normodyne) 200 MG tablet Take 200 mg by mouth 2 times daily. 025 2024 Active doxazosin (Cardura) 2 MG tablet Take 2 mg by mouth. 024 2024 Discontinued(D uplicate order (will not trigger notification to Pharmacy)) montelukast (Singulair) 10 MG tablet TAKE 1 TABLET BY MOUTH EVERY DAY IN THE EVENING 90 tablet 1 024 2024 Discontinued atorvastatin (Lipitor) 20 MG tabletIndicatio ns:Essential hypertension TAKE 1 TABLET BY MOUTH EVERY DAY 90 tablet 1 024 2024 Discontinued oxyCODONE (Roxicodone) 10 MG immediate release tabletIndicatio ns:Chronic hip pain, unspecified laterality Take 1 tablet (10 mg) by mouth every 8 (eight) hours if needed for severe pain for up to 28 days. 84 tablet 025 2024 Discontinued(R eorder (will not trigger notification to Pharmacy)) amoxicillin-cla vulanate (Augmentin) 875-125 MG tabletIndicatio ns:Acute maxillary sinusitis, recurrence not specified Take 1 tablet by mouth 2 times daily for 7 days. 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 04/22 Overview (07/24/2024): Medication: oxycodone 10mg Q8H Indication: osteonecrosis of the hip, cervical spinal stenosis Last PHP ENGINEER Agreement: 05/03/24 Tier II (PHP ENGINEER Q3 months) Assessment & Plan (07/24/2024 7:21 PM EST): Timeline: 07/19/24: Group, utox/pill count wnl Encounter for preventive health examination 07/24 Assessment & Plan (08/12/2023 11:33 AM EST): See HPI Kidney disease 06/25/2023 06/25/2023 Acne 10/21/2022 Chronic nonalcoholic liver disease 10/21/2022 Class 1 obesity 10/21/2022 Hypomagnesemia 10/21/2022 Carpal tunnel syndrome 05/26/2022 History of total hip arthroplasty 05/26/2022 Immunosuppression 05/26/2022 History of anxiety state 05/26/2022 Arteriovenous fistula 04/23/2021 Spinal stenosis of cervical region 04/08/2021 Overview (07/24/2024): CT cervical spine September 2023: Multilevel degenerative changes are seen throughout the cervical spine with uncovertebral spurring and facet arthropathy present. Large posterior inferior bone spurring seen along the right C4-5 facet joint which may be due to old remote trauma or degenerative change. Degenerative endplate changes are most pronounced at C4-5 and C5-6. Stage 1 chronic kidney disease 09/11/2020 Erectile dysfunction 08/07/2020 Proteinuria 08/07/2020 Avascular necrosis of bone of hip 03/13/2020 Osteonecrosis of hip 03/13/2020 Overview (07/24/2024): CT chest, abdomen, pelvis September 2023: Left hip arthroplasty. Right femoral head osteonecrosis without fracture. Assessment & Plan (07/24/2024 7:19 PM EST): -Good engagement and participation with Group Medical Visit model -Encouraged multifactorial approach to pain control including pharm and non- pharm modalities -UTOX and Pill count as expected History of kidney transplant 12/03/2019 Depressive disorder 07/25/2019 Gastroesophageal reflux disease 07/25/2019 Obstructive sleep apnea syndrome 03/01/2018 Hypothyroidism 07/25/2015 Allergic rhinitis 07/25/2015 Essential hypertension 07/25/2015 Assessment & Plan (08/12/2023 11:33 AM EST): Today blood pressure is high, he tells me he had to do blood work in the [employer] and just took his medication, I advise to monitor his BP at home and bring log to his saw repairer appointment on 08/25/23 I also advise: - Aerobic exercise to reduce BP. Initial goal of 30 min walk 3-5x/week. Increase as tolerated. - low-sodium diet (goal: <2g/day) and heart healthy diet such as DASH to reduce BP and prevent ASCVD. - Home BP monitoring 1-2 x day with goal of <140/90. - Seek immediate medical attention for chest pain, palpitations, SOB, syncope, or sudden changes in mental status. 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 05/15/2015 Asthma 09/22/2014 Low back pain at multiple sites 09/22/2014 Assessment & Plan (05/03/2024 4:18 PM EST): Pt attended and participated in group today, first group session - urine tox and pill count as expected - followup in one month for theme reflections End stage renal disease 09/22/2014 Pure hypercholesterolemia 09/22/2014 Seasonal allergies 09/22/2014 Anxiety 09/22/2014 Gout 09/22/2014 Low vitamin D level 09/22/2014 Nonalcoholic fatty liver 09/22/2014 Renal stone 09/22/2014 Secondary hyperparathyroidism of renal origin Cytomegaloviral disease 03/27/2014 Screening examination for infectious disease 11/2013 Major depression, single episode 03/27/2014 Resolved Problems Problem Noted Date Diagnosed Date Resolved Date Heartburn 06/25/2023 06/25/2023 12/08/2023 Hemodialysis patient 07/25/2015 023 Encounters Date Type Department Care Team Description 08/23/2024 3:45 PM EST Office Visit [facility] [address] [place] [phone] Shaka Ashley MD Chest pain, unspecified type (Primary Dx); Essential hypertension; Low platelet count (CMS/HCC) 08/11/2024 11:00 AM EST Office Visit [facility] [address], [place] [phone] Bonny Coto MD Acute maxillary sinusitis, recurrence not specified (Primary Dx); Cough in adult patient; Influenza A 08/01/2024 Refill [facility] [address], [place] [phone] Shaka Ashley MD Chronic hip pain, unspecified laterality 07/29/2024 Telephone [facility] [address], [place] [phone] Shaka Ashley MD No Show 07/27/2024 Telephone [facility] [address] [place] [address] Shaka Ashley MD ER Follow-up 07/27/2024 Telephone [facility] [address], [place] [phone] Merlyn Bennett, RN Clonazepam & Ambien outside provider 07/27/2024 Refill [facility] [address] [place] [phone] Shaka Ashley MD Essential hypertension 07/26/2024 8:30 AM EST Office Visit [facility] [address] [place] [address] Richmond Herrera DMD Full coverage crown needed for tooth at risk for fracture (Primary Dx) 07/20/[address] [phone] Shaka Ashley MD Appointment Request 07/19/2024 11:00 AM EST Office Visit [address] [phone] Nandini Rowland FNP Osteonecrosis of hip ([facility]/HCC) (Primary Dx); skilled nursing (current) use of opiate analgesic; Spinal stenosis of cervical region 07/19/2024 Travel 07/04/2024 11:30 AM EST Office Visit [facility] [address] [place] [address] Richmond Herrera DMD Fractured dental restorative material (Primary Dx) 07/04/[address] [phone] Shaka Ashley MD Appointment Request 07/01/2024 1:30 PM EST Office Visit [facility] [address] [place] [phone] Richmond Herrera DMD Fractured dental restorative material (Primary Dx) 07/01/[address] [phone] Shaka Ashley MD Chronic hip pain, unspecified laterality 07/01/2024 Refill [facility] [address] [place] [address] Shaka Ashley MD Allergic rhinitis, unspecified seasonality, unspecified trigger 06/30/[address] [phone] Kavon Sultana [place] feb recalls 06/29/2024 8:00 AM EST Office Visit [facility] [address] [place] [address] Rcihmond Herrera DMD Full coverage crown needed for tooth at risk for fracture (Primary Dx); Fractured dental anabaptism with loss of material; Dental caries 06/24/2024 Refill [facility] [address] [place] [phone] Shaka Ashley MD 06/18/2024 Refill [facility] [address] [place] [phone] Shaka Ashley MD Hypothyroidism, unspecified type 06/17/2024 Telephone [facility] [address] [place] [phone] Nakita Higginbotham, CORINNE 06/16/2024 1:00 PM EST Telemedicine [address] [phone] Nakita Higginbotham, CORINNE Essential hypertension 06/16/2024 Travel 06/02/2024 8:00 AM EST Office Visit [facility] [address] [place] [address] Disha Da Silva Dental calculus (Primary Dx) 06/01/2024 11:00 AM EST Office Visit [facility] [address] [place] [phone] Shaka Ashley MD Essential hypertension (Primary Dx); Acquired hypothyroidism; Pre-diabetes; Heartburn 05/30/[address] [address] Rosalina Sandoval MA Chart Prep 05/30/2024 Refill [facility] [address] [place] [phone] Shaka Ashley MD Chronic hip pain, unspecified laterality from Last 3 Months Immunizations Name Administration Dates Next Due Hep A, Adult 03/27/2014 Influenza Injectable Quadriv alant Preservative Free IIV4 MDCK 03/08/2020 Influenza injectable quadriv alent IIV4 with preservative 03/06/2015 Influenza injectable quadriv alent preservative free 03/31/2023,03/10/2022,03/23/2021,03/11 Influenza, High Dose Seasona l, Preservative Free 03/19/2018 Influenza, IIV3, injectable 03/06/2015,0 03/11/2013,02/27/2012,03/27,03/13/2009,03/09/2008,04/01/2007 ,06/11/2006 Influenza, seasonal, injecta ble, preservative free 06/01/2024,03/27/2014 MMR 11/20/2017 Moderna Covid-19 Vaccine 12+ 10/22/2020,09/25/19 PPD Test 04/19/2014 Pfizer Covid-19 Vaccine 12+ 03/31/2023, Pneumococcal Conjugate PCV 13 03/27/2014 Pneumococcal Conjugate PCV 20 08/12/2023 Pneumococcal Polysaccharide PPSV23 01/12/2018 Tdap 10/24/2021,03/27/2014,10/31/2011 Varicella 11/20/2017 Social History Tobacco Use Types Packs/Day Years [...] Orientation Straight 04/21/2022 10 :17 AM EDT Last Filed Vital Signs Vital Sign Reading [...] Mass Index 31.37 08/23/2024 3:53 PM EST Plan of Treatment Upcoming Encounters Date Type Department Care Team (Late st Contact Info) Description 09/13/2024 11:00 AM EDT Office Visit [facility] [address] [place] [phone] 12/06/2024 3:30 PM EDT Office Visit [facility] [address] [place] [phone] Name, MD Shaka [address] [place] [phone] Health Maintenance Due Date Last Done Comments CT Colonography 1976 FIT DNA/Cologuard 1976 FIT 1976 FOBT 1976 Sigmoidoscopy 1976 Family Planning (PISQ) 1991 Hepatitis B Vaccines (1 of 3 - 19+ 3-dose series) 1995 Hepatitis A Vaccines (2 of 2 - Risk 2-dose series) 09/25/2014 03/27/2014 Zoster Vaccines (1 of 2) 01/15/2018 Dental X-Ray: Full Mouth 10/31/2018 10/31/2015 Dental X-Ray: Bitewings 01/17/2024 01/16/20 23, 07/23/2021, 01/18/2021, Additional history exists COVID-19 Vaccine ( season) 2024 03/31/2023, 01/16/2021, 10/22/2020, Additional history exists Depression Screening 08/12/2024 08/12/2023, 08/12/19 24 SDOH Screening 08/12/2024 08/12/2023 Dental Oral Exam 12/02/2024 06/02/2024, 12/2023, 08/21/2021, Additional history exists Dental Prophylaxis 12/02/2024 06/02/2024, 0 10/27/2023, 01/15/2023, Additional history exists Alcohol/Substance Use Screening 12/07/2024 12/08/2023 Diabetes: Hemoglobin A1C 06/01/2025 024, 09/09/2023, 12/16/2022 Tobacco Screening 08/23/2025 08/23/2024 Lipid Panel 01/22/2026 01/22/2021 Colonoscopy 09/05/2032 09/05/2022 Colorectal Cancer Screening 09/05/2032 DTaP/Tdap/Td Vaccines (5 - Td or Tdap) 06/02/2034 06/02/2024, 10/24/2021, 03/27/2014, Additional history exists RSV Patients and Patients Aged 60 years or older (1 - 1-dose 75+ series) 2051 HIV Screening Completed 10/27/2022 Hepatitis C Screening Completed 10/27/2022, 023 Pneumococcal Vaccine: Pediatrics (0 to 5 Years) and At-Risk Patients (6 to 49) Years) Completed 08/12/2023, 01/12/2018, 03/27/2014 Influenza Vaccine Completed 06/01/2024, , 03/10/2022, Additional history exists HIB Vaccines Aged Out No longer eligi ble based on patient's age to complete this topic HPV Vaccines Aged Out No longer eligi ble based on patient's age to complete this topic IPV Vaccines Aged Out No longer eligi ble based on patient's age to complete this topic Meningococcal Vaccine Aged Out No slivina diego eligible based on patient's age to complete this topic RSV under 20 months Aged Out No longe r eligible based on patient's age to complete this topic Rotavirus Vaccines Aged Out No longer eligible based on patient's age to complete this topic Goals Goal Patient Goal Type Associated Problems Recent Progress Patient-Stated? Author Record your blood pressure once per day Blood Pressure No Puia, Alison, PharmD Blood Pressure < 140/90 Blood Pressure 143/83( 025 3:53 PM EST) No Puia, Alison, PharmD Procedures Procedure Name Priority Date/Time Associated Diagnosis Comments CBC WITH AUTO DIFFERENTIAL Routine 08/23/2024 4:30 PM EST Low platelet count (CMS/HCC) POCT INFLUENZA B (ID NOW RAPID MOLECULAR) Routine 08/11/2024 11:03 AM EST Cough in adult patient POCT INFLUENZA A (ID NOW RAPID MOLECULAR) Routine 08/11/2024 11:03 AM EST Cough in adult patient POCT RAPID COVID ANTIGEN Routine 08/11/2024 10:57 AM EST Cough in adult patient CASE PRESENTATION, DETAILED AND EXTENSIVE TREATMENT PLANNING Routine 07/26/2024 8:30 AM EST Full coverage crown needed for tooth at risk for fracture 30 CROWN - PORCELAIN/CERAMIC Routine 07/26/2024 8:30 AM EST Full coverage crown needed for tooth at risk for fracture 31 CROWN - PORCELAIN/CERAMIC Routine 07/26/2024 8:30 AM EST Full coverage crown needed for tooth at risk for fracture POCT ABHIJEET-14 URINE DRUG SCREEN Routine 07/19/2024 2:09 PM EST skilled nursing (current) use of opiate analgesic CASE PRESENTATION, DETAILED AND EXTENSIVE TREATMENT PLANNING Routine 07/04/2024 11:30 AM EST Fractured dental restorative material NO CHARGE PROCEDURE Routine 07/04/2024 1 1:30 AM EST Fractured dental restorative material CASE PRESENTATION, DETAILED AND EXTENSIVE TREATMENT PLANNING Routine 07/01/2024 1:30 PM EST Fractured dental restorative material NO CHARGE PROCEDURE Routine 07/01/2024 1 :30 PM EST Fractured dental restorative material CASE PRESENTATION, DETAILED AND EXTENSIVE TREATMENT PLANNING Routine 06/29/2024 8:00 AM EST Full coverage crown needed for tooth at risk for fracture Fractured dental anabaptism with loss of material Dental caries 29 DO RESIN-BASED COMPOSITE - 2 SURF, POSTERIOR Routine 06/29/2024 8:00 AM EST Dental caries 30,31 CROWN PREP Routine 06/29/2024 8:00 AM EST Full coverage crown needed for tooth at risk for fracture Fractured dental anabaptism with loss of material Dental caries 30 CORE BUILDUP, INCL ANY PINS WHEN REQ Routine 06/29/2024 8:00 AM EST Full coverage crown needed for tooth at risk for fracture Fractured dental anabaptism with loss of material Dental caries 31 CORE BUILDUP, INCL ANY PINS WHEN REQ Routine 06/29/2024 8:00 AM EST Full coverage crown needed for tooth at risk for fracture Fractured dental anabaptism with loss of material Dental caries COMPREHENSIVE PERIODONTAL EVALUATION - NEW OR ESTABLISHED PATIENT Routine 06/02/2024 8:00 AM EST PERIODIC ORAL EVALUATION - ESTABLISHED PATIENT Routine 06/02/2024 8:00 AM EST ORAL HYGIENE INSTRUCTIONS Routine 06/02/2024 8:00 AM EST CASE PRESENTATION, DETAILED AND EXTENSIVE TREATMENT PLANNING Routine 06/02/2024 8:00 AM EST PROPHYLAXIS - ADULT Routine 06/02/2024 8 :00 AM EST TSH W/REFLEX TO FT4 Routine 06/01/2024 1 2:00 PM EST Other specified hypothyroidism POCT GLYCATED HEMOGLOBIN, TOTAL Routine 06/01/2024 11:52 AM EST Pre-diabetes BITEWINGS - 4 RADIOGRAPHIC IMAGES Routine 01/15/2023 9:00 AM EDT HEPATITIS C VIRAL RNA, QUANTITATIVE, REAL-TIME PCR Routine 10/27/2022 8:46 AM EDT HIV ANTIBODY/ANTIGEN ([place] [facility]) Routine 10/27/2022 8:46 AM EDT HM COLONOSCOPY Routine 09/05/2022 LIPID PANEL, STANDARD Routine 01/22/2021 10:21 AM EDT INTRAORAL - COMPLETE SERIES OF RADIOGRAPHIC IMAGES Routine 10/31/2015 12:00 AM EDT from Last 3 Months or Most Recently Relevant to Health Maintenance Results * (ABNORMAL) CBC auto differential (08/23/2024 4:30 PM EST) White Blood Count 6.8 4.8 - 10.8 X10*3/uL [facility] Red Blood Count 4.76 4.60 - 5.80 X10*6/uL [facility] Hemoglobin 12.7(L) 14.0 - 18.0 g/dl [facility] Hematocrit 40.0(L) 42.0 - 52.0 % [facility] Mean Corpuscular Volume 84.0 80.0 - 98.0 fL [facility] Mean Corpuscular Hemoglobin 26.7(L) 27.0 - 33.0 pg [facility] Mean Corpuscular HGB Conc 31.8 31.0 - 36.0 g/dl [facility] Red Cell Distribution Width 12.7 11.0 - 16.0 % [facility] Platelet Count 200 160 - 400 X10*3/uL [facility] Mean Platelet Volume 13.0(H) 9.4 - 12.4 fL [facility] Neutrophils Percent Auto 61.2 45 - 73 % [facility] Imm Gran Pct Auto 0.3 0.0 - 0.4 % [facility] Lymphocytes Percent Auto 25.8 20 - 40 % [facility] Monocytes Percent Auto 10.7 2 - 11 % [facility] Eosinophils Percent Auto 1.6 0 - 4 % [facility] Basophils Percent Auto 0.4 0 - 2 % [facility] NRBC Pct Auto 0.0 0.0 - 0.2 /100WBC [facility] Neutrophils Absolute Auto 4.2 2.0 - 8.3 x10*3/uL [facility] Imm Gran Abs Auto 0.02 0.00 - 0.03 X10*3/uL [facility] Lymphocytes Absolute Auto 1.8 1.2 - 4.9 X10*3/uL [facility] Monocytes Absolute Auto 0.7 0.1 - 1.2 X10*3/uL [facility] Eosinophils Absolute Auto 0.1 0.0 - 0.4 X10*3/uL [facility] Basophils Absolute Auto 0.0 0.0 - 0.2 X10*3/uL [facility] NRBC Abs Auto 0.000 0.0 - 0.012 X10*3/uL [facility] Blood Venous blood specimen / Unknown 08/23/2024 4:30 PM EST 08/23/2024 6:14 PM EST us Shaka Ashley MD LAB BLOOD ORDERABLES Final Resul t Performing Organization Address [facility] de Phone Number [facility] [address] [place] [phone] * Influenza B (ID NOW Rapid Molecular) (08/11/2024 11:03 AM EST) Influenza B Negative Negative, Indeterminate [facility] Swab 08/11/2024 11:0 3 AM EST us Bonny Talavera MD POINT OF CARE TEST EN TER/EDIT ORDERABLES Final Result Performing Organization Address [facility] de Phone Number [facility] [address] [place] [phone] * (ABNORMAL) Influenza A (ID NOW Rapid Molecular) (08/11/2024 11:03 AM EST) Influenza A Positive( A) Negative, Indeterminate [facility] Swab 08/11/2024 11:0 3 AM EST us Bonny Talavera MD POINT OF CARE TEST EN TER/EDIT ORDERABLES Final Result [facility] [address] [place] [address] [phone] * POCT Rapid COVID Ag (08/11/2024 10:57 AM EST) Pathologist [facility] Rapid COVID Ag Negative Swab 08/11/2024 10:5 7 AM EST Result [facility] Bonny Talavera MD POINT OF CARE TEST EN TER/EDIT ORDERABLES Final Result * POCT ABHIJEET-14 Urine Drug Screen (07/19/2024 2:09 PM EST) Pathologist [facility] Oxycodone Screen, Urine Positive Urine Urine specimen obtained by clean catch procedure / Unknown 07/19/2024 2:09 PM EST Result [facility] Nandini ROLANDP POINT OF CARE TEST ENTER/EDIT ORDERABLES Final Result * TSH W/Reflex to FT4 (06/01/2024 12:00 PM EST) [facility] TSH reflex Free T4 1.19 0.32 - 4.0 uIU/mL [facility] Blood Venous blood specimen / Unknown 06/01/2024 12:00 PM EST 06/01/2024 1:13 PM EST Result [facility] us Shaka Ashley MD LAB BLOOD ORDERABLES Final Resul t [facility] [address] [place] [phone] * (ABNORMAL) POCT HGB A1C (06/01/2024 11:52 AM EST) [facility] Hemoglobin A1C 6.4(A) 4.0 - 6.0 % QC Media Lot # [id number] Lot# Expiration Date 70,[id number] Blood 06/01/2024 11:5 2 AM EST us Shaka Ashley MD POINT OF CARE TEST ENTER/EDIT OR DERABLES Final Result * HIV Ab/Ag (TENISHA SYKES) (10/27/2022 8:46 AM EDT) Pathologist [facility] HIV AB/AG Nonreactive Nonreactive [facility] Comment:HIV-1 p24 Ag and/or HIV-1/HIV-2 Ab not detected.A test result that is nonreactive does not exclude thepossibility of exposure to or infection with HIV-1 and/orHIV-2. Nonreactive results in this assay for individualswith prior exposure to HIV-1 and/or HIV-2 may be due toantigen and antibody levels that are below the limit ofdetection of this assay.The [employer] HIV Ag/Ab Combo assay result andsupplemental assay results should be interpreted inconjunction with the patient's clinical presentation,history and other laboratory results. If the results areinconsistent with clinical evidence, additional testing issuggested to confirm the result. 10/27/2022 8:46 AM EDT 10/27/2022 8:46 AM EDT [facility] External Provider LAB BLO OD ORDERABLES Final Result [facility] [address] [place] [phone] * Hepatitis C Viral RNA, Quantitative, Real-Time PCR (10/27/2022 8:46 AM EDT) [facility] Hepatitis C Viral Load <15 NOT DETECTED NOT DETECTED IU/mL [facility] HCV Log PCR <1.18 NOT DETECTED NOT DETECTED Log IU/mL [facility] Comment:This test was perfor med using Real-Time Polymerase ChainReaction.Reportable Range: 15 IU/mL to 100,000,000 IU/mL(1.18 Log IU/mL to 8.00 Log IU/mL).The analytical performance characteristics of thisassay have been determined by [employer].The modifications have not been cleared or approved bythe FDA. This assay has been validated pursuant to theCLIA regulations and is used for clinical purposes.For more information on this test, go to:http://[employer].Denator/faq/UAH53h3(This link is being provided for informational/educational purposes only.)THIS TEST WAS PERFORMED AT:[email or web address] [place] [id number] LUIS RAINES MD 10/27/2022 8:46 AM EDT 10/27/2022 8:46 AM EDT [facility] External Provider LAB BLO OD ORDERABLES Final Result [facility] [address] [place] [address] [phone] * Hm Colonoscopy (09/05/2022) Colonoscopy Normal Normal Comment:ifobt Historical Provider HEALTH MAINTENANCE Final Result * (ABNORMAL) LIPID PANEL, STANDARD (01/22/2021 10:21 AM EDT) Chol/HDLC Ratio 4.2 <5.0 (calc) [facility] Cholesterol, Total 143 <200 mg/dL [facility] HDL Cholesterol 34(L) > OR = 40 mg/dL [facility] LDL Cholesterol 90 mg/dL (calc) [facility] Comment: Reference range: <100 ?? Desirable range <100 mg/dL for primary prevention; ?? <70 mg/dL for patients with CHD or diabetic patients ?? with > or = 2 CHD risk factors. ?? LDL-C is now calculated using the Jt-Gurjit ?? calculation, which is a validated novel method providing ?? better accuracy than the Friedewald equation in the ?? estimation of LDL-C. ?? Jt AGUIRRE et al. JAMAL. 2013;310(19): 2793-5191 ?? (http://[employer].HappyBox/faq/YQJ215) Non-HDL Cholesterol 109 <130 mg/dL (calc) [facility] Comment: For patients with diabetes plus 1 major ASCVD risk ?? factor, treating to a non-HDL-C goal of <100 mg/dL ?? (LDL-C of <70 mg/dL) is considered a therapeutic ?? option. Triglycerides 92 <150 mg/dL [facility] 01/22/2021 10:2 1 AM EDT us Shaka Ashley MD LAB BLOOD ORDERABLES Final Resul t [facility] [address] from Last 3 Months or Most Recently Relevant to Health Maintenance Insurance - [facility] Care Teams Pulp Plant Supervisor Relationship Specialty Start Date End Date Name, MD Shaka [address] [place] [address] PCP - General Family Medicine 08/27/15 Alison Maurice PharmD [address] [place] [address] Pharmacist Internal Medicine 12/16/22
--- OUTSIDE RECORDS SUMMARY | 2024-08-23 20:15 | XMS_ITS | Clinical Summary ---
Author Organization [facility] ity Address [address] [place] [address] Care Team Providers Care Field Kiln Burner Name Role Phone Name, Shaka TURNER Primary Care Provider [phone] Immunizations Name Administration Dates Next Due Pfizer SARS-CoV-2 COVID-19, mRNA, LNP-S, preservative free 01/17/2021 Surgical History Surgery Date Site/Laterality Comments OTHER SURGICAL HISTORY PROCEDURE: ---- OTHER ----; COMMENT: fistula r arm OTHER SURGICAL HISTORY PROCEDURE: AR ARTHRP ACETBLR/PROX FEM PROSTC AGRFT/ALGRFT Medical History Medical History Date Comments Anxiety state, unspecified 03/12/2006 DX:An xiety state, unspecified Unspecified disorder of kidn ey and ureter 03/12/2006 DX:Unspecified disorder of k idney and ureter; COMMENT: history of remote glomerulonephritis. Allergic rhinitis, cause unspecified 03/31/2006 DX:Allergic rhinitis, cause unspecified Acute bronchitis 04/14/2006 DX:Acute bronch itis Anxiety state, unspecified 03/12/2006 DX:An xiety state, unspecified Tobacco use disorder 12/02/2006 DX:Tobacco use disorder Heartburn 04/01/2007 DX:Heartburn Essential hypertension, benign 03/12/2006 D X:Essential hypertension, benign Unspecified hypothyroidism 03/12/2006 DX:Un specified hypothyroidism Family History Medical History Relation Name Comments Diabetes Father Glaucoma Maternal Grandmother Heart attack Mother Blindness Neg Hx Cataracts Neg Hx Macular degeneration Neg Hx Strabismus Neg Hx Relation Name Status Comments Father Maternal Grandmother Mother Social History Tobacco Use Types Packs/Day Years Used Date Smoking Tobacco: Former Cigarettes Smokeless Tobacco: Former Alcohol Use Standard Drinks/Week Comments Yes 0 (1 standard drink = 0.6 oz pur e alcohol) Sex and Gender Information Value Date Recorded Sex Assigned at Not on file Legal Sex Male 4:31 AM EST Gender Identity Not on file Sexual Orientation Not on file Obstetrics History Last Filed Vital Signs Vital Sign Reading Time Taken Comments Blood Pressure 154/96 05/21/2022 1:33 PM EST Pulse 91 05/21/2022 1:33 PM EST Temperature - - Respiratory Rate - - Oxygen Saturation - - Inhaled Oxygen Concentration - - Weight 90.7 kg (200 lb) 05/21/2022 1:33 PM EST Height 177.8 cm (5' 10 ) 05/21/2022 1:33 PM EST Body Mass Index 28.7 05/21/2022 1:33 PM EST Plan of Treatment Health Maintenance Due Date Last Done Comments Hepatitis A Vaccines (1 of 2 - Risk 2-dose series) 1995 Hepatitis B Vaccines (1 of 3 - 19+ 3-dose series) 1995 Pneumococcal Vaccine: Pediatrics (0 to 5 Years) and At-Risk Patients (6 to 64 Years) (1 of 2 - PCV) 1995 DTaP,Tdap,and Td Vaccines (2 - Td or Tdap) 10/30/2021 10/31/2011 Cholesterol Screening (Lipid Panel) 05/25/2022 Colorectal Cancer Screening: Colonoscopy 05/25/2022 Depression Screening 05/25/2022 HIV Screening 05/25/2022 Hepatitis C Screening 05/25/2022 Social Influencers of Health Screening 05/25/2022 Hypertension/CHF/CAD Annual BMP Blood Test 05/29/2022 COVID-19 Vaccine ( season) 2024 01/17/2021 Influenza Vaccine (#1) 2024 5, 03/11/2013, 02/27/2012, Additional history exists HIB Vaccines Aged Out No longer eligi ble based on patient's age to complete this topic HPV Vaccines Aged Out No longer eligi ble based on patient's age to complete this topic IPV Vaccines Aged Out No longer eligi ble based on patient's age to complete this topic MMR Vaccines Aged Out No longer eligi ble based on patient's age to complete this topic Meningococcal ACWY Vaccine Aged Out N o longer eligible based on patient's age to complete this topic Meningococcal B Vacine Aged Out No lo nger eligible based on patient's age to complete this topic RSV Immunization Patients Under 20 months Aged Out No longer eligible based on patient's age to complete this topic Varicella Vaccines Aged Out No longer eligible based on patient's age to complete this topic Care Teams Field Kiln Burner Relationship Specialty Start Date End Date Name, MD Shaka [address] [place], [place] PCP - General Internal Medicine 03/10/06
--- OUTSIDE RECORDS SUMMARY | 2024-08-23 20:15 | XMS_ITS | Encounter Summary ---
Author Organization [employer] Address [address] [facility] [address] [place] [address] Care Team Providers Care Manager Metal Name Role Phone Name, Shaka TURNER Primary Care Provider [phone] Alison Maurice PharmD Unavailable [phone] Encounter Details Date Type Department Care Team (Late Contact Info) Description 11/20/2022 Abstract [facility] MEDICINE [address] [place] [phone] Name, MD Shaka [address] [place] [phone] Social History Tobacco Use Types Packs/Day Years [...] Description 09/13/2024 11:00 AM EDT Office Visit [facility] MEDICINE [address] [place] [phone] 12/06/2024 3:30 PM EDT Office Visit [facility] MEDICINE [address] [place] [address] Name, MD Shaka [address] [place] [phone] documented as of this encounter Visit Diagnoses Not on filedocumented in this encounter Additional Health Concerns Assessment Noted Time PHQ-9 Depression Total Score: 10 022 10:24 AM EST documented as of this encounter Care Teams Manager Metal Relationship Specialty Start Date End Date Name, MD Shaka [address] [place] [address] PCP - General Family Medicine 08/27/15 Alison Maurice, DlD [address] [place] [phone] Pharmacist Internal Medicine 12/16/22 documented as of this encounter
--- OUTSIDE RECORDS SUMMARY | 2024-08-23 20:15 | XMS_ITS ---
Author Organization [facility] it ([facility]) Address [address] [place] [address] Care Team Providers Care Yarn Rewinder Name Role Phone Unavailable Unavailable Unavailable Allergies, Adverse Reactions, Alerts This patient has no known allergies or adverse reactions. Problems This patient has no known problems.
--- OUTSIDE RECORDS SUMMARY | 2024-08-23 20:15 | XMS_ITS | Encounter Summary ---
Author Organization [employer] Address [address] [facility] [address] [place] [address] Care Team Providers Care Unit Clerk Name Role Phone Name, Shaka TURNER Primary Care Provider [phone] Alison Maurice PharmD Unavailable [phone] Encounter Details Date Type Department Care Team ([facility] st Contact Info) Description 06/25/2022 Telephone [facility] MEDICINE [address] [place], [place] [phone] Name, MD Shaka [address] [place] [address] Social History Tobacco Use Types Packs/Day Years [...] Description 09/13/2024 11:00 AM EDT Office Visit [facility] MEDICINE [address] [place] [phone] 12/06/2024 3:30 PM EDT Office Visit [facility] MEDICINE [address] [place] [address] Name, MD Shaka [address] [place] [phone] documented as of this encounter Visit Diagnoses Not on filedocumented in this encounter Additional Health Concerns Assessment Noted Time PHQ-9 Depression Total Score: 10 06/05/ 022 10:24 AM EST documented as of this encounter Care Teams Unit Clerk Relationship Specialty Start Date End Date Name, MD Shaka [address] [place] [address] PCP - General Family Medicine 08/27/15 Alison Maurice, DlD [address] [place] [address] Pharmacist Internal Medicine 12/16/22 documented as of this encounter
--- OUTSIDE RECORDS SUMMARY | 2024-08-23 20:15 | XMS_ITS ---
Author Organization [employer] Address [address] [facility] [address] [place] [address] Care Team Providers Care Superintendent Pier Name Role Phone Name, Shaka TURNER Primary Care Provider [phone] Alison Maurice PharmD Unavailable [phone] [employer] Status:Enrolled (Active) Start date:04/15/2022 Enrollment date:04/15/2022 Enrollment reason:Identified using pharmacy data Current support & services provided:Tier 4 ([employer] MEMBER) Case Team Name Relationship Phone Merlyn Bennett RN Registered Nurse(Responsible Sta ff) Continued Care and Services Coordination
== END 2024-08-23 16:30 | disposition home or self-care (01) ==
LOC: HO.HHCL 16:29
PROVIDERS: Visit Provider Internal Medicine Geriatric Medicine
DX: D69.6 Thrombocytopenia, unspecified (principal)
CPT/HCPCS: 36415; 85025

== ENCOUNTER 2024-09-13 13:36 | Outpatient (REF) | payer OTHER, SELFPAY | END 2024-09-13 13:37 | disposition home or self-care (01) | LOC: HO.HHCLNP 13:36 | PROVIDERS: Visit Provider Registered Nurse | DX: M48.02 Spinal stenosis, cervical region (principal); Z79.891 Long term (current) use of opiate analgesic | CPT/HCPCS: 80307 ==

== ENCOUNTER 2024-10-13 11:03 | Outpatient (REF) | payer OTHER, SELFPAY ==
--- NOTE | ~2024-10-13 | XR_ITS ---
CLINICAL HISTORY: left elbow pain for 1 mo. Hx avascular necrosis. Hx gout. 4 view left elbow Comparison: None Findings: No acute fractures or dislocations. Enthesophytes of the posterior elbow. No joint effusion. No radiopaque foreign body. IMPRESSION: 1. No acute findings This document has been electronically signed by: Anai Vance MD on 10/13/2024 15:15:07
--- OUTSIDE RECORDS SUMMARY | 2024-10-13 13:02 | XMS_ITS | Clinical Summary ---
Author Organization [facility] Address [address] [place] [address] Care Team Providers Care Medical Records Tech Name Role Phone Pcp, No Primary Care Provider Unavailabl e Social History Tobacco Use Types Packs/Day Years Used Date Smoking Tobacco: Never Assessed Sex and Gender Information Value Date Recorded Sex Assigned at Not on file Legal Sex Male 8:04 AM EDT Gender Identity Not on file Sexual Orientation [...] Influenza Vaccine 01/21/2024 COVID-19 Vaccine (2 - 2023-25 season) 2024 HIV Screening Completed 02/20/2021 Insurance MEDICAID OUT OF STATE [facility]GD MEDICARE OUT OF NETWORK MEDICARE PART A & B Care Teams Medical Records Tech Relationship Specialty Start Date End Date Pcp, No [address] [place] [address] PCP - General 02/20/21
--- OUTSIDE RECORDS SUMMARY | 2024-10-13 13:02 | XMS_ITS | Clinical Summary ---
Author Organization [employer] Address [address] [facility] [address] [place] [address] Care Team Providers Care Conservation Science Officer Name Role Phone Name, Shaka TURNER Primary Care Provider [phone] PuAlison arriola PharmD Unavailable [phone] Allergies Active Allergy Reactions Criticality Noted Date Comments Gramineae Pollens Unknown 02/26/2022 Other reaction(s): Sneezing Other reaction(s): Other (see comments) Other reaction(s): Sneezing Grass Pollen(K-O-R-T-Swt Gregg) Hives 02/26/2022 Other reaction(s): Other (See Comments) Medications * This document contains information received from the source organization and may not represent a complete record from that organization. albuterol 108 (90 Base) MCG/ACT inhaler inhale [...] 021 Active cholecalciferol (Vitamin D-3) 50 MCG (2000 UT) capsule take 1 capsule by oral route every day Active fluticasone (Flovent) 220 MCG/ACT inhaler inhale [...] 023 Active ergocalciferol (Vitamin D2) 1.25 MG (32481 UT) capsule TAKE 1 CAPSULE (50,000 UNITS TOTAL) BY MOUTH 1 (ONE) TIME PER WEEK FOR 14 DOSES 023 Active escitalopram (Lexapro) 5 MG tablet Take [...] tablets by mouth Once daily. 023 Active fluocinonide (Lidex) 0.05 % cream Active calcitriol (Rocaltrol) 0.25 MCG capsule Take [...] EVERY DAY 90 tablet 1 025 Active montelukast (Singulair) 10 MG tablet TAKE 1 TABLET BY MOUTH EVERY DAY IN THE EVENING 90 tablet 1 025 Active atorvastatin (Lipitor) 20 MG tabletIndicatio ns:Essential hypertension TAKE 1 TABLET BY MOUTH EVERY DAY 90 tablet 1 025 Active doxazosin (Cardura) 4 MG tablet Take 4 mg by mouth at bedtime. 025 Active labetalol (Normodyne) 200 MG tablet Take 200 mg by mouth 2 times daily. 025 2024 Active Aspirin Low Dose 81 MG EC tabletIndicatio ns:Essential hypertension TAKE 1 TABLET (81 MG) BY MOUTH IN THE MORNING 90 tablet 3 025 Active fluticasone (Flonase) 50 MCG/ACT nasal sprayIndication s:Allergic rhinitis, unspecified seasonality, unspecified trigger USE 1 SPRAY INTO EACH NOSTRIL TWICE A DAY 48 mL 025 Active oxyCODONE (Roxicodone) 10 MG immediate release tabletIndicatio ns:Chronic hip pain, unspecified laterality Take 1 tablet (10 mg) by mouth every 8 (eight) hours if needed for severe pain for up to 28 days. 84 tablet 025 2024 Active fluticasone (Flonase) 50 MCG/ACT nasal sprayIndication s:Allergic rhinitis, unspecified seasonality, unspecified trigger SPRAY 1 SPRAY INTO EACH NOSTRIL TWICE A DAY 48 mL 025 2024 Discontinued oxyCODONE (Roxicodone) 10 MG immediate release tabletIndicatio ns:Chronic hip pain, unspecified laterality Take 1 tablet (10 mg) by mouth every 8 (eight) hours if needed for severe pain for up to 28 days. Do not start before August 29, 2024. 84 tablet 025 2024 Discontinued(R eorder (will not trigger notification to Pharmacy)) Active Problems Problem Noted Date Diagnosed Date Acute maxillary sinusitis 08/11/2024 Influenza A 08/11/2024 Assessment & Plan (08/11/2024 12:09 PM EST): Drink plenty of fluids and rest Acetaminophen as needed [facility] (current) use of opiate analgesic 04/22 Overview (07/24/2024): Medication: oxycodone 10mg Q8H Indication: osteonecrosis of the hip, cervical spinal stenosis Last INSULATION PROFESSIONAL Agreement: 05/03/24 Tier II (INSULATION PROFESSIONAL Q3 months) Assessment & Plan (09/13/2024 8:59 PM EDT): Timeline: 07/19/24: Group, utox/pill count wnl 09/13/24: Group, pill count wnl, utox positive MDMA, confirmatory sent to lab Assessment & Plan (07/24/2024 7:21 PM EST): [...] are most pronounced at C4-5 and C5-6. 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 10/11/2024 Telephone [facility] [address] [place] [address] Name, MD Shaka Nurse Triage 10/11/2024 Travel 09/30/2024 Refill [facility] [address] [place] [address] Shaka Ashley MD Chronic hip pain, unspecified laterality 09/26/2024 Refill [facility] [address] [place] [address] Dina Das MD Allergic rhinitis, unspecified seasonality, unspecified trigger 09/15/2024 Telephone [facility] [address] [place] [address] Roya Payne, CORINNE 09/14/2024 Travel 09/13/2024 11:00 AM EDT Office Visit [facility] [address] [place] [address] Nandini Rowland FNP Spinal stenosis of cervical region (Primary Dx); Osteonecrosis of hip (CMS/HCC); 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; Low back pain at multiple sites 09/13/2024 Orders Only [facility] [address] [place] [address] Nandini Rowland FNP 09/13/2024 Telephone [facility] [address] [place] [address] Roya Payne RN 09/13/2024 Travel 08/26/2024 Refill [facility] [address] [place] [address] Shaka Ashley MD Chronic hip pain, unspecified laterality 08/24/2024 Refill [facility] [address] [place] [address] Shaka Ashley MD Essential hypertension 08/23/2024 3:45 PM EST Office Visit [facility] [address] [place] [address] Shaka Ashley MD Chest pain, unspecified type (Primary Dx); Essential hypertension; Low platelet count (CMS/HCC) 08/11/2024 11:00 AM EST Office Visit [facility] [address] [place] [address] Bonny Coto MD Acute maxillary sinusitis, recurrence not specified (Primary Dx); Cough in adult patient; Influenza A 08/01/[address] [address] Shaka Ashley MD Chronic hip pain, unspecified laterality 07/29/[address] [address] Shaka Ashley MD No Show 07/27/[address] [address] Shaka Ashley MD ER Follow-up 07/27/[address] [address] Merlyn Bennett, CORINNE Clonazepam & Ambien outside provider 07/27/[address] [address] Shaka Ashley MD Essential hypertension 07/26/2024 8:30 AM EST Office Visit [facility] [address] [place], [place] [phone] Richmond Herrera, NEO Full coverage crown needed for tooth at risk for fracture (Primary Dx) 07/20/[address] [address] Shaka Ashley MD Appointment Request 07/19/2024 11:00 AM EST Office Visit [address] [address] Nandini Rowland FNP Osteonecrosis of hip ([facility]) (Primary Dx); [facility] (current) use of opiate analgesic; Spinal stenosis of cervical region 07/19/2024 Travel from Last 3 Months Immunizations Name Administration [...] MMR 11/20/2017 Moderna Covid-19 Vaccine 12+ 10/22/2020,09/25/19 21 PPD Test 04/19/2014 Pfizer Covid-19 Vaccine 12+ [...] Sign Reading Time Taken Comments Blood Pressure 143/97 10/13/2024 10:39 AM EDT Pulse 59 10/13/2024 10:39 AM EDT Temperature 36.7 ??C (98.1 ??F) 10/13/2024 1 0:39 AM EDT Respiratory Rate 18 10/13/2024 10:3 9 AM EDT Oxygen Saturation 98% 10/13/2024 10: 39 AM EDT Inhaled Oxygen Concentration - - Weight 93.8 kg (206 lb 12.8 oz) 025 10:39 AM EDT Height 177.8 cm (5' 10 ) 08/23/2024 3:53 PM EST Body Mass Index 29.67 08/23/2024 3:53 PM EST Plan of Treatment Upcoming Encounters Date Type Department Care Team (Late st Contact Info) Description 12/06/2024 3:30 PM EDT Office Visit [address] [address] Name, MD Shaka [address] [place] [phone] 12/13/2024 11:00 AM EDT Office Visit [address] [address] Health Maintenance Due Date Last Done Comments [...] A1C 06/01/2025 024, 09/09/2023, 12/16/2022 Tobacco Screening 10/13/2025 10/13/2024 Lipid Panel 01/22/2026 01/22/2021 Colonoscopy 09/05/2032 09/05/2022 [...] this topic Meningococcal Vaccine Aged Out No silvina diego eligible based on patient's age to [...] PharmD Blood Pressure < 140/90 Blood Pressure 143/97( 025 10:39 AM EDT) No Puia, Alison, PharmD Procedures Procedure Name Priority Date/Time Associated Diagnosis Comments POCT ABHIJEET-14 URINE DRUG SCREEN Routine 10/11/2024 11:41 AM EDT [facility] (current) use of opiate analgesic Chronic low back pain, unspecified back pain laterality, unspecified whether sciatica present POCT ABHIJEET-14 URINE DRUG SCREEN Routine 09/13/2024 1:41 PM EDT Spinal stenosis of cervical region [facility] (current) use of opiate analgesic OTHER REF TEST - MISC Routine 09/13/2024 12:00 AM EDT CBC WITH AUTO DIFFERENTIAL Routine 08/23/2024 4:30 [...] DRUG SCREEN Routine 07/19/2024 2:09 PM EST [facility] (current) use of opiate analgesic PROPHYLAXIS - ADULT Routine 06/02/2024 8 :00 AM EST PERIODIC ORAL EVALUATION - ESTABLISHED PATIENT Routine 06/02/2024 8:00 AM EST POCT GLYCATED HEMOGLOBIN, TOTAL Routine 06/01/2024 11:52 [...] Recently Relevant to Health Maintenance Results * POCT ABHIJEET-14 Urine Drug Screen (10/11/2024 11:41 AM EDT) Only the most recent of3 resultswithin the time period is included. Oxycodone Screen, Urine Positive Urine Urine specimen obtained by clean catch procedure / Unknown 10/11/2024 11:41 AM EDT Narrative Roya Payne RN - 10/11/2024 11:41 AM EDT .Lot# [id number] Exp: 04-21-26 us Shaka Ashley MD POINT OF CARE TEST ENTER/EDIT OR DERABLES Final Result * Other Reference Test - Misc (09/13/2024 12:00 AM EDT) 09/13/2024 09/13/2024 Narrative [facility] - 09/15/2024 11:12 AM EDT [id number] us Nandini Rowland MANUFACTURING INTERN LAB BLOOD ORDERABLES Final Res ult [facility] [address], [place] [phone] * (ABNORMAL) CBC auto differential (08/23/2024 4:30 PM EST) White Blood Count 6.8 4.8 - 10.8 X10*3/uL [facility] Red Blood Count 4.76 4.60 - 5.80 X10*6/uL [facility] Hemoglobin 12.7(L) 14.0 - 18.0 g/dl [facility] Hematocrit 40.0(L) 42.0 - 52.0 % [facility] Mean Corpuscular Volume 84.0 80.0 - 98.0 fL [facility] Mean Corpuscular Hemoglobin 26.7(L) 27.0 - 33.0 pg [facility] Mean Corpuscular HGB Conc 31.8 31.0 - 36.0 g/dl [facility] Red Cell Distribution Width 12.7 11.0 - 16.0 % [facility] Platelet Count 200 160 - 400 X10*3/uL [facility] Mean Platelet Volume 13.0(H) 9.4 - 12.4 fL [facility] Neutrophils Percent Auto 61.2 45 - 73 % [facility] Imm Gran Pct Auto 0.3 0.0 - 0.4 % [facility] Lymphocytes Percent Auto 25.8 20 - 40 % [facility] Monocytes Percent Auto 10.7 2 - 11 % [facility] Eosinophils Percent Auto 1.6 0 - 4 % [facility] Basophils Percent Auto 0.4 0 - 2 % [facility] NRBC Pct Auto 0.0 0.0 - 0.2 /100WBC [facility] Neutrophils Absolute Auto 4.2 2.0 - 8.3 x10*3/uL [facility] Imm Gran Abs Auto 0.02 0.00 - 0.03 X10*3/uL [facility] Lymphocytes Absolute Auto 1.8 1.2 - 4.9 X10*3/uL [facility] Monocytes Absolute Auto 0.7 0.1 - 1.2 X10*3/uL [facility] Eosinophils Absolute Auto 0.1 0.0 - 0.4 X10*3/uL [facility] Basophils Absolute Auto 0.0 0.0 - 0.2 X10*3/uL [facility] NRBC Abs Auto 0.000 0.0 - 0.012 X10*3/uL [facility] Blood Venous blood specimen / Unknown 08/23/2024 4:30 PM EST 08/23/2024 6:14 PM EST Shaka Ashley MD LAB BLOOD ORDERABLES Final Resul t Performing Organization Address City/[facility]/ZIP Co de Phone Number [facility] [address] [place] [phone] * Influenza B (ID NOW Rapid Molecular) (08/11/2024 11:03 AM EST) Pathologist [facility] [place] Influenza B Negative Negative, Indeterminate [facility] Swab 08/11/2024 11:0 3 AM EST us Bonny Talavera MD POINT OF CARE TEST EN TER/EDIT ORDERABLES Final Result Performing Organization Address [facility] Co de Phone Number [facility] [address] [place] [phone] * (ABNORMAL) Influenza A (ID NOW Rapid Molecular) (08/11/2024 11:03 AM EST) Pathologist [facility] [place] Influenza A Positive( A) Negative, Indeterminate [facility] Swab 08/11/2024 11:0 3 AM EST us Bonny Talavera MD POINT OF CARE TEST EN TER/EDIT ORDERABLES Final Result [facility] [address] [place] [phone] * POCT Rapid COVID Ag (08/11/2024 10:57 AM EST) Rapid COVID Ag Negative Swab 08/11/2024 10:5 7 AM EST Bonny Talavera MD POINT OF CARE TEST EN TER/EDIT ORDERABLES Final Result * (ABNORMAL) POCT HGB A1C (06/01/2024 11:52 AM EST) Hemoglobin A1C 6.4(A) 4.0 - 6.0 % QC Media Lot # [id number] Lot# Expiration Date Blood 06/01/2024 11:5 2 AM EST Result [facility] Shaka Ashley MD POINT OF CARE TEST ENTER/EDIT OR DERABLES Final Result * HIV Ab/Ag ([facility]) (10/27/2022 8:46 AM EDT) HIV AB/AG Nonreactive Nonreactive [facility] Comment:HIV-1 p24 Ag and/or HIV-1/HIV-2 Ab not detected.A test result that is nonreactive does not exclude thepossibility of exposure to or infection with HIV-1 and/orHIV-2. Nonreactive results in this assay for individualswith prior exposure to HIV-1 and/or HIV-2 may be due toantigen and antibody levels that are below the limit ofdetection of this assay.The [employer] HIV Ag/Ab Combo assay result andsupplemental assay results should be interpreted inconjunction with the patient's clinical presentation,history and other laboratory results. If the results areinconsistent with clinical evidence, additional testing issuggested to confirm the result. 10/27/2022 8:46 AM EDT 10/27/2022 8:46 AM EDT [facility] External Provider LAB BLO OD ORDERABLES Final Result Performing Organization Address [facility] Co de Phone Number [facility] [address] [place] [phone] * Hepatitis C Viral RNA, Quantitative, Real-Time PCR (10/27/2022 8:46 AM EDT) Hepatitis C Viral Load <15 NOT DETECTED NOT DETECTED IU/mL [facility] HCV Log PCR <1.18 NOT DETECTED NOT DETECTED Log IU/mL [facility] Comment:This test was perfor med using Real-Time Polymerase ChainReaction.Reportable Range: 15 IU/mL to 100,000,000 IU/mL(1.18 Log IU/mL to 8.00 Log IU/mL).The analytical performance characteristics of thisassay have been determined by [employer].The modifications have not been cleared or approved bythe FDA. This assay has been validated pursuant to theCLIA regulations and is used for clinical purposes.For more information on this test, go to:http://education.ME911/faq/LPT08e4(This link is being provided for informational/educational purposes only.)THIS TEST WAS PERFORMED AT:[employer] [place] [phone] LUIS RAINES MD 10/27/2022 8:46 AM EDT 10/27/2022 8:46 AM EDT [facility] External Provider LAB BLO OD ORDERABLES Final Result Performing Organization Address [facility]/ZIP Co de Phone Number [facility] [address] [place] [phone] * Hm Colonoscopy (09/05/2022) Colonoscopy Normal [...] ?? LDL-C is now calculated using the Juan C ?? calculation, which is a validated novel method providing ?? better accuracy than the Friedewald equation in the ?? estimation of LDL-C. ?? Jt AGUIRRE et al. JAMAL. 2013;310(19): 3803-5767 ?? (http://[employer].tagga/faq/VZP987) Non-HDL Cholesterol 109 <130 mg/dL (calc) [facility] Comment: For patients with diabetes plus 1 major ASCVD risk ?? factor, treating to a non-HDL-C goal of <100 mg/dL ?? (LDL-C of <70 mg/dL) is considered a therapeutic ?? option. Triglycerides 92 <150 mg/dL [facility] 01/22/2021 10:2 1 AM EDT us Shaka Name LAB BLOOD ORDERABLES Final Resul t [facility] [address] from Last 3 Months or Most Recently Relevant to Health Maintenance Insurance [facility] ONE CARE < [address] [place] [id number] Care Teams Conservation Science Officer Relationship Specialty Start Date End Date Name, MD Shaka [address] [place] [address] PCP - General Family Medicine 08/27/15 Alison Maurice PharmD [address] [place] [address] Pharmacist Internal Medicine 12/16/22
--- OUTSIDE RECORDS SUMMARY | 2024-10-13 13:02 | XMS_ITS | Encounter Summary ---
Author Organization [employer] Address [address] [facility] [address] [place] [address] Care Team Providers Care Telephone Quotation Clerk Name Role Phone Name, Shaka TURNER Primary Care Provider [phone] Alison Maurice PharmD Unavailable [phone] Reason for Visit * Reason Comments Med Refill Encounter Details Date Type Department Care Team (Late st Contact Info) Description 12/17/2022 Refill [facility] MEDIC[facility] [address] [place], [place] [phone] Name, MD Shaka [address] [place], [place] [phone] Essential hypertension; Allergic rhinitis, unspecified seasonality, unspecified [...] Description 12/06/2024 3:30 PM EDT Office Visit [facility] [place] [address] Name, [place] [address] 12/13/2024 11:00 AM EDT Office Visit [facility] [place] [address] documented as of this encounter Goals Goal Patient Goal Type Associated Problems Recent Progress Patient-Stated? Author Record your blood pressure once per day Blood Pressure No Alison Maurice PharmD Blood Pressure < 140/90 Blood Pressure 143/97( 025 10:39 AM EDT) No Alison Maruice PharmD documented as of this encounter Visit Diagnoses Diagnosis Essential hypertension Unspecified essential hypertension Allergic rhinitis, unspecified seasonality, unspecified trigger documented in this encounter Additional Health Concerns Assessment Noted Time PHQ-9 Depression Total Score: 10 022 10:24 AM EST documented as of this encounter Care Teams Telephone Quotation Clerk Relationship Specialty Start Date End Date Name[place] [address] PCP - General Family Medicine 08/27/15 Alison Maurice PharmD [address] [place] [phone] Pharmacist Internal Medicine 12/16/22 documented as of this encounter
--- OUTSIDE RECORDS SUMMARY | 2024-10-13 13:02 | XMS_ITS | Clinical Summary ---
Author Organization [facility] Address [address] [facility] [address] [place] [address] Phone Care Team Providers Care Heel Slicker Name Role Phone Name, Shaka TURNER Primary Care Provider [phone] Allergies Active Allergy Reactions Criticality Noted Date [...] (SYNTHROID, LEVOTHROID) 150 MCG tablet 2 Active losartan (Cozaar) 50 MG tabletIndicati ons:Hypertensi on Take 2 tablets (100 mg total) by mouth 1 (one) time each day 180 tablet 3 4 Active magnesium oxide (MAG-OX) 400 MG tabletIndicati [...] evening. 180 tablet 5 11/04/19 25 Active calcitriol (ROCALTROL) 0.25 MCG capsule TAKE 1 CAPSULE BY MOUTH EVERY OTHER DAY 45 capsule 3 5 Active doxazosin (Cardura) 4 MG tablet Take 1 tablet (4 mg total) by mouth every night 90 tablet 3 5 09/16/19 26 Active doxazosin (Cardura) 4 MG tablet Take 1 tablet (4 mg total) by mouth every night 90 tablet 3 4 09/16/19 25 Discontinu ed(Reorder (does not appear on [...] rhinitis 07/25/2015 Atherosclerotic heart diseas e of [place] coronary artery without angina pectoris 05/15/2015 Anxiety [...] failure 08/07/2020 04/23/2021 End stage renal disease 09/22/201406/2022 Dependence on hemodialysis d ue to end stage renal disease 09/22/2014 04/23/2021 Encounters Date Type Department Care Team Description 09/24/2024 Refill [facility] [address] [address] Zhen Sifuentes MD 09/20/2024 Refill [facility] [address] [address] Edison Gavin MD 09/20/2024 Refill [facility] [address] [address] Zhen Sifuentes MD 09/15/2024 Refill [facility] [address] [address] Erma Walker 08/24/2024 Refill [facility] [address] [facility] [address] [place] [phone] Edison Gavin MD 08/11/2024 Orders Only [facility] [address] [address] Ghassan Junior MD Kidney transplant status 08/05/2024 8:45 AM EST Office Visit [facility] [address] [address] Zhen Sifuentes MD Kidney transplant status (Primary Dx); Persistent proteinuria 08/02/2024 Refill [facility] [address] [facility] [address] [place] [phone] BraunCarolina whitewily 07/29/2024 Refill [facility] [address] [facility] [address] [place] [phone] AraceliYulissa 07/28/2024 Office Communication [facility] [address] [place] [phone] Zhen Sifuentes MD 07/28/2024 Telephone [facility] [address] [place] [phone] Cady Alvarado 07/22/2024 Orders Only [facility] [address] [facility] [address] [place] [phone] Ghassan Junior MD Kidney transplant status; Other retirement current drug therapy; Secondary hyperparathyroidism of renal origin (HCC); Anemia, not otherwise specified from Last 3 Months Immunizations Immunization Administration Dates Next Due Hepatitis A 03/27/2014 [...] Visit [facility] [address] [phone] Zhen Sifuentes MD [address] [phone] Health Maintenance Due Date Last Done Comments Hepatitis B Vaccine (1 of 3 - 19+ 3-dose series) 1995 Pneumococcal Vaccine: 50+ Years Discontinued 08/12/2023, 01/12/2018, 03/27/2014 Pneumococcal Vaccine: Peds ( 0 to 5 Years) and At-Risk Patients (6 to 49 Years) Completed 08/12/2023, 01/12/2018, 03/27/2014 Influenza Vaccine Completed 06/01/2024, , 03/10/2022, Additional history exists Insurance Care [employer] MCR ([id number]) MCR ([id number]) Care Teams Heel Slicker Relationship Specialty Start Date End Date Name, MD Shaka [address] [place] [phone] PCP - General 07/02/20
--- OUTSIDE RECORDS SUMMARY | 2024-10-13 13:02 | XMS_ITS | Encounter Summary ---
Author Organization [employer] Address [address] [facility] 7t [place] [address] Care Team Providers Care Human Anatomy Teacher Name Role Phone Name, Shaka TURNER Primary Care Provider [phone] Alison Maurice PharmD Unavailable [phone] Reason for Visit * Reason Comments chronic pain group Encounter Details Date Type Department Care Team (Latest Contact Info) Description 10/11/2024 11:00 AM EDT Clinical Support [facility] [address] [place], [place] [phone] Roya Payne, CORINNE [address] [place], [place] [phone] Chronic low back pain, unspecified back pain laterality, unspecified whether sciatica present (Primary Dx); FDC (current) use of opiate analgesic Social History Tobacco Use Types Packs/Day Years [...] as of this encounter Progress Notes * Roya Payne RN - 10/11/2024 11:00 AM EDT .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 Last fill date: 10/01/24 (Oxycodone 10mg tid) count was (53), anticipated (53) to be remaining. .UTOX completed. Positive for (OXY), Negative for AMP, BAR, BUP, BZO, ANTONIA, FTY, MDMA, MET, MOP, MTD, PCP, TCA, THC. UTOX as expected. documented in this encounter Plan of Treatment Upcoming Encounters Date Type Department Care Team (Late st Contact Info) Description 12/06/2024 3:30 PM EDT Office Visit [facility] [address] [place] [address] Name, MD Shaka [address] [place] [address] 12/13/2024 11:00 AM EDT Office Visit [facility] [address] [place] [address] documented as of this encounter Goals Goal Patient Goal Type Associated Problems Recent Progress Patient-Stated? Author Record your blood pressure once per day Blood Pressure No Puia, Alison, PharmD Blood Pressure < 140/90 Blood Pressure 143/97( 025 10:39 AM EDT) No Puia, Alison, PharmD documented as of this encounter Procedures Procedure Name Priority Date/Time Associated Diagnosis Comments POCT ABHIJEET-14 URINE DRUG SCREEN Routine 10/11/2024 11:41 AM EDT FDC (current) use of opiate analgesic Chronic low back pain, unspecified back pain laterality, unspecified whether sciatica present documented in this encounter Results * POCT ABHIJEET-14 Urine Drug Screen (10/11/2024 11:41 AM EDT) Oxycodone Screen, Urine Positive Urine Urine specimen obtained by clean catch procedure / Unknown 10/11/2024 11:41 AM EDT Narrative Roya Payne RN - 10/11/2024 11:41 AM EDT .Lot# [id number] Exp: 04-21-26 Shaka Ashley MD POINT OF CARE TEST ENTER/EDIT OR DERABLES Final Result documented in this encounter Visit Diagnoses Diagnosis Chronic low back pain, unspecified back pain laterality, unspecified whether sciatica present- Primary FDC (current) use of opiate analgesic documented in this encounter Additional Health Concerns Assessment Noted Time PHQ-9 Depression Total Score: 0 08/12/19 24 11:03 AM EST documented as of this encounter Care Teams Human Anatomy Teacher Relationship Specialty Start Date End Date Name, MD Shaka [address] [place] [address] PCP - General Family Medicine 08/27/15 Puia, Alison, PharmD [address] [place] [address] Pharmacist Internal Medicine 12/16/22 documented as of this encounter
--- OUTSIDE RECORDS SUMMARY | 2024-10-13 13:02 | XMS_ITS | Encounter Summary ---
Author Organization [facility] Address [address] [facility] [address] [place] [address] Phone Care Team Providers Care District Sales Leader Name Role Phone Name, Shaka TURNER Primary Care Provider [phone] Reason for Visit * Reason Comments Med Change Request Encounter Details Date Type Department Care Team ([facility] Contact Info) Description 11/30/2023 Refill [facility] [address] [place] [address] Daysi Truong MD Kidney transplant [...] Upcoming Encounters Date Type Department Care Team ([facility] Contact Info) Description 11/02/2024 10:45 AM EDT Office Visit [facility] [address] [facility] [address] [place] [address] Zhen Sifuentes MD [address] [facility] [address] [place] [address] documented as of this encounter Visit Diagnoses Diagnosis Kidney transplant status documented in this encounter Care Teams District Sales Leader Relationship Specialty Start Date End Date Name, MD Shaka [address] [place] [address] PCP - General 07/02/20 documented as of this encounter
--- OUTSIDE RECORDS SUMMARY | 2024-10-13 13:02 | XMS_ITS | Encounter Summary ---
Author Organization [employer] Address [address] [facility] 7t [place] [address] Care Team Providers Care Security Police Officer Name Role Phone Name, Shaka TURNER Primary Care Provider [phone] Alison Maurice PharmD Unavailable Encounter Details Date Type Department Care Team (Late Contact Info) Description 03/20/2023 Abstract [facility] [address] [place] [address] Kandru, Dillan, DDS [address] [place], [place] [phone] Social History Tobacco Use Types Packs/Day Years [...] Department Care Team (Late Contact Info) Description 12/06/2024 3:30 PM EDT Office Visit [facility] [address] [place] [phone] Name, MD Shaka [facility] [place] [address] 12/13/2024 11:00 AM EDT Office Visit [facility] [place] [address] documented as of this encounter Goals Goal [...] documented as of this encounter Care Teams Security Police Officer Relationship Specialty Start Date End Date Name, [place] [address] PCP - General Family Medicine 08/27/15 Puia, Alison, [place] [address] Pharmacist Internal Medicine 12/16/22 documented as of this encounter
--- OUTSIDE RECORDS SUMMARY | 2024-10-13 13:02 | XMS_ITS | Encounter Summary ---
Author Organization [employer] Address [address] [facility] 7t [place] [address] Care Team Providers Care Air Sampling And Monitoring Name Role Phone Name, Shaka TURNER Primary Care Provider [phone] Alison Maurice PharmD Unavailable [phone] Reason for Visit * Reason Onset Date Comments Nurse Triage 10/11/2024 Encounter Details Date Type Department Care Team ([facility] st Contact Info) Description 10/11/2024 Telephone [facility] [address] [place], [place] [phone] Name, MD Shaka [address] [place], [place] [phone] Nurse Triage Social History Tobacco Use Types Packs/Day Years [...] encounter Miscellaneous Notes * Telephone Encounter - Carolyn Ramirez RN - 10/11/2024 2:00 PM EDT T/C to pt re: triage left elbow pain. Pt states that this pain is only in the elbow, pt states thathe is able to lift heavy things. Pt states that this pain started 1 month ago and is currently a 10/10. Pt states he use to have oxycodone 10mg TID for his back which also helped his elbow, and is also why he has not sought evaluation until this time. Pt denies any memory of injury or change to exercise. Pt denies numbness or tingling in hands. Pt does report increased pain when grasping. Pt declines RN offering appointment on medical teams or going to walk-in clinic today and states that he would like to come in to be seen in walk-in clinic at 8am tomorrow. RN reviews the hours of operation of the walk-in clinic and process of seeing patients based on arrival time and severity of symptoms.Pt is agreeable to come to the walk-in clinic tomorrow and attempt to be seen then. RN reviews ED precautions and advises pt to call back if any symptoms worsen or change. * Telephone Encounter - Vee Aguilera - 10/11/2024 1:26 PM EDT Symptom: Arm Pain - Not From Injury Outcome: Schedule an appointment to be seen within 24 hours Reason: Caller denied all higher acuity questions The caller accepted this outcome. [phone] fyi. Pt requesting appointment at [facility] for 8:15 am tomorrow, was advised that he must come to [facility] in person between 8:30 am - 7:30 pm. documented in this encounter Plan of Treatment Upcoming Encounters Date Type Department Care Team (Late st Contact Info) Description 12/06/2024 3:30 PM EDT Office Visit [facility] [address] [place] [address] Name, MD Shaka [address] [place] [address] 12/13/2024 11:00 AM EDT Office Visit [facility] [address] [place] [address] documented as of this encounter Goals Goal [...] documented as of this encounter Care Teams Air Sampling And Monitoring Relationship Specialty Start Date End Date Shaka Ashley MD [address] [place] [address] PCP - General Family Medicine 08/27/15 Alison Maurice PharmD [address] [place] [address] Pharmacist Internal Medicine 12/16/22 documented as of this encounter
--- OUTSIDE RECORDS SUMMARY | 2024-10-13 13:02 | XMS_ITS | Data Portability ---
Author Organization [employer] Address [address] [place] [phone] Care Team Providers Care Jumbo Operator Name Role Phone [facility] Referring Provider Assessment Encounter Date Assessment Date Assessment LastModified by Organization Details LastModified Time 06/30/2023 06/30/2023 service called f or diarrhea found 48 yom with s/p kidney xplant, taking anti-rejection meds reportedly NOT immunocompromised HTN FLORENT[place] hypothyroidism c/o 2d watery diarrhea, non bloody no abd pain triggered by food mild improvement to pepto reduced PO intake All: NKDA Meds: mycophenolate tacrolimus clonazepam nifedipine atorvas singulair vit d ASA #Diarrhea most likely viral colitis at this time as reportedly not immunocompromised trial loperamide 4 mg PO x1 BRAT diet notify service if failure to improve as increases suspicion given presence of anti-rejection meds vkudesia Not available 06/30/2023 17:40:54 Plan of Treatment Reminders Order Date Submit Date Provider Last Modified By Organization Details Last Modified Time Details Appointments None record ed. Lab None record ed. Referral None record ed. Procedures None record ed. Surgeries None record ed. Imaging None record ed. Medication Orders None record ed. Patient TargetsNo targets recorded. Patient InstructionsNo instructions recorded. Reason for Referral None Reported. Medical Equipment None Reported. Allergies No known drug allergies Medications Name Sig Start Date Stop Date Status Note LastModified by Organization Details LastModified Time magnesium oxide 250 mg tab active Not Available Not Available Not Available losartan 50 mg tablet TAKE 2 TABLETS BY MOUTH 1 TIME EACH DAY. active Not Available Not Available No t Available nifedipine ER 30 mg tablet,exten ded release 24 hr TAKE 1 TABLET (30 MG) BY MOUTH IN THE MORNING. DO NOT CRUSH, CHEW, OR SPLIT. active Not Available Not Available No t Available acetaminophe n 325 mg tablet TAKE 2 TABS BY MOUTH EVERY 6 HOURS NEEDED FOR MILD PAIN active Not Available Not Available No t Available atorvastatin 20 mg tablet TAKE 1 TABLET BY MOUTH EVERY DAY active Not Available Not Available No t Available ampicillin 500 mg capsule TAKE 2 CAPSULE BY MOUTH DIRECTED TAKE 1 HOUR PRIOR TO DENTAL PROCEDURE active Not Available Not Available No t Available clonazepam 1 mg tablet TAKE 1 TABLET BY MOUTH TWICE A DAY NEEDED FOR ANXIETY active Not Available Not Available No t Available amlodipine 5 mg tablet TAKE 1 TABLET BY MOUTH EVERY DAY active Not Available Not Available No t Available aspirin 81 mg tablet,delay ed release TAKE 1 TABLET BY MOUTH EVERY DAY active Not Available Not Available No t Available magnesium oxide 400 mg (241.3 mg magnesium) tablet TAKE 1 TABLET BY MOUTH TWICE A DAY active Not Available Not Available No t Available nifedipine ER 60 mg tablet,exten ded release 24 hr TAKE 1 TABLET (60 MG) BY MOUTH IN THE MORNING. DO NOT CRUSH, CHEW, OR SPLIT. active Not Available Not Available No t Available amlodipine 10 mg tablet TAKE 1 TABLET BY MOUTH EVERY DAY IN THE MORNING active Not Available Not Available No t Available losartan 25 mg tablet TAKE 1 TABLET BY MOUTH 1 TIME EACH DAY. active Not Available Not Available No t Available omeprazole 20 mg capsule,ken yed release TAKE 2 CAPSULES BY MOUTH EVERY DAY BEFORE A MEAL active Not Available Not Available No t Available montelukast 10 mg tablet TAKE 1 TABLET BY MOUTH EVERY DAY IN THE EVENING active Not Available Not Available No t Available levothyroxin e 200 mcg tablet TAKE 1 TABLET BY ORAL ROUTE EVERY DAY MON TO FRI, SKIP WEEKENDS active Not Available Not Available No t Available ergocalcifer ol (vitamin D2) 1,250 mcg (50,000 unit) capsule TAKE 1 CAPSULE (50,000 UNITS TOTAL) BY MOUTH ONCE WEEKLY active Not Available Not Available No t Available zolpidem 10 mg tablet TAKE 1 TABLET BY MOUTH EVERYDAY AT BEDTIME active Not Available Not Available No t Available fluticasone propionate 50 mcg/actuatio n nasal spray,suspen mihir USE 1 SPRAY INTO EACH NOSTRIL TWICE A DAY active Not Available Not Available Not Available loratadine 10 mg tablet TAKE 1 TABLET BY MOUTH EVERY DAY active Not Available Not Available No t Available escitalopram 5 mg tablet TAKE 1 TABLET BY MOUTH EVERY DAY DIRECTED active Not Available Not Available No t Available mycophenolat e sodium 180 mg tablet,delay ed release TAKE 3 TABLETS BY MOUTH IN THE MORNING AND 3 TABLETS IN THE EVENING. active Not Available Not Available No t Available oxycodone 10 mg tablet PLEASE SEE ATTACHED FOR DETAILED DIRECTIONS active Not Available Not Available N ot Available blood pressure test kit-large cuff USE TO CHECK BLOOD PRESSURE ONCE DAILY active Not Available Not Available N ot Available Envarsus XR 1 mg tablet,exten ded release TAKE 1 MG BY MOUTH 1 (ONE) TIME EACH DAY ALONG WITH TWO 4 MG TABLETS FOR A TOTAL DAILY DOSE OF 9 MG active Not Available Not Available No t Available Envarsus XR 4 mg tablet,exten ded release TAKE TWO 4 MG TABLETS ALONG WITH ONE 1 MG TABLET FOR A TOTAL DAILY DOSE OF 9 MG active Not Available Not Available No t Available naloxone 4 mg/actuation nasal spray PLEASE SEE ATTACHED FOR DETAILED DIRECTIONS active Not Available Not Available N ot Available Vitals Date Recorded Oxygen saturation Oxygen saturation in Arterial blood by Pulse oximetry Body temperature Respiratory rate Heart rate Systolic blood pressure Diastolic blood pressure Provider Name and Address Organization Details Last Updated DateTime 4 99 % 99 % 96.2 [degF] 16 /min 65 /min 157 mm[Hg] 91 mm[Hg] Not Available [facility] - production 4 17:22:01 Social History None recorded. Functional Status None recorded. Mental Status None recorded. Family History Nothing Reported. Medical History No medical history recorded. Past Encounters Encounter ID Performer Location Encounter Start Date Encounter Closed Date Diagnosis/Indication Diagnosis SNOMED-CT Code Diagnosis ICD10 Code Diagnosis Note [id number] Lay Pitt MD Main - [facility] [address] [place] [phone] 06/30/2023 17:21:51 07/01/2023 11:02:15 Diarrhea 43959179 R19.7 Health Concerns Section Related Observation LastModified by Organization Detai ls LastModified Time None Recorded Concern Status LastModified by Organization Details LastModified Time None Recorded Advance Directives Directive None Recorded Payers Encounter Date Sequence Insurance Name Policy Number Policy Layne Covered Member ID Layne Member ID Guarantor Name 06/30/2023 1 [facility] - DOS ON OR AFTER 2022 - DUAL ELIGIBLE - PENITENTIARY OPTIONS AND ONE CARE (MEDICARE REPLACEMENT/ADV ANTAGE - HMO) William Hansen [id number] William Hansen Notes Date Note Type Note Provider Name and Address Organization Details Recorded Time 06/30/2023 text/html HPI: 2 years kidney transplant patient. Diarrhea for two days? ? ? .................. .................. .................. .................. .................. .................. .................. ............... CRC Nurse Triage Notes (Javon Valencia): Patient Reports: Vague abdominal pain greater than 24 hours; Diarrhea ? no blood in stool Denies: Sharp focal or diffuse abdominal pain Vomiting blood/coffee ground material Bloating, jaundice new onset with pain Nausea and vomiting greater than 2 hours with abdominal pain Tearing pain that radiates to back Food Impaction Constipation Nausea with or without vomiting Inability to tolerate foods, fluids or daily medications Chief Complaints: Abdominal Pain, Dehydration Allergies: Unknown Comments: Shaping Machine Tender verified the pt.? s address and phone number - Education provided on the response time and was advised to monitor reported s/s and seek emergency treatment if needed. Member reports feeling unwell since Thursday night - Abdominal discomfort - Loose stools. Increased cramps -No blood noted in stool - Denies fever -Denies N/V- Decreased PO intake - Keny Pitt MD [address] [facility],[address], [place], [address], [facility] 06/30/2023 17:41:16
--- OUTSIDE RECORDS SUMMARY | 2024-10-13 13:02 | XMS_ITS | Encounter Summary ---
Author Organization [employer] Address [address] [facility] 7[address] [place] [address] Care Team Providers Care Trolley Wire Installer Name Role Phone Name, Shaka TURNER Primary Care Provider [phone] Alison Maurice PharmD Unavailable [phone] Encounter Details Date Type Department Care Team (Late st Contact Info) Description 10/13/2024 11:00 AM EDT Office Visit [facility] [address] [place], [place] [phone] Shalonda Bishop MD [address] [place], [place] [phone] Left elbow pain (Primary Dx) Social History Tobacco Use Types [...] 12.8 oz) 025 10:39 AM EDT Height - - Body Mass Index 29.67 08/23/2024 3:53 PM EST documented in this encounter Plan of Treatment Upcoming Encounters Date Type Department Care Team (Late st Contact Info) Description 12/06/2024 3:30 PM EDT Office Visit [facility] [address] [place] [address] Name, MD Shaka [address] [place] [address] 12/13/2024 11:00 AM EDT Office Visit [facility] [address] [place] [address] Scheduled Orders Name Type Priority Associated Diagnoses Orde r Schedule XR Elbow 3+ Views Left Imaging Routine Left elbow pain Expected: 10/13/2024, Expires: 10/13/2025 CBC auto differential Lab Routine Left elbow pain Expected: 10/13/2024 (Approximate), Expires: 10/13/2025 Uric acid Lab Routine Left elbow pain Expected: 10/13/2024, Expires: 10/13/2025 C-reactive Protein Lab Routine Left elbow pain Expected: 10/13/2024 (Approximate), Expires: 10/13/2025 Sed Rate by Modified [place] Lab Routine Left elbow pain Expected: 10/13/2024 (Approximate), Expires: 10/13/2025 documented as of this encounter Goals Goal Patient Goal Type Associated Problems Recent Progress Patient-Stated? Author Record your blood pressure once per day Blood Pressure No Puia, Alison, PharmD Blood Pressure < 140/90 Blood Pressure 143/97( 025 10:39 AM EDT) No Puia, Alison, PharmD documented as of this encounter Visit Diagnoses Diagnosis Left elbow pain- Primary Pain in joint, upper arm documented in this encounter Additional Health Concerns Assessment Noted Time PHQ-9 Depression Total Score: 0 08/12/19 24 11:03 AM EST documented as of this encounter Care Teams Trolley Wire Installer Relationship Specialty Start Date End Date Name, [place] [address] PCP - General Family Medicine 08/27/15 AmosiaAlison, PharmD [address] [place] [address] Pharmacist Internal Medicine 12/16/22 documented as of this encounter
--- OUTSIDE RECORDS SUMMARY | 2024-10-13 13:02 | XMS_ITS | Encounter Summary ---
Author Organization [email or web address] Address [address] [facility] 7t [place] [address] Care Team Providers Care Reinsurance Accountant Name Role Phone Name, Shaka TURNER Primary Care Provider [phone] Alison Maurice PharmD Unavailable [phone] Reason for Visit * Reason Onset Date Comments Med Refill 12/19/2022 Encounter Details Date Type Department Care Team ([facility] st Contact Info) Description 12/19/2022 Telephone [facility] [address] [place], [place] [phone] Name, MD Shaka [address] [place], [place] [phone] Med Refill Social History Tobacco Use Types [...] MG immediate release tablet chana sent to [facility]/pharmacy #[id number] - [place], [place] - [address] documented in this encounter Plan of Treatment Upcoming Encounters Date Type Department Care Team (Late st Contact Info) Description 12/06/2024 3:30 PM EDT Office Visit [facility] [address] [place] [phone] Name, MD Shaka [address] [place] [address] 12/13/2024 11:00 AM EDT Office Visit [address] [address] documented as of this encounter Goals Goal [...] documented as of this encounter Care Teams Reinsurance Accountant Relationship Specialty Start Date End Date Name, MD Shaka [address] [place] [address] PCP - General Family Medicine 08/27/15 Puia, Alison, PharmD [address] [place] [address] Pharmacist Internal Medicine 12/16/22 documented as of this encounter
--- OUTSIDE RECORDS SUMMARY | 2024-10-13 13:02 | XMS_ITS | Encounter Summary ---
Author Organization [facility], Address [address] [place] [address] Phone Care Team Providers Care Farmworker Vegetable Name Role Phone Name, Shaka TURNER Primary Care Provider [phone] Reason for Visit * Reason Comments Med Refill Encounter Details Date Type Department Care Team ([facility] Contact Info) Description 05/31/2022 Refill [facility] [address] [place] [address] Cady Powell PA Social History Tobacco Use [...] Office Visit [facility] [address] [address] Zhen Sifuentes MD [facility] [address] [address] documented as of this encounter Visit Diagnoses Not on filedocumented in this encounter Care Teams Farmworker Vegetable Relationship Specialty Start Date End Date Name, MD Shaka [address] [place] [address] PCP - General 07/02/20 documented as of this encounter
--- OUTSIDE RECORDS SUMMARY | 2024-10-13 13:02 | XMS_ITS | Encounter Summary ---
Author Organization [employer] Address [address] [facility] [address] 7t [place] [address] Care Team Providers Care Service Porter Name Role Phone Name, Shaka TURNER Primary Care Provider [phone] Alison Maurice PharmD Unavailable [phone] Encounter Details Date Type Department Care Team (Late st Contact Info) Description 05/10/2023 Abstract [facility] MED[facility]INE [address] [place] [address] Sariah Rodriguez Social History Tobacco Use Types [...] Description 12/06/2024 3:30 PM EDT Office Visit [facility] [address] [place] [address] NameShaka MD [address] [place] [address] 12/13/2024 11:00 AM EDT Office Visit [address] [address] documented as of this encounter Goals Goal Patient Goal Type Associated Problems Recent Progress Patient-Stated? Author Record your blood pressure once per day Blood Pressure No Puia, Alison, PharmD Blood Pressure < 140/90 Blood Pressure 143/97( 025 10:39 AM EDT) No PuiaVelAlison, PharmD documented as of this encounter Visit Diagnoses Not on filedocumented in this encounter Additional Health Concerns Assessment Noted Time PHQ-9 Depression Total Score: 10 022 10:24 AM EST documented as of this encounter Care Teams Service Porter Relationship Specialty Start Date End Date Shaka Ashley MD [address] [place] [address] PCP - General Family Medicine 08/27/15 PuiaAlison, PharmD [address] [place] [address] Pharmacist Internal Medicine 12/16/22 documented as of this encounter
--- OUTSIDE RECORDS SUMMARY | 2024-10-13 13:02 | XMS_ITS ---
Author Organization [employer] Address [address] [facility] 7 [place] [address] Care Team Providers Care Lamp Wirer Name Role Phone Name, Shaka TURNER Primary Care Provider [phone] Alison Maurice PharmD Unavailable [phone] GROUP UNDERWRITER Status:Enrolled (Active) Start date:04/15/2022 Enrollment date:04/15/2022 Enrollment reason:Identified using pharmacy data Current support & services provided:Tier 4 (GROUP UNDERWRITER) Case Team Name Relationship Phone Merlyn Bennett RN Registered Nurse(Responsible Sta ff) Continued Care and Services Coordination
--- OUTSIDE RECORDS SUMMARY | 2024-10-13 13:02 | XMS_ITS | Encounter Summary ---
Author Organization [employer] Address 75 [facility] 7t [place] [address] Care Team Providers Care Panel Machine Operator Name Role Phone Name, Shaka TURNER Primary Care Provider [phone] Alison Maurice PharmD Unavailable [phone] Reason for Visit * Reason Comments Med Refill Encounter Details Date Type Department Care Team (Late st Contact Info) Description 04/22/2023 Refill [facility] [address] [place], [place] [phone] Name, MD Shaka [address] [place], [place] [phone] Allergic rhinitis, unspecified seasonality, unspecified trigger Social [...] 3:30 PM EDT Office Visit [facility] MEDICINE [address] [place] [address] NameShaka MD [address] [place] [address] 12/13/2024 11:00 AM EDT Office Visit [address] [address] documented as of this encounter Goals Goal [...] documented as of this encounter Care Teams Panel Machine Operator Relationship Specialty Start Date End Date Shaka Ashley MD [address] [place] [address] PCP - General Family Medicine 08/27/15 Puia, Alison, PharmD [address] [place] [address] Pharmacist Internal Medicine 12/16/22 documented as of this encounter
--- OUTSIDE RECORDS SUMMARY | 2024-10-13 13:02 | XMS_ITS | Encounter Summary ---
Author Organization [employer] Address 75 [facility] 7t [place] [address] Care Team Providers Care Roundhouse Supervisor Name Role Phone Name, Shaka TURNER Primary Care Provider [phone] Alison Maurice PharmD Unavailable [phone] Encounter Details Date Type Department Care Team (Latest Contact Info) Description 06/23/2018 Abstract [facility] CONVERSIONS Dental, Provider, DDS Social History Tobacco [...] 12/06/2024 3:30 PM EDT Office Visit [facility] MEDICINE [address] [place] [address] Name, MD Shaka [address] [place] [address] 12/13/2024 11:00 AM EDT Office Visit [facility] MEDICINE [address] [place] [address] documented as of this encounter Visit Diagnoses Not on filedocumented in this encounter Care Teams Roundhouse Supervisor Relationship Specialty Start Date End Date NameShaka MD [address] [place] [address] PCP - General Family Medicine 08/27/15 Alison Maurice, Renata [address] [place] [address] Pharmacist Internal Medicine 12/16/22 documented as of this encounter
--- OUTSIDE RECORDS SUMMARY | 2024-10-13 13:02 | XMS_ITS | Encounter Summary ---
Author Organization [employer] Address 75 [facility] 7t [place] [address] Care Team Providers Care Nurses' Association Counselor Name Role Phone Name, Shaka TURNER Primary Care Provider [phone] Alison Maurice PharmD Unavailable [phone] Reason for Visit * Reason Comments Med Refill Encounter Details Date Type Department Care Team (Late st Contact Info) Description 08/31/2023 Refill [facility] MEDICINE [address] [place], [place] [phone] Name, MD Shaka [address] [place], [place] [phone] Essential hypertension Social History Tobacco Use Types [...] Description 12/06/2024 3:30 PM EDT Office Visit [facility] MEDICINE [address] [place] [address] NameShaka MD [address] [place] [address] 12/13/2024 11:00 AM EDT Office Visit [address] [address] documented as of this encounter Goals Goal Patient Goal Type Associated Problems Recent Progress Patient-Stated? Author Record your blood pressure once per day Blood Pressure No PuiaVelAlison, PharmD Blood Pressure < 140/90 Blood Pressure 143/97( 025 10:39 AM EDT) No Puia Alison, PharmD documented as of this encounter Visit Diagnoses Diagnosis Essential hypertension Unspecified essential hypertension documented in this encounter Additional Health Concerns Assessment Noted Time PHQ-9 Depression Total Score: 0 08/12/19 24 11:03 AM EST documented as of this encounter Care Teams Nurses' Association Counselor Relationship Specialty Start Date End Date Shaka Ashley MD [address] [place] [address] PCP - General Family Medicine 08/27/15 Alison Maurice, DlD [address] [place] [address] Pharmacist Internal Medicine 12/16/22 documented as of this encounter
--- OUTSIDE RECORDS SUMMARY | 2024-10-13 13:02 | XMS_ITS | Encounter Summary ---
Author Organization [facility], Address [address] [place] [address] Phone Care Team Providers Care Pipe Fitter Soft Copper Name Role Phone Name, Shaka TURNER Primary Care Provider Encounter Details Date Type Department Care Team ([facility] Contact Info) Description 05/06/2022 Telephone [facility] [address] [place] [address] Shalini Rascon [address] [place] [phone] Social History Tobacco Use Types Packs/Day Years [...] Upcoming Encounters Date Type Department Care Team ([facility] Contact Info) Description 11/02/2024 10:45 AM EDT Office Visit [facility] [address] Zhen Sifuentes MD [address] [facility] [address] [place] [phone] documented as of this encounter Visit Diagnoses Not on filedocumented in this encounter Care Teams Pipe Fitter Soft Copper Relationship Specialty Start Date End Date Name, MD Shaka [address] [place] [address] PCP - General 07/02/20 documented as of this encounter
--- OUTSIDE RECORDS SUMMARY | 2024-10-13 13:02 | XMS_ITS | Encounter Summary ---
Author Organization [employer] Address [address] [facility] 7t [place] [address] Care Team Providers Care Manager Managed Care Name Role Phone Name, Shaka TURNER Primary Care Provider [phone] Alison Maurice PharmD Unavailable [phone] Encounter Details Date Type Department Care Team ([facility] st Contact Info) Description 06/25/2022 Telephone [facility] MEDICINE [address] [place], [place] [phone] Name, MD Shaka [address] [place] [address] Social History Tobacco Use Types Packs/Day Years [...] Description 12/06/2024 3:30 PM EDT Office Visit [address] [address] Name, [place] [address] 12/13/2024 11:00 AM EDT Office Visit [address] [address] documented as of this encounter Visit Diagnoses Not on filedocumented in this encounter Additional Health Concerns Assessment Noted Time PHQ-9 Depression Total Score: 10 06/05/ 022 10:24 AM EST documented as of this encounter Care Teams Manager Managed Care Relationship Specialty Start Date End Date Name, MD Shaka [address] [place] [address] PCP - General Family Medicine 08/27/15 Alison Maurice, DlD [address] [place] [address] Pharmacist Internal Medicine 12/16/22 documented as of this encounter
--- OUTSIDE RECORDS SUMMARY | 2024-10-13 13:02 | XMS_ITS | Encounter Summary ---
Author Organization [employer] Address [address] [facility] 7t [place] [address] Care Team Providers Care Towel Weaver Name Role Phone Name, Shaka TURNER Primary Care Provider [phone] Alison Maurice PharmD Unavailable [phone] Encounter Details Date Type Department Care Team (Latest Contact Info) Description 10/11/2024 Travel Social History Tobacco Use Types Packs/Day Years [...] Description 12/06/2024 3:30 PM EDT Office Visit [facility] MEDICINE [address] [place] [address] Name, MD Shaka [address] [place] [address] 12/13/2024 11:00 AM EDT Office Visit [address] [address] documented as of this encounter Goals Goal [...] documented as of this encounter Care Teams Towel Weaver Relationship Specialty Start Date End Date Shaka Ashley MD [address] [place] [address] PCP - General Family Medicine 08/27/15 Puia, Alison, PharmD [address] [place] [address] Pharmacist Internal Medicine 12/16/22 documented as of this encounter
--- OUTSIDE RECORDS SUMMARY | 2024-10-13 13:02 | XMS_ITS | Encounter Summary ---
Author Organization [facility] Address [facility] [address] [place] [address] Phone Care Team Providers Care Canvas Cutter Machine Name Role Phone Name, Shaka TURNER Primary Care Provider [phone] Encounter Details Date Type Department Care Team (Late st Contact Info) Description 12/03/2023 Office Communication [facility] [address] [place] [address] Zhen Sifuentes MD [address] [address] Social History Tobacco Use Types [...] Visit [facility] [address] [address] Zhen Sifuentes MD [address] [address] documented as of this encounter Visit Diagnoses Not on filedocumented in this encounter Care Teams Canvas Cutter Machine Relationship Specialty Start Date End Date Name, MD Shaka [address] [place] [address] PCP - General 07/02/20 documented as of this encounter
--- OUTSIDE RECORDS SUMMARY | 2024-10-13 13:02 | XMS_ITS | Encounter Summary ---
Author Organization [employer] Address 75 [facility] 7t [place] [address] Care Team Providers Care Supervisor Dog License Officer Name Role Phone Name, hSaka TURNER Primary Care Provider [phone] Alison Maurice PharmD Unavailable [phone] Encounter Details Date Type Department Care Team (Late st Contact Info) Description 07/07/2023 Orders Only [facility] MEDICINE [address] [place], [place] [phone] Name, MD Shaka [address] [place], [place] [phone] Social History Tobacco Use Types Packs/Day Years [...] Description 12/06/2024 3:30 PM EDT Office Visit [facility] [address] [place] [address] Name, MD Shaka [address] [place] [address] 12/13/2024 11:00 AM EDT Office Visit [facility] [address] [place] [address] documented as of this encounter Goals Goal [...] documented as of this encounter Care Teams Supervisor Dog License Officer Relationship Specialty Start Date End Date Name, MD Shaka [address] [place] [address] PCP - General Family Medicine 08/27/15 Puia, Alison, PharmD [address] [place] [address] Pharmacist Internal Medicine 12/16/22 documented as of this encounter
--- OUTSIDE RECORDS SUMMARY | 2024-10-13 13:02 | XMS_ITS | Encounter Summary ---
Author Organization [employer] Address 75 [facility] 7t [place] [address] Care Team Providers Care Court Collections Officer Name Role Phone Name, Shaka TURNER Primary Care Provider [phone] Alison Maurice PharmD Unavailable [phone] Encounter Details Date Type Department Care Team (Latest Contact Info) Description 10/13/2024 Travel Social History Tobacco Use Types Packs/Day [...] Description 12/06/2024 3:30 PM EDT Office Visit [facility] MEDICINE [address] [place] [address] Name, MD Shaka [address] [place] [address] 12/13/2024 11:00 AM EDT Office Visit [address] [address] documented as of this encounter Goals Goal [...] documented as of this encounter Care Teams Court Collections Officer Relationship Specialty Start Date End Date Shaka Ashley MD [address] [place] [address] PCP - General Family Medicine 08/27/15 Puia, Alison, PharmD [address] [place] [address] Pharmacist Internal Medicine 12/16/22 documented as of this encounter
--- OUTSIDE RECORDS SUMMARY | 2024-10-13 13:03 | XMS_ITS | Encounter Summary ---
Author Organization [employer] Address [address] [facility] 7 [place] [address] Care Team Providers Care Embroiderer Hand Name Role Phone Name, Shaka TURNER Primary Care Provider [phone] Alison Maurice PharmD Unavailable Encounter Details Date Type Department Care Team ([facility] Contact Info) Description 06/04/2022 Orders Only [facility] [address] [place], [place] [phone] Name, MD Shaka [address] [place], [place] [phone] Social History Tobacco Use Types Packs/Day Years [...] Upcoming Encounters Date Type Department Care Team ([facility] Contact Info) Description 12/06/2024 3:30 PM EDT Office Visit [facility] [place] [address] Name, [place] [address] 12/13/2024 11:00 AM EDT Office Visit [facility] [place] [address] documented as of this encounter Procedures Procedure [...] ANTIBODY (IGG) Routine 10/20/2022 2:44 PM EDT AGDGP-2-SPPRSPAYLBY QN Routine 2:44 PM EDT MITOCHONDRIAL ANTIBODY WITH REFLEX TO TITER Routine 10/20/2022 2:44 PM EDT DAVID SCREEN, IFA, W/REFL TITER AND PATTERN Routine 10/20/2022 2:44 PM EDT COMPREHENSIVE METABOLIC PANEL Routine 10/20/2022 2:44 PM EDT documented in this encounter Results * (ABNORMAL) Basic Metabolic Panel (01/19/2023 12:57 PM EDT) Sodium 141 135 - 145 mmol/L [facility] Potassium 4.2 3.3 - 5.1 mmol/L [facility] Chloride 106 96 - 108 mmol/L [facility] Carbon Dioxide 23 22 - 29 mmol/L [facility] Anion Gap 16 12 - 20 [facility] Urea Nitrogen (BUN) 14 9 - 16 mg/dL [facility] Creatinine, Serum 0.86 0.5 - 1.4 mg/dL [facility] Estimated Glomerular Filt Rate >60 [facility] Comment:NOTE: For -Am erican individuals, multiply the result by 1.210.Chronic Kidney Disease: Estimated GFR < 60 mL/min/1.60k0Sqbemz Kidney Disease: Estimated GFR < 15 mL/min/1.73m2 Glucose 167(H) 60 - 115 mg/dL [facility] Calcium 9.6 8.4 - 10.2 mg/dL [facility] 01/19/2023 12:5 7 PM EDT 01/19/2023 4:10 PM EDT us Shaka Ashley MD LAB BLOOD ORDERABLES Final Resul t [facility] [address] [place] [phone] * Liver Fibrosis, FibroTest-ActiTest Panel (10/27/2022 8:46 AM EDT) Liver Fibrosis Score 0.15 [facility] Liver Fibrosis Stage F0 [facility] Liver Fibrosis Interpretation SEE NOTE [facility] Comment:no fibrosisFibro Emily t Score (f) Metavir Score f>=0 and f<=0.21 : F0 (no fibrosis)f>0.21 and f<=0.27 : F0-F1 (no fibrosis)f>0.27 and f<=0.31 : F1 (minimal fibrosis)f>0.31 and f<=0.48 : F1-F2 (minimal fibrosis)f>0.48 and f<=0.58 : F2 (moderate fibrosis)f>0.58 and f<=0.72 : F3 (advanced fibrosis)f>0.72 and f<=0.74 : F3-F4 (advanced fibrosis)f>0.74 and f<=1.00 : F4 (severe fibrosis) Nec Inflam Act Score 0.13 [facility] Nec Inflam Act Grade A0 [facility] Nec Inflam Act Interpretation SEE NOTE [facility] Comment:no activityActiTest Score (a) Metavir Score a>=0 and a<=0.17 : A0 (no activity)a>0.17 and a<=0.29 : A0-A1 (no activity)a>0.29 and a<=0.36 : A1 (minimal activity)a>0.36 and a<=0.52 : A1-A2 (minimal activity)a>0.52 and a<=0.60 : A2 (significant activity)a>0.60 and a<=0.62 : A2-A3 (significant activity)a>0.62 and a<=1.00 : A3 (severe activity) VZK-Cvukr-2-Macroglo bulin 194 106 - 279 mg/dL [facility] FIB-Haptoglobin 109 43 - 212 mg/dL [facility] FIB-Apolipoprotein A1 144 94 - 176 mg/dL [facility] FIB-Total Bilirubin 0.3 0.2 - 1.2 mg/dL [facility] FIB-GGT 24 3 - 95 U/L [facility] FIB-ALT 32 9 - 46 U/L [facility] Reference ID [id number] [facility] Footnote SEE NOTE [facility] Comment: The reliability of results is [...] and C.The performance characteristics have been determined by[facility]. Ithas not been cleared or approved by the U.S. Food and DrugAdministration. Performance characteristics refer to theanalytical performance of the test.[employer], [employer], the associated logo, [employer] and all associated [employer] jay are theregistered trademarks of [employer]. All third partymarks - (R) and (TM) - are the property of their respectiveowners. (C) [id number] [employer]. Allrights reserved.THIS TEST WAS PERFORMED AT:[facility] [facility] [id number] [facility], [place] ??[id number] STOCKTON MD,PHD,SATHISH 10/27/2022 8:46 AM EDT 10/27/2022 8:46 AM EDT [facility] External Provider LAB BLO OD ORDERABLES Final Result [facility] [address] [place] [phone] * Hepatitis C Viral RNA, Quantitative, Real-Time PCR (10/27/2022 8:46 AM EDT) Hepatitis C Viral Load <15 NOT DETECTED NOT DETECTED IU/mL [facility] HCV Log PCR <1.18 NOT DETECTED NOT DETECTED Log IU/mL [facility] Comment:This test was perfor med using Real-Time Polymerase ChainReaction.Reportable Range: 15 IU/mL to 100,000,000 IU/mL(1.18 Log IU/mL to 8.00 Log IU/mL).The analytical performance characteristics of thisassay have been determined by [employer].The modifications have not been cleared or approved bythe FDA. This assay has been validated pursuant to theCLIA regulations and is used for clinical purposes.For more information on this test, go to:http://education.CrowdScannerr/faq/NCU25t5(This link is being provided for informational/educational purposes only.)THIS TEST WAS PERFORMED AT:[facility] [place] [id number] LUIS RAINES MD 10/27/2022 8:46 AM EDT 10/27/2022 8:46 AM EDT [facility] External Provider LAB BLO OD ORDERABLES Final Result [facility] [address] [place] [phone] * HIV Ab/Ag ([facility]) (10/27/2022 8:46 AM EDT) Pathologist [facility] HIV AB/AG Nonreactive Nonreactive [facility] Comment:HIV-1 p24 Ag and/or HIV-1/HIV-2 Ab not detected.A test result that is nonreactive does not exclude thepossibility of exposure to or infection with HIV-1 and/orHIV-2. Nonreactive results in this assay for individualswith prior exposure to HIV-1 and/or HIV-2 may be due toantigen and antibody levels that are below the limit ofdetection of this assay.The [employer] HIV Ag/Ab Combo assay result andsupplemental assay results should be interpreted inconjunction with the patient's clinical presentation,history and other laboratory results. If the results areinconsistent with clinical evidence, additional testing issuggested to confirm the result. 10/27/2022 8:46 AM EDT 10/27/2022 8:46 AM EDT [facility] External Provider LAB BLO OD ORDERABLES Final Result Performing Organization Address [facility]/ZIP Co de Phone Number [facility] [address] [place] [address] [phone] * Actin (Smooth Muscle) Antibody (IgG) (10/20/2022 2:44 PM EDT) Smooth Muscle Antibody <20 <20 U [facility] Comment:Reference Range: <20 U: Negative>or=20 U: [...] with AIH type 1.THIS TEST WAS PERFORMED AT:[facility] [facility]ITALEZUTTIXDE[address] [place] [address]QGQZVBOSCOTTIE PELLETIER MD,PHD 10/20/2022 2:44 PM EDT 10/20/2022 2:44 PM EDT [facility] External Provider LAB BLO OD ORDERABLES Final Result Performing Organization Address [facility] Co de Phone Number [facility] [address] [place] [phone] * Mitochondrial Antibody with Reflex to Titer (10/20/2022 2:44 PM EDT) Mitochondrial Antibodies NEGATIVE NEGATIVE [facility] Comment:THIS TEST WAS PERFOR MED AT:[facility] [employer] [address] [id number] LUIS RAINES MD Mitochondrial Ab Titer TNP [facility] 10/20/2022 2:44 PM EDT 10/20/2022 2:44 PM EDT [facility] External Provider LAB BLO OD ORDERABLES Final Result Performing Organization Address [facility]/ZIP Co de Phone Number [facility] [address] [place] [address] [phone] * DAVID SCR, IFA W/Refl Titer and Pattern (10/20/2022 2:44 PM EDT) Pathologist [facility] Anti Nuclear Antibody Screen NEGATIVE NEGATIVE [facility] Comment:DAVID IFA is a first l [...] clinicallysuspected inflammatory myopathies.AC-0: NegativeInternational Consensus on DAVID Patterns(https://doi.org/10.1515/quqm-8662-8858)For additional information, please refer tohttp://education.Passlogix/faq/CHL683(This link is being provided for informational/educational purposes only.)THIS TEST WAS PERFORMED AT:[facility] [place] [id number] LUIS RAINES MD DAVID Titer [facility] DAVID Pattern [facility] DAVID TITER 2 (REF LAB) [facility] DAVID Pattern 2 [facility] DAVID TITER 3 [facility] DAVID PATTERN 3 [facility] 10/20/2022 2:44 PM EDT 10/20/2022 2:44 PM EDT [facility] External Provider LAB BLO OD ORDERABLES Final Result Performing Organization Address [facility]/ZIP Co de Phone Number [facility] [address] [place] [address] [phone] * Ioodl-6-Xizbzvomcxb, Quantitative (10/20/2022 2:44 PM EDT) Duqrw-2-Fswguuyl sin QN 140 83 - 199 mg/dL [facility] Comment:THIS TEST WAS PERFOR MED AT:[facility] [place] [id number] LUIS RAINES MD 10/20/2022 2:44 PM EDT 10/20/2022 2:44 PM EDT [facility] External Provider LAB BLO OD ORDERABLES Final Result [facility] [address] [place] [phone] [phone] * Protein Electrophoresis and [place]/Lambda Light Chains (10/20/2022 2:44 PM EDT) Prot Elec - Total Protein 7.5 6.1 - 8.1 g/dL [facility] Prot Elec - Albumin 4.5 3.8 - 4.8 g/dL [facility] Prot Elec - Alpha1 0.3 0.2 - 0.3 g/dL [facility] Prot Elec - Alpha2 0.8 0.5 - 0.9 g/dL [facility] Prot Elec - Beta 1 0.5 0.4 - 0.6 g/dL [facility] Prot Elec - Beta 2 0.4 0.2 - 0.5 g/dL [facility] Prot Elec - Gamma 1.2 0.8 - 1.7 g/dL [facility] PES - Abn Protein Band 1 TNP [facility] PES-Abn Protein Band 2 TNP [facility] PES-Abn Protein Band 3 TNP [facility] Prot Elec - Interpretation SEE NOTE [facility] Comment:Normal Electrophoret ic PatternTHIS TEST WAS PERFORMED AT:[facility] [place] [id number] LUIS RAINES MD 10/20/2022 2:44 PM EDT 10/20/2022 2:44 PM EDT [facility] External Provider LAB BLO OD ORDERABLES Final Result [facility] [address] [place] [address] [phone] * (ABNORMAL) Hepatitis Panel, General (10/20/2022 2:44 PM EDT) Hepatitis A IgM Nonreactive Nonreactive [facility] Comment:IgM antibodies to SIMON V not detected; does not exclude earlyacute or recovered HAV infection. ~Hepatitis B Surface Antibody REACTIVE Nonreactive [facility] Comment:REACTIVE: > 11.99 mI U/mL Hepatitis B Core Antibody Nonreactive Nonreactive [facility] Hepatitis C Antibody Reactive(A) Nonreactive [facility] Comment:Presumptive evidence of antibodies to HCV. Hepatitis B Surface Ag Negative Negative [facility] 10/20/2022 2:44 PM EDT 10/20/2022 2:44 PM EDT [facility] External Provider LAB BLO OD ORDERABLES Final Result [facility] [address] [place] [address] [phone] * (ABNORMAL) Comprehensive Metabolic Panel (10/20/2022 2:44 PM EDT) Sodium 142 135 - 145 mmol/L [facility] Potassium 4.6 3.3 - 5.1 mmol/L [facility] Chloride 108 96 - 108 mmol/L [facility] Carbon Dioxide 27 22 - 29 mmol/L [facility] Anion Gap 12 12 - 20 [facility] Urea Nitrogen (BUN) 14 9 - 16 mg/dL [facility] Creatinine, Serum 0.82 0.5 - 1.4 mg/dL [facility] Estimated Glomerular Filt Rate >60 [facility] Comment:NOTE: For -Am erican individuals, multiply the result by 1.210.Chronic Kidney Disease: Estimated GFR < 60 mL/min/1.87t0Kgsekd Kidney Disease: Estimated GFR < 15 mL/min/1.73m2 Glucose 122(H) 60 - 115 mg/dL [facility] Calcium 9.5 8.4 - 10.2 mg/dL [facility] Bilirubin, Total 0.5 0.0 - 1.0 mg/dL [facility] Aspartate Amino Transferase 26 5 - 37 U/L [facility] Alanine Aminotransferase 43(H) 0 - 40 U/L [facility] Total Protein 7.4 6.5 - 8.0 g/dL [facility] Albumin Level 4.5 3.5 - 5.0 g/dL [facility] Alkaline Phosphatase 107 39 - 117 U/L [facility] 10/20/2022 2:4 4 PM EDT 10/20/2022 2:44 PM EDT us [facility] External Provider LAB BLO OD ORDERABLES Final Result [facility] [address] [place] [phone] * (ABNORMAL) CBC auto differential (10/20/2022 2:44 PM EDT) White Blood Count 8.0 4.8 - 10.8 X10*3/uL [facility] Red Blood Count 5.76 4.60 - 5.80 X10*6/uL [facility] Hemoglobin 15.2 14.0 - 18.0 g/dl [facility] Hematocrit 46.9 42.0 - 52.0 % [facility] Mean Corpuscular Volume 81.4 80.0 - 98.0 fL [facility] Mean Corpuscular Hemoglobin 26.4(L) 27.0 - 33.0 pg [facility] Mean Corpuscular HGB Conc 32.4 31.0 - 36.0 g/dl [facility] Red Cell Distribution Width 12.9 11.0 - 16.0 % [facility] Platelet Count 213 160 - 400 X10*3/uL [facility] Mean Platelet Volume 12.1 9.4 - 12.4 fL [facility] Neutrophils Percent Auto 69.3 45 - 73 % [facility] Imm Gran Pct Auto 0.4 0.0 - 0.4 % [facility] Lymphocytes Percent Auto 18.9(L) 20 - 40 % [facility] Monocytes Percent Auto 9.5 2 - 11 % [facility] Eosinophils Percent Auto 1.5 0 - 4 % [facility] Basophils Percent Auto 0.4 0 - 2 % [facility] NRBC Pct Auto 0.0 0.0 - 0.2 /100WBC [facility] Neutrophils Absolute Auto 5.6 2.0 - 8.3 x10*3/uL [facility] Imm Gran Abs Auto 0.03 0.00 - 0.03 X10*3/uL [facility] Lymphocytes Absolute Auto 1.5 1.2 - 4.9 X10*3/uL [facility] Monocytes Absolute Auto 0.8 0.1 - 1.2 X10*3/uL [facility] Eosinophils Absolute Auto 0.1 0.0 - 0.4 X10*3/uL [facility] Basophils Absolute Auto 0.0 0.0 - 0.2 X10*3/uL [facility] NRBC Abs Auto 0.000 0.0 - 0.012 X10*3/uL [facility] 10/20/2022 2:44 PM EDT 10/20/2022 2:44 PM EDT us [facility] External Provider LAB BLO OD ORDERABLES Final Result [facility] [address] [place] [address] [phone] documented in this encounter Visit Diagnoses Not on filedocumented in this encounter Care Teams Embroiderer Hand Relationship Specialty Start Date End Date Name, MD Shaka [address] [place] [phone] PCP - General Family Medicine 08/27/15 Alison Maurice, DlD [address] [place] [phone] Pharmacist Internal Medicine 12/16/22 documented as of this encounter
--- OUTSIDE RECORDS SUMMARY | 2024-10-13 13:03 | XMS_ITS | Clinical Summary ---
Author Organization [facility] ity Address [address] [place] [address] Care Team Providers Care Cardiovascular Sonographer Name Role Phone Name, Shaka TURNER Primary Care Provider [phone] Immunizations Name Administration Dates Next Due Pfizer SARS-CoV-2 COVID-19, mRNA, LNP-S, preservative free 01/17/2021 Surgical History Surgery Date Site/Laterality Comments OTHER SURGICAL HISTORY PROCEDURE: ---- OTHER ----; COMMENT: fistula r arm OTHER SURGICAL HISTORY PROCEDURE: WA ARTHRP ACETBLR/PROX FEM PROSTC AGRFT/ALGRFT Medical History [...] Vaccine ( season) 2024 01/17/2021 Influenza Vaccine (Season Ended) 2025 03/06/2015, 03/11/2013, 02/27/2012, Additional history exists HIB Vaccines [...] age to complete this topic Meningococcal B Vaccine Aged Out No l onger eligible based on patient's age to complete this topic RSV Immunization Patients Under 20 months Aged Out No longer eligible based on patient's age to complete this topic Varicella Vaccines Aged Out No longer eligible based on patient's age to complete this topic Care Teams Cardiovascular Sonographer Relationship Specialty Start Date End Date Name, MD Shaka [address] [place], [place] PCP - General Internal Medicine 03/10/06
--- OUTSIDE RECORDS SUMMARY | 2024-10-13 13:03 | XMS_ITS | Encounter Summary ---
Author Organization [employer] Address [address] [facility] 7t [place] [address] Care Team Providers Care Quality Management Nurse Name Role Phone Name, Shaka TURNER Primary Care Provider [phone] Alison Maurice PharmD Unavailable [phone] Encounter Details Date Type Department Care Team (Latest Contact Info) Description 01/18/2021 Abstract [facility] CONVERSIONS Dental, Provider, DDS Social History Tobacco [...] 12/06/2024 3:30 PM EDT Office Visit [facility] MEDICINE [address] [place] [phone] NameShaka MD [address] [place] [address] 12/13/2024 11:00 AM EDT Office Visit [facility] MEDICINE [address] [place] [address] documented as of this encounter Visit Diagnoses Not on filedocumented in this encounter Care Teams Quality Management Nurse Relationship Specialty Start Date End Date NameShaka MD [address] [place] [phone] PCP - General Family Medicine 08/27/15 Alison Maurice PharmD [address] [place] [address] Pharmacist Internal Medicine 12/16/22 documented as of this encounter
--- OUTSIDE RECORDS SUMMARY | 2024-10-13 13:03 | XMS_ITS | Encounter Summary ---
Author Organization [employer] Address [address] [facility] 7t [place] [address] Care Team Providers Care Application Manager Name Role Phone Name, Shaka TURNER Primary Care Provider [phone] Alison Maurice PharmD Unavailable [phone] Encounter Details Date Type Department Care Team (Latest Contact Info) Description 06/19/2020 Abstract [facility] CONVERSIONS Dental, Provider, DDS Social [...] Description 12/06/2024 3:30 PM EDT Office Visit [facility] [address] [place] [phone] Name, MD Shaka [address] [place] [phone] 12/13/2024 11:00 AM EDT Office Visit [facility] [address] [place] [address] documented as of this encounter Visit Diagnoses Not on filedocumented in this encounter Care Teams Application Manager Relationship Specialty Start Date End Date Name, MD Shaka [address] [place] [phone] PCP - General Family Medicine 08/27/15 Alison Maurice, Renata [address] [place] [address] Pharmacist Internal Medicine 12/16/22 documented as of this encounter
--- OUTSIDE RECORDS SUMMARY | 2024-10-13 13:03 | XMS_ITS | Encounter Summary ---
Author Organization [employer] Address [address] [facility] [address]t [place] [address] Care Team Providers Care Fretted Instrument Inspector Name Role Phone Name, Shaka TURNER Primary Care Provider [phone] Alison Maurice PharmD Unavailable [phone] Reason for Visit * Reason Comments Med Refill Encounter Details Date Type Department Care Team (Late st Contact Info) Description 10/03/2022 Refill [facility] MEDICINE [address] [place], [place] [phone] Name, MD Shaak [address] [place], [place] [phone] Social History Tobacco Use Types Packs/Day Years [...] Description 12/06/2024 3:30 PM EDT Office Visit [facility] [place] [address] Name, MD Shaka [facility] [place] [address] 12/13/2024 11:00 AM EDT Office Visit [facility] [place] [address] documented as of this encounter Visit Diagnoses Not on filedocumented in this encounter Additional Health Concerns Assessment Noted Time PHQ-9 Depression Total Score: 10 06/05/ 022 10:24 AM EST documented as of this encounter Care Teams Fretted Instrument Inspector Relationship Specialty Start Date End Date Name, MD Shaka [facility] [place] [address] PCP - General Family Medicine 08/27/15 Alison Maurice, DlD [facility] [place] [address] Pharmacist Internal Medicine 12/16/22 documented as of this encounter
--- OUTSIDE RECORDS SUMMARY | 2024-10-13 13:03 | XMS_ITS | Encounter Summary ---
Author Organization [employer] Address [address] [facility] 7t [place] [address] Care Team Providers Care Analytics Senior Manager Name Role Phone NameShaka MD Primary Care Provider [phone] Alison Maurice PharmD Unavailable Encounter Details Date Type Department Care Team (Late Contact Info) Description 11/20/2022 Abstract [facility] MEDICINE [address] [place] [address] Shaka Ashley MD [address] [place] [address] Social History Tobacco Use Types Packs/Day Years [...] 12/06/2024 3:30 PM EDT Office Visit [facility] MEDICINE [address] [place] [phone] Shaka Ashley MD [address] [facility] [place] [address] 12/13/2024 11:00 AM EDT Office Visit [facility] [address] documented as of this encounter Visit Diagnoses Not on filedocumented in this encounter Additional Health Concerns Assessment Noted Time PHQ-9 Depression Total Score: 10 022 10:24 AM EST documented as of this encounter Care Teams Analytics Senior Manager Relationship Specialty Start Date End Date Name, MD Shaka [facility] [place] [address] PCP - General Family Medicine 08/27/15 Alison Maurice, DlD [address] [place] [phone] Pharmacist Internal Medicine 12/16/22 documented as of this encounter
[2024-10-13 13:10] LABS: MANUAL DIFF FLAG NO
[2024-10-13 13:28] LABS: C Reactive Protein 0.43 mg/dL (< or = 0.50); Uric Acid 5.7 mg/dL (3.4-7.0)
[2024-10-13 13:41] LABS: Basophils Percent Auto 0.5 % (0-2); Eosinophils Absolute Auto 0.1 X10*3/uL (0.0-0.4); Eosinophils Percent Auto 1.2 % (0-4); Hematocrit 37.9 % (42.0-52.0); Imm Gran Abs Auto 0.02 X10*3/uL (0.00-0.03); Imm Gran Pct Auto 0.3 % (0.0-0.4); Lymphocytes Absolute Auto 1.1 X10*3/uL (1.2-4.9); Lymphocytes Percent Auto 18.7 % (20-40); Mean Corpuscular HGB Conc 31.7 g/dl (31.0-36.0); Mean Corpuscular Hemoglobin 26.5 pg (27.0-33.0); Mean Corpuscular Volume 83.8 fL (80.0-98.0); Mean Platelet Volume 13.1 fL (9.4-12.4); Monocytes Absolute Auto 0.5 X10*3/uL (0.1-1.2); Monocytes Percent Auto 8.3 % (2-11); Neutrophils Absolute Auto 4.3 x10*3/uL (2.0-8.3); Platelet Count 162 X10*3/uL (160-400); Red Blood Count 4.52 X10*6/uL (4.60-5.80); Red Cell Distribution Width 12.9 % (11.0-16.0)
[2024-10-13 21:14] LABS: Erythrocyte Sedimentation Rate 14 MM/HR (0-15)
== END 2024-10-13 11:04 | disposition home or self-care (01) ==
LOC: HO.HHCL 11:03
PROVIDERS: Visit Provider Family Medicine
DX: M25.522 Pain in left elbow (principal); Z86.79 Personal history of other diseases of the circulatory system
CPT/HCPCS: 36415; 73080; 84550; 85025; 85652; 86140

== ENCOUNTER → 2024-10-13 11:45 | Outpatient (BNV) | payer OTHER, SELFPAY | PROVIDERS: Visit Provider Nuclear Medicine | DX: M25.522 Pain in left elbow (principal) | CPT/HCPCS: 73080 ==

== ENCOUNTER 2024-11-29 16:07 | Outpatient (REF) | payer OTHER, SELFPAY ==
--- OUTSIDE RECORDS SUMMARY | 2024-11-29 18:53 | XMS_ITS | Encounter Summary ---
Author Organization [employer] Address [address] [facility] [place] [address] Care Team Providers Care Sales Contracts Analyst Name Role Phone Name, Shaka TURNER Primary Care Provider [phone] Alison Maurice PharmD Unavailable [phone] Encounter Details Date Type Department Care Team (Latest Contact Info) Description 11/29/2024 Travel Social History Tobacco Use Types Packs/Day [...] Description 12/06/2024 3:30 PM EDT Office Visit [facility] [address] [place] [address] Name, MD Shaka [address] [place] [address] 02/28/2025 9:45 AM EDT Office Visit [address] [address] documented as of this encounter Goals Goal [...] documented as of this encounter Care Teams Sales Contracts Analyst Relationship Specialty Start Date End Date Shaka Ashley MD [address] [place] [address] PCP - General Family Medicine 08/27/15 Puia, Alison, PharmD [address] [place] [address], [place] [address] Pharmacist Internal Medicine 12/16/22 documented as of this encounter
== END 2024-11-29 16:08 | disposition home or self-care (01) ==
LOC: HO.HHCLNP 16:07
PROVIDERS: Visit Provider Registered Nurse
DX: Z79.891 Long term (current) use of opiate analgesic (principal)
CPT/HCPCS: 80307

== ENCOUNTER 2024-12-05 10:51 | Outpatient (AMB) | payer OTHER, SELFPAY ==
--- NOTE | 2024-12-05 10:55 | A.OFFVIS_ITS ---
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 He states that he has had chest pains for quite some time. Goes back many months. Can happen any time. With or without exertion. Per PCP note, it has happened in the setting of poorly controlled blood pressures. Then, EKG as well as biomarkers were unremarkable. Then it seems blood pressure medication for further adjusted and Labetalol added. No known coronary disease or myocardial infarction or card iomyopathy. Also, history of kidney transplant in 2019. 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 [facility] Medical History (Updated 12/05/24 @ 11:45 by Austin Tinsley MD) Knee effusion, right A-V fistula Chronic back pain Hx of gout Allergic rhinitis ESRD (end stage renal disease) Hyperlipidemia Depression Hx of anxiety disorder FLORENTINO (obstructive sleep apnea) CKD (chronic kidney disease) Hypertension GERD (gastroesophageal reflux disease) Hypothyroidism Asthma Avascular necrosis of bones of both hips Avascular necrosis Surgical History (Updated 12/05/24 @ 11:45 by Austin Tinsley MD) S/P hip replacement Kidney replaced by transplant Family History Mother No problems noted. Father No problems noted. Paternal Grandmother Cancer Social History (Updated 12/05/24 @ 11:05 by Mia Rangel) Are you a primary career specialist to a significant other at home: No Do you presently have visiting nurse or other home services: No (home health aide) Alcohol intake: never Comment: patient sleeping Patient Tobacco Use Status: Former Tobacco user Second Hand Smoke Exposure: No service: No Current occupational status: disabled Current occupation: leftHanded Review of Systems Const Denies weakness ENT Denies dizziness Card Denies chest pain, Reports chest pain with activity, Denies syncope, Denies rapid heart rate, Denies pedal edema, Denies edema, Denies leg edema, Denies lightheadedness, Reports palpitations, Denies dyspnea, Denies dyspnea on exertion and Denies orthopnea Resp Denies cough, Denies dyspnea and Denies dyspnea on exertion GI Denies hematochezia and Denies change in stool character Musc Denies abnormal gait, Denies muscle cramps, Denies muscle weakness, Denies numbness, Denies radiating pain into limb and Denies tingling Neuro Denies abnormal gait, Denies dizziness, Denies syncope, Denies numbness, Denies tingling and Denies weakness Endo Reports palpitations Physical Exam Vital Signs: Last Vital Signs Pulse 60 12/05/24 11:00 BP 138/78 12/05/24 11:00 BMI result Body Mass Index 32.1 Const General: comfortable and no acute distress Orientation/consciousness: patient oriented x3 HEENT Other: Unremarkable Head: Yes normal to inspection Neck Neck: Yes normal visual inspection Chest Chest palpation & inspection: normal inspection of the chest Resp Auscultation: clear to auscultation bilaterally Cardio Palpation: normal PMI Heart sounds: S1 normal heart sound present, S2 normal heart sound present, no g allops, no murmurs and no rubs GI Palpation (GI): Soft to palpation Back/Spine/Pelvis Other: unremarkable Skin General skin exam: no rashes or lesions noted Neuro General: patient oriented x3 Extrem General: Yes normal to inspection Psych Mental Status: mental status grossly normal Office Procedures EKG Details: EKG with sinus rhythm at 60/Min; rightward axis; no ischemic changes; [place] [id number], Complete Assessment & Plan Assessment & Plan (1) Precordial chest pain: Code(s): R07.2 - Precordial pain Category: Medical (2) Hypertension: Code(s): I10 - Essential (primary) hypertension Category: Medical (3) Kidney replaced by transplant: Comment: 10/31/2019 Code(s): Z94.0 - Kidney transplant status Category: Surgical Plan Atypical chest pain but associated with multiple cardiovascular risk factors. We will plan on comprehensive workup including echocardiogram and stress test for further evaluation. Discussed with the patient about this using medical laboratory technician and he agrees. Further plan pending results of the above. Discussion Notes I discussed with the patient the possibility of coronary artery disease co nsidering the history and symptoms. We reviewed the need for an echocardiogram and cardiac stress test to stratify risk and plan treatment. The patient was informed about benefits, risks, and procedural details. Blood pressure control is vital. Follow-up after testing was agreed upon, ensuring continuity of care. The patient is aware of the potential for further interventions based on diagnostic outcomes, emphasizing shared decision-making. Patient was informed and verbally consented to the use of an ambient scribe for clinic note documentation during this visit. Orders: Orders CA echo transthoracic complete Today R07.2 - Precordial pain CA stress test Today R07.2 - Precordial pain NM cardiolite stress test Today R07.2 - Precordial pain Patient Instructions: - Undergo an echocardiogram as scheduled. - Complete the cardiac stress test. - Continue with current medications as prescribed. - Monitor and report any changes in symptoms. - Follow up for results and ongoing care. - Seek immediate care if chest pain worsens or new symptoms arise. Coding Level of Care Code New Pt Level 4 (02267) Complex EM visit Add On G2211 Diagnoses Precordial chest pain R07.2 Hypertension I10 Kidney replaced by transplant Z94.0 CPT Codes EKG - CPT: 89118-[id number], Complete ([id number])
[2024-12-05 11:00] VITALS: BP 138/78; PULSE 60; BMI 32.1
== END 2024-12-05 11:25 | disposition home or self-care (01) ==
LOC: HO.HCS 10:51
PROVIDERS: PCP Internal Medicine Geriatric Medicine; Visit Provider Internal Medicine
DX: R07.2 Precordial pain (principal); I10 Essential (primary) hypertension; Z94.0 Kidney transplant status
CPT/HCPCS: 93010; 99204; G2211

== ENCOUNTER → 2024-12-05 10:51 | Outpatient (BNVA) | payer OTHER, SELFPAY | PROVIDERS: PCP Internal Medicine Geriatric Medicine; Visit Provider Internal Medicine | DX: M25.522 Pain in left elbow (principal); M77.12 Lateral epicondylitis, left elbow; R07.2 Precordial pain; I10 Essential (primary) hypertension; Z94.0 Kidney transplant status | CPT/HCPCS: 93005; 99202; 99212 ==

== ENCOUNTER 2024-12-05 14:06 | Outpatient (AMB) | payer OTHER, SELFPAY ==
--- NOTE | 2024-12-05 14:44 | A.OFFVIS_ITS ---
Vital Signs 12/05/24 14:48 Height 5 ft 7 in Weight 205 lb BMI 32.1 Handedness Left Intake Visit Reasons: New prob-Lt elbow pain Intake Note: William is a 48 year old left hand dominant male who presents today for a new problem visit with complaints of left elbow pain. No hx of injury. Patient was seen by his PCP who ordered x-rays and referred patient to orthopedics. Patient reports ongoing pain for about 2 months. He states that he lifted a heavy object with his arm extended which he got a sharp pain in his elbow. Ring Cutter Lathe Operator Services: Ring Cutter Lathe Operator Present ([employer] ([id number])) Allergies ibuprofen [From MOTRIN] Allergy (Unknown, Verified 12/05/24 14:47) PT STATES HE CAN'T TAKE BECAUSE OF MY KIDNEY grass pollen Allergy (Verified 12/05/24 14:47) Itching Medication List - Last Reconciled 12/05/24 by Caleb Calvert PA-C acetaminophen 650 mg (2 x 325 mg) PO Q6H PRN albuterol sulfate 2.5 mg inhalation NEEDED PRN ampicillin 0 caps PO aspirin 81 mg PO DAILY 30 days atorvastatin 20 mg PO DAILY azelastine 0.05% 0 drps ophthalmic (eye) calcitriol mcg PO cane As directed ciclopirox 0.77% appl topical BID doxazosin 4 mg PO DAILY ergocalciferol (vitamin D2) 1,250 mcg PO QWEEK fluticasone propionate 50 mcg/actuation 1 spray intranasal DAILY levothyroxine 150 mcg PO Thu to Thursday, skip Thursday and Thursday; loratadine 10 mg PO DAILY losartan 50 mg PO BID magnesium oxide 400 mg PO DAILY montelukast 10 mg PO BEDTIME mycophenolate sodium (Myfortic) 540 mg PO BID omeprazole 40 mg PO DAILY oxycodone 1 tab PO TID PRN [Raised toilet seat As directed] tacrolimus XR (Envarsus XR) 4 mg PO QAM tacrolimus XR (Envarsus XR) 8 mg PO DAILY walker Folding Front wheeled walker HPI HPI New prob-Lt elbow pain: Details: 49 yo male presents to the office today for right elbow pain x2 months. He states the pain is along the lateral epicondyle and is worse with grasping or lifting objects. He denies n/t. He denies treatment to date. COUNT INCLUDES THE [facility] Medical History (Updated 12/05/24 @ 15:02 by Caleb Calvert PA-C) Knee effusion, right A-V fistula Chronic back pain Hx of gout Allergic rhinitis ESRD (end stage renal disease) Hyperlipidemia Depression Hx of anxiety disorder FLORENTINO (obstructive sleep apnea) CKD (chronic kidney disease) Hypertension GERD (gastroesophageal reflux disease) Hypothyroidism Asthma Avascular necrosis of bones of both hips Avascular necrosis Surgical History (Updated 12/05/24 @ 11:45 by Austin Tinsley MD) S/P hip replacement Kidney replaced by transplant Family History Mother No problems noted. Father No problems noted. Paternal Grandmother Cancer Social History Are you a primary family day care worker to a significant other at home: No Do you presently have visiting nurse or other home services: No (home health aide) Alcohol intake: never Comment: patient sleeping Patient Tobacco Use Status: Former Tobacco user Second Hand Smoke Exposure: No service: No Current occupational status: disabled Current occupation: leftHanded Review of Systems Const All systems reviewed & are unremarkable except as noted in HPI and below Physical Exam Vital Signs: BMI result Body Mass Index 32.1 Const General: cooperative and no acute distress Orientation/consciousness: patient oriented x3 Resp Effort & Inspection: normal respiratory effort and able to speak in complete sentences Cardio Peripheral pulses: Peripheral pulses 2+ throughout Neuro General: patient oriented x3 Extrem Other: Left Elbow skin intact. No erythema or swelling. ROM full without pain. Tenderness over the lateral epicondyle and pain with resisted wrist extension. NVI. Assessment & Plan Assessment & Plan (1) Left lateral epicondylitis: Code(s): M77.12 - Lateral epicondylitis, left elbow Category: Medical Plan: We discussed options which include PT, NSAIDs and injections. He will defer on the injection today and proceed with PT and NSAIDs. He was also given an armband in the office today If symptoms persist he will contact me for an injection, otherwise, prn. Orders: Orders OT Evaluation and Treatment Today M77.12 - Lateral epicondylitis, left elbow Coding Level of Care Code Est Pt Level 3 (04446) Complex EM visit Add On G2211 Diagnoses Left lateral epicondylitis M77.12
[2024-12-05 14:48] VITALS: BMI 32.1
== END 2024-12-05 15:13 | disposition home or self-care (01) ==
LOC: HO.HOS 14:07
PROVIDERS: Visit Provider Physician Assistant
DX: M77.12 Lateral epicondylitis, left elbow (principal)
CPT/HCPCS: 99213; G2211

== ENCOUNTER 2024-12-06 15:48 | Outpatient (REF) | payer OTHER, SELFPAY ==
[2024-12-06 18:19] LABS: TSH reflex Free T4 1.23 uIU/mL (0.32-4.0)
== END 2024-12-06 15:49 | disposition home or self-care (01) ==
LOC: HO.HHCL 15:48
PROVIDERS: PCP Internal Medicine Geriatric Medicine; Visit Provider Internal Medicine Geriatric Medicine
DX: E03.9 Hypothyroidism, unspecified (principal)
CPT/HCPCS: 36415; 84443

== ENCOUNTER → 2025-01-17 11:09 | Outpatient (REF) | payer OTHER, SELFPAY ==
--- NOTE | 2025-01-17 11:11 | CA_ITS ---
Transthoracic Echocardiogram Patient (Last, First, Middle): William Zavala, Gender: Male Date of : 1975 Age: 49 Procedure Date: 01/17/2025 Procedure Type: Transthoracic Echocardiogram Location: OP Height: 177.8 cm Weight: 89.36 kg BSA: 2.07 m2 Heart Rate: 49 bpm BP: 130 / 81 mmHg Music Arranger: CP/BAUTISTA Referring MD: Austin Tinsley MD Conversion Developer: Sven Feliciano MD Symptoms: R07.2 - Precordial pain Study Quality: Adequate ECG Rhythm: Sinus Conclusions: - 1. Normal LV ejection fraction of 55-60% with mild LVH 2. Cardiac valvular Dopplers within normal limits 3. Normal RV systolic pressure 4. No gross pericardial effusion Findings Left Ventricle Normal left ventricular size and systolic function. There is mildly increased left ventricular wall thickness. The visually estimated ejection fraction is between 55-60%. Spectral Doppler is indicative of a normal filling pattern. Right Ventricle Normal right ventricular cavity size and systolic function. Atria The left atrium is likely dilated. There is no evidence of interatrial shunt. The right atrium is normal in size. Aortic Valve Normal aortic valve structure and function. There is no aortic valve stenosis. There is no aortic valve regurgitation. Mitral Valve Normal mitral valve structure and function. There is trace mitral valve regurgitation. There is no mitral valve stenosis. Pulmonic Valve The pulmonic valve is likely normal. Tricuspid Valve Likely normal tricuspid valve structure and function. There is trace tricuspid valve regurgitation. The right ventricular systolic pressure is normal. The right ventricular systolic pressure is 21 mmHg. Normal right atrial pressure. There is no evidence of pulmonary hypertension. Great Vessels All visible segments of the aorta are normal in size. The pulmonary artery was not well visualized. There is no dilatation of the ascending aorta measuring 3.30 cm. Venous The inferior vena cava is normal in size and collapses greater than 50% with inspiration. Pericardium/Pleural There is no evidence of pericardial effusion. Prior Study Comparison No prior study available for comparison. Measurements 2D Linear Measurements IVSd: 1.39 0.6-0.9/0.6-1.0 cm LVIDd: 4.31 3.9-5.3/4.2-5.9 cm LVIDd Index: 2.08 2.4-3.2/2.2-3.1 cm/m2 LVIDs: 3.16 2.0-3.6 cm LVPWd: 1.31 0.7-1.1 cm Ao Root: 3.20 2.1-3.5 cm LA Diam: 4.70 2.7-3.8/3.0-4.0 cm LAIDs Index: 2.27 1.5-2.3 cm/m2 LV Mass: 274.99 67-162/88-224 g LV Mass Index: 132.84 43-95/49-115 g/m2 LVOT Diam: 2.00 3.0+(-)1.3 cm 2D Systolic Function EF 4C: 58.20 >55% EF 2C: 54.10 >55% EF BiP: 56.10 >55% Mitral Valve MV Pk E: 0.93 MV PK A: 0.81 MV Decel Time: 223.00 E/A: 1.10 E'Lateral: 12.00 E'Medial: 6.96 E/E' Med: 13.40 E/E' Lat: 7.80 PHT: 65.00 MVA PHT: 3.38 Decel Camas: 4.19 Aortic Valve AoV Pk Mathew: 1.62 AoV Mn Mathew: 1.10 AoV VTI: 0.37 AoV Pk Grad: 10.00 Aov Mn Grad: 5.00 JARED Cont.VTI: 2.08 LVOT LVOT Pk Mathew: 1.06 LVOT Mn Mathew: 0.69 LVOT VTI: 0.25 LVOT Pk Grad: 4.00 LVOT Mn Grad: 2.00 LVOT Diam: 2.00 LVOT Area: 3.14 Diastolic Function MV Pk E: 0.93 MV Pk A: 0.81 E/A: 1.10 E'Medial: 6.96 E/E' Med: 13.40 E' Laterial: 12.00 E/E' Lat: 7.80 Right Ventricle TAPSE (mm): 18.00 TVS' Mathew: 9.00 Tricuspid Valve TR Pk Mathew: 2.14 TR Pk Grad: 18.00 RA Press: 3.00 RVSP: 21.00 Great Vessels Aorta Ao Root-2D: 3.20 2.0-3.7 cm Ao Asc: 3.30 2.1-3.4 cm Updated in Other Vendor System with Status of Final Sven Feliciano MD electronically signed on 01/18/2025 4:17:04 PM with status of Final
--- OUTSIDE RECORDS SUMMARY | 2025-01-17 12:24 | XMS_ITS | Clinical Summary ---
Author Organization [facility] Address [address] [facility] [address] [place] [phone] Phone Care Team Providers Care Sales Service Manager Name Role Phone Name, Shaka TURNER Primary Care Provider Allergies Active Allergy Reactions Criticality Noted Date Comments Grass Pollen Other (See Comments) 02/26/2022 Medications morphine (MSIR) 15 MG tablet Take 0.5-1 tablets (7.5-15 mg total) by mouth every 4 (four) hours as needed for pain (specific location in comments). Partial fill ok 5 tablet 04/02/2023 Active Social History Tobacco Use Types Packs/Day Years Used Date Smoking Tobacco: Never Smokeless Tobacco: Never Tobacco Cessation:Counseling Given: Not Answered Alcohol Use Standard Drinks/Week Comments Not Currently 0 (1 standard drink = 0.6 oz pur e alcohol) Education Answer Date Recorded Are you interested in more education? Not on saroj e 04/02/2023 Are you concerned about learning? Not on file 04/02/2023 No 04/02/2023 No 04/02/2023 Digital Access Answer Date Recorded No 04/02/2023 No 04/02/2023 Reliable internet access at home? Not on file 04/02/2023 Device with a working camera? Not on file Intimate Partner Violence Answer Date R ecorded Are you denied basic needs s uch as food, clothing, or medical care? No 04/01/2023 In the past 12 months have y ou been in a relationship with a person who hurts, threatens, or tries to control you? No 04/01/2023 Are you denied basic needs s uch as food, clothing, or medical care? No 04/01/2023 In the past 12 months have y ou been in a relationship with a person who hurts, threatens, or tries to control you? No 04/01/2023 Sex and Gender Information Value Date Recorded Sex Assigned at Male 04/01/2023 11:38 PM EDT Legal Sex Male 8:10 PM EST Gender Identity Male 04/01/2023 11:38 PM EDT Sexual Orientation Straight 04/01/2023 11 :38 PM EDT Last Filed Vital Signs Vital Sign Reading Time Taken Comments Blood Pressure 128/87 04/02/2023 3:13 AM EDT Pulse 71 04/02/2023 3:13 AM EDT Temperature 36.3 C (97.3 F) 04/02/2023 3:21 AM EDT Respiratory Rate 16 04/02/2023 3:13 AM EDT Oxygen Saturation 96% 04/02/2023 3:13 AM EDT Inhaled Oxygen Concentration - - Weight 101.6 kg (224 lb) 04/01/2023 11:33 PM EDT Height 177.8 cm (5' 10 ) 04/01/2023 11:33 PM EDT Body Mass Index 32.14 04/01/2023 11:33 PM EDT Plan of Treatment Not on file Medical Devices Not on file Insurance ONE CARE MEDICARE REPLACEMENT DREW RICE [id number] CARE MEDICARE REPLACEMENT CARE MEDICARE REPLACEMENT ONE CARE MEDICARE REPLACEMENT [address] [address] CARE MEDICARE REPLACEMENT Care Teams Sales Service Manager Relationship Specialty Start Date End Date Name, MD Shaka [address] [place] [id number] PCP - General Internal Medicine 04/02/23 Additional Source Comments The information contained in this document represents components of the legal health record. It is not the complete legal health record.[facility]
--- OUTSIDE RECORDS SUMMARY | 2025-01-17 12:24 | XMS_ITS | Encounter Summary ---
Author Organization [facility], Address [address] [place] [address] Phone Care Team Providers Care Industrial Property Appraiser Name Role Phone Name, Shaka TURNER Primary Care Provider Encounter Details Date Type Department Care Team ([facility] Contact Info) Description 05/06/2022 Telephone [facility] [address] [place] [address] Shalini Rascon [address] [place] [phone] Social History Tobacco Use Types Packs/Day Years [...] Upcoming Encounters Date Type Department Care Team ([facility] Contact Info) Description 02/02/2025 9:15 AM EDT Office Visit [facility] [address] [place] [phone] Zhen Sifuentes MD [address] [facility] [address] [place] [phone] documented as of this encounter Visit Diagnoses Not on filedocumented in this encounter Care Teams Industrial Property Appraiser Relationship Specialty Start Date End Date Name, MD Shaka [address] [place] [address] PCP - General 07/02/20 documented as of this encounter
--- OUTSIDE RECORDS SUMMARY | 2025-01-17 12:25 | XMS_ITS | Data Portability ---
Author Organization [facility] [place] [facility] [employer] [facility] Address [address] [place] [phone] Care Team Providers Care Nuclear Powerplant Supervisor Name Role Phone [facility] Referring Provider [phone] Assessment Encounter Date Assessment Date Assessment LastModified by Organization Details LastModified Time 06/30/2023 06/30/2023 service called f or diarrhea found 48 yom with s/p kidney xplant, taking anti-rejection meds reportedly NOT immunocompromised HTN FLORENTNIO hypothyroidism c/o 2d watery diarrhea, non bloody [...] Body temperature Respiratory rate Heart rate Systolic And Diastolic Provider Name and Address Organization Details Last Updated DateTime 4 99 % 99 % 96.2 [degF] 16 /min 65 /min 157/91 mm[Hg] Not Available [facility] - production 4 17:22:01 Social History None recorded. Functional Status None recorded. Mental Status None recorded. Family History Nothing Reported. Medical History No medical history recorded. Past Encounters Encounter ID Performer Location Encounter Start Date Encounter Closed Date Diagnosis/Indication Diagnosis SNOMED-CT Code Diagnosis ICD10 Code Diagnosis Note [id number] Lay Pitt MD Main - [facility] [address] [place] [phone] 06/30/2023 17:21:51 07/01/2023 11:02:15 Diarrhea [id number] R19.7 Health Concerns Section Related Observation LastModified by Organization Detai ls LastModified Time None Recorded Concern Status LastModified by Organization Details LastModified Time None Recorded Advance Directives Directive None Recorded Payers Insurance Date Sequence Insurance Name Policy Number Policy Layne Covered Member ID Layne Member ID Guarantor Name 06/30/[address] [facility] - DOS ON OR AFTER 2022 - DUAL ELIGIBLE - ALF OPTIONS AND ONE CARE (MEDICARE REPLACEMENT/ADV ANTAGE - HMO) William Hansen [id number] William Hansen
--- OUTSIDE RECORDS SUMMARY | 2025-01-17 12:25 | XMS_ITS | Encounter Summary ---
Author Organization [employer] Address [address] [facility] [address] [place] [address] Care Team Providers Care Ve Teacher Name Role Phone Name, Shaka TURNER Primary Care Provider [phone] Alison Maurice PharmD Unavailable [phone] Reason for Visit * Reason Comments Med Refill Encounter Details Date Type Department Care Team ([facility] st Contact Info) Description 12/17/2022 Refill [facility] [address] [place], [place] [phone] Name, MD Shaka [address] [place], [place] [phone] Essential hypertension; Allergic rhinitis, unspecified seasonality, unspecified [...] Care Team (Late st Contact Info) Description 02/28/2025 9:45 AM EDT Office Visit [facility] [address] [place] [address] documented as of this encounter Goals Goal Patient Goal Type Associated Problems Recent Progress Patient-Stated? Author Record your blood pressure once per day Blood Pressure No Puia, Alison, PharmD Blood Pressure < 140/90 Blood Pressure 125/82( 025 3:28 PM EDT) No Puia, Alison, PharmD documented as of this encounter Visit Diagnoses Diagnosis Essential hypertension Unspecified essential hypertension Allergic rhinitis, unspecified seasonality, unspecified trigger documented in this encounter Additional Health Concerns Assessment Noted Time PHQ-9 Depression Total Score: 10 022 10:24 AM EST documented as of this encounter Care Teams Ve Teacher Relationship Specialty Start Date End Date Name, MD Shaka [address] [place] [phone] PCP - General Family Medicine 08/27/15 Puia, Alison, PharmD [address] [place] [phone] Pharmacist Internal Medicine 12/16/22 documented as of this encounter
--- OUTSIDE RECORDS SUMMARY | 2025-01-17 12:25 | XMS_ITS | Clinical Summary ---
Author Organization [facility] Address [address] [place] [address] Care Team Providers Care Pbx Technician Name Role Phone Pcp, No Primary Care [...] Risk Dialysis 4-dose series) 1996 Colonoscopy 2021 COVID-19 Vaccine (2 - season) 2024 Influenza Vaccine 01/20/2025 HIV Screening Completed 02/20/2021 Insurance MEDICAID OUT OF STATE [facility] MGD MEDICARE OUT OF NETWORK MEDICARE PART A & B Care Teams Pbx Technician Relationship Specialty Start Date End Date Pcp, No [address] [place] [address] PCP - General 02/20/21
--- OUTSIDE RECORDS SUMMARY | 2025-01-17 12:25 | XMS_ITS | Clinical Summary ---
Author Organization [facility] ity Address [address] [place] [address] Care Team Providers Care Gold Blower Name Role Phone Name, Shaka TURNER Primary Care Provider [phone] Immunizations Name Administration Dates Next Due Pfizer SARS-CoV-2 COVID-19, mRNA, LNP-S, preservative free 01/17/2021 Surgical History Surgery Date Site/Laterality Comments OTHER SURGICAL HISTORY PROCEDURE: ---- OTHER ----; COMMENT: fistula r arm OTHER SURGICAL HISTORY PROCEDURE: [place] ARTHRP ACETBLR/PROX FEM PROSTC AGRFT/ALGRFT Medical History [...] Panel) 05/25/2022 Colorectal Cancer Screening: Colonoscopy 05/25/2022 HIV Screening 05/25/2022 Hepatitis C Screening 05/25/2022 Social Influencers of Health Screening 05/25/2022 Hypertension/CHF/CAD Annual BMP Blood Test 05/29/2022 COVID-19 Vaccine ( season) 2024 01/17/2021 Depression Screening 06/22/2024 Influenza Vaccine (#1) 2025 5, 03/11/2013, 02/27/2012, Additional history exists HIB [...] age to complete this topic Care Teams Gold Blower Relationship Specialty Start Date End Date Name, MD Shaka [address] [place], [place] PCP - General Internal Medicine 03/10/06
== END ==
LOC: HO.CARD 11:09
PROVIDERS: PCP Internal Medicine Geriatric Medicine; Visit Provider Internal Medicine
DX: R07.2 Precordial pain (principal)
CPT/HCPCS: 93306

== ENCOUNTER → 2025-01-17 11:11 | Outpatient (BNV) | payer OTHER, SELFPAY | PROVIDERS: PCP Internal Medicine Geriatric Medicine; Visit Provider Internal Medicine Cardiovascular Disease | DX: R07.2 Precordial pain (principal) | CPT/HCPCS: 93306 ==

== ENCOUNTER 2025-02-08 08:15 | Outpatient (REF) | payer OTHER, SELFPAY ==
--- NOTE | ~2025-02-08 | XR_ITS ---
EXAMINATION: XR FOOT, RIGHT CLINICAL INFORMATION: pain after object fell on is foot COMPARISON: December 31, 2015 TECHNIQUE: AP, lateral, and oblique views of the right foot. FINDINGS: No acute cortical disruption. No gross malalignment. Small exostosis at the medial aspect and base of the distal phalanx first toe. There is a spur in the plantar calcaneus. There is exostosis at the Achilles tendon insertion. Vascular calcifications. No subcutaneous emphysema. No gross joint effusion, anterior tibiotarsal bursa.. XR/XR foot RT min 3V IMPRESSION: No acute fracture or dislocation. Plantar calcaneal spur. Enthesopathy, Achilles tendon. Atherosclerosis disease, peripheral. Degenerative changes, distal phalanx first toe. Electronically signed by: Shun Mayo MD 02/08/2025 08:43 AM EDT
--- OUTSIDE RECORDS SUMMARY | 2025-02-08 08:44 | XMS_ITS | Clinical Summary ---
Author Organization [facility] Address [address] [place] [address] Care Team Providers Care Vertical Lathe Operator Name Role Phone Pcp, No Primary Care [...] Completed 02/20/2021 Insurance MEDICAID OUT OF STATE [facility] MGD MEDICARE OUT OF NETWORK MEDICARE PART A & B Care Teams Vertical Lathe Operator Relationship Specialty Start Date End Date Pcp, No [address] [place] [address] PCP - General 02/20/21
--- OUTSIDE RECORDS SUMMARY | 2025-02-08 08:44 | XMS_ITS | Encounter Summary ---
Author Organization [facility], Address [address] [place] [address] Phone Care Team Providers Care Events Solutions Consultant Name Role Phone Name, Shaka TURNER Primary Care Provider [phone] Encounter Details Date Type Department Care Team ([facility] Contact Info) Description 05/06/2022 Telephone [facility] [address] [place] [phone] Shalini Rascon [address] [place] [phone] Social History Tobacco Use Types Packs/Day Years [...] Upcoming Encounters Date Type Department Care Team ([facility] Contact Info) Description 02/09/2025 Orders Only [facility] [address] [phone] Zhen Sifuentes MD [address] [phone] Kidney transplant status 05/05/2025 9:15 AM EST Office Visit [facility] [address] [phone] Zhen Sifuentes MD [address] [phone] documented as of this encounter Visit Diagnoses Not on filedocumented in this encounter Care Teams Events Solutions Consultant Relationship Specialty Start Date End Date Name, MD Shaka [address] [place] [address] PCP - General 07/02/20 documented as of this encounter
--- OUTSIDE RECORDS SUMMARY | 2025-02-08 08:44 | XMS_ITS | Clinical Summary ---
Author Organization [facility] Address [address] [place] [address] Phone Care Team Providers Care Pin Drafting Machine Operator Name Role Phone Name, Shaka TURNER Primary Care Provider [phone] Allergies Active Allergy Reactions Criticality Noted Date [...] Insurance ONE CARE MEDICARE REPLACEMENT [place] [id number] CARE MEDICARE REPLACEMENT CARE MEDICARE REPLACEMENT ONE CARE MEDICARE [place]AC[place] [address] CARE MEDICARE REPLACEMENT Care Teams Pin Drafting Machine Operator Relationship Specialty Start Date End Date Name, MD Shaka [address] [place] [address] PCP - General Internal Medicine 04/02/23 Additional Source Comments The information contained in this document represents components of the legal health record. It is not the complete legal health record.[facility]
--- OUTSIDE RECORDS SUMMARY | 2025-02-08 08:46 | XMS_ITS | Clinical Summary ---
Author Organization [facility] ity Address [address] [place] [address] Care Team Providers Care Diesel Engine Pipe Fitter Name Role Phone Name, Shaka TURNER Primary Care Provider [phone] Immunizations Name Administration Dates Next Due Pfizer SARS-CoV-2 COVID-19, mRNA, LNP-S, preservative free 01/17/2021 Surgical History Surgery Date Site/Laterality Comments OTHER SURGICAL HISTORY PROCEDURE: ---- OTHER ----; COMMENT: fistula r arm OTHER SURGICAL HISTORY PROCEDURE: [place] ARTHRP ACETBLR/PROX FEM PROSTC AGRFT/ALGRFT Medical History [...] age to complete this topic Care Teams Diesel Engine Pipe Fitter Relationship Specialty Start Date End Date Name, MD Shaka [address] [place], [place] PCP - General Internal Medicine 03/10/06
--- OUTSIDE RECORDS SUMMARY | 2025-02-08 08:46 | XMS_ITS | Encounter Summary ---
Author Organization [employer] [facility] Address [address] [facility] 7t [place] [address] Care Team Providers Care Cook Candy Name Role Phone Name, Shaka TURNER Primary Care Provider [phone] Alison Maurice PharmD Unavailable Reason for Visit * Reason Comments Med Refill Encounter Details Date Type Department Care Team (Late st Contact Info) Description 12/17/2022 Refill [facility] [address] [place], [place] [phone] Name, MD Shaka [address] [place], [place] [phone] Essential hypertension; Allergic rhinitis, unspecified seasonality, unspecified [...] Description 02/28/2025 9:45 AM EDT Office Visit [facility] [place] [address] 05/02/2025 9:00 AM EST Office Visit [facility] [place] [address] Name, MD Shaka [facility] [place] [address] documented as of this encounter Goals Goal Patient Goal Type Associated Problems Recent Progress Patient-Stated? Author Record your blood pressure once per day Blood Pressure No Alison Maurice PharmD Blood Pressure < 140/90 Blood Pressure 143/84( 025 5:40 PM EDT) No Alison Maurice PharmD documented as of this encounter Visit Diagnoses Diagnosis Essential hypertension Unspecified essential hypertension Allergic rhinitis, unspecified seasonality, unspecified trigger documented in this encounter Additional Health Concerns Assessment Noted Time PHQ-9 Depression Total Score: 10 022 10:24 AM EST documented as of this encounter Care Teams Cook Candy Relationship Specialty Start Date End Date [place] [address] PCP - General Family Medicine 08/27/15 Alison Maurice, PharmD [address] [place] [address] Pharmacist Internal Medicine 12/16/22 documented as of this encounter
== END 2025-02-08 08:16 | disposition home or self-care (01) ==
LOC: HO.XRAY 08:15
PROVIDERS: PCP Internal Medicine Geriatric Medicine; Visit Provider Internal Medicine
DX: M79.674 Pain in right toe(s) (principal)
CPT/HCPCS: 73630

== ENCOUNTER → 2025-02-08 08:19 | Outpatient (BNV) | payer OTHER, SELFPAY | PROVIDERS: PCP Internal Medicine Geriatric Medicine; Visit Provider Radiology Diagnostic Radiology | DX: M76.61 Achilles tendinitis, right leg (principal) | CPT/HCPCS: 73630 ==

== ENCOUNTER → 2025-02-09 07:41 | Outpatient (REF) | payer OTHER, SELFPAY ==
--- NOTE | ~2025-02-09 | NM_ITS ---
EXERCISE MYOCARDIAL PERFUSION STUDY INDICATION: Precordial chest pain to evaluate for myocardial ischemia TECHNIQUE: The patient was brought in for an exercise perfusion study on 02/09/2025. Patient performed exercise as per [facility] protocol and was injected 30 mCi of sestamibi once target heart rate was achieved. Images were obtained using the SPECT gamma camera interlaced with the gating device. Images were obtained in supine position. Resting perfusion study was performed on 02/10/2025. Patient was administered 30 mCi of sestamibi intravenously at rest. Images were then obtained in supine position. Images obtained without without CT attenuation. Total DLP 83 mGy-cm. Images were processed with the software and compared side to side in short axis, horizontal long axis and vertical long axis views. FINDINGS: Raw images were reviewed The stress perfusion study showed nonattenuated images show mildly reduced uptake in the basal inferior wall of the LV myocardium. Remainder of the LV myocardium is normally perfused. Attenuated corrected images show overall normal uptake of radiotracer in all segments of the LV myocardium.. The gated study shows normal LV systolic function with calculated LVEF of 66%. LV cavity is normal in size. The gated study shows normal systolic wall thickening and contraction of segments. Resting study shows no change in perfusion pattern compared to stress perfusion study. Gating at rest reveals normal systolic wall motion with ejection fraction at 59%. The findings are consistent with normal myocardial perfusion. NM/NM cardiolite stress test IMPRESSION: 1. Myocardial perfusion imaging study shows normal myocardial perfusion. 2. Gated LVEF is 66%. 3. Transient ischemic dilatation not present. EKG revealed negative for ischemia. Electronically signed by: Sven Feliciano MD 02/10/2025 04:17 PM EDT
--- NOTE | 2025-02-09 07:43 | CA_ITS ---
Acquisition Time: 2025-02-09 08:06:32 Total Exercise Time: 00:10:08 Test Indications: CP Medications: SEE H&P Protocol: MITCHELL Max HR: 164 BPM 95% of Pred: 172 BPM Max BP: 180/70 mmHG Max Work Load: 11.9 METS Exercise stress test with exercise 10 mins 8 secs of Mitchell Protocol, achieving 91% MPHR, with reports of SOB, no chest pain, without any arrythmias, with normotensive response to exercise. Without any EKG changes meeting criteria for ischemia. In recovery, breathing returned to baseline. Nuclear images pending. Test reviewed with Dr. Feliciano. Referred By: Austin Tinsley Electronically Signed By: Lincoln Gutierrez
--- OUTSIDE RECORDS SUMMARY | 2025-02-09 07:44 | XMS_ITS | Clinical Summary ---
Author Organization [facility] Address [address] [facility] [address] [place] [address] Phone Care Team Providers Care Global Commodity Manager Name Role Phone Name, Shaka TURNER Primary Care Provider [phone] Allergies Active Allergy Reactions Criticality Noted Date [...] Insurance ONE CARE MEDICARE REPLACEMENT [place] [id number] CARE MEDICARE REPLACEMENT CARE MEDICARE REPLACEMENT ONE CARE MEDIC[place] [address] [place] [address] CARE MEDICARE REPLACEMENT Care Teams Global Commodity Manager Relationship Specialty Start Date End Date Name, MD Shaka [address] [place] [id number] PCP - General Internal Medicine 04/02/23 Additional Source Comments The information contained in this document represents components of the legal health record. It is not the complete legal health record.[facility]
--- OUTSIDE RECORDS SUMMARY | 2025-02-09 07:44 | XMS_ITS | Encounter Summary ---
Author Organization [employer] Address [address] [facility] [address] [facility] [address] 7[address] [place] [address] Care Team Providers Care Talk Show Host Name Role Phone Name, Shaka TURNER Primary Care Provider [phone] Alison Maurice PharmD Unavailable [phone] Encounter Details Date Type Department Care Team ([facility] st Contact Info) Description 02/08/2025 Results Follow-Up [facility] [address] [place] [address] Bonny Coto MD [address] [place] [address] XR Foot 3+ Views Right Social History Tobacco Use Types Packs/Day Years [...] Answer Date Recorded Patient Health Questionnaire-9 Score 15 12/06/2024 Patient Health Questionnaire-9 Score 15 12/06/2024 Last PHQ-9: Questionnaire Data Not on file 0 12/06/2024 Housing Stability Answer Date Recorded What is your housing situation today? I have brennan chavez 12/06/[address] you li ve. Do you have problems with any of the following? Pests such as bugs, ants, or mice 12/06/2024 Food Insecurity Answer Date Recorded Within the past 12 months, y ou worried that your food would run out before you got money to buy more: Often true 12/06/2024 Within the past 12 months,th e food you bought just didn't last and you didn't have enough money to get more: Often true Transportation Answer Date Recorded In the past 12 months, has l ack of transportation kept you from medical appts, meetings, work or from getting things needed for daily living? No 12/06/2024 Utilities Answer Date Recorded In the past 12 months, has t he electric, gas, oil or water company threatened to shut off services in your home? No 12/06/2024 Depression Answer Date Recorded Patient Health Questionnaire-2 Score 5 12/06/2024 Internet Access Answer Date Recorded Internet Access Q1 Yes 12/06/2024 Internet Access Q2 Not on file 12/06/2024 Sex and Gender Information Value Date Recorded Sex Assigned at Male 04/21/2022 10:17 AM EDT Legal Sex Male 10:17 AM EDT Gender Identity Male 04/21/2022 10:17 AM EDT Sexual Orientation Straight 04/21/2022 10 :17 AM EDT documented as of this encounter Miscellaneous Notes * Telephone Encounter - Nakita Higginbotham RN - 02/08/2025 11:40 AM EDT T/C to pt via S Ballistic Technician Saima #[id number] to advise of message from [facility] provider re: normal x ray and recommendation to f/u with podiatry. No answer or option to leave v/m. Phone continuously rings per nurse discharge planner. * Telephone Encounter - Nakita Higginbotham RN - 02/08/2025 11:35 AM EDT ----- Message from Bonny Talavera MD sent at 02/08/2025 11:18 AM EDT ----- Please let patient know there is no fracture on his x-ray, I advised to follow- up with podiatry thank you ----- Message ----- From: Interface, Ris Results In Sent: 02/08/2025 8:46 AM EDT To: Bonny Talavera MD documented in this encounter Plan of Treatment Upcoming Encounters Date Type Department Care Team (Late st Contact Info) Description 02/28/2025 9:45 AM EDT Office Visit [facility] [address] [place] [address] 05/02/2025 9:00 AM EST Office Visit [address] [address] Name, MD Shaka [address] [place] [address] documented as of this encounter Goals Goal Patient Goal Type Associated Problems Recent Progress Patient-Stated? Author Record your blood pressure once per day Blood Pressure No Puia, Alison, PharmD Blood Pressure < 140/90 Blood Pressure 143/84( 025 5:40 PM EDT) No Puia, Alison, PharmD documented as of this encounter Visit Diagnoses Not on filedocumented in this encounter Additional Health Concerns Assessment Noted Time PHQ-9 Depression Total Score: 15 025 4:00 PM EDT documented as of this encounter Care Teams Talk Show Host Relationship Specialty Start Date End Date Name, MD Shaka [address] [place] [address] PCP - General Family Medicine 08/27/15 Puia, Alison, PharmD [address] [place] [address] Pharmacist Internal Medicine 12/16/22 documented as of this encounter
--- OUTSIDE RECORDS SUMMARY | 2025-02-09 07:44 | XMS_ITS | Clinical Summary ---
Author Organization [facility] Address [address] [place] [address] Care Team Providers Care Granite Countertop Installer Name Role Phone Pcp, No Primary Care [...] Completed 02/20/2021 Insurance MEDICAID OUT OF STATE [facility] MGD MEDICARE OUT OF NETWORK MEDICARE PART A & B Care Teams Granite Countertop Installer Relationship Specialty Start Date End Date Pcp, No [address] [place] [address] PCP - General 02/20/21
--- OUTSIDE RECORDS SUMMARY | 2025-02-09 07:44 | XMS_ITS | Encounter Summary ---
Author Organization [facility], Address [address] [place] [address] Phone Care Team Providers Care Electric System Operator Name Role Phone Name, Shaka TUNRER Primary Care Provider [phone] Encounter Details Date Type Department Care Team ([facility] Contact Info) Description 05/06/2022 Telephone [facility] [address] [place] [address] Shalini Rascon [address] [place] [phone] Social History Tobacco Use Types Packs/Day Years [...] Upcoming Encounters Date Type Department Care Team ([facility] Contact Info) Description 05/05/2025 9:15 AM EST Office Visit [facility] [phone] Zhen Sifuentes MD [address] [phone] documented as of this encounter Visit Diagnoses Not on filedocumented in this encounter Care Teams Electric System Operator Relationship Specialty Start Date End Date Name, MD Shaka [address] [place] [address] PCP - General 07/02/20 documented as of this encounter
--- OUTSIDE RECORDS SUMMARY | 2025-02-09 07:46 | XMS_ITS | Clinical Summary ---
Author Organization [facility] ity Address [address] [place] [address] Care Team Providers Care Mechanical Manufacturing Engineer Name Role Phone Name, Shaka TURNER Primary Care Provider [phone] Immunizations Name Administration Dates Next Due Pfizer SARS-CoV-2 COVID-19, mRNA, LNP-S, preservative free 01/17/2021 Surgical History Surgery Date Site/Laterality Comments OTHER SURGICAL HISTORY PROCEDURE: ---- OTHER ----; COMMENT: fistula r arm OTHER SURGICAL HISTORY PROCEDURE: CT ARTHRP ACETBLR/PROX FEM PROSTC AGRFT/ALGRFT Medical History [...] age to complete this topic Care Teams Mechanical Manufacturing Engineer Relationship Specialty Start Date End Date Name, MD Shaka [address] [place], [place] PCP - General Internal Medicine 03/10/06
== END ==
LOC: HO.CARD 07:41
PROVIDERS: PCP Internal Medicine Geriatric Medicine; Visit Provider Internal Medicine
DX: R07.2 Precordial pain (principal)
CPT/HCPCS: 78452; 93017; A9500

== ENCOUNTER → 2025-02-09 07:43 | Outpatient (BNV) | payer OTHER, SELFPAY | PROVIDERS: PCP Internal Medicine Geriatric Medicine | DX: R06.02 Shortness of breath (principal) | CPT/HCPCS: 78452; 93016; 93018 ==

== ENCOUNTER 2025-02-28 11:25 | Outpatient (REF) | payer OTHER, SELFPAY ==
--- OUTSIDE RECORDS SUMMARY | 2022-04-27 20:00 | XMS_ITS | Continuity of Care Document ---
Author Organization [facility], [facility] Address [address] [place] [address] Phone Care Team Providers Care Forestry Support Specialist Name Role Phone Home Toro MD Unavailable Unavailable Procedures Procedure Date Ecg-routine 12 Lead; Intrpt & Advance Directives Directive Yes / No Effective Date File Name No Information Encounters Encounter Description Practice Location Reason(s) For Visit Diagnoses Date Provider Providers Copied on Encounter [facility], [address] [place], [id number], tel:[phone] [facility] No Information Cortez Bhat. [address], [address] [place], [id number]. tel:[phone] Referring Provider: [place] , [address] [place], [address]. tel:[phone] Family History Family Member Type Diagnosis Age At Onset No Information Payers Payer name Insurance type Covered constitution party ID Authoriza tion(s) [facility] CI [id number] Social History Type Description Quantity Date Captured Comments Sex Male Smoking Status No Information Chief Complaint And Reason For Visit No Information Reason For Referral Reason For Referral No Information History Of Present Illness Encounter Date Complaint History Of Prese nt Illness No Information Functional Status Date Functional Assessmen t No Information Instructions Date Instruction Additional Infor mation No Information Assessments Type Assessment Date No Information Patient Care Teams Name Effective Dates (start - stop) Status Members No Information
--- OUTSIDE RECORDS SUMMARY | 2025-02-28 09:45 | XMS_ITS | Encounter Summary ---
Author Organization [employer] Address 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 male w/ PMH [place], hypertension, hypothyroid, EDRD s/p kidney transplant, avascular necrosis of the hip, cervical spinal stenosis, who presents to the office for - Chronic Pain Clinic Group visits. Initial Group visit: 05/03/24 Group Topic: Stretching Presenter: Ayesha Morales RN Chronic Pain History: Associated Diagnosis: L Hip replacement secondary to AVN, renal osteodystrophy s/p renal transplant Relevant Imaging: XR Left hip Mar 2023: No acute displaced fracture of the pelvis or left hip CT chest, abdomen, pelvis September 2023: Left hip arthroplasty. Right femoral head osteonecrosis without fracture. CT cervical spine September 2023: Multilevel degenerative changes are seen throughout the cervical spine with uncovertebral spurring and facet arthropathy present. Large posterior inferior bone spurring seen along the right C4-5 facet joint which may be due to old remote trauma or degenerative change. Degenerative endplate changes are most pronounced at C4-5 and C5-6. Current pharm tx: oxycodone 10mg q8hrs Medication: States taking oxycodone medication as prescribed. Related Specialists: orthopedics, nephrology Other substance use: Tobacco: no Marijuana: no Alcohol: occasional Illicit substances: no Review of Systems Constitutional: Negative for chills and fever. Respiratory: Negative for wheezing. Cardiovascular: Negative for chest pain and palpitations. Gastrointestinal: Negative for diarrhea and vomiting. Musculoskeletal: Positive for arthralgias. Physical Exam Constitutional: Appearance: Normal appearance. Pulmonary: Effort: Pulmonary effort is normal. Neurological: Mental Status: He is alert and oriented to person, place, and time. Psychiatric: Mood and Affect: Mood normal. Behavior: Behavior normal. 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 Overview Medication: oxycodone 10mg Q8H Indication: osteonecrosis of the hip, cervical spinal stenosis Last THORACIC MEDICINE PHYSICIAN Agreement: 02/28/25 Tier II (THORACIC MEDICINE PHYSICIAN Q3 months) Current Assessment & Plan Timeline: 07/19/24: Group, utox/pill count wnl 09/13/24: Group, pill count wnl, utox positive MDMA, confirmatory negative 11/29/24: Group, pill count wnl, utox positive MDMA, confirmatory pending 02/28/25: Group, pill count wnl, utox positive MDMA, confirmatory pending (possibly false-positive due to BB (labetalol) or SSRI (escitalopram) Relevant Orders Drug Toxicology Monitoring MDMA, with Confirmation, Urine POCT ABHIJEET-14 Urine Drug Screen (Completed) Neuro Spinal stenosis of cervical region - Primary Overview CT cervical spine September 2023: Multilevel degenerative changes are seen throughout the cervical spine with uncovertebral spurring and facet arthropathy present. Large posterior inferior bone spurring seen along the right C4-5 facet joint which may be due to old remote trauma or degenerative change. Degenerative endplate changes are most pronounced at C4-5 and C5-6. Current Assessment & Plan -Good engagement and participation with Group Medical Visit model -Encouraged multifactorial approach to pain control including pharm and non- pharm modalities -Pill count as expected. Utox pos MDMA (has been false positive in the past) --> will send out for confirmatory testing Relevant Orders Drug Toxicology Monitoring MDMA, with Confirmation, Urine POCT ABHIJEET-14 Urine Drug Screen (Completed) Other Visit Diagnoses Dietary counseling Exercise counseling Follow up: 1-3 months for Group (sooner if confirmatory testing positive). Follow up as scheduled with PCP, sooner as needed. * Merlyn Bennett RN - 02/28/2025 9:45 AM EDT THORACIC MEDICINE PHYSICIAN early childhood associate teacher: PDMP reviewed today. Last fill date: 01/26/25 Oxycodone 5mg Q8hr count was 0, anticipated 0 to be remaining. UTOX completed. Positive for OXY & MDMA, Negative for AMP, BAR, BUP, BZO, ANTONIA, FTY, MET, MOP, MTD, PCP, TCA, THC. UTOX as expected. THORACIC MEDICINE PHYSICIAN Agreement reviewed and signed today. BPI updated today. Pain severity score of 10, activity interference score of 6. Previous BPI completed 11/29/24 with pain severity score of 8, activity interference score of 6. Will update PCP with BPI scoring and UTOX results. documented in this encounter Miscellaneous Notes * Assessment & Plan Note - BACILIO Baxter - 02/28/2025 12:50 PM EDT Associated Problem(s): custodial (current) use of opiate analgesic Timeline: 07/19/24: Group, utox/pill count wnl 09/13/24: Group, pill count wnl, utox positive MDMA, confirmatory negative 11/29/24: Group, pill count wnl, utox positive MDMA, confirmatory pending 02/28/25: Group, pill count wnl, utox positive MDMA, confirmatory pending (possibly false-positive due to BB (labetalol) or SSRI (escitalopram) * Assessment & Plan Note - BACILIO Baxter - 02/28/2025 12:47 PM EDT Associated Problem(s): Spinal stenosis of cervical region -Good engagement and participation with Group Medical Visit model -Encouraged multifactorial approach to pain control including pharm and non- pharm modalities -Pill count as expected. Utox pos MDMA (has been false positive multiple times in the past) --> will send out for confirmatory testing documented in this encounter Plan of Treatment Upcoming Encounters Date Type Department Care Team (Late st Contact Info) Description 05/02/2025 9:00 AM EST Office Visit [address] [address] Name, MD Shaka [address] [place] [address] 05/02/2025 9:45 AM EST Office Visit [address] [address] Scheduled Orders Name Type Priority Associated Diagnoses Orde r Schedule Drug Toxicology Monitoring MDMA, with Confirmation, Urine Lab Routine Spinal stenosis of cervical region custodial (current) use of opiate analgesic Ordered: 02/28/2025 documented as of this encounter Goals Goal Patient Goal Type Associated Problems Recent Progress Patient-Stated? Author Record your blood pressure once per day Blood Pressure No Puia, Alison, PharmD Blood Pressure < 140/90 Blood Pressure 143/84( 025 5:40 PM EDT) No Puia, Alison, PharmD documented as of this encounter Procedures Procedure Name Priority Date/Time Associated Diagnosis Comments POCT ABHIJEET-14 URINE DRUG SCREEN Routine 02/28/2025 10:19 AM EDT Spinal stenosis of cervical region custodial (current) use of opiate analgesic documented in this encounter Results * (ABNORMAL) POCT ABHIJEET-14 Urine Drug Screen (02/28/2025 10:19 AM EDT) THC Negative Negative Cocaine Screen, Urine Negative Negative Opiate Screen, Urine Negative Negative Methamphetamine Screen Urine Negative Negative Amphetamine Screen, Urine Negative Negative Benzodiazepines Screen, Urine Negative Negative Barbiturate Screen, Urine Negative Negative Methadone Screen, Urine Negative Negative Buprenophine Screen, Urine Negative Negative TCA, Urine Negative Negative MDMA Urine Positive(A) Negative ng/mL Oxycodone Screen, Urine Positive Negative Urine Urine specimen obtained by clean catch procedure / Unknown 02/28/2025 10:19 AM EDT Merlyn Machuca RN - 02/28/2025 10:19 AM EDT UTOX cup Lot#[id number] Exp. 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
--- OUTSIDE RECORDS SUMMARY | 2025-02-28 13:53 | XMS_ITS | Encounter Summary ---
Author Organization [facility], Address [address] [place] [address] Phone Care Team Providers Care Multiple Drum Sander Name Role Phone Name, Shaka TURNER Primary Care Provider [phone] Reason for Visit * Reason Comments Med Refill Encounter Details Date Type Department Care Team ([facility] Contact Info) Description 05/31/2022 Refill [facility] [address] [place] [address] Cady Powell PA Social History Tobacco Use [...] Care Team (Late st Contact Info) Description 05/05/2025 9:15 AM EST Office Visit [facility] [address] [phone] Zhen Sifuentes MD [address] [address] documented as of this encounter Visit Diagnoses Not on filedocumented in this encounter Care Teams Multiple Drum Sander Relationship Specialty Start Date End Date Name, MD Shaka [address] [place] [address] PCP - General 07/02/20 documented as of this encounter
--- OUTSIDE RECORDS SUMMARY | 2025-02-28 13:53 | XMS_ITS | Encounter Summary ---
Author Organization [facility] Address [address] [facility] [address] [place] [address] Phone Care Team Providers Care Rubber Goods Cutter Finisher Name Role Phone Name, Shaka TURNER Primary Care Provider [phone] Encounter Details Date Type Department Care Team (Late st Contact Info) Description 12/03/2023 Office Communication [facility] [address] [place] [address] Zhen Sifuentes MD [facility] [address] Social History Tobacco Use Types [...] Visit [facility] [address] [phone] Zhen Sifuentes MD [address] [phone] documented as of this encounter Visit Diagnoses Not on filedocumented in this encounter Care Teams Rubber Goods Cutter Finisher Relationship Specialty Start Date End Date Name, MD Shaka [address] [place] [address] PCP - General 07/02/20 documented as of this encounter
--- OUTSIDE RECORDS SUMMARY | 2025-02-28 13:53 | XMS_ITS | Encounter Summary ---
Author Organization [facility], Address [address] [place] [address] Phone Care Team Providers Care Hematologist Oncologist Name Role Phone Name, Shaka TURNER Primary Care Provider Encounter Details Date Type Department Care Team ([facility] Contact Info) Description 05/06/2022 Telephone [facility] [address] [place] [address] Shalini Rascon [address] [place] [phone] Social History Tobacco Use Types Packs/Day Years [...] Upcoming Encounters Date Type Department Care Team ([facility] Contact Info) Description 05/05/2025 9:15 AM EST Office Visit [facility] [phone] Zhen Sifuentes MD [address] [phone] documented as of this encounter Visit Diagnoses Not on filedocumented in this encounter Care Teams Hematologist Oncologist Relationship Specialty Start Date End Date Name, MD Shaka [address] [place] [address] PCP - General 07/02/20 documented as of this encounter
--- OUTSIDE RECORDS SUMMARY | 2025-02-28 13:53 | XMS_ITS | Encounter Summary ---
Author Organization [employer] Address [address] [facility] 7t [place] [address] Care Team Providers Care Pizzamaker Name Role Phone Name, Shaka TURNER Primary Care Provider [phone] Alison Maurice PharmD Unavailable Reason for Visit * Reason Comments Med Refill Encounter Details Date Type Department Care Team ([facility] st Contact Info) Description 12/17/2022 Refill [facility] [address] [place], [place] [phone] Name, MD Shaka [address] [place], [place] [phone] Essential hypertension; Allergic rhinitis, unspecified seasonality, unspecified [...] Description 05/02/2025 9:00 AM EST Office Visit [facility] [place] [address] Name, [place] [address] 05/02/2025 9:45 AM EST Office Visit [address] [address] documented as of this encounter Goals Goal [...] documented as of this encounter Care Teams Pizzamaker Relationship Specialty Start Date End Date [place] [address] PCP - General Family Medicine 08/27/15 Alison Maurice, PharmD [address] [place] [address] Pharmacist Internal Medicine 12/16/22 documented as of this encounter
--- OUTSIDE RECORDS SUMMARY | 2025-02-28 13:53 | XMS_ITS | Clinical Summary ---
Author Organization [facility] Address [address] [facility] [address] [place] [address] Phone Care Team Providers Care Automatic Engraver Name Role Phone Name, Shaka TURNER Primary Care Provider [phone] Allergies Active Allergy Reactions Criticality Noted Date [...] Insurance ONE CARE MEDICARE REPLACEMENT D[place] [id number] CARE MEDICARE REPLACEMENT CARE MEDICARE REPLACEMENT ONE CARE MEDICARE [place] [address] [place] [address] CARE MEDICARE REPLACEMENT Care Teams Automatic Engraver Relationship Specialty Start Date End Date Name, MD Shaka [address] [place] [address] PCP - General Internal Medicine 04/02/23 Additional Source Comments The information contained in this document represents components of the legal health record. It is not the complete legal health record.[facility]
--- OUTSIDE RECORDS SUMMARY | 2025-02-28 13:53 | XMS_ITS | Clinical Summary ---
Author Organization [facility] Address [address] [place] [address] Care Team Providers Care Section Crews Activities Clerk Name Role Phone Pcp, No Primary Care [...] Completed 02/20/2021 Insurance MEDICAID OUT OF STATE [facility] MGD MEDICARE OUT OF NETWORK MEDICARE PART A & B Care Teams Section Crews Activities Clerk Relationship Specialty Start Date End Date Pcp, No [address] [place] [address] PCP - General 02/20/21
--- OUTSIDE RECORDS SUMMARY | 2025-02-28 13:53 | XMS_ITS | Encounter Summary ---
Author Organization [employer] Address [address] [facility] 7t [place] [address] Care Team Providers Care Hooking Machine Operator Name Role Phone Name, Shaka TURNER Primary Care Provider [phone] Alison Maurice PharmD Unavailable Encounter Details Date Type Department Care Team ([facility] st Contact Info) Description 07/07/2023 Orders Only [facility] [address] [place], [place] [phone] Name, MD Shaka [address] [place] [address] Social History Tobacco Use Types Packs/Day Years [...] Description 05/02/2025 9:00 AM EST Office Visit [address] [address] Name, MD Shaka [address] [place] [address] 05/02/2025 9:45 AM EST Office Visit [address] [address] documented as of this encounter Goals Goal [...] documented as of this encounter Care Teams Hooking Machine Operator Relationship Specialty Start Date End Date Name, MD Shaka [address] [place] [address] PCP - General Family Medicine 08/27/15 Puia, Alison, PharmD [address] [place] [address] Pharmacist Internal Medicine 12/16/22 documented as of this encounter
--- OUTSIDE RECORDS SUMMARY | 2025-02-28 13:53 | XMS_ITS | Encounter Summary ---
Author Organization [employer] Address [address] [facility] 7t [place] [address] Care Team Providers Care Tray Checker Name Role Phone Name, Shaka TURNER Primary Care Provider [phone] Alison Maurice PharmD Unavailable Reason for Visit * Reason Onset Date Comments Med Refill 12/19/2022 Encounter Details Date Type Department Care Team ([facility] st Contact Info) Description 12/19/2022 Telephone [facility] [address] [place], [place] [phone] Name, MD Shaka [address] [place], [place] [phone] Med Refill Social History Tobacco Use Types [...] MG immediate release tablet chana sent to [facility]/pharmacy #[id number] - [place], [place] - [address] documented in this encounter Plan of Treatment Upcoming Encounters Date Type Department Care Team (Late st Contact Info) Description 05/02/2025 9:00 AM EST Office Visit [facility] [address] [place] [address] Name, MD Shaka [address] [place] [address] 05/02/2025 9:45 AM EST Office Visit [address] [address] documented as of this encounter Goals Goal Patient Goal Type Associated Problems Recent Progress Patient-Stated? Author Record your blood pressure once per day Blood Pressure No Puia, Alison, PharmD Blood Pressure < 140/90 Blood Pressure 143/84( 025 5:40 PM EDT) No Puia, Alsion, PharmD documented as of this encounter Visit Diagnoses Not on filedocumented in this encounter Additional Health Concerns Assessment Noted Time PHQ-9 Depression Total Score: 10 022 10:24 AM EST documented as of this encounter Care Teams Tray Checker Relationship Specialty Start Date End Date Name, MD Shaka [address] [place] [address] PCP - General Family Medicine 08/27/15 Puia, Alison, PharmD [address] [place] [address] Pharmacist Internal Medicine 12/16/22 documented as of this encounter
--- OUTSIDE RECORDS SUMMARY | 2025-02-28 13:53 | XMS_ITS | Encounter Summary ---
Author Organization [facility] Address [address] [facility] [address] [place] [address] Phone Care Team Providers Care Fitness Technician Name Role Phone Name, Shaka TURNER Primary Care Provider [phone] Reason for Visit * Reason Comments Med Change Request Encounter Details Date Type Department Care Team ([facility] Contact Info) Description 11/30/2023 Refill [facility] [address] [place] [address] Daysi Truong MD Kidney transplant [...] Visit [facility] [address] [facility] [address] [place] [address] Zhen Sifuentes MD [address] [facility] [address] [place] [address] documented as of this encounter Visit Diagnoses Diagnosis Kidney transplant status documented in this encounter Care Teams Fitness Technician Relationship Specialty Start Date End Date Name, MD Shaka [address] [place] [address] PCP - General 07/02/20 documented as of this encounter
--- OUTSIDE RECORDS SUMMARY | 2025-02-28 13:54 | XMS_ITS | Clinical Summary ---
Author Organization [employer] Address [address] [facility] [address] [place] [address] Care Team Providers Care Registered Midwife Name Role Phone Name, Shaka TURNER Primary Care Provider [phone] Alison Maurice PharmD Unavailable [phone] Allergies Active Allergy Reactions Criticality Noted Date Comments Gramineae Pollens Unknown 02/26/2022 Other reaction(s): Sneezing Other reaction(s): Other (see comments) Other reaction(s): Sneezing Grass Pollen(K-O-R-T-Swt Gregg) Hives 02/26/2022 Other reaction(s): Other (See Comments) Medications * This document contains information received from the source organization and may not represent a complete record from that organization. albuterol 108 (90 Base) MCG/ACT inhaler 01/13/20 18 Active albuterol (2.5 MG/3ML) 0.083% nebulizer solution 01/19/20 21 Active azelastine (Optivar) 0.05 % ophthalmic solution 10/27/19 21 Active cholecalciferol (Vitamin D-3) 50 MCG (1999 UT) capsule Active fluticasone (Flovent) 220 MCG/ACT inhaler 10/27/19 21 Active hydrOXYzine pamoate (Vistaril) 50 MG capsule Active mycophenolate (Myfortic) 180 MG EC tablet Active naloxone (Narcan) 4 mg/0.1 mL nasal spray 04/15/20 22 Active sildenafil (Viagra) 100 MG tablet 11/27/19 22 Active zolpidem (Ambien) 10 MG tablet Active Blood Pressure kit Use one a day 1 kit 09/16/19 23 Active ergocalciferol (Vitamin D2) 1.25 MG (45332 UT) capsule 10/22/19 23 Active escitalopram (Lexapro) 5 MG tablet Take 5 mg by mouth Once per day. as directed 12/01/19 23 Active magnesium oxide (Mag-Ox) 400 MG tablet Take 1 tablet by mouth in the morning and 1 tablet in the evening. 11/22/19 23 Active Envarsus XR 4 MG tablet ER Dose as per transplant 11/29/19 23 Active ampicillin (Principen) 500 MG capsule 04/08/20 23 Active Envarsus XR 1 MG tablet ER Take in addition to 4 mg tab(s) as directed by transplant team. 04/23/20 23 Active losartan (Cozaar) 50 MG tablet Take 2 tablets by mouth Once daily. 04/30/20 23 Active fluocinonide (Lidex) 0.05 % cream 08/31/19 24 Active calcitriol (Rocaltrol) 0.25 MCG capsule Take 0.25 mcg by mouth every other day. 09/07/19 24 Active levothyroxine (Synthroid, Levoxyl) 150 MCG tabletIndicatio ns:Hypothyroidi sm, unspecified type TAKE 1 TABLET (150 MCG) BY MOUTH ONCE DAILY. 90 tablet 3 06/20/20 24 Active doxazosin (Cardura) 4 MG tablet Take 4 mg by mouth at bedtime. 08/08/19 25 Active labetalol (Normodyne) 200 MG tablet Take 200 mg by mouth 2 times daily. 08/05/19 25 Active Aspirin Low Dose 81 MG EC tabletIndicatio ns:Essential hypertension TAKE 1 TABLET (81 MG) BY MOUTH IN THE MORNING 90 tablet 3 08/25/19 25 Active lidocaine (Lidoderm) 5 % patchIndication s:Left elbow pain Apply 1 patch topically Once per day. Remove & discard patch within 12 hours or as directed by MD. 30 patch 11 10/15/19 25 Active lidocaine-prilo davey (Emla) 2.5-2.5 % cream Apply thin layer 3-4 times per day as needed 30 g 2 11/30/19 25 Active acetaminophen (Tylenol) 325 MG tabletIndicatio ns:Acquired hypothyroidism, Tinea pedis, unspecified laterality TAKE 2 TABLETS BY MOUTH EVERY 6 HOURS NEEDED FOR FOR MILD PAIN 90 tablet 3 12/07/19 25 Active famotidine (Pepcid) 20 MG tablet TAKE 1 TABLET BY MOUTH EVERY DAY 90 tablet 1 12/13/19 25 Active fluticasone (Flonase) 50 MCG/ACT nasal sprayIndication s:Allergic rhinitis, unspecified seasonality, unspecified trigger SPRAY 1 SPRAY INTO EACH NOSTRIL TWICE A DAY 48 mL 12/23/19 25 Active atorvastatin (Lipitor) 20 MG tabletIndicatio ns:Essential hypertension TAKE 1 TABLET BY MOUTH EVERY DAY 90 tablet 1 01/19/20 25 Active montelukast (Singulair) 10 MG tablet TAKE 1 TABLET BY MOUTH EVERY DAY IN THE EVENING 90 tablet 1 01/19/20 25 Active omeprazole (PriLOSEC) [address] capsule TAKE 1 CAPSULE BY MOUTH BEFORE BREAKFAST. DO NOT CRUSH OR CHEW. 90 capsule 1 01/19/20 25 Active loratadine (Claritin) 10 MG tablet TAKE 1 TABLET BY MOUTH EVERY DAY 90 tablet 1 01/26/20 25 Active oxyCODONE (Roxicodone) 10 MG immediate release tabletIndicatio ns:Chronic hip pain, unspecified laterality Take 1 tablet (10 mg) by mouth every 8 (eight) hours if needed for severe pain for up to 28 days. 84 tablet 02/29/20 25 025 Active oxyCODONE (Roxicodone) 10 MG immediate release tabletIndicatio ns:Chronic hip pain, unspecified laterality Take 1 tablet (10 mg) by mouth every 8 (eight) hours if needed for severe pain for up to 28 days. 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 04/22 Overview (02/28/2025): Medication: oxycodone 10mg Q8H Indication: osteonecrosis of the hip, cervical spinal stenosis Last REHABILITATION THERAPIST Agreement: 02/28/25 Tier II (REHABILITATION THERAPIST Q3 months) Assessment & Plan (02/28/2025 12:52 PM EDT): Timeline: 07/19/24: Group, utox/pill count wnl 09/13/24: Group, pill count wnl, utox positive MDMA, confirmatory negative 11/29/24: Group, pill count wnl, utox positive MDMA, confirmatory pending 02/28/25: Group, pill count wnl, utox positive MDMA, confirmatory pending (possibly false-positive due to BB (labetalol) or SSRI (escitalopram) Assessment & Plan (12/01/2024 1:59 PM EDT): Timeline: 07/19/24: Group, utox/pill count wnl 09/13/24: Group, pill count wnl, utox positive MDMA, confirmatory negative 11/29/24: Group, pill count wnl, utox positive MDMA, confirmatory pending Assessment & Plan (09/13/2024 8:59 PM EDT): [...] at C4-5 and C5-6. Assessment & Plan (02/28/2025 12:48 PM EDT): -Good engagement and participation with Group Medical Visit model -Encouraged multifactorial approach to pain control including pharm and non- pharm modalities -Pill count as expected. Utox pos MDMA (has been false positive multiple times in the past) --> will send out for confirmatory testing Assessment & Plan (09/13/2024 8:54 PM EDT): [...] had to do blood work in the [place] and just took his medication, I advise to monitor his BP at home and bring log to his continuous improvement lead appointment on 08/25/23 I also advise: - [...] care provider Atherosclerotic heart diseas e of [place] coronary artery without angina pectoris 05/15/2015 Asthma [...] organization. 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 02/28/2025 Refill [facility] [address] [place] [phone] Merlyn Bennett, clinical research assistant hip pain, unspecified laterality 02/28/2025 Telephone [facility] [address] [place] [phone] Merlyn Bennett, CORINNE REHABILITATION THERAPIST Agreement renewed; Abnormal UTOX 02/28/2025 Orders Only [facility] [address] [place] [phone] Liset Estrada RN 02/28/2025 Travel 02/09/2025 Orders Only [facility] External Provider, [facility] 02/08/2025 Results Follow-Up [address] [address] Bonny Coto MD XR Foot 3+ Views Right 02/07/2025 6:00 PM EDT Office Visit [facility] [address] [place] [phone] Bonny Coto MD Onychomycosis (Primary Dx); Pain of toe of right foot 02/07/2025 Travel 02/07/2025 Telephone [facility] [address] [place] [phone] Kavon Sultana MA oct recalls 01/26/2025 Refill [facility] [address] [place] [phone] Shaka Ashley MD Chronic hip pain, unspecified laterality 01/25/2025 Refill [facility] [address] [place], [place] [phone] Shaka Ashley MD 01/18/2025 Refill [facility] [address] [place] [phone] Shaka Ashley MD Essential hypertension 12/28/2024 Refill [facility] [address] [place] [phone] Shaka Ashley MD Chronic hip pain, unspecified laterality 12/21/2024 Refill [facility] [address] [place] [address] Shaka Ashley MD Allergic rhinitis, unspecified seasonality, unspecified trigger 12/11/2024 Refill [facility] [address] [place] [address] Shaka Ashley MD 12/06/2024 3:30 PM EDT Office Visit [facility] [address] [place] [address] Shaka Ashley MD Essential hypertension (Primary Dx); Acquired hypothyroidism; Tinea pedis, unspecified laterality 12/06/2024 Travel 12/05/2024 Telephone [facility] [address] [place] [phone] Shaka Ashley MD Chart Prep 11/29/2024 9:45 AM EDT Office Visit [facility] [address] [place] [phone] Mauroen, Nandini, AIR TWIST OPERATOR Spinal stenosis of cervical region (Primary Dx); Avascular necrosis of bone of hip, unspecified laterality (CMS/HCC); 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; Osteonecrosis of hip (CMS/HCC) 11/29/2024 Refill [facility] [address] [place] [address] Roya Payne RN Chronic hip pain, unspecified laterality 11/29/2024 Travel 11/28/2024 Travel 11/28/2024 Telephone [facility] [address] [place] [address] Roya Payne RN from Last 3 Months Immunizations Immunization Administration Dates Next Due Hep A, Adult [...] Sign Reading Time Taken Comments Blood Pressure 143/84 02/07/2025 5:40 PM EDT Pulse 66 02/07/2025 5:40 PM EDT Temperature 37.2 C (98.9 F) 02/07/2025 5:40 PM EDT Respiratory Rate 18 02/07/2025 5:40 PM EDT Oxygen Saturation 98% 02/07/2025 5:40 PM EDT Inhaled Oxygen Concentration - - Weight 90.5 kg (199 lb 8 oz) 02/07/2025 5:40 PM EDT Height 177.8 cm (5' 10 ) 02/07/2025 5:40 PM EDT Body Mass Index 28.63 02/07/2025 5:40 PM EDT Plan of Treatment Upcoming Encounters Date Type Department Care Team (Late st Contact Info) Description 05/02/2025 9:00 AM EST Office Visit [facility] [address] [place] [phone] Name, MD Shaka [address] [place] [phone] 05/02/2025 9:45 AM EST Office Visit [address] [address] Health Maintenance Due Date Last Done Comments CT Colonography 1975 FIT DNA/Cologuard 1975 FIT 1975 FOBT 1975 Sigmoidoscopy 1975 Alcohol/Substance Use Screening 1988 Family Planning (PISQ) 1991 Hepatitis B Vaccines (1 of 3 - 19+ 3-dose series) 1995 Hepatitis A Vaccines (2 of 2 - Risk 2-dose series) 09/25/2014 03/27/2014 Zoster Vaccines (1 of 2) 01/15/2018 Dental X-Ray: Full Mouth 10/31/2018 10/31/2015 Dental X-Ray: Bitewings 01/17/2024 01/16/20 23, 07/23/2021, 01/18/2021, Additional history exists Dental Oral Exam 12/02/2024 06/02/2024, 12/2023, 08/21/2021, Additional history exists Dental Prophylaxis 12/02/2024 06/02/2024, 0 10/27/2023, 01/15/2023, Additional history exists COVID-19 Vaccine ( season) 2025 03/31/2023, 01/16/2021, 10/22/2020, Additional history exists Influenza Vaccine (#1) 2025 , 03/31/2023, 03/10/2022, Additional history exists Diabetes: Hemoglobin A1C 06/01/2025 024, 09/09/2023, 12/16/2022 Depression Monitoring 06/07/2025 12/06/2024, 025 Disability Screening 12/06/2025 12/06/2024 SDOH Screening 12/06/2025 12/06/2024 Lipid Panel 01/22/2026 01/22/2021 Tobacco Screening 02/07/2026 02/07/2025 Colonoscopy 09/05/2032 09/05/2022 Colorectal Cancer Screening 09/05/2032 DTaP/Tdap/Td Vaccines (5 - Td or Tdap) 06/02/2034 06/02/2024, 10/24/2021, 03/27/2014, Additional history exists RSV Patients and Patients Aged 60 years or older (1 - 1-dose 75+ series) 2051 HIV Screening Completed 10/27/2022 Hepatitis C Screening Completed 10/27/2022, 023 Pneumococcal Vaccine: Pediatrics (0 to 5 Years) and At-Risk Patients (6 to 49) Years Completed 08/12/2023, 01/12/2018, 03/27/2014 HIB Vaccines Aged Out No longer eligi [...] 5:40 PM EDT) No Alison Maurice PharmD Procedures Procedure Name Priority Date/Time Associated Diagnosis Comments POCT ABHIJEET-14 URINE DRUG SCREEN Routine 02/28/2025 10:19 AM EDT Spinal stenosis of cervical region 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 STRESS TEST WITH MYOCARDIAL PERFUSION Routine 02/09/2025 7:57 AM EDT XR FOOT 3+ VIEWS RIGHT Routine 02/08/2025 8:20 AM EDT Pain of toe of right foot TSH W/REFLEX TO FT4 Routine 12/06/2024 3 :58 PM EDT Acquired hypothyroidism POCT ABHIJEET-14 URINE DRUG SCREEN Routine 11/29/2024 10:18 AM EDT Spinal stenosis of cervical region OTHER REF TEST - MISC Routine 11/29/2024 12:00 AM EDT PROPHYLAXIS - ADULT Routine 06/02/2024 8 :00 [...] Relevant to Health Maintenance Results * (ABNORMAL) POCT ABHIJEET-14 Urine Drug Screen (02/28/2025 10:19 AM EDT) Only the most recent of2 resultswithin the time period is included. THC Negative Negative Cocaine Screen, Urine Negative [...] - 02/28/2025 10:19 AM EDT UTOX cup Lot#[id number] Exp. 03/28/26 Internal Pass Control us Shakawinston Ashley MD POINT OF CARE TEST ENTER/EDIT OR DERABLES Final Result * Stress test with myocardial perfusion (02/09/2025 7:57 AM EDT) 02/09/2025 7:57 AM EDT [facility] - 02/10/2025 4:19 PM EDT [address] [address] Nuclear Medicine Report Signed Patient: William Zavala MR#: [id number] : 1975 Acct:[id number] Age/Sex: 49 / M ADM Date: 02/09/25 Loc: [facility] Attending Dr: Austin Tinsley MD Ordering Physician: Austin Tinsley MD Date of Service: 02/09/25 Procedure(s): NM cardiolite stress test Accession Number(s): [id number] cc: Name,Shaka TURNER; Austin Tinsley MD EXERCISE MYOCARDIAL PERFUSION STUDY INDICATION: Precordial chest pain to evaluate for myocardial ischemia TECHNIQUE: The patient was brought in for an exercise perfusion study on 02/09/2025. Patient performed exercise as per [facility] protocol and was injected 30 mCi of sestamibi once target heart rate was achieved. Images were obtained using the SPECT gamma camera interlaced with the gating device. Images were obtained in supine position. Resting perfusion study was performed on 02/10/2025. Patient was administered 30 mCi of sestamibi intravenously at rest. Images were then obtained in supine position. Images obtained without without CT attenuation. Total DLP 83 mGy-cm. Images were processed with the software and compared side to side in short axis, horizontal long axis and vertical long axis views. FINDINGS: Raw images were reviewed The stress perfusion study showed nonattenuated images show mildly reduced uptake in the basal inferior wall of the LV myocardium. Remainder of the LV myocardium is normally perfused. Attenuated corrected images show overall normal uptake of radiotracer in all segments of the LV myocardium.. The gated study shows normal LV systolic function with calculated LVEF of 66%. LV cavity is normal in size. The gated study shows normal systolic wall thickening and contraction of segments. Resting study shows no change in perfusion pattern compared to stress perfusion study. Gating at rest reveals normal systolic wall motion with ejection fraction at 59%. The findings are consistent with normal myocardial perfusion. NM/NM cardiolite stress test IMPRESSION: 1. Myocardial perfusion imaging study shows normal myocardial perfusion. 2. Gated LVEF is 66%. 3. Transient ischemic dilatation not present. EKG revealed negative for ischemia. Electronically signed by: Sven Feliciano MD 02/10/2025 04:17 PM EDT RP Dictated By: Sven Feliciano MD Signed By: <Electronically signed by Sven Feliciano MD in OV> 02/10/25 1617 DD/ 0757 TD/TT: 02/10/25 0900 Senior Quality Analyst: Procedure Note Donotuseinterpreter, Image - 02/10/[address] [address] Nuclear Medicine Report Signed Patient: Dell Zavala#: [id number] : 1975Acct:[id number] Age/Sex: 49 / MADM Date: 02/09/25 Loc: [facility] Attending Dr: Austin Tinsley MD Ordering Physician: Austin Tinsley MD Date of Service: 02/09/25 Procedure(s): NM cardiolite stress test Accession Number(s): [id number] cc: Dion,Shaka TURNER; Austin Tinsley MD EXERCISE MYOCARDIAL PERFUSION STUDY INDICATION: Precordial chest pain to evaluate for myocardial ischemia TECHNIQUE: The patient was brought in for an exercise perfusion study on 02/09/2025. Patient performed exercise as per [facility] protocol and was injected 30 mCi of sestamibi once target heart rate was achieved. Images were obtained using the SPECT gamma camera interlaced with the gating device. Images were obtained in supine position. Resting perfusion study was performed on 02/10/2025. Patient was administered 30 mCi of sestamibi intravenously at rest. Images were then obtained in supine position. Images obtained without without CT attenuation. Total DLP 83 mGy-cm. Images were processed with the software and compared side to side in short axis, horizontal long axis and vertical long axis views. FINDINGS: Raw images were reviewed The stress perfusion study showed nonattenuated images show mildly reduced uptake in the basal inferior wall of the LV myocardium. Remainder of the LV myocardium is normally perfused. Attenuated corrected images show overall normal uptake of radiotracer in all segments of the LV myocardium.. The gated study shows normal LV systolic function with calculated LVEF of 66%. LV cavity is normal in size. The gated study shows normal systolic wall thickening and contraction of segments. Resting study shows no change in perfusion pattern compared to stress perfusion study. Gating at rest reveals normal systolic wall motion with ejection fraction at 59%. The findings are consistent with normal myocardial perfusion. NM/NM cardiolite stress test IMPRESSION: 1. Myocardial perfusion imaging study shows normal myocardial perfusion. 2. Gated LVEF is 66%. 3. Transient ischemic dilatation not present. EKG revealed negative for ischemia. Electronically signed by: Sven Feliciano MD 02/10/2025 04:17 PM EDT Dictated By: Sven Feliciano MD Signed By: <Electronically signed by Sven Feliciano MD in OV> 02/10/25 1617 DD/ 0757 TD/TT: 02/10/25 0900 Senior Quality Analyst: [facility] External Provider CV STRE SS PROCEDURES Final Result Performing Organization Address City/State/[facility] Co de Phone Number [facility] [address] [place] [address] * XR Foot 3+ Views Right (02/08/2025 8:20 AM EDT) Anatomical Region Laterality Modality Lower Extremities, Foot Right Radiogra phic Imaging 02/08/2025 8:20 AM EDT Narrative 02/08/2025 8:45 AM EDT [address] [address] XRay Report Signed Patient: William Zavala MR#: [id number] : 1975 Acct:[id number] Age/Sex: 49 / M ADM Date: 02/08/25 Loc: [facility] Attending Dr: Bonny Talavera MD Ordering Physician: Bonny Coto MD Date of Service: 02/08/25 Procedure(s): XR foot RT min 3V Accession Number(s): [id number] cc: Bonny Coto MD; Name,Shaka TURNER EXAMINATION: XR FOOT, RIGHT CLINICAL INFORMATION: pain after object fell on is foot COMPARISON: December 31, 2015 TECHNIQUE: AP, lateral, and oblique views of the right foot. FINDINGS: No acute cortical disruption. No gross malalignment. Small exostosis at the medial aspect and base of the distal phalanx first toe. There is a spur in the plantar calcaneus. There is exostosis at the Achilles tendon insertion. Vascular calcifications. No subcutaneous emphysema. No gross joint effusion, anterior tibiotarsal bursa.. XR/XR foot RT min 3V IMPRESSION: No acute fracture or dislocation. Plantar calcaneal spur. Enthesopathy, Achilles tendon. Atherosclerosis disease, peripheral. Degenerative changes, distal phalanx first toe. Electronically signed by: Shun Mayo MD 02/08/2025 08:43 AM EDT RP Dictated By: Shun Trujillo MD Signed By: <Electronically signed by Shun Rojo MD in OV> 02/08/2543 DD/ 9 TD/TT: 02/08/25824 Senior Quality Analyst: Procedure Note Donotuseinterpreter, Image - 02/08/2025 [place] [address] XRay Report Signed Patient: William Zavala#: [id number] : 1975Acct:[id number] Age/Sex: 49 / MADM Date: 02/08/25 Loc: [facility] Attending Dr: Bonny Talavera MD Ordering Physician: Bonny Coto MD Date of Service: 02/08/25 Procedure(s): XR foot RT min 3V Accession Number(s): [id number] cc: Bonny Coto MD; Name,Shaka TURNER EXAMINATION: XR FOOT, RIGHT CLINICAL INFORMATION: pain after object fell on is foot COMPARISON: December 31, 2015 TECHNIQUE: AP, lateral, and oblique views of the right foot. FINDINGS: No acute cortical disruption. No gross malalignment. Small exostosis at the medial aspect and base of the distal phalanx first toe. There is a spur in the plantar calcaneus. There is exostosis at the Achilles tendon insertion. Vascular calcifications. No subcutaneous emphysema. No gross joint effusion, anterior tibiotarsal bursa.. XR/XR foot RT min 3V IMPRESSION: No acute fracture or dislocation. Plantar calcaneal spur. Enthesopathy, Achilles tendon. Atherosclerosis disease, peripheral. Degenerative changes, distal phalanx first toe. Electronically signed by: Shun Mayo MD 02/08/2025 08:43 AM EDT RP Dictated By: Shun Trujillo MD Signed By: <Electronically signed by Shun Rojo MDin OV> 02/08/25842 DD/ 9 TD/TT: 02/08/25824 Senior Quality Analyst: us Bonny Talavera MD IMG XR PROCEDURES Fin al Result * TSH W/Reflex to FT4 (12/06/2024 3:58 PM EDT) TSH reflex Free T4 1.23 0.32 - 4.0 uIU/mL [facility] Blood Venous blood specimen / Unknown 12/06/2024 3:58 PM EDT 12/06/2024 5:30 PM EDT Shaka Ashley MD LAB BLOOD ORDERABLES Final Resul t Performing Organization Address [facility] Co de Phone Number [facility] [address] [place] [phone] * Other Reference Test - Misc (11/29/2024 12:00 AM EDT) 11/29/2024 11/29/2024 Narrative [facility] - 12/05/2024 9:15 AM EDT [id number] us Nandini Rowland AIR TWIST OPERATOR LAB BLOOD ORDERABLES Final Res ult Performing Organization Address [facility] Co de Phone Number [facility] [address] [place] [phone] * (ABNORMAL) POCT HGB A1C (06/01/2024 11:52 AM EST) Hemoglobin A1C 6.4(A) 4.0 - 6.0 % QC Media Lot # [id number] Lot# Expiration Date 2354 Blood 06/01/2024 11:5 2 AM EST Shaka Ashley MD POINT OF CARE TEST ENTER/EDIT OR DERABLES Final Result * HIV Ab/Ag (TENISHA SYKES) (10/27/2022 8:46 AM EDT) Pathologist [facility] HIV AB/AG Nonreactive Nonreactive [facility] Comment:HIV-1 p24 Ag and/or HIV-1/HIV-2 Ab not detected.A test result that is nonreactive does not exclude thepossibility of exposure to or infection with HIV-1 and/orHIV-2. Nonreactive results in this assay for individualswith prior exposure to HIV-1 and/or HIV-2 may be due toantigen and antibody levels that are below the limit ofdetection of this assay.The [employer] HIV Ag/Ab Combo assay result andsupplemental assay results should be interpreted inconjunction with the patient's clinical presentation,history and other laboratory results. If the results areinconsistent with clinical evidence, additional testing issuggested to confirm the result. 10/27/2022 8:46 AM EDT 10/27/2022 8:46 AM EDT [facility] External Provider LAB BLO OD ORDERABLES Final Result [facility] [address] [place] [phone] * Hepatitis C Viral RNA, Quantitative, Real-Time PCR (10/27/2022 8:46 AM EDT) Pathologist [facility] Hepatitis C Viral Load <15 NOT DETECTED NOT DETECTED IU/mL [facility] HCV Log PCR <1.18 NOT DETECTED NOT DETECTED Log IU/mL [facility] Comment:This test was perfor med using Real-Time Polymerase ChainReaction.Reportable Range: 15 IU/mL to 100,000,000 IU/mL(1.18 Log IU/mL to 8.00 Log IU/mL).The analytical performance characteristics of thisassay have been determined by [employer].The modifications have not been cleared or approved bythe FDA. This assay has been validated pursuant to theCLIA regulations and is used for clinical purposes.For more information on this test, go to:http://education.REVENUE.com/faq/GCU79o1(This link is being provided for informational/educational purposes only.)THIS TEST WAS PERFORMED AT:[facility] [place] [id number] LUIS RAINES MD 10/27/2022 8:46 AM EDT 10/27/2022 8:46 AM EDT [facility] External Provider LAB BLO OD ORDERABLES Final Result [facility] [address] [place] [address] [phone] * Colonoscopy (09/05/2022) [facility] Colonoscopy Normal Normal Comment:ifobt Historical Provider HEALTH MAINTENANCE Final Result * (ABNORMAL) LIPID PANEL, STANDARD (01/22/2021 10:21 AM EDT) [facility] Chol/HDLC Ratio 4.2 <5.0 (calc) [facility] Cholesterol, Total 143 <200 mg/dL [facility] HDL Cholesterol 34(L) > OR = 40 mg/dL [facility] LDL Cholesterol 90 mg/dL (calc) [facility] Comment: Reference range: <100 Desirable range <100 mg/dL for primary prevention; <70 mg/dL for patients with CHD or diabetic patients with > or = 2 CHD risk factors. LDL-C is now calculated using the Juan C calculation, which is a validated novel method providing better accuracy than the Friedewald equation in the estimation of LDL-C. Jt AGUIRRE et al. JAMAL. 2013;310(19): 8951-1816 (http://education.eBrisk Video.com/faq/LJZ480) Non-HDL Cholesterol 109 <130 mg/dL (calc) [facility] Comment: For patients with diabetes plus 1 major ASCVD risk factor, treating to a non-HDL-C goal of <100 mg/dL (LDL-C of <70 mg/dL) is considered a therapeutic option. Triglycerides 92 <150 mg/dL [facility] 01/22/2021 10:2 1 AM EDT us Shaka Name LAB BLOOD ORDERABLES Final Resul t [facility] [address] from Last 3 Months or Most Recently Relevant to Health Maintenance Insurance [facility] ONE CARE < 65 [place] [id number] Care Teams Registered Midwife Relationship Specialty Start Date End Date Name, MD Shaka [address] [place] [address] PCP - General Family Medicine 08/27/15 Alison Maurice, DlD [address] [place] [address] Pharmacist Internal Medicine 12/16/22
--- OUTSIDE RECORDS SUMMARY | 2025-02-28 13:54 | XMS_ITS | Clinical Summary ---
Author Organization [facility] Address [address] [facility] [address] [place] [address] Phone Care Team Providers Care Canine Deputy Name Role Phone Name, Shaka TURNER Primary Care Provider [phone] Allergies Active Allergy Reactions Criticality Noted Date [...] day Active acetaminophen (TYLENOL) 325 MG tablet 08/16/19 21 Active albuterol (2.5 MG/3ML) 0.083% nebulizer solution USE 1 VIAL VIA NEBULIZER 3 TIMES A DAY 08/04/19 21 Active montelukast (Singulair) 10 MG tablet Take 1 tablet (10 mg total) by mouth 1 (one) time each day 30 tablet 3 08/30/19 21 Active fluticasone (FLONASE) 50 MCG/ACT nasal spray Administer 1 spray into each nostril 2 (two) times a day 08/24/19 21 Active zolpidem (AMBIEN) 10 MG tablet 09/17/19 21 Active Flovent HFA 220 MCG/ACT inhaler INHALE 1 PUFF BY MOUTH TWICE DAILY. RINSE MOUTH AFTER USING. 10/27/19 21 Active oxyCODONE (ROXICODONE) 10 MG immediate release tablet 10 mg 07/12/19 22 Active levothyroxine (SYNTHROID, LEVOTHROID) 150 MCG tablet 09/19/19 22 Active clonazePAM (KlonoPIN) 1 MG tabletIndicati ons:Other specified anxiety disorders Take 1 tablet (1 mg total) by mouth 2 (two) times a day if needed for anxiety 60 tablet 11/18/19 24 Active ampicillin (PRINCIPEN) 500 MG capsule TAKE 2 CAPSULE BY MOUTH DIRECTED TAKE 1 HOUR PRIOR TO DENTAL PROCEDURE 2 capsule 3 02/10/20 24 Active mycophenolate (MYFORTIC) 180 MG EC tablet Take 3 tablets (540 mg total) by mouth in the morning and 3 tablets (540 mg total) in the evening. 540 tablet 3 05/11/20 24 025 Active calcitriol (ROCALTROL) 0.25 MCG capsule TAKE 1 CAPSULE BY MOUTH EVERY OTHER DAY 45 capsule 3 08/26/19 25 Active doxazosin (Cardura) 4 MG tablet Take 1 tablet (4 mg total) by mouth every night 90 tablet 3 09/16/19 25 026 Active losartan (Cozaar) 50 MG tabletIndicati ons:Hypertensi on Take 2 tablets (100 mg total) by mouth 1 (one) time each day 180 tablet 3 11/30/19 25 026 Active labetalol (NORMODYNE) 200 MG tablet TAKE 1 TABLET (200 MG) BY MOUTH IN THE MORNING AND IN THE EVENING 180 tablet 01/24/20 25 Active Tacrolimus ER 4 MG tablet sustained-rele ase 24 hourIndication s:Kidney transplant status Take 12 mg by mouth 1 (one) time each day Take three 4 mg tablets for a total daily dose of 12 mg. 270 tablet 3 02/03/20 25 026 Active Iron, Ferrous Sulfate, 325 (65 Fe) MG tablet Take 1 tablet by mouth 3 times weekly: Thu and Thursday morning 36 tablet 1 02/07/20 25 025 Active Tacrolimus ER 4 MG tablet sustained-rele ase 24 hourIndication s:Kidney transplant status Take 11 mg by mouth 1 (one) time each day Take two 4 mg tablets along with three 1 mg tablet for a total daily dose of 11 mg. 270 tablet 3 11/30/19 025 Discontinued Tacrolimus ER 4 MG tablet sustained-rele ase 24 hourIndication s:Kidney transplant status Take 12 mg by mouth 1 (one) time each day Take two 4 mg tablets along with three 1 mg tablet for a total daily dose of 11 mg. 270 tablet 3 02/03/20 25 025 Discontinued(Re order (does not appear on AVS)) Tacrolimus ER 4 MG tablet sustained-rele ase 24 hourIndication s:Kidney transplant status Take 12 mg by mouth 1 (one) time each day Take two 4 mg tablets along with three 1 mg tablet for a total daily dose of 11 mg. 270 tablet 3 02/03/20 25 025 Discontinued Tacrolimus ER 4 MG tablet sustained-rele ase 24 hourIndication s:Kidney transplant status Take 12 mg by mouth 1 (one) time each day Take three 4 mg tablets for a total daily dose of 12 mg. 270 tablet 3 02/03/20 025 Discontinued(Re order (does not appear on AVS)) Tacrolimus ER 4 MG tablet sustained-rele ase 24 hourIndication s:Kidney transplant status Take 12 mg by mouth 1 (one) time each day Take three 4 mg tablets for a total daily dose of 12 mg. 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 [address] [facility] [address] [place] [address] Zhen Sifuentes MD Kidney transplant status 02/06/2025 Orders Only [facility] [address] [facility] [address] [place] [address] Zhen Sifuentes MD 02/02/2025 9:15 AM EDT Office Visit [facility] [address] [place] [address] [address] [place] [address] Zhen Sifuentes MD Kidney transplant status (Primary Dx) 01/22/2025 Refill [facility] [address] [place] [address] [address] [place] [address] Zhen Sifuentes MD 01/06/2025 Orders Only [facility] [address] [facility] [address] [place] [phone] Ghassan Junior MD Kidney transplant status; Other extermination inspector current drug therapy; Secondary hyperparathyroidism of renal origin (HCC); Anemia, not otherwise specified 11/29/2024 [facility]ill [facility] [address] [place] [phone] Yulissa Charles Kidney transplant status; Hypertension from Last 3 Months Immunizations Immunization Administration Dates Next Due Hepatitis A 03/27/2014 Influenza (IM) Preservative Free 024,03/06/2015,03/27/2014,03/11,02/27/2012,03/27/2011,03/13/2009 ,03/09/2008,04/01/2007,06/11/2006 Influenza Split High Dose Pr eservative Free IM 03/19/2018 Influenza, MDCK, PF, Quadrivalent 03/08/2020 Influenza, Quadrivalent, Pre servative Free 03/31/2023,03/10/2022,03/23/2021,03/11 Influenza, Quadrivalent, Wit h Preservative 03/06/2015 MMR 11/20/2017 Moderna SARS-COV-2 10/22/2020,09/24/2020 PPD Test 04/19/2014 Pfizer SARS-COV-2 01/17/2021 Pneumococcal Conjugate 13-Valent 03/27/2014 Pneumococcal Conjugate Pcv 20 08/12/2023 Pneumococcal Polysaccharide 01/12/2018 Tdap 10/24/2021,03/27/2014,10/31/2011 Varicella 11/20/2017 [...] Sign Reading Time Taken Comments Blood Pressure 138/80 02/02/2025 9:11 AM EDT Pulse 74 02/02/2025 9:11 AM EDT Temperature 36.2 C (97.1 F) 05/08/2022 10:02 AM EST Respiratory Rate 18 07/28/2017 12:00 PM EST Oxygen Saturation 98% 02/02/2025 9:11 AM EDT Inhaled Oxygen Concentration - - Weight 89.4 kg (197 lb 3.2 oz) 02/02/2025 9:11 A M EDT Height 177.8 cm (5' 10 ) 04/21/2023 11:10 AM EDT Body Mass Index 28.3 04/21/2023 11:10 AM EDT Plan of Treatment Upcoming Encounters Date Type Department Care Team (Late st Contact Info) Description 05/05/2025 9:15 AM EST Office Visit [facility] [address] [address] Zhen Sifuentes MD [address] [phone] Health Maintenance Due Date Last Done Comments Hepatitis B Vaccine (1 of 3 - 19+ 3-dose series) 1995 Influenza Vaccine (#1) 2025 4, 03/31/2023, 03/10/2022, Additional history exists Pneumococcal Vaccine: 50+ Years Discontinued 08/12/2023, 01/12/2018, 03/27/2014 Pneumococcal Vaccine: Peds ( 0 to 5 Years) and At-Risk Patients (6 to 49 Years) Completed 08/12/2023, 01/12/2018, 03/27/2014 Procedures Procedure Name Priority Date/Time Associated Diagnosis Comments FERRITIN Routine 01/27/2025 8:08 AM EDT Kidney transplant status Other extermination inspector current drug therapy Anemia, not otherwise specified IRON PANEL (FE, TIBC, TSAT) Routine 01/27/2025 8:08 AM EDT Kidney transplant status Other extermination inspector current drug therapy Anemia, not otherwise specified PTH, INTACT Routine 01/27/2025 8:08 AM EDT Kidney transplant status Other extermination inspector current drug therapy Secondary hyperparathyroidism of renal origin (HCC) URINE ALBUMIN / CREATININE RATIO Routine 01/27/2025 8:08 AM EDT Kidney transplant status LIPID PANEL Routine 01/27/2025 8:08 AM EDT Kidney transplant status Other correction current drug therapy URIC ACID Routine 01/27/2025 8:08 AM EDT Kidney transplant status Other correction current drug therapy TACROLIMUS LEVEL Routine 01/27/2025 8:08 AM EDT Kidney transplant status Other extermination inspector current drug therapy CBC Routine 01/27/2025 8:08 AM EDT Kidney transplant status Other correction current drug therapy BASIC METABOLIC PANEL Routine 01/27/2025 8:08 AM EDT Kidney transplant status Other correction current drug therapy from Last 3 Months Results * (ABNORMAL) Tacrolimus level (01/27/2025 8:08 AM EDT) Tacrolimus Lvl 4.6(L) 5.0 - 20.0 ng/mL [facility] Comment: Target steady state trough concentration for Tacrolimus varies based on type of organ transplant immunosuppressive protocol and other patient specific factors. Tacrolimus trough concentrations should be interpreted in conjunction with clinical assessments of rejection and tolerability. Values obtained with different assay methods cannot be used interchangeably due to differences in assay methods and cross-reactivty with metabolites, nor should correction factors be applied. Therefore, consistent use of one assay for individual patients is recommended. Detection Limit = 0.5 ng/mL Performed by LC-MS/MS technology. Blood specimen (specimen) Venous blood / Unknown 01/27/2025 8:08 AM EDT 01/27/2025 Narrative [facility] - 01/30/2025 6:06 PM EDT Test(s) 588110-[id number] ([id number]), Blood was developed and its performance characteristics determined by [facility]. It has not been cleared or approved by the Food and Drug Administration. Ghassan Junior MD LAB BLOOD ORDERABLES Final Result [facility] [address] [place] [address] * Iron Panel (Fe, TIBC, TSAT) (01/27/2025 8:08 AM EDT) TIBC 325 250 - 450 ug/dL [facility] [place] [facility] UIBC 272 111 - 343 ug/dL [facility] [place] Iron 53 38 - 169 ug/dL [facility] Saturation (TSat) 16 15 - 55 % [facility] Blood specimen (specimen) Venous blood / Unknown 01/27/2025 8:08 AM EDT 01/27/2025 Ghassan Junior MD LAB BLOOD ORDERABLES Final Result [facility] [address] [place] [address] * Albumin / Creatinine Urine Ratio (01/27/2025 8:08 AM EDT) Creatinine, Ur 49.4 Not Estab. mg/dL [facility] [facility] Albumin, Urine 7.1 Not Estab. ug/mL [facility] Albumin/Creatin ine Ratio 14 0 - 29 mg/g creat [facility] Comment: Normal: 0 - 29 Moderately increased: 30 - 300 Severely increased: >300 Urine specimen (specimen) Urine specimen obtained by clean catch procedure / Unknown 01/27/2025 8:08 AM EDT 01/27/2025 us Ghassan Junior MD LAB URINE ORDERABLES Final Result [facility] [address] [place] [address] * (ABNORMAL) CBC (01/27/2025 8:08 AM EDT) WBC 6.5 3.4 - 10.8 x10E3/uL [facility] RBC 4.31 4.14 - 5.80 x10E6/uL [facility] Hemoglobin 11.6(L) 13.0 - 17.7 g/dL [facility] Hematocrit 36.4(L) 37.5 - 51.0 % [facility] MCV 85 79 - 97 fL [facility] MCH 26.9 26.6 - 33.0 pg [facility] MCHC 31.9 31.5 - 35.7 g/dL [facility] RDW 12.9 11.6 - 15.4 % [facility] Platelets 146(L) 150 - 450 x10E3/uL [facility] Blood specimen (specimen) Venous blood / Unknown 01/27/2025 8:08 AM EDT 01/27/2025 us Ghassan Junior MD LAB BLOOD ORDERABLES Final Result [facility] [place] [address] [place] [address] * Uric acid (01/27/2025 8:08 AM EDT) Uric Acid 5.8 3.8 - 8.4 mg/dL [facility] Comment:Therapeutic target f or gout patients: <6.0 Blood specimen (specimen) Venous blood / Unknown 01/27/2025 8:08 AM EDT 01/27/2025 us Ghassan Junior MD LAB BLOOD ORDERABLES Final Result Performing Organization Address City/[facility]/ZIP Co de Phone Number [facility] [place] [address] [place] [address] * PTH, intact (01/27/2025 8:08 AM EDT) PTH 61 15 - 65 pg/mL [facility] Blood specimen (specimen) Venous blood / Unknown 01/27/2025 8:08 AM EDT 01/27/2025 us Ghassan Junior MD LAB BLOOD ORDERABLES Final Result Performing Organization Address City/[facility]/ZIP Co de Phone Number [facility] [place] [address] [place] [address] * (ABNORMAL) Ferritin (01/27/2025 8:08 AM EDT) Ferritin 547(H) 30 - 400 ng/mL [facility] Blood specimen (specimen) Venous blood / Unknown 01/27/2025 8:08 AM EDT 01/27/2025 us Ghassan Junior MD LAB BLOOD ORDERABLES Final Result [facility] [place] [address] [place] [address] * Lipid panel (01/27/2025 8:08 AM EDT) Cholesterol 120 100 - 199 mg/dL [facility] [place] Triglycerides 72 0 - 149 mg/dL [facility] HDL 51 >39 mg/dL [facility] [place] VLDL Cholesterol Aldair 15 5 - 40 mg/dL [facility] [place] LDL Calculated 54 0 - 99 mg/dL [facility] Blood specimen (specimen) Venous blood / Unknown 01/27/2025 8:08 AM EDT 01/27/2025 us Ghassan Junior MD LAB BLOOD ORDERABLES Final Result [facility] [place] [address] [place] [address] * (ABNORMAL) BMP (01/27/2025 8:08 AM EDT) Glucose 121(H) 70 - 99 mg/dL [facility] BUN 27(H) 6 - 24 mg/dL [facility] Sodium 138 134 - 144 mmol/L [facility] Chloride 104 96 - 106 mmol/L [facility] Bicarbonate (CO2) 18(L) 20 - 29 mmol/L [facility] Calcium 9.7 8.7 - 10.2 mg/dL [facility] Creatinine 1.15 0.76 - 1.27 mg/dL [facility] [place] eGFR CKD-EPI CR 2020 79 >59 mL/min/1.7 3 [facility] [place] BUN/Creatinine Ratio 23(H) 9 - 20 [facility] Potassium 4.4 3.5 - 5.2 mmol/L [facility] [place] Blood specimen (specimen) Venous blood / Unknown 01/27/2025 8:08 AM EDT 01/27/2025 us Ghassan Junior MD LAB BLOOD ORDERABLES Final Result [facility] [place] [address] [place] [address] from Last [address] [place] [address] ([id number]) [place] [id number] [facility] ([id number]) Care Teams Canine Deputy Relationship Specialty Start Date End Date Name, MD Shaka [address] [place] [id number] PCP - General 07/02/20
--- OUTSIDE RECORDS SUMMARY | 2025-02-28 13:54 | XMS_ITS | Encounter Summary ---
Author Organization [employer] Address [address] [facility] 7t [place] [address] Care Team Providers Care Power System Operator Name Role Phone Name, Shaka TURNER Primary Care Provider [phone] Alison Maurice PharmD Unavailable [phone] Encounter Details Date Type Department Care Team ([facility] Contact Info) Description 03/20/2023 Abstract [facility] ADULT DENTAL [address] [place] [address] Kandru, Dillan, DDS [address] [place] [address] Social History Tobacco Use Types Packs/Day Years [...] Upcoming Encounters Date Type Department Care Team ([facility] Contact Info) Description 05/02/2025 9:00 AM EST Office Visit [facility] MED[facility] [address] [place], [place] [phone] Name, MD Shaka [facility] [place] [address] 05/02/2025 9:45 AM EST Office Visit [facility] [place] [address] documented as of this encounter Goals Goal [...] documented as of this encounter Care Teams Power System Operator Relationship Specialty Start Date End Date Name, [place] [address] PCP - General Family Medicine 08/27/15 Alison Maurice, [place] [address] Pharmacist Internal Medicine 12/16/22 documented as of this encounter
--- OUTSIDE RECORDS SUMMARY | 2025-02-28 13:54 | XMS_ITS | Encounter Summary ---
Author Organization [employer] Address [address] [facility] [address] [address] [place] [address] Care Team Providers Care Legal Editor Name Role Phone Name, Shaka TURNER Primary Care Provider [phone] Alison Maurice PharmD Unavailable [phone] Encounter Details Date Type Department Care Team ([facility] st Contact Info) Description 05/10/2023 Abstract [facility] MEDICINE [address] [place] [address] Sariah Rodriguez Social History Tobacco Use Types [...] Description 05/02/2025 9:00 AM EST Office Visit [address] [address] NameShaka MD [address] [place] [address] 05/02/2025 9:45 AM EST Office Visit [address] [address] documented as of this encounter Goals Goal [...] documented as of this encounter Care Teams Legal Editor Relationship Specialty Start Date End Date Shaka Ashley MD [address] [place] [phone] PCP - General Family Medicine 08/27/15 Puia, Alison, PharmD [address] [place] [address] Pharmacist Internal Medicine 12/16/22 documented as of this encounter
--- OUTSIDE RECORDS SUMMARY | 2025-02-28 13:54 | XMS_ITS | Encounter Summary ---
Author Organization [employer] Address [address] [facility] 7t [place] [address] Care Team Providers Care Supervisor Drying And Softening Name Role Phone Name, Shaka TURNER Primary Care Provider [phone] Alison Maurice PharmD Unavailable Encounter Details Date Type Department Care Team (Latest Contact Info) Description 01/18/2021 Abstract [facility] CONVERSIONS Dental, Provider, DDS Social History [...] Description 05/02/2025 9:00 AM EST Office Visit [facility] [address] [place] [phone] Name, MD Shaka [address] [place] [address] 05/02/2025 9:45 AM EST Office Visit [facility] [address] [place] [address] documented as of this encounter Visit Diagnoses Not on filedocumented in this encounter Care Teams Supervisor Drying And Softening Relationship Specialty Start Date End Date Name, MD Shaka [address] [place] [address] PCP - General Family Medicine 08/27/15 Alison Maurice, DlD [address] [place] [address] [place] [address] Pharmacist Internal Medicine 12/16/22 documented as of this encounter
--- OUTSIDE RECORDS SUMMARY | 2025-02-28 13:54 | XMS_ITS | Encounter Summary ---
Author Organization [employer] Address [address] [facility] 7t [place] [address] Care Team Providers Care Spinner Box Name Role Phone Name, Shaka TURNER Primary Care Provider [phone] Alison Maurice PharmD Unavailable Encounter Details Date Type Department Care Team (Latest Contact Info) Description 06/23/[address] [facility] CONVERSIONS Dental, Provider, DDS Social History [...] 9:00 AM EST Office Visit [facility] MEDICINE [address] [place] [phone] Name, MD Shaka [address] [place] [address] 05/02/2025 9:45 AM EST Office Visit [facility] MED[facility]INE [address] [place] [address] documented as of this encounter Visit Diagnoses Not on filedocumented in this encounter Care Teams Spinner Box Relationship Specialty Start Date End Date Name, MD Shaka [address] [place] [phone] PCP - General Family Medicine 08/27/15 Alison Maurice, DlD [address] [place] [phone] Pharmacist Internal Medicine 12/16/22 documented as of this encounter
--- OUTSIDE RECORDS SUMMARY | 2025-02-28 13:54 | XMS_ITS | Encounter Summary ---
Author Organization [employer] Address [address] [facility] 7t [place] [address] Care Team Providers Care Population Geneticist Name Role Phone Name, Shaka TURNER Primary Care Provider [phone] Alison Maurice PharmD Unavailable [phone] Reason for Visit * Reason Comments Med Refill Encounter Details Date Type Department Care Team (Late st Contact Info) Description 08/31/2023 Refill [facility] [address] [place], [place] [phone] Name, MD Shaka [address] [place], [place] [phone] Essential hypertension Social History Tobacco Use Types [...] your housing situation today? I have brennan chaevz 08/12/[address] you li [...] Description 05/02/2025 9:00 AM EST Office Visit [facility] [address] [place] [phone] NameShaka MD [address] [place] [address] 05/02/2025 9:45 AM EST Office Visit [address] [address] documented as of this encounter Goals Goal Patient Goal Type Associated Problems Recent Progress Patient-Stated? Author Record your blood pressure once per day Blood Pressure No Alison Maurice, PharmD Blood Pressure < 140/90 Blood Pressure 143/84( 025 5:40 PM EDT) No Vel Mauriceyssa, PharmD documented as of this encounter Visit Diagnoses Diagnosis Essential hypertension Unspecified essential hypertension documented in this encounter Additional Health Concerns Assessment Noted Time PHQ-9 Depression Total Score: 0 08/12/19 24 11:03 AM EST documented as of this encounter Care Teams Population Geneticist Relationship Specialty Start Date End Date Shaka Ashley MD [address] [place] [phone] PCP - General Family Medicine 08/27/15 Alison Maurice PharmD [address] [place] [address] Pharmacist Internal Medicine 12/16/22 documented as of this encounter
--- OUTSIDE RECORDS SUMMARY | 2025-02-28 13:54 | XMS_ITS | Encounter Summary ---
Author Organization [employer] Address [address] [facility] 7t [place] [address] Care Team Providers Care Agricultural Economist Name Role Phone Name, Shaka TURNER Primary Care Provider [phone] Alison Maurice PharmD Unavailable [phone] Encounter Details Date Type Department Care Team (Latest Contact Info) Description 06/19/2020 Abstract [facility] CONVERSIONS Dental, Provider, DDS Social History Tobacco [...] Description 05/02/2025 9:00 AM EST Office Visit [facility] [address] [place] [phone] Name, MD Shaka [address] [place] [phone] 05/02/2025 9:45 AM EST Office Visit [facility] [address] [place] [address] documented as of this encounter Visit Diagnoses Not on filedocumented in this encounter Care Teams Agricultural Economist Relationship Specialty Start Date End Date Name, MD Shaka [address] [place] [phone] PCP - General Family Medicine 08/27/15 Alison Maurice, DlD [address] [place] [phone] Pharmacist Internal Medicine 12/16/22 documented as of this encounter
--- OUTSIDE RECORDS SUMMARY | 2025-02-28 13:54 | XMS_ITS | Encounter Summary ---
Author Organization [employer] Address [address] [facility] [address] 7[address] [place] [address] Care Team Providers Care Orthopedic Dentist Name Role Phone Name, Shaka TURNER Primary Care Provider [phone] Alison Maurice PharmD Unavailable [phone] Encounter Details Date Type Department Care Team (Latest Contact Info) Description 02/28/2025 Travel Social History Tobacco Use Types Packs/Day [...] Description 05/02/2025 9:00 AM EST Office Visit [address] [address] Shaka Ashley MD [address] [place] [address] 05/02/2025 9:45 AM EST Office Visit [address] [address] documented as of this encounter Goals Goal [...] documented as of this encounter Care Teams Orthopedic Dentist Relationship Specialty Start Date End Date Shaka Ashley MD [address] [place] [phone] PCP - General Family Medicine 08/27/15 Alison Maurice, DlD [address] [place] [phone] Pharmacist Internal Medicine 12/16/22 documented as of this encounter
--- OUTSIDE RECORDS SUMMARY | 2025-02-28 13:54 | XMS_ITS | Encounter Summary ---
Author Organization [employer] Address [address] [facility] 7t [place] [address] Care Team Providers Care Grants Officer Name Role Phone Name, Shaka TURNER Primary Care Provider [phone] Alison Maurice PharmD Unavailable Reason for Visit * Reason Comments Med Refill Encounter Details Date Type Department Care Team ([facility] st Contact Info) Description 04/22/2023 Refill [facility] [address] [place], [place] [phone] Name, MD Shaka [address] [place], [place] [phone] Allergic rhinitis, unspecified seasonality, unspecified trigger Social [...] Description 05/02/2025 9:00 AM EST Office Visit [address] [address] Name, MD Shaka [address] [place] [address] 05/02/2025 9:45 AM EST Office Visit [address] [address] documented as of this encounter Goals Goal [...] documented as of this encounter Care Teams Grants Officer Relationship Specialty Start Date End Date Shaka Ashley MD [address] [place] [phone] PCP - General Family Medicine 08/27/15 Puia, Alison, PharmD [address] [place] [address] Pharmacist Internal Medicine 12/16/22 documented as of this encounter
--- OUTSIDE RECORDS SUMMARY | 2025-02-28 13:54 | XMS_ITS ---
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
--- OUTSIDE RECORDS SUMMARY | 2025-02-28 13:54 | XMS_ITS | Encounter Summary ---
Author Organization [employer] Address 75 [facility] 7t [place] [address] Care Team Providers Care Product Owner Name Role Phone Name, Shaka TURNER Primary Care Provider [phone] Alison Maurice PharmD Unavailable [phone] Encounter Details Date Type Department Care Team ([facility] Contact Info) Description 06/25/2022 Telephone [facility] [address] [place], [place] [phone] Name, MD Shaka [address] [place] [address] Social History Tobacco Use Types Packs/Day Years [...] Description 05/02/2025 9:00 AM EST Office Visit [address] [address] Name, [place] [address] 05/02/2025 9:45 AM EST Office Visit [address] [address] documented as of this encounter Visit Diagnoses Not on filedocumented in this encounter Additional Health Concerns Assessment Noted Time PHQ-9 Depression Total Score: 10 022 10:24 AM EST documented as of this encounter Care Teams Product Owner Relationship Specialty Start Date End Date Name, MD Shaka [address] [place] [phone] PCP - General Family Medicine 08/27/15 Alison Maurice PharmD [address] [place] [phone] Pharmacist Internal Medicine 12/16/22 documented as of this encounter
--- OUTSIDE RECORDS SUMMARY | 2025-02-28 13:54 | XMS_ITS | Encounter Summary ---
Author Organization [facility] Address [address] [facility] 7 [place] [address] Care Team Providers Care System Administration Advisor Name Role Phone Name, Shaka TURNER Primary Care Provider [phone] Alison Maurice PharmD Unavailable Encounter Details Date Type Department Care Team ([facility] Contact Info) Description 06/04/2022 Orders Only [facility] [address] [place], [place] [phone] Name, MD Shaka [address] [place] [address] Social History Tobacco Use Types Packs/Day Years [...] AM EST documented as of this encounter Functional Status * Over the past 2 weeks, how often have you been bothered by any of the following problems? Question Answer Date of Assessment Author Patient Health Questionnaire-2 Score 5 05/22 10:24 AM Atiya Vuong * If you checked off any problems on this questionnaire so far, Question Answer Date of Assessment Author How difficult have these problems made it for you to do your work, take care of things at home, or get along with other people? Not difficult at all 06/05/2022 10:24 AM Atiya Vuong * Over the past 2 weeks, how often have you been bothered by any of the following problems? Question Answer Date of Assessment Author Little interest or pleasure in doing things More than half the days 06/05/2022 10:24 AM Atiya Vuong Feeling down, depressed, or hopeless Nearly every day 06/05/2022 10:24 AM Atiya Vuong Trouble falling or staying asleep, or sleeping too much Not at all 06/05/2022 10:24 AM Atiya Vuong Feeling tired or having little energy Several days 06/05/2022 10:24 AM Atiya Vuong Poor appetite or overeating Nearly every day 10:24 AM Atiya Vuong Feeling bad about yourself - or that you are a failure or have let yourself or your family down Not at all 06/05/2022 10:24 AM Atiya Vuong Trouble concentrating on things, such as reading the newspaper or watching television Several days 06/05/2022 10:24 AM Atiya Vuong Moving or speaking so slowly that other people could have noticed? Or the opposite - being so fidgety or restless that you have been moving around a lot more than usual. Not at all 06/05/2022 10:24 AM Atiya Vuong Thoughts that you would be better off or hurting yourself in some way Not at all 06/05/2022 10:24 AM Atiya Vuong Patient Health Questionnaire-9 Score 10 06/05/2022 10:24 AM Atiya Vuong documented as of this encounter Plan of Treatment Upcoming Encounters Date Type Department Care Team (Late st Contact Info) Description 05/02/2025 9:00 AM EST Office Visit [facility] [address] [place] [address] Name, [place] [address] 05/02/2025 9:45 AM EST Office Visit [facility] [place] [address] documented as of this encounter Procedures Procedure [...] ANTIBODY (IGG) Routine 10/20/2022 2:44 PM EDT [id number]-7-[id number] QN Routine 2:44 PM EDT MITOCHONDRIAL ANTIBODY WITH REFLEX TO TITER Routine 10/20/2022 2:44 PM EDT DAVID SCREEN, IFA, W/REFL TITER AND PATTERN Routine 10/20/2022 2:44 PM EDT COMPREHENSIVE METABOLIC PANEL Routine 10/20/2022 2:44 PM EDT documented in this encounter Results * (ABNORMAL) Basic Metabolic Panel (01/19/2023 12:57 PM EDT) Sodium 141 135 - 145 mmol/L [facility] Potassium 4.2 3.3 - 5.1 mmol/L [facility] Chloride 106 96 - 108 mmol/L [facility] Carbon Dioxide 23 22 - 29 mmol/L [facility] Anion Gap 16 12 - 20 [facility] Urea Nitrogen (BUN) 14 9 - 16 mg/dL [facility] Creatinine, Serum 0.86 0.5 - 1.4 mg/dL [facility] Estimated Glomerular Filt Rate >60 [facility] Comment:NOTE: For -Am erican individuals, multiply the result by 1.210.Chronic Kidney Disease: Estimated GFR < 60 mL/min/1.96z7Ioqgca Kidney Disease: Estimated GFR < 15 mL/min/1.73m2 Glucose 167(H) 60 - 115 mg/dL [facility] Calcium 9.6 8.4 - 10.2 mg/dL [facility] 01/19/2023 12:5 7 PM EDT 01/19/2023 4:10 PM EDT us Shaka Ashley MD LAB BLOOD ORDERABLES Final Resul t [facility] [address] [place] [phone] * Liver Fibrosis, FibroTest-ActiTest Panel (10/27/2022 8:46 AM EDT) Liver Fibrosis Score 0.15 [facility] Liver Fibrosis Stage F0 [facility] Liver Fibrosis Interpretation SEE NOTE [facility] Comment:no fibrosisFibro Emily t Score [...] (severe fibrosis) Nec Inflam Act Score 0.13 [facility] Nec Inflam Act Grade A0 [facility] Nec Inflam Act Interpretation SEE NOTE [facility] Comment:no activityActiTest Score (a) Metavir Score a>=0 and a<=0.17 : A0 (no activity)a>0.17 and a<=0.29 : A0-A1 (no activity)a>0.29 and a<=0.36 : A1 (minimal activity)a>0.36 and a<=0.52 : A1-A2 (minimal activity)a>0.52 and a<=0.60 : A2 (significant activity)a>0.60 and a<=0.62 : A2-A3 (significant activity)a>0.62 and a<=1.00 : A3 (severe activity) RAW-Angrf-9-Macroglo bulin 194 106 - 279 mg/dL [facility] FIB-Haptoglobin 109 43 - 212 mg/dL [facility] FIB-Apolipoprotein A1 144 94 - 176 mg/dL [facility] FIB-Total Bilirubin 0.3 0.2 - 1.2 mg/dL [facility] FIB-GGT 24 3 - 95 U/L [facility] FIB-ALT 32 9 - 46 U/L [facility] Reference ID [id number] [facility] Footnote SEE NOTE [facility] Comment: The reliability of results [...] and C.The performance characteristics have been determined by[employer] [facility]. Ithas not been cleared or approved by the U.S. Food and DrugAdministration. Performance characteristics refer to theanalytical performance of the test.[employer], [employer], the associated logo, [employer] and all associated [employer] jay are theregistered trademarks of [employer]. All third partymarks - (R) and (TM) - are the property of their respectiveowners. (C) [id number] [employer]. Allrights reserved.THIS TEST WAS PERFORMED AT:[facility]ne[employer] [address] [place] [address]QBYPPLINDA STOCKTON MD,PHD,SATHISH 10/27/2022 8:46 AM EDT 10/27/2022 8:46 AM EDT [facility] External Provider LAB BLO OD ORDERABLES Final Result [facility] [address] [place] [phone] * Hepatitis C Viral RNA, Quantitative, Real-Time PCR (10/27/2022 8:46 AM EDT) Hepatitis C Viral Load <15 NOT DETECTED NOT DETECTED IU/mL [facility] HCV Log PCR <1.18 NOT DETECTED NOT DETECTED Log IU/mL [facility] Comment:This test was perfor med using Real-Time Polymerase ChainReaction.Reportable Range: 15 IU/mL to 100,000,000 IU/mL(1.18 Log IU/mL to 8.00 Log IU/mL).The analytical performance characteristics of thisassay have been determined by [employer].The modifications have not been cleared or approved bythe FDA. This assay has been validated pursuant to theCLIA regulations and is used for clinical purposes.For more information on this test, go to:http://education.Breezeplay/faq/BAN57x3(This link is being provided for informational/educational purposes only.)THIS TEST WAS PERFORMED AT:[facility] [place] [phone] LUIS RAINES MD 10/27/2022 8:46 AM EDT 10/27/2022 8:46 AM EDT [facility] External Provider LAB BLO OD ORDERABLES Final Result Performing Organization Address [facility] de Phone Number [facility] [address] [place] [phone] * HIV Ab/Ag (TENISHA LINK) (10/27/2022 8:46 AM EDT) [facility] HIV AB/AG Nonreactive Nonreactive [facility] Comment:HIV-1 p24 Ag and/or HIV-1/HIV-2 Ab not detected.A test result that is nonreactive does not exclude thepossibility of exposure to or infection with HIV-1 and/orHIV-2. Nonreactive results in this assay for individualswith prior exposure to HIV-1 and/or HIV-2 may be due toantigen and antibody levels that are below the limit ofdetection of this assay.The [employer] HIV Ag/Ab Combo assay result andsupplemental assay results should be interpreted inconjunction with the patient's clinical presentation,history and other laboratory results. If the results areinconsistent with clinical evidence, additional testing issuggested to confirm the result. 10/27/2022 8:46 AM EDT 10/27/2022 8:46 AM EDT [facility] External Provider LAB BLO OD ORDERABLES Final Result Performing Organization Address [facility] Co de Phone Number [facility] [address] [place] [address] [phone] * Actin (Smooth Muscle) Antibody (IgG) (10/20/2022 2:44 PM EDT) Smooth Muscle Antibody <20 <20 U [facility] Comment:Reference Range: <20 U: Negative>or=20 [...] with AIH type 1.THIS TEST WAS PERFORMED AT:[facility] [place] [address]ASAMTKRSCOTTIE PELLETIER MD,PHD 10/20/2022 2:44 PM EDT 10/20/2022 2:44 PM EDT [facility] External Provider LAB BLO OD ORDERABLES Final Result Performing Organization Address [facility]/ZIP Co de Phone Number [facility] [address] [place] [phone] * Mitochondrial Antibody with Reflex to Titer (10/20/2022 2:44 PM EDT) Mitochondrial Antibodies NEGATIVE NEGATIVE [facility] Comment:THIS TEST WAS PERFOR MED AT:[facility] [address] [phone] LUIS RAINES MD Mitochondrial Ab Titer TNP [facility] 10/20/2022 2:44 PM EDT 10/20/2022 2:44 PM EDT [facility] External Provider LAB BLO OD ORDERABLES Final Result Performing Organization Address City/[facility]/ZIP Co de Phone Number [facility] [address] [place] [phone] * DAVID SCR, IFA W/Refl Titer and Pattern (10/20/2022 2:44 PM EDT) Pathologist [facility] Anti Nuclear Antibody Screen NEGATIVE NEGATIVE [facility] Comment:DAVID IFA is a first [...] clinicallysuspected inflammatory myopathies.AC-0: NegativeInternational Consensus on DAVID Patterns(https://doi.org/10.1515/bzil-2419-8262)For additional information, please refer tohttp://education.EcoSurge/faq/MRJ785(This link is being provided for informational/educational purposes only.)THIS TEST WAS PERFORMED AT:[facility] [place] [phone] LUIS RAINES MD DAVID Titer [facility] DAVID Pattern [facility] DAVID TITER 2 (REF LAB) [facility] DAVID Pattern 2 [facility] DAVID TITER 3 [facility] DAVID PATTERN 3 [facility] 10/20/2022 2:44 PM EDT 10/20/2022 2:44 PM EDT us [facility] External Provider LAB BLO OD ORDERABLES Final Result [facility] [address] [place] [phone] * Vrdup-5-Esfzubvdvca, Quantitative (10/20/2022 2:44 PM EDT) Pathologist [facility] Sgttb-2-Asluzgde sin QN 140 83 - 199 mg/dL [facility] Comment:THIS TEST WAS PERFOR MED AT:[facility] [place] [phone] LUIS RAINES MD 10/20/2022 2:44 PM EDT 10/20/2022 2:44 PM EDT [facility] External Provider LAB BLO OD ORDERABLES Final Result Performing Organization Address [facility] Co de Phone Number [facility] [address] [place] [phone] [phone] * Protein Electrophoresis and Matheson/Lambda Light Chains (10/20/2022 2:44 PM EDT) Prot Elec - Total Protein 7.5 6.1 - 8.1 g/dL [facility] Prot Elec - Albumin 4.5 3.8 - 4.8 g/dL [facility] Prot Elec - Alpha1 0.3 0.2 - 0.3 g/dL [facility] Prot Elec - Alpha2 0.8 0.5 - 0.9 g/dL [facility] Prot Elec - Beta 1 0.5 0.4 - 0.6 g/dL [facility] Prot Elec - Beta 2 0.4 0.2 - 0.5 g/dL [facility] Prot Elec - Gamma 1.2 0.8 - 1.7 g/dL [facility] PES - Abn Protein Band 1 [facility] PES-Abn Protein Band 2 TNP [facility] PES-Abn Protein Band 3 [facility] Prot Elec - Interpretation SEE NOTE [facility] Comment:Normal Electrophoret ic PatternTHIS TEST WAS PERFORMED AT:[facility] [place] [phone] LUIS RAINES MD 10/20/2022 2:44 PM EDT 10/20/2022 2:44 PM EDT [facility] External Provider LAB BLO OD ORDERABLES Final Result Performing Organization Address [facility] de Phone Number [facility] [address] [place] [phone] * (ABNORMAL) Hepatitis Panel, General (10/20/2022 2:44 PM EDT) Hepatitis A IgM Nonreactive Nonreactive [facility] Comment:IgM antibodies to SIMON V not detected; does not exclude earlyacute or recovered HAV infection. ~Hepatitis B Surface Antibody REACTIVE Nonreactive [facility] Comment:REACTIVE: > 11.99 mI U/mL Hepatitis B Core Antibody Nonreactive Nonreactive [facility] Hepatitis C Antibody Reactive(A) Nonreactive [facility] Comment:Presumptive evidence of antibodies to HCV. Hepatitis B Surface Ag Negative Negative [facility] 10/20/2022 2:44 PM EDT 10/20/2022 2:44 PM EDT [facility] External Provider LAB BLO OD ORDERABLES Final Result Performing Organization Address [facility] Co de Phone Number [facility] [address] [place] [phone] * (ABNORMAL) Comprehensive Metabolic Panel (10/20/2022 2:44 PM EDT) Sodium 142 135 - 145 mmol/L [facility] Potassium 4.6 3.3 - 5.1 mmol/L [facility] Chloride 108 96 - 108 mmol/L [facility] Carbon Dioxide 27 22 - 29 mmol/L [facility] Anion Gap 12 12 - 20 [facility] Urea Nitrogen (BUN) 14 9 - 16 mg/dL [facility] Creatinine, Serum 0.82 0.5 - 1.4 mg/dL [facility] Estimated Glomerular Filt Rate >60 [facility] Comment:NOTE: For -Am erican individuals, multiply the result by 1.210.Chronic Kidney Disease: Estimated GFR < 60 mL/min/1.50s5Pgawbm Kidney Disease: Estimated GFR < 15 mL/min/1.73m2 Glucose 122(H) 60 - 115 mg/dL [facility] Calcium 9.5 8.4 - 10.2 mg/dL [facility] Bilirubin, Total 0.5 0.0 - 1.0 mg/dL [facility] Aspartate Amino Transferase 26 5 - 37 U/L [facility] Alanine Aminotransferase 43(H) 0 - 40 U/L [facility] Total Protein 7.4 6.5 - 8.0 g/dL [facility] Albumin Level 4.5 3.5 - 5.0 g/dL [facility] Alkaline Phosphatase 107 39 - 117 U/L [facility] 10/20/2022 2:44 PM EDT 10/20/2022 2:44 PM EDT us [facility] External Provider LAB BLO OD ORDERABLES Final Result [facility] [address] [place] [phone] * (ABNORMAL) CBC auto differential (10/20/2022 2:44 PM EDT) White Blood Count 8.0 4.8 - 10.8 X10*3/uL [facility] Red Blood Count 5.76 4.60 - 5.80 X10*6/uL [facility] Hemoglobin 15.2 14.0 - 18.0 g/dl [facility] Hematocrit 46.9 42.0 - 52.0 % [facility] Mean Corpuscular Volume 81.4 80.0 - 98.0 fL [facility] Mean Corpuscular Hemoglobin 26.4(L) 27.0 - 33.0 pg [facility] Mean Corpuscular HGB Conc 32.4 31.0 - 36.0 g/dl [facility] Red Cell Distribution Width 12.9 11.0 - 16.0 % [facility] Platelet Count 213 160 - 400 X10*3/uL [facility] Mean Platelet Volume 12.1 9.4 - 12.4 fL [facility] Neutrophils Percent Auto 69.3 45 - 73 % [facility] Imm Gran Pct Auto 0.4 0.0 - 0.4 % [facility] Lymphocytes Percent Auto 18.9(L) 20 - 40 % [facility] Monocytes Percent Auto 9.5 2 - 11 % [facility] Eosinophils Percent Auto 1.5 0 - 4 % [facility] Basophils Percent Auto 0.4 0 - 2 % [facility] NRBC Pct Auto 0.0 0.0 - 0.2 /100WBC [facility] Neutrophils Absolute Auto 5.6 2.0 - 8.3 x10*3/uL [facility] Imm Gran Abs Auto 0.03 0.00 - 0.03 X10*3/uL [facility] Lymphocytes Absolute Auto 1.5 1.2 - 4.9 X10*3/uL [facility] Monocytes Absolute Auto 0.8 0.1 - 1.2 X10*3/uL [facility] Eosinophils Absolute Auto 0.1 0.0 - 0.4 X10*3/uL [facility] Basophils Absolute Auto 0.0 0.0 - 0.2 X10*3/uL [facility] NRBC Abs Auto 0.000 0.0 - 0.012 X10*3/uL [facility] 10/20/2022 2:44 PM EDT 10/20/2022 2:44 PM EDT us [facility] External Provider LAB BLO OD ORDERABLES Final Result [facility] [address] [place] [phone] documented in this encounter Visit Diagnoses Not on filedocumented in this encounter Care Teams System Administration Advisor Relationship Specialty Start Date End Date Name, MD Shaka [address] [place] [address] PCP - General Family Medicine 08/27/15 Alison Maurice PharmD [address] [place] [phone] Pharmacist Internal Medicine 12/16/22 documented as of this encounter
--- OUTSIDE RECORDS SUMMARY | 2025-02-28 13:55 | XMS_ITS | Encounter Summary ---
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 Pain severity score of 10, activity interference score of 6. Previous BPI completed 11/29/24 with pain severity score of 8, activity interference score of 6. documented in this encounter Plan of Treatment Upcoming Encounters Date Type Department Care Team (Late st Contact Info) Description 05/02/2025 9:00 AM EST Office Visit [facility] [address] [place] [address] Name, MD Shaka [address] [place] [phone] 05/02/2025 9:45 AM EST Office Visit [facility] [address] [place] [address] documented as of this encounter Goals Goal [...] documented as of this encounter Care Teams Solar Electric Practitioner Relationship Specialty Start Date End Date Name, MD Shaka [address] [place] [phone] PCP - General Family Medicine 08/27/15 Alison Maurice PharmD [address] [place] [phone] Pharmacist Internal Medicine 12/16/22 documented as of this encounter
--- OUTSIDE RECORDS SUMMARY | 2025-02-28 13:55 | XMS_ITS | Encounter Summary ---
Author Organization [employer] Address [address] [facility] 7t [place] [address] Care Team Providers Care Security Operations Center Operator Name Role Phone Name, Shaka TURNER Primary Care Provider [phone] Alison Maurice PharmD Unavailable [phone] Encounter Details Date Type Department Care Team (Late Contact Info) Description 11/20/2022 Abstract [facility] [address] [place] [phone] Shaka Ashley MD [address] [place] [phone] Social History Tobacco Use Types Packs/Day Years [...] Department Care Team (Late Contact Info) Description 05/02/2025 9:00 AM EST Office Visit [facility] [address] [place] [address] NameShaka MD [address] [place] [address] 05/02/2025 9:45 AM EST Office Visit [facility] [place] [address] documented as of this encounter Visit Diagnoses Not on filedocumented in this encounter Additional Health Concerns Assessment Noted Time PHQ-9 Depression Total Score: 10 06/05/ 022 10:24 AM EST documented as of this encounter Care Teams Security Operations Center Operator Relationship Specialty Start Date End Date Name, MD Shaka [facility] [place] [address] PCP - General Family Medicine 08/27/15 Alison Maurice PharmD [facility] [place] [address] Pharmacist Internal Medicine 12/16/22 documented as of this encounter
--- OUTSIDE RECORDS SUMMARY | 2025-02-28 13:55 | XMS_ITS | Encounter Summary ---
Author Organization [employer] Address [address] [facility] 7t [place] [address] Care Team Providers Care Senior Business Development Analyst Name Role Phone Name, Shaka TURNER Primary Care Provider [phone] Alison Maurice PharmD Unavailable Reason for Visit * Reason Comments Med Refill Encounter Details Date Type Department Care Team ([facility] st Contact Info) Description 10/03/2022 Refill [facility] [address] [place], [place] [phone] Name, MD Shaka [address] [place], [place] [phone] Social History Tobacco Use Types Packs/Day Years [...] Description 05/02/2025 9:00 AM EST Office Visit [facility] [place] [address] Name, MD Shaka [facility] [place] [address] 05/02/2025 9:45 AM EST Office Visit [facility] [place] [address] documented as of this encounter Visit Diagnoses Not on filedocumented in this encounter Additional Health Concerns Assessment Noted Time PHQ-9 Depression Total Score: 10 06/05/ 022 10:24 AM EST documented as of this encounter Care Teams Senior Business Development Analyst Relationship Specialty Start Date End Date Name, MD Shaka [facility] [place] [address] PCP - General Family Medicine 08/27/15 Alison Maurice, DlD [facility] [place] [address] Pharmacist Internal Medicine 12/16/22 documented as of this encounter
--- OUTSIDE RECORDS SUMMARY | 2025-02-28 13:55 | XMS_ITS | Encounter Summary ---
Author Organization [employer] Address [address] [facility] 7t [place] [address] Care Team Providers Care Certified Medical Records Coder Name Role Phone NameShaka MD Primary Care Provider [phone] Alison Maurice PharmD Unavailable Reason for Referral * Medications - Pending Review Specialty Diagnoses / Procedures Referred By Laura colón Referred To Contact Diagnoses Chronic hip pain, unspecified laterality Shaka Ashley MD [address] [place] [address] Phone: tel: fax: Referral ID Status Reason Start Date Expiration Date V isits Requested Visits Authorized [id number] Pending Review 1 1 Reason for Visit * Reason Onset Date Comments Med Refill 02/28/2025 Encounter Details Date Type Department Care Team (Late st Contact Info) Description 02/28/2025 Refill [facility] [address] [place] [address] Merlyn Bennett RN Chronic hip pain, unspecified laterality Social History [...] 9:00 AM EST Office Visit [facility] [address] [place] [address] Name, MD Shaka [address] [place] [address] 05/02/2025 9:45 AM EST Office Visit [facility] [address] [place] [address] documented as of this encounter Goals Goal [...] documented as of this encounter Care Teams Certified Medical Records Coder Relationship Specialty Start Date End Date Name, MD Shaka [address] [place] [address] PCP - General Family Medicine 08/27/15 Alison Maurice PharmD [address] [place] [address] Pharmacist Internal Medicine 12/16/22 documented as of this encounter
--- OUTSIDE RECORDS SUMMARY | 2025-02-28 13:55 | XMS_ITS | Encounter Summary ---
Author Organization [employer] Address 75 [facility] 7t [place] [address] Care Team Providers Care Rapier Insertion Loom Fixer Name Role Phone Name, Shaka TURNER Primary Care Provider [phone] Alison Maurice PharmD Unavailable [phone] Encounter Details Date Type Department Care Team (Late st Contact Info) Description 02/28/2025 Orders Only [facility] [address] [place] [address] Liset Estrada, RN [address] [place] [address] Social History Tobacco Use Types Packs/Day Years [...] the past 12 months, has t he [employer], gas, oil or water company threatened to [...] Description 05/02/2025 9:00 AM EST Office Visit [address] [address] Name, MD Shaka [address] [place] [address] 05/02/2025 9:45 AM EST Office Visit [address] [address] documented as of this encounter Goals Goal Patient Goal Type Associated Problems Recent Progress Patient-Stated? Author Record your blood pressure once per day Blood Pressure No PuAlison arriola, PharmD Blood Pressure < 140/90 Blood Pressure 143/84( 025 5:40 PM EDT) No AmosiaVelAlison, PharmD documented as of this encounter Visit Diagnoses Not on filedocumented in this encounter Additional Health Concerns Assessment Noted Time PHQ-9 Depression Total Score: 15 025 4:00 PM EDT documented as of this encounter Care Teams Rapier Insertion Loom Fixer Relationship Specialty Start Date End Date Name, MD Shaka [address] [place] [address] PCP - General Family Medicine 08/27/15 Alison Maurice PharmD [address] [place] [address] Pharmacist Internal Medicine 12/16/22 documented as of this encounter
--- OUTSIDE RECORDS SUMMARY | 2025-02-28 13:55 | XMS_ITS | Clinical Summary ---
Author Organization [address] [place] [address] Address [address] [place] [address] Phone Care Team Providers Care Money Manager Name Role Phone Name, Shaka TURNER Primary Care Provider [phone] Immunizations Name Administration Dates Next Due Pfizer SARS-CoV-2 COVID-19, mRNA, LNP-S, preservative free 01/17/2021 Surgical History Surgery Date Site/Laterality Comments OTHER SURGICAL HISTORY PROCEDURE: ---- OTHER ----; COMMENT: fistula r arm OTHER SURGICAL HISTORY PROCEDURE: [place] ARTHRP ACETBLR/PROX FEM PROSTC AGRFT/ALGRFT Medical History [...] HIV Screening 05/25/2022 Hepatitis C Screening 05/25/2022 Medicare Annual Wellness Visit 05/25/2022 Social Influencers of Health Screening 05/25/2022 Hypertension/CHF/CAD Annual BMP Blood Test 05/29/2022 Depression Screening 06/22/2024 COVID-19 Vaccine ( season) 2025 01/17/2021 Influenza Vaccine (#1) 2025 5, 03/11/2013, 02/27/2012, [...] on patient's age to complete this topic Insurance [employer] MEDICARE Member Subscriber Plan / Payer (Ef fective 2016-Present) Name:WILLIAM HANSEN Relation to Subscriber:Self Name:Hansen William Bundy Payer ID:[id number] Group ID:[id number] Type:Not on file Address: [place] [address] [place] [id number] Care Teams Money Manager Relationship Specialty Start Date End Date Name, MD Shaka [address] [place], [place] PCP - General Internal Medicine 03/10/06
== END 2025-02-28 11:26 | disposition home or self-care (01) ==
LOC: HO.HHCLNP 11:25
PROVIDERS: Visit Provider Internal Medicine Geriatric Medicine
DX: Z13.89 Encounter for screening for other disorder (principal)

== ENCOUNTER 2025-03-07 09:05 | Outpatient (AMB) | payer OTHER, SELFPAY ==
--- OUTSIDE RECORDS SUMMARY | 2022-04-27 20:00 | XMS_ITS | Continuity of Care Document ---
Author Organization [facility], [facility] Address [address] [place] [address] Phone Care Team Providers Care Supervisor Accounts Receivable Name Role Phone Home Toro MD Unavailable Unavailable Procedures Procedure Date Ecg-routine 12 Lead; Intrpt & Advance Directives Directive Yes / No Effective Date File Name No Information Encounters Encounter Description Practice Location Reason(s) For Visit Diagnoses Date Provider Providers Copied on Encounter [facility], [address] [place] Vincent [place], [id number], tel:[phone] [facility] No Information Cortez Bhat. [address], [address] [place], [id number]. tel:[phone] Referring Provider: [place] , [address] [place], [address]. tel:[phone] Family History Family Member Type Diagnosis Age At Onset No Information Payers Payer name Insurance type Covered alliance party ID Authoriza tion(s) [facility] CI [id number] Social History Type Description Quantity Date Captured [...]
--- NOTE | 2025-03-07 09:16 | A.OFFVIS_ITS ---
Vital Signs 03/07/25 09:17 Height 5 ft 7 in Weight 198 lb 6.656 oz BMI 31.1 BP 114/72 Blood Pressure Location Lt brachial Position Sitting Pulse 54 Pulse Source Pulse Oximeter Intake Visit Reasons: 3 month f/up stress and echo Global Technical Writer Required: Yes Global Technical Writer Name: jose baugh [id number] Allergies ibuprofen (From MOTRIN) Allergy (Unknown, Verified 03/07/25 09:18) PT STATES HE CAN'T TAKE BECAUSE OF MY KIDNEY grass pollen Allergy (Verified 03/07/25 09:18) Itching Medication List - Last Reconciled 03/07/25 by LIBERTAD Solano acetaminophen 650 mg (2 x 325 mg) PO Q6H PRN albuterol sulfate 2.5 mg inhalation NEEDED PRN ampicillin 0 caps PO aspirin 81 mg PO DAILY 30 days atorvastatin 20 mg PO DAILY azelastine 0.05% 0 drps ophthalmic (eye) calcitriol mcg PO cane As directed ciclopirox 0.77% appl topical BID doxazosin 4 mg PO DAILY famotidine 20 mg PO DAILY fluticasone propionate 50 mcg/actuation 1 spray intranasal DAILY labetalol 200 mg PO BID levothyroxine 150 mcg PO Thu to Thursday, skip Thursday and Thursday; loratadine 10 mg PO DAILY losartan 50 mg PO BID magnesium oxide 400 mg PO DAILY montelukast 10 mg PO BEDTIME mycophenolate sodium (Myfortic) 540 mg PO BID omeprazole 40 mg PO DAILY [Raised toilet seat As directed] tacrolimus XR (Envarsus XR) 8 mg PO DAILY walker Folding Front wheeled walker HPI HPI 3 month f/up stress and echo: Details: William is a 49-year-old male with past medical history of hypertension, hyperlipidemia, chronic kidney disease, asthma, sleep apnea with CPAP use, atypical chest discomfort who recently had stress test and echocardiogram and now presents for follow-up. Today he reports that he does get some random pains in his chest, vaguely described. No discomfort clearly brought on by exertional activities. He says he walks routinely for exercise which she tolerates well. No shortness of breath, PND, orthopnea or edema. No lightheadedness, presyncope, syncope, falls. Compliant with his medications. Uses CPAP as directed. Certified operations leader used. PFSH Medical History (Updated 03/07/25 @ 10:53 by Erma Hogan NP-C) Knee effusion, right A-V fistula Chronic back pain Hx of gout Allergic rhinitis ESRD (end stage renal disease) Hyperlipidemia Depression Hx of anxiety disorder FLORENTINO (obstructive sleep apnea) CKD (chronic kidney disease) Hypertension GERD (gastroesophageal reflux disease) Hypothyroidism Asthma Avascular necrosis of bones of both hips Avascular necrosis Surgical History S/P hip replacement Kidney replaced by transplant Family History Mother No problems noted. Father No problems noted. Paternal Grandmother Cancer Social History Are you a primary career development coordinator to a significant other at home: No Do you presently have visiting nurse or other home services: No (home health aide) Alcohol intake: never Comment: patient sleeping Patient Tobacco Use Status: Former Tobacco user Second Hand Smoke Exposure: No service: No Current occupational status: disabled Current occupation: leftHanded Review of Systems Const All systems reviewed & are unremarkable except as noted in HPI and below ENT Denies dizziness Card Reports chest pain, Denies chest pain at rest, Denies chest pain with activity, Denies rapid heart rate, Denies pedal edema, Denies edema, Denies leg edema, Denies lightheadedness, Denies palpitations, Denies dyspnea, Denies dyspnea on exertion and Denies orthopnea Resp Denies cough, Denies dyspnea and Denies dyspnea on exertion GI Denies hematochezia and Denies change in stool character Musc Denies abnormal gait, Denies limited range of motion, Denies muscle cramps, Denies muscle weakness, Denies numbness, Denies radiating pain into limb, Denies stiffness and Denies tingling Neuro Denies abnormal gait, Denies dizziness, Denies numbness and Denies tingling Endo Denies palpitations Physical Exam Vital Signs: Last Vital Signs Pulse 54 03/07/25 09:17 BP 114/72 03/07/25 09:17 BMI result Body Mass Index 31.1 Const General: cooperative, healthy appearing, comfortable and no acute distress Orientation/consciousness: patient oriented x3 Neck Neck: Yes normal visual inspection Resp Effort & Inspection: normal respiratory effort Auscultation: clear to auscultation bilaterally, no crackles, no rales, no rhonchi and no wheezes Cardio Rate: regular rate Rhythm: regular rhythm Heart sounds: S1 normal heart sound present, S2 normal heart sound present, no gallops, no murmurs and no rubs Neuro General: patient oriented x3 Extrem General: Yes normal to inspection, No no pedal edema and No calf tenderness Psych Appearance: grossly normal Mental Status: mental status grossly normal Speech and movement: Normal speech and movement present Assessment & Plan Assessment & Plan (1) Precordial chest pain: Code(s): R07.2 - Precordial pain Category: Medical Plan: Atypical sounding chest discomfort with cardiac evaluation showing no significant cardiac findings. EKG done last visit showing sinus rhythm with heart rate 60. Echocardiogram 01/17/2025 showed EF 55-60%, mild LVH, no valve abnormalities and no reported regional wall motion abnormalities. Exercise nuclear stress test done 02/09/2025 with exercise 10 minutes, no EKG changes of ischemia and normal myocardial perfusion imaging. Test results reviewed with him in detail. Signs and symptoms of true angina discussed. Continue risk factor modification including good blood pressure and cholesterol control. Assess for noncardiac causes of his symptoms as needed. Cardiology follow-up PRN. (2) Hypertension: Code(s): I10 - Essential (primary) hypertension Category: Medical Plan: Blood pressure goal less than 130/80. Well controlled at this time. Continue losartan. (3) Obstructive sleep apnea (adult) (pediatric): Code(s): G47.33 - Obstructive sleep apnea (adult) (pediatric) Category: Medical Plan: Compliant with CPAP (4) Hyperlipidemia: Code(s): E78.5 - Hyperlipidemia, unspecified Category: Medical Plan: Maria Stein LDL goal less than 100. Followed by his PCP. Continue atorvastatin. Plan I discussed with the patient that his chest discomfort is not related to cardiac issues as confirmed by normal diagnostic tests. I advised him to monitor for new symptoms, especially during physical exertion, and to maintain control of his blood pressure and cholesterol levels. We reviewed his risk factors for heart disease, including hypertension and hyperlipidemia, and emphasized the import ance of medication adherence. Patient Instructions: - Monitor for new chest discomfort, especially during physical activity. - Keep blood pressure and cholesterol levels under control. - Continue using CPAP machine at night for sleep apnea. - Take atorvastatin and losartan as prescribed. - Follow up in cardiology as needed Patient was informed and verbally consented to the use of an ambient scribe for clinic note documentation during this visit. Visit time spent on chart review, interview, assessment, orders, documentation. Coding Level of Care Code Est Pt Level 4 (98537) Complex EM visit Add On G2211 Diagnoses Precordial chest pain R07.2 Hypertension I10 Obstructive sleep apnea (adult) (pediatric) G47.33 Hyperlipidemia E78.5 Time Spent (min) 28
[2025-03-07 09:17] VITALS: BP 114/72; PULSE 54; BMI 31.1
--- OUTSIDE RECORDS SUMMARY | 2025-03-07 11:24 | XMS_ITS | Clinical Summary ---
Author Organization [facility] Address [address] [place] [address] Care Team Providers Care Hot Dimpling Machine Operator Name Role Phone Pcp, No Primary [...] 4-dose series) 1996 Colonoscopy 2021 Influenza Vaccine 01/20/2025 COVID-19 Vaccine (2 - 2024- season) 2025 HIV Screening Completed 02/20/2021 Insurance MEDICAID OUT OF STATE [facility] [place] OUT OF NETWORK MEDICARE PART A & B Care Teams Hot Dimpling Machine Operator Relationship Specialty Start Date End Date Pcp, No [address] [place] [address] PCP - General 02/20/21
--- OUTSIDE RECORDS SUMMARY | 2025-03-07 11:24 | XMS_ITS | Encounter Summary ---
Author Organization [employer] Address 75 [facility] 7t [place] [address] Care Team Providers Care Palliative Care Nurse Practitioner Name Role Phone Name, Shaka TURNER Primary Care Provider [phone] Alison Maurice PharmD Unavailable Reason for Visit * Reason Onset Date Comments Med Refill 12/19/2022 Encounter Details Date Type Department Care Team ([facility] st Contact Info) Description 12/19/2022 Telephone [facility] [address] [place], [place] [phone] Name, MD Shaka [address] [place], [place] [phone] Med Refill Social History Tobacco Use Types [...] MG immediate release tablet chana sent to [facility]/pharmacy #[id number] - [place], [place] - [address] documented in this encounter Plan of Treatment Upcoming Encounters Date Type Department Care Team (Late st Contact Info) Description 05/02/2025 9:00 AM EST Office Visit [facility] [address] [place] [address] Name, MD Shaka [address] [place] [address] 05/02/2025 9:45 AM EST Office Visit [address] [address] documented as of this encounter Goals Goal [...] documented as of this encounter Care Teams Palliative Care Nurse Practitioner Relationship Specialty Start Date End Date Name, MD Shaka [address] [place] [address] PCP - General Family Medicine 08/27/15 Puia, Alison, PharmD [address] [place] [address] Pharmacist Internal Medicine 12/16/22 documented as of this encounter
--- OUTSIDE RECORDS SUMMARY | 2025-03-07 11:24 | XMS_ITS | Clinical Summary ---
Author Organization [facility] Address [address] [facility] [address] [place] [address] Phone Care Team Providers Care Bulk Gas Specialist Name Role Phone Name, Shaka TURNER Primary Care Provider [phone] Allergies Active Allergy Reactions Criticality Noted Date [...] Active zolpidem (AMBIEN) 10 MG tablet 09/17/19 Active Flovent HFA 220 MCG/ACT inhaler INHALE [...] 36 tablet 1 02/07/20 25 025 Active Iron, Ferrous Sulfate, 325 (65 Fe) [...] rhinitis 07/25/2015 Atherosclerotic heart diseas e of [place] coronary artery without angina pectoris 05/15/2015 Anxiety [...] 02/09/2025 Orders Only [facility] [address] [place] [address] [address] [place] [address] Zhen Sifuentes MD Kidney transplant status 02/06/2025 Orders Only [facility] [address] [place] [address] Zhen Sifuentes MD 02/02/2025 9:15 AM EDT Office Visit [facility] [address] [address] Zhen Sifuentes MD Kidney transplant status (Primary Dx) 01/22/2025 Refill [facility] [address] [address] Zhen Sifuentes MD 01/06/2025 Orders Only [facility] [address] [facility] [address] [place] [address] Ghassan Junior MD Kidney transplant status; Other halfway current drug therapy; Secondary hyperparathyroidism of renal [...] [facility] [address] [address] Zhen Sifuentes MD [address] [address] Health Maintenance Due Date Last Done Comments Hepatitis B Vaccine (1 of 3 - 19+ 3-dose series) 1995 Influenza Vaccine (#1) 2025 , 03/31/2023, 03/10/2022, Additional history exists Pneumococcal Vaccine: 50+ Years Discontinued 08/12/2023, 01/12/2018, 03/27/2014 Pneumococcal Vaccine: Peds ( 0 to 5 Years) and At-Risk Patients (6 to 49 Years) Completed 08/12/2023, 01/12/2018, 03/27/2014 Procedures Procedure Name Priority Date/Time Associated Diagnosis Comments FERRITIN Routine 01/27/2025 8:08 AM EDT Kidney transplant status Other exterminator helper current drug therapy Anemia, not otherwise specified IRON PANEL (FE, TIBC, TSAT) Routine 01/27/2025 8:08 AM EDT Kidney transplant status Other exterminator helper current drug therapy Anemia, not otherwise specified PTH, INTACT Routine 01/27/2025 8:08 AM EDT Kidney transplant status Other halfway current drug therapy Secondary hyperparathyroidism of renal origin (HCC) URINE ALBUMIN / CREATININE RATIO Routine 01/27/2025 8:08 AM EDT Kidney transplant status LIPID PANEL Routine 01/27/2025 8:08 AM EDT Kidney transplant status Other exterminator helper current drug therapy URIC ACID Routine 01/27/2025 8:08 AM EDT Kidney transplant status Other exterminator helper current drug therapy TACROLIMUS LEVEL Routine 01/27/2025 8:08 AM EDT Kidney transplant status Other exterminator helper current drug therapy CBC Routine 01/27/2025 8:08 AM EDT Kidney transplant status Other halfway current drug therapy BASIC METABOLIC PANEL Routine 01/27/2025 8:08 AM EDT Kidney transplant status Other exterminator helper current drug therapy from Last 3 Months Results * (ABNORMAL) Tacrolimus level (01/27/2025 8:08 AM EDT) Tacrolimus Lvl 4.6(L) 5.0 - 20.0 ng/mL [facility] Comment: Target steady state trough concentration [...] [facility] - 01/30/2025 6:06 PM EDT Test(s) 204005-Oagkwmamlr (FK506), Blood was developed and its performance characteristics determined by [employer]. It has not been cleared or approved by the Food and Drug Administration. Ghassan Junior MD LAB BLOOD ORDERABLES Final Result [facility] [place] [address] * Iron Panel (Fe, TIBC, TSAT) (01/27/2025 8:08 AM EDT) Pathologist [facility] TIBC 325 250 - 450 ug/dL [facility] UIBC 272 111 - 343 ug/dL [facility] Iron 53 38 - 169 ug/dL [facility] [place] Iron Saturation (TSat) 16 15 - 55 % [facility] Blood specimen (specimen) Venous blood / Unknown 01/27/2025 8:08 AM EDT 01/27/2025 Ghassan Junior MD LAB BLOOD ORDERABLES Final Result Performing Organization Address City/[facility]/ZIP Co de Phone Number [facility] [place] [address] [place] [address] * Albumin / Creatinine Urine Ratio (01/27/2025 8:08 AM EDT) Creatinine, Ur 49.4 Not Estab. mg/dL [facility] [place] Albumin, Urine 7.1 Not Estab. ug/mL [facility] [place] Albumin/Creatin ine Ratio 14 0 - 29 mg/g creat [facility] Comment: Normal: 0 - 29 Moderately increased: 30 - 300 Severely increased: >300 Urine specimen (specimen) Urine specimen obtained by clean catch procedure / Unknown 01/27/2025 8:08 AM EDT 01/27/2025 Ghassan Junior MD LAB URINE ORDERABLES Final Result Performing Organization Address City/[facility] Co de Phone Number [facility] [place] [address] [place] [address] * (ABNORMAL) CBC (01/27/2025 8:08 AM EDT) WBC 6.5 3.4 - 10.8 x10E3/uL [facility] [place] RBC 4.31 4.14 - 5.80 x10E6/uL [facility] Hemoglobin 11.6(L) 13.0 - 17.7 g/dL [facility] Hematocrit 36.4(L) 37.5 - 51.0 % [facility] [place] MCV 85 79 - 97 fL [facility] [place] MCH 26.9 26.6 - 33.0 pg [facility] MCHC 31.9 31.5 - 35.7 g/dL [facility] RDW 12.9 11.6 - 15.4 % [facility] Platelets 146(L) 150 - 450 x10E3/uL [facility] Blood specimen (specimen) Venous blood / Unknown 01/27/2025 8:08 AM EDT 01/27/2025 Ghassan Junior MD LAB BLOOD ORDERABLES Final Result [facility] [place] [address] [place] [address] * Uric acid (01/27/2025 8:08 AM EDT) Uric Acid 5.8 3.8 - 8.4 mg/dL [facility] Comment:Therapeutic target f or gout patients: <6.0 Blood specimen (specimen) Venous blood / Unknown 01/27/2025 8:08 AM EDT 01/27/2025 us Ghassan Junior MD LAB BLOOD ORDERABLES Final Result Performing Organization Address City/[facility]/ZIP Co de Phone Number [facility] [place] [address] [place] [address] * PTH, intact (01/27/2025 8:08 AM EDT) PTH 61 15 - 65 pg/mL [facility] Blood specimen (specimen) Venous blood / Unknown 01/27/2025 8:08 AM EDT 01/27/2025 us Ghassan Junior MD LAB BLOOD ORDERABLES Final Result [facility] [place] [address] [place] [address] * (ABNORMAL) Ferritin (01/27/2025 8:08 AM EDT) Ferritin 547(H) 30 - 400 ng/mL [facility] Blood specimen (specimen) Venous blood / Unknown 01/27/2025 8:08 AM EDT 01/27/2025 Ghassan Junior MD LAB BLOOD ORDERABLES Final Result [facility] [place] [address] [place] [address] * Lipid panel (01/27/2025 8:08 AM EDT) Cholesterol 120 100 - 199 mg/dL [facility] Triglycerides 72 0 - 149 mg/dL [facility] HDL 51 >39 mg/dL [facility] [place] VLDL Cholesterol Aldair 15 5 - 40 mg/dL [facility] LDL Calculated 54 0 - 99 mg/dL [facility] Blood specimen (specimen) Venous blood / Unknown 01/27/2025 8:08 AM EDT 01/27/2025 Ghassan Junior MD LAB BLOOD ORDERABLES Final Result [facility] [address] [place] [address] * (ABNORMAL) BMP (01/27/2025 8:08 AM EDT) Glucose 121(H) 70 - 99 mg/dL [facility] BUN 27(H) 6 - 24 mg/dL [facility] Sodium 138 134 - 144 mmol/L [facility] Chloride 104 96 - 106 mmol/L [facility] Bicarbonate (CO2) 18(L) 20 - 29 mmol/L [facility] Calcium 9.7 8.7 - 10.2 mg/dL [facility] Creatinine 1.15 0.76 - 1.27 mg/dL [facility] eGFR CKD-EPI CR 2020 79 >59 mL/min/1.7 3 [facility] BUN/Creatinine Ratio 23(H) 9 - 20 [facility] Potassium 4.4 3.5 - 5.2 mmol/L [facility] Blood specimen (specimen) Venous blood / Unknown 01/27/2025 8:08 AM EDT 01/27/2025 us Ghassan Junior MD LAB BLOOD ORDERABLES Final Result [facility] [address] [place] [address] from Last 3 Months Insurance [facility] ([id number]) [place] [phone] [place] [address] [facility] ([id number]) Care Teams Bulk Gas Specialist Relationship Specialty Start Date End Date Name, MD Shaka [address] [place] [address] PCP - General 07/02/20
--- OUTSIDE RECORDS SUMMARY | 2025-03-07 11:24 | XMS_ITS | Encounter Summary ---
Author Organization [facility], Address [address] [place] [address] Phone Care Team Providers Care Hairspring Assembler Name Role Phone Name, Shaka TURNER Primary Care Provider [phone] Reason for Visit * Reason Comments Med Refill Encounter Details Date Type Department Care Team ([facility] Contact Info) Description 05/31/2022 Refill [facility] [address] [place] [address] Cady Powell PA Social History Tobacco Use [...] Visit [facility] [address] [address] Zhen Sifuentes MD [address] [address] documented as of this encounter Visit Diagnoses Not on filedocumented in this encounter Care Teams Hairspring Assembler Relationship Specialty Start Date End Date Name, MD Shaka [address] [place] [address] PCP - General 07/02/20 documented as of this encounter
--- OUTSIDE RECORDS SUMMARY | 2025-03-07 11:24 | XMS_ITS | Encounter Summary ---
Author Organization [employer] Address [address] [facility] [address] 7t [place] [address] Care Team Providers Care Director Human Services Name Role Phone Name, Shaka TURNER Primary Care Provider [phone] Alison Maurice PharmD Unavailable [phone] Reason for Visit * Reason Onset Date Comments Urine testing 02/28/25 - MDMA 03/06/2025 Encounter Details Date Type Department Care Team (Late st Contact Info) Description 03/06/[address] [facility] MEDICINE [address] [place], [place] [phone] Merlyn Bennett RN Urine testing 02/28/25 - MDMA Social History Tobacco Use Types Packs/Day Years [...] t he electric, gas, oil or water [employer] threatened to shut off services in your [...] Telephone Encounter - Merlyn Bennett RN - 03/06/2025 12:00 PM EDT TC to [facility] Lab, spoke with Ani @ [place] [id number]. Ani to fax results to [facility]. She reports the labs arenegative for MDMA. documented in this encounter Plan of Treatment Upcoming Encounters Date Type Department Care Team (Late st Contact Info) Description 05/02/2025 9:00 AM EST Office Visit [facility] MEDICINE [address] [place] [address] Name, MD Shaka [address] [place] [address] 05/02/2025 9:45 AM EST Office Visit [facility] MEDICINE [address] [place] [address] documented as of this encounter Goals Goal Patient Goal Type Associated Problems Recent Progress Patient-Stated? Author Record your blood pressure once per day Blood Pressure No Alison Maurice PharmKristal Blood Pressure < 140/90 Blood Pressure 143/84( 025 5:40 PM EDT) No Alison Maurice PharmD documented as of this encounter Visit Diagnoses Not on filedocumented in this encounter Additional Health Concerns Assessment Noted Time PHQ-9 Depression Total Score: 15 025 4:00 PM EDT documented as of this encounter Care Teams Director Human Services Relationship Specialty Start Date End Date Name, MD Shaka [address] [place] [address] PCP - General Family Medicine 08/27/15 Alison Maurice PharmD [address] [place] [address] Pharmacist Internal Medicine 12/16/22 documented as of this encounter
--- OUTSIDE RECORDS SUMMARY | 2025-03-07 11:24 | XMS_ITS | Encounter Summary ---
Author Organization [employer] Address [address] [facility] [address] 7t [place] [address] Care Team Providers Care Highway Technician Name Role Phone Name, Shaka TURNER Primary Care Provider [phone] Alison Maurice PharmD Unavailable [phone] Encounter Details Date Type Department Care Team ([facility] st Contact Info) Description 05/10/2023 Abstract [facility] MEDICINE [address] [place] [address] Sariah Rodriguez Social History Tobacco Use Types [...] Description 05/02/2025 9:00 AM EST Office Visit [address] [address] NameShaka MD [address] [place] [address] 05/02/2025 9:45 AM EST Office Visit [address] [address] documented as of this encounter Goals Goal [...] documented as of this encounter Care Teams Highway Technician Relationship Specialty Start Date End Date Shaka Ashley MD [address] [place] [address] PCP - General Family Medicine 08/27/15 Puia, Alison, PharmD [address] [place] [address] Pharmacist Internal Medicine 12/16/22 documented as of this encounter
--- OUTSIDE RECORDS SUMMARY | 2025-03-07 11:24 | XMS_ITS | Encounter Summary ---
Author Organization [employer] Address 75 [facility] 7t [place] [address] Care Team Providers Care Emergency Communications Operator Name Role Phone Name, Shaka TURNER Primary Care Provider [phone] Alison Maurice PharmD Unavailable Encounter Details Date Type Department Care Team ([facility] Contact Info) Description 03/20/[address] [facility] CHC ADULT DENTAL [address] [place] [address] Kandru, Dillan, DDS [address] [place] [address] Social History Tobacco Use Types Packs/Day Years [...] Upcoming Encounters Date Type Department Care Team ([facility] Contact Info) Description 05/02/2025 9:00 AM EST Office Visit [facility] MEDICINE [address] [place], [place] [phone] Name, MD Shaka [facility] [place] [address] 05/02/2025 9:45 AM EST Office Visit [facility] MEDICINE [facility] [place] [address] documented as of this encounter Goals Goal [...] documented as of this encounter Care Teams Emergency Communications Operator Relationship Specialty Start Date End Date Name, [place] [address] PCP - General Family Medicine 08/27/15 Alison Maurice, [place] [address] Pharmacist Internal Medicine 12/16/22 documented as of this encounter
--- OUTSIDE RECORDS SUMMARY | 2025-03-07 11:24 | XMS_ITS | Encounter Summary ---
Author Organization [employer] Address 75 [facility] 7t [place] [address] Care Team Providers Care Fabrication And Layout Craftsman Name Role Phone Name, Shaka TURNER Primary Care Provider [phone] Alison Maurice PharmD Unavailable Reason for Visit * Reason Comments Med Refill Encounter Details Date Type Department Care Team ([facility] st Contact Info) Description 04/22/2023 Refill [facility] CHC MED & PEDS [address] [place], [place] [phone] Name, MD Shaka [address] [place], [place] [phone] Allergic rhinitis, unspecified seasonality, unspecified trigger Social [...] Description 05/02/2025 9:00 AM EST Office Visit [address] [address] Name, MD Shaka [address] [place] [address] 05/02/2025 9:45 AM EST Office Visit [address] [address] documented as of this encounter Goals Goal [...] documented as of this encounter Care Teams Fabrication And Layout Craftsman Relationship Specialty Start Date End Date Shaka Ashley MD [address] [place] [address] PCP - General Family Medicine 08/27/15 Puia, Alison, PharmD [address] [place] [address] Pharmacist Internal Medicine 12/16/22 documented as of this encounter
--- OUTSIDE RECORDS SUMMARY | 2025-03-07 11:24 | XMS_ITS | Encounter Summary ---
Author Organization [employer] Address 75 [facility] 7t [place] [address] Care Team Providers Care Pot Builder Name Role Phone Name, Shaka TURNER Primary Care Provider [phone] Alison Maurice PharmD Unavailable [phone] Reason for Visit * Reason Comments Med Refill Encounter Details Date Type Department Care Team (Late st Contact Info) Description 08/31/2023 Refill [facility] MEDICINE [address] [place], [place] [phone] Name, MD Shaka [address] [place], [place] [phone] Essential hypertension Social History Tobacco Use Types [...] Description 05/02/2025 9:00 AM EST Office Visit [facility] MEDICINE [address] [place] [address] NameShaka MD [address] [place] [address] 05/02/2025 9:45 AM EST Office Visit [address] [address] documented as of this encounter Goals Goal [...] documented as of this encounter Care Teams Pot Builder Relationship Specialty Start Date End Date Shaka Ashley MD [address] [place] [address] PCP - General Family Medicine 08/27/15 Alison Maurice PharmD [address] [place] [address] Pharmacist Internal Medicine 12/16/22 documented as of this encounter
--- OUTSIDE RECORDS SUMMARY | 2025-03-07 11:24 | XMS_ITS | Encounter Summary ---
Author Organization [facility] Address [address] [facility] [address] [place] [address] Phone Care Team Providers Care Metal Coater Name Role Phone Name, Shaka TURNER Primary Care Provider [phone] Encounter Details Date Type Department Care Team (Late st Contact Info) Description 12/03/2023 Office Communication [facility] [address] [place] [address] Zhen Sifuentes MD [facility] [address] Social History Tobacco Use Types [...] Visit [facility] [address] [phone] Zhen Sifuentes MD [address] [address] documented as of this encounter Visit Diagnoses Not on filedocumented in this encounter Care Teams Metal Coater Relationship Specialty Start Date End Date Name, MD Shaka [address] [place] [address] PCP - General 07/02/20 documented as of this encounter
--- OUTSIDE RECORDS SUMMARY | 2025-03-07 11:24 | XMS_ITS | Clinical Summary ---
Author Organization [facility] Address [address] [facility] [address] [place] [address] Phone Care Team Providers Care Engineering Faculty Name Role Phone Name, Shaka TURNER Primary Care Provider [phone] Allergies Active Allergy Reactions Criticality Noted Date [...] Insurance ONE [employer] MEDICARE REPLACEMENT [place] [id number] CARE MEDICARE REPLACEMENT CARE MEDICARE REPLACEMENT ONE CARE MEDICARE [place]AC[place] [address] CARE MEDICARE REPLACEMENT Care Teams Engineering Faculty Relationship Specialty Start Date End Date Name, MD Shaka [address] [place] [address] PCP - General Internal Medicine 04/02/23 Additional Source Comments The information contained in this document represents components of the legal health record. It is not the complete legal health record.[facility]
--- OUTSIDE RECORDS SUMMARY | 2025-03-07 11:24 | XMS_ITS | Encounter Summary ---
Author Organization [facility], Address [address] [place] [address] Phone Care Team Providers Care Scullion Chief Name Role Phone Name, Shaka TURNER Primary Care Provider [phone] Encounter Details Date Type Department Care Team ([facility] Contact Info) Description 05/06/2022 Telephone [facility] [address] [place] [address] Shalini Rascon [address] [place] [phone] Social History Tobacco Use Types Packs/Day Years [...] Upcoming Encounters Date Type Department Care Team ([facility] Contact Info) Description 05/05/2025 9:15 AM EST Office Visit [facility] [address] [phone] Zhen Sifuentes MD [address] [phone] documented as of this encounter Visit Diagnoses Not on filedocumented in this encounter Care Teams Scullion Chief Relationship Specialty Start Date End Date Name, MD Shaka [address] [place] [address] PCP - General 07/02/20 documented as of this encounter
--- OUTSIDE RECORDS SUMMARY | 2025-03-07 11:24 | XMS_ITS | Encounter Summary ---
Author Organization [employer] Address 75 [facility] 7t [place] [address] Care Team Providers Care Property Staff Accountant Name Role Phone Name, Shaka TURNER Primary Care Provider Alison Maurice PharmD Unavailable [phone] Reason for Visit * Reason Comments Med Refill Encounter Details Date Type Department Care Team ([facility] st Contact Info) Description 12/17/2022 Refill [facility] MEDICINE [address] [place], [place] [phone] Name, MD Shaka [address] [place], [place] [phone] Essential hypertension; Allergic rhinitis, unspecified seasonality, unspecified [...] Description 05/02/2025 9:00 AM EST Office Visit [facility] [place] [address] Name, [place] [address] 05/02/2025 9:45 AM EST Office Visit [address] [address] documented as of this encounter Goals Goal [...] documented as of this encounter Care Teams Property Staff Accountant Relationship Specialty Start Date End [place] [address] PCP - General Family Medicine 08/27/15 Alison Maurice, PharmD [address] [place] [address] Pharmacist Internal Medicine 12/16/22 documented as of this encounter
--- OUTSIDE RECORDS SUMMARY | 2025-03-07 11:24 | XMS_ITS | Encounter Summary ---
Author Organization [employer] Address 75 [facility] 7t [place] [address] Care Team Providers Care Hospice Massage Therapist Name Role Phone Name, Shaka TURNER Primary Care Provider [phone] Alison Maurice PharmD Unavailable Encounter Details Date Type Department Care Team ([facility] st Contact Info) Description 07/07/2023 Orders Only [facility] MEDICINE [address] [place], [place] [phone] Name, MD Shaka [address] [place] [address] Social History Tobacco Use Types Packs/Day Years [...] 05/02/2025 9:00 AM EST Office Visit [address] [address] Name, MD Shaka [address] [place] [address] 05/02/2025 9:45 AM EST Office Visit [address] [address] documented as of this encounter Goals Goal [...] documented as of this encounter Care Teams Hospice Massage Therapist Relationship Specialty Start Date End Date Name, MD Shaka [address] [place] [address] PCP - General Family Medicine 08/27/15 Puia, Alison, PharmD [address] [place] [address] Pharmacist Internal Medicine 12/16/22 documented as of this encounter
--- OUTSIDE RECORDS SUMMARY | 2025-03-07 11:24 | XMS_ITS | Encounter Summary ---
Author Organization [facility] Address 100 [facility] 200 [place] [address] Phone Care Team Providers Care Director Nurses' Registry Name Role Phone Name, Shaka TURNER Primary Care Provider [phone] Reason for Visit * Reason Comments Med Change Request Encounter Details Date Type Department Care Team ([facility] Contact Info) Description 11/30/2023 Refill [facility] [address] [place] [address] Daysi Truong MD Kidney transplant [...] Upcoming Encounters Date Type Department Care Team ([facility] Contact Info) Description 05/05/2025 9:15 AM EST Office Visit [facility] [address] [facility] [address] [place] [address] Zhen Sifuentes MD [address] [facility] [address] [place] [address] documented as of this encounter Visit Diagnoses Diagnosis Kidney transplant status documented in this encounter Care Teams Director Nurses' Registry Relationship Specialty Start Date End Date Name, MD Shaka [address] [place] [address] PCP - General 07/02/20 documented as of this encounter
--- OUTSIDE RECORDS SUMMARY | 2025-03-07 11:24 | XMS_ITS | Encounter Summary ---
Author Organization [employer] Address 75 [facility] 7t [place] [address] Care Team Providers Care Talent Acquisition Project Manager Name Role Phone Name, Shaka TURNER Primary Care Provider [phone] Alison Maurice PharmD Unavailable [phone] Encounter Details Date Type Department Care Team ([facility] Contact Info) Description 06/25/2022 Telephone [facility] MEDICINE 230 [place], [place] [phone] Name, MD Shaka [address] [place] [address] Social History Tobacco Use Types Packs/Day Years [...] Description 05/02/2025 9:00 AM EST Office Visit [address] [address] Name, [place] [address] 05/02/2025 9:45 AM EST Office Visit [address] [address] documented as of this encounter Visit Diagnoses Not on filedocumented in this encounter Additional Health Concerns Assessment Noted Time PHQ-9 Depression Total Score: 10 022 10:24 AM EST documented as of this encounter Care Teams Talent Acquisition Project Manager Relationship Specialty Start Date End Date Name, MD Shaka [address] [place] [address] PCP - General Family Medicine 08/27/15 Alison Maurice PharmD [address] [place] [address] Pharmacist Internal Medicine 12/16/22 documented as of this encounter
--- OUTSIDE RECORDS SUMMARY | 2025-03-07 11:25 | XMS_ITS | Encounter Summary ---
Author Organization [employer] Address 75 [facility] 7 [place] [address] Care Team Providers Care Software Project Engineer Name Role Phone Name, Shaka TURNER Primary Care Provider [phone] Alison Maurice PharmD Unavailable Encounter Details Date Type Department Care Team ([facility] Contact Info) Description 06/04/2022 Orders Only [facility] [address] [place], [place] [phone] Name, MD Shaka [address] [place] [address] Social History Tobacco Use Types Packs/Day Years [...] energy Several days 06/05/2022 10:24 AM Atiya Vunog Poor appetite or overeating Nearly every day [...] Description 05/02/2025 9:00 AM EST Office Visit [facility] [address] [place] [address] Name, [place] [address] 05/02/2025 9:45 AM EST Office Visit [facility] [place] [place] [address] documented as of this encounter Procedures Procedure [...] ANTIBODY (IGG) Routine 10/20/2022 2:44 PM EDT SCFWL-6-FLIBPUYPBCB QN Routine 2:44 PM EDT MITOCHONDRIAL ANTIBODY [...] 1.210.Chronic Kidney Disease: Estimated GFR < 60 mL/min/1.11e2Zwasxb Kidney Disease: Estimated GFR < 15 mL/min/1.73m2 Glucose 167(H) 60 - 115 mg/dL [facility] Calcium 9.6 8.4 - 10.2 mg/dL [facility] 01/19/2023 12:5 7 PM EDT 01/19/2023 4:10 PM EDT us Shaka Ashley MD LAB BLOOD ORDERABLES Final Resul t [facility] [address] [place] [phone] * Liver Fibrosis, FibroTest-ActiTest Panel (10/27/2022 [...] activity)a>0.62 and a<=1.00 : A3 (severe activity) CJW-Crhgc-8-Macroglo bulin 194 106 - 279 mg/dL [facility] Reference ID [id number] [facility] Footnote [...] and C.The performance characteristics have been determined by[employer] [facility]. Ithas not been cleared or approved by the U.S. Food and DrugAdministration. Performance characteristics refer to theanalytical performance of the test.[employer], [employer], the associated logo, [employer] and all associated [employer] jay are theregistered trademarks of [employer]. All third partymarks - (R) and (TM) - are the property of their respectiveowners. (C) 0516-1810 [employer]. Allrights reserved.THIS TEST WAS PERFORMED AT:[employer] [id number] [place] [address]PVDCHLINDA STOCKTON MD,PHD,SATHISH 10/27/2022 8:46 AM EDT 10/27/2022 8:46 AM EDT [facility] External Provider LAB BLO OD ORDERABLES Final Result [facility] [address] [place] [phone] * Hepatitis C Viral RNA, Quantitative, [...] characteristics of thisassay have been determined by [employer].The modifications have not been cleared or approved bythe FDA. This assay has been validated pursuant to theCLIA regulations and is used for clinical purposes.For more information on this test, go to:http://education.[employer]/faq/YUH48a2(This link is being provided for informational/educational purposes only.)THIS TEST WAS PERFORMED AT:[employer] [place] [id number] LUIS RAINES MD 10/27/2022 8:46 AM EDT 10/27/2022 8:46 AM EDT [facility] External Provider LAB BLO OD ORDERABLES Final Result Performing Organization Address [facility] de Phone Number [facility] [address] [place] [phone] * HIV Ab/Ag (TENISHA LINK) (10/27/2022 8:46 AM EDT) [facility] HIV AB/AG Nonreactive Nonreactive [facility] [...] the limit ofdetection of this assay.[facility] Superintendent HIV Ag/Ab Combo assay result andsupplemental assay results should be interpreted inconjunction with the patient's clinical presentation,history and other laboratory results. If the results areinconsistent with clinical evidence, additional testing issuggested to confirm the result. 10/27/2022 8:46 AM EDT 10/27/2022 8:46 AM EDT [facility] External Provider LAB BLO OD ORDERABLES Final Result Performing Organization Address [facility] Co de Phone Number [facility] [address] [place] [address] [phone] * Actin (Smooth Muscle) Antibody (IgG) [...] with AIH type 1.THIS TEST WAS PERFORMED AT:[employer] [place] [address]CYBLMMYSCOTTIE PELLETIER MD,PHD 10/20/2022 2:44 PM EDT 10/20/2022 2:44 PM EDT [facility] External Provider LAB BLO OD ORDERABLES Final Result Performing Organization Address [facility]/ZIP Co de Phone Number [facility] [address] [place] [phone] * Mitochondrial Antibody with Reflex to Titer (10/20/2022 2:44 PM EDT) Mitochondrial Antibodies NEGATIVE NEGATIVE [facility] Comment:THIS TEST WAS PERFOR MED AT:[employer] [address] [id number] LUIS RAINES MD Mitochondrial Ab Titer TNP [facility] 10/20/2022 2:44 PM EDT 10/20/2022 2:44 PM EDT [facility] External Provider LAB BLO OD ORDERABLES Final Result Performing Organization Address City/[facility]/ZIP Co de Phone Number [facility] [address] [place] [phone] * DAVID SCR, IFA W/Refl Titer and Pattern (10/20/2022 2:44 PM EDT) Pathologist [facility] Anti Nuclear Antibody Screen NEGATIVE NEGATIVE [place] [...] clinicallysuspected inflammatory myopathies.AC-0: NegativeInternational Consensus on DAVID Patterns(https://doi.org/10.1515/hbvd-9474-0525)For additional information, please refer tohttp://education.Discomixdownload.com/faq/APT092(This link is being provided for informational/educational purposes only.)THIS TEST WAS PERFORMED AT:[employer] [place] [id number] LUIS RAINES MD DAVID Titer [facility] DAVID Pattern [facility] DAVID TITER 2 (REF LAB) [facility] DAVID Pattern 2 [facility] DAVID TITER 3 [facility] DAVID PATTERN 3 [facility] 10/20/2022 2:44 PM EDT 10/20/2022 2:44 PM EDT us [facility] External Provider LAB BLO OD ORDERABLES Final Result [facility] [address] [place] [phone] [phone] * Leuhe-4-Mfgxpidvdwf, Quantitative (10/20/2022 2:44 PM EDT) Pathologist [facility] Uuswg-2-Nydajnif sin QN 140 83 - 199 mg/dL [facility] Comment:THIS TEST WAS PERFOR MED AT:[employer] [place] [phone] LUIS RAINES MD 10/20/2022 2:44 PM EDT 10/20/2022 2:44 PM EDT [facility] External Provider LAB BLO OD ORDERABLES Final Result Performing Organization Address [facility] Co de Phone Number [facility] [address] [place] [address] [phone] * Protein Electrophoresis and [place]/[employer] (10/20/2022 2:44 PM EDT) Prot [...] LABS PES - Abn Protein Band 1 [facility] PES-Abn Protein Band 2 TNP [facility] PES-Abn Protein Band 3 [facility] Prot Elec - Interpretation SEE NOTE [facility] Comment:Normal Electrophoret ic PatternTHIS TEST WAS PERFORMED AT:[employer] [place] [phone] LUIS RAINES MD 10/20/2022 2:44 PM EDT 10/20/2022 2:44 PM EDT [facility] External Provider LAB BLO OD ORDERABLES Final Result Performing Organization Address [facility] de Phone Number [facility] [address] [place] [phone] [phone] * (ABNORMAL) Hepatitis Panel, General (10/20/2022 [...] 2:44 PM EDT 10/20/2022 2:44 PM EDT [facility] External Provider LAB BLO OD ORDERABLES Final Result Performing Organization Address [facility] Co de Phone Number [facility] [address] [place] [address] [phone] * (ABNORMAL) Comprehensive Metabolic Panel (10/20/2022 [...] 1.210.Chronic Kidney Disease: Estimated GFR < 60 mL/min/1.84c1Wuqeeo Kidney Disease: Estimated GFR < 15 mL/min/1.73m2 [...] PM EDT 10/20/2022 2:44 PM EDT us [facility] External Provider LAB BLO OD ORDERABLES Final Result [facility] [address] [place] [phone] * (ABNORMAL) CBC auto differential (10/20/2022 [...] PM EDT 10/20/2022 2:44 PM EDT us [facility] External Provider LAB BLO OD ORDERABLES Final Result [facility] [address] [place] [phone] [phone] documented in this encounter Visit Diagnoses Not on filedocumented in this encounter Care Teams Software Project Engineer Relationship Specialty Start Date End Date Name, MD Shaka [address] [place] [address] PCP - General Family Medicine 08/27/15 Alison Maurice PharmD [address] [place] [address] Pharmacist Internal Medicine 12/16/22 documented as of this encounter
--- OUTSIDE RECORDS SUMMARY | 2025-03-07 11:25 | XMS_ITS | Encounter Summary ---
Author Organization [employer] Address 75 [facility] 7t [place] [address] Care Team Providers Care Supervisory It Specialist Name Role Phone Name, Shaka TURNER Primary Care Provider [phone] Alison Maurice PharmD Unavailable Encounter Details Date Type Department Care Team (Latest Contact Info) Description 01/18/2021 Abstract [facility] CONVERSIONS Dental, Provider, DDS Social History [...] Description 05/02/2025 9:00 AM EST Office Visit [facility] [address] [place] [address] Name, MD Shaka [address] [place] [address] 05/02/2025 9:45 AM EST Office Visit [facility] [address] [place] [address] documented as of this encounter Visit Diagnoses Not on filedocumented in this encounter Care Teams Supervisory It Specialist Relationship Specialty Start Date End Date Name, MD Shaka [address] [place] [address] PCP - General Family Medicine 08/27/15 Alison Maurice, DlD [address] [place] [address] [place] [address] Pharmacist Internal Medicine 12/16/22 documented as of this encounter
--- OUTSIDE RECORDS SUMMARY | 2025-03-07 11:25 | XMS_ITS ---
Author Organization [employer] Address 75 [facility] 7 [place] [address] Care Team Providers Care Radio Operator Ground Name Role Phone Name, Shaka TURNER Primary Care Provider [phone] Alison Maurice PharmD Unavailable [phone] FLOUR WORKER Status:Enrolled (Active) Start date:04/15/2022 Enrollment date:04/15/2022 Enrollment reason:Identified using pharmacy data Current support & services provided:Tier 4 (FLOUR WORKER) Case Team Name Relationship Phone Merlyn Bennett RN(Responsible Staff) Registered [employer] [facility] Continued Care and Services Coordination
--- OUTSIDE RECORDS SUMMARY | 2025-03-07 11:25 | XMS_ITS | Encounter Summary ---
Author Organization [employer] Address 75 [facility] 7t [place] [address] Care Team Providers Care Tobacco Sampler Name Role Phone Name, Shaka TURNER Primary Care Provider [phone] Alison Maurice PharmD Unavailable [phone] Encounter Details Date Type Department Care Team (Late st Contact Info) Description 02/28/2025 Orders Only [facility] [address] [place] [address] Liset Estrada, CORINNE [address] [place] [address] Social History Tobacco Use Types Packs/Day Years [...] Description 05/02/2025 9:00 AM EST Office Visit [address] [address] Name, MD Shaka [address] [place] [address] 05/02/2025 9:45 AM EST Office Visit [address] [address] documented as of this encounter Goals Goal Patient Goal Type Associated Problems Recent Progress Patient-Stated? Author Record your blood pressure once per day Blood Pressure No Puia, Alison, PharmD Blood Pressure < 140/90 Blood Pressure 143/84( 025 5:40 PM EDT) No Puia, Alison, PharmD documented as of this encounter Procedures Procedure Name Priority Date/Time Associated Diagnosis Comments OTHER REF TEST - [facility] Routine 02/28/2025 9:45 AM EDT documented in this encounter Results * Other Reference Test - Mis (02/28/2025 9:45 AM EDT) 02/28/2025 9:45 AM EDT 02/28/2025 11:27 AM EDT Narrative [facility] - 03/06/2025 10:17 AM EDT DRUG MONITORING MDMA, WITH CONFIRMATION, URINE - [phone] us Shaka Name LAB BLOOD ORDERABLES Final Resul t [facility] [address] [place] [address] [phone] documented in this encounter Visit Diagnoses Not on filedocumented in this encounter Additional Health Concerns Assessment Noted Time PHQ-9 Depression Total Score: 15 12/06/ 025 4:00 PM EDT documented as of this encounter Care Teams Tobacco Sampler Relationship Specialty Start Date End Date Name, MD Shaka [address] [place] [address] PCP - General Family Medicine 08/27/15 Alison Maurice PharmD [address] [place] [address] Pharmacist Internal Medicine 12/16/22 documented as of this encounter
--- OUTSIDE RECORDS SUMMARY | 2025-03-07 11:25 | XMS_ITS | Encounter Summary ---
Author Organization [employer] Address 75 [facility] 7t [place] [address] Care Team Providers Care Gas And Oil Servicer Name Role Phone Name, Shaka TURNER Primary Care Provider [phone] Alison Maurice PharmD Unavailable Encounter Details Date Type Department Care Team (Latest Contact Info) Description 06/19/[address] [facility] CONVERSIONS Dental, Provider, DDS Social History [...] Description 05/02/2025 9:00 AM EST Office Visit [facility] [address] [place] [address] Name, MD Shaka [address] [place] [address] 05/02/2025 9:45 AM EST Office Visit [facility] [address] [place] [address] documented as of this encounter Visit Diagnoses Not on filedocumented in this encounter Care Teams Gas And Oil Servicer Relationship Specialty Start Date End Date Name, MD Shaka [address] [place] [address] PCP - General Family Medicine 08/27/15 Alison Maurice, DlD [address] [place] [address] Pharmacist Internal Medicine 12/16/22 documented as of this encounter
--- OUTSIDE RECORDS SUMMARY | 2025-03-07 11:25 | XMS_ITS | Encounter Summary ---
Author Organization [employer] Address 75 [facility] 7t [place] [address] Care Team Providers Care Production Tech Name Role Phone Name, Shaka TURNER Primary Care Provider [phone] Alison Maurice PharmD Unavailable [phone] Encounter Details Date Type Department Care Team (Late Contact Info) Description 11/20/2022 Abstract [facility] [address] [place] [address] Shaka Ashley MD [address] [place] [address] Social History Tobacco Use Types Packs/Day Years [...] Description 05/02/2025 9:00 AM EST Office Visit [facility] [address] [place] [address] NameShaka MD [address] [place] [address] 05/02/2025 9:45 AM EST Office Visit [facility] [place] [address] documented as of this encounter Visit Diagnoses Not on filedocumented in this encounter Additional Health Concerns Assessment Noted Time PHQ-9 Depression Total Score: 10 06/05/ 022 10:24 AM EST documented as of this encounter Care Teams Production Tech Relationship Specialty Start Date End Date Name, MD Shaka [facility] [place] [address] PCP - General Family Medicine 08/27/15 Alison Maurice PharmD [facility] [place] [address] Pharmacist Internal Medicine 12/16/22 documented as of this encounter
--- OUTSIDE RECORDS SUMMARY | 2025-03-07 11:25 | XMS_ITS | Clinical Summary ---
Author Organization [address] [place] [address] Address [address] [place] [address] Phone Care Team Providers Care Manager Hvac Name Role Phone Name, Shaka TURNER Primary Care Provider Immunizations Name Administration Dates Next Due Pfizer SARS-CoV-2 COVID-19, mRNA, LNP-S, preservative free 01/17/2021 Surgical History Surgery Date Site/Laterality Comments OTHER SURGICAL HISTORY PROCEDURE: ---- OTHER ----; COMMENT: fistula r arm OTHER SURGICAL HISTORY PROCEDURE: OH ARTHRP ACETBLR/PROX FEM PROSTC AGRFT/ALGRFT Medical History [...] ID:[id number] Group ID:[id number] Type:Not on file Address: [place] [address] [address] [address] Care Teams Manager Hvac Relationship Specialty Start Date End Date Name, MD Shaka [address] [place], [place] PCP - General Internal Medicine 03/10/06
--- OUTSIDE RECORDS SUMMARY | 2025-03-07 11:25 | XMS_ITS | Encounter Summary ---
Author Organization [employer] Address 75 [facility] 7t [place] [address] Care Team Providers Care Core Driller Name Role Phone Name, Shaka TURNER Primary Care Provider [phone] Alison Maurice PharmD Unavailable Reason for Visit * Reason Comments Med Refill Encounter Details Date Type Department Care Team ([facility] st Contact Info) Description 10/03/[address] [facility] [address] [place], [place] [phone] Name, MD Shaka [address] [place], [place] [phone] Social History Tobacco Use Types Packs/Day Years [...] Description 05/02/2025 9:00 AM EST Office Visit [facility] [address] Name, MD Shaka [facility] [place] [address] 05/02/2025 9:45 AM EST Office Visit [facility] [place] [address] documented as of this encounter Visit Diagnoses Not on filedocumented in this encounter Additional Health Concerns Assessment Noted Time PHQ-9 Depression Total Score: 10 06/05/ 022 10:24 AM EST documented as of this encounter Care Teams Core Driller Relationship Specialty Start Date End Date Name, MD Shaka [facility] [place] [address] PCP - General Family Medicine 08/27/15 Alison Maurice, DlD [facility] [place] [address] Pharmacist Internal Medicine 12/16/22 documented as of this encounter
--- OUTSIDE RECORDS SUMMARY | 2025-03-07 11:25 | XMS_ITS | Encounter Summary ---
Author Organization [employer] Address 75 [facility] 7t [place] [address] Care Team Providers Care Septic Tank Service Technician Name Role Phone Name, Shaka TURNER Primary Care Provider [phone] Alison Maurice PharmD Unavailable Encounter Details Date [...] [facility] MED[facility]INE [address] [place] [address] Name, MD Shaka [address] [place] [address] 05/02/2025 9:45 AM EST Office Visit [facility] MED[facility]INE [address] [place] [address] documented as of this encounter Visit Diagnoses Not on filedocumented in this encounter Care Teams Septic Tank Service Technician Relationship Specialty Start Date End Date Name, MD Shaka [address] [place] [address] PCP - General Family Medicine 08/27/15 Alison Maurice, DlD [address] [place] [address] Pharmacist Internal Medicine 12/16/22 documented as of this encounter
--- OUTSIDE RECORDS SUMMARY | 2025-03-07 11:25 | XMS_ITS | Clinical Summary ---
Author Organization [employer] Address [address] [facility] 7t [place] [address] Care Team Providers Care Rag Collector Name Role Phone Name, Shaka TURNER Primary Care Provider [phone] Alison Maurice PharmD Unavailable [phone] Allergies Active Allergy Reactions Criticality Noted [...] 23 Active ergocalciferol (Vitamin D2) 1.25 MG (47824 UT) capsule 10/22/19 23 Active escitalopram (Lexapro) [...] of fluids and rest Acetaminophen as needed alf (current) use of opiate analgesic 04/22 Overview (02/28/2025): Medication: oxycodone 10mg Q8H Indication: osteonecrosis of the hip, cervical spinal stenosis Last PEANUT ROASTER Agreement: 02/28/25 Tier II (PEANUT ROASTER Q3 months) Assessment & Plan (02/28/2025 12:52 [...] at home and bring log to his insulation helper appointment on 08/25/23 I also advise: - [...] care provider Atherosclerotic heart diseas e of [place] coronary artery without angina pectoris 05/15/2015 Asthma [...] organization. Date Type Department Care Team Description 03/06/2025 Telephone [facility] [address] [place] [address] Merlyn Bennett, RN Urine testing 02/28/25 - MDMA 02/28/2025 9:45 AM EDT Office Visit [facility] [address] [place] [address] Nandini Rowland FNP Spinal stenosis of cervical region (Primary Dx); Dietary counseling; Exercise counseling; alf (current) use of opiate analgesic 02/28/2025 Refill [facility] [address] [place] [address] Merlyn Bennett RN Chronic hip pain, unspecified laterality 02/28/2025 Telephone [facility] [address] [place] [address] Merlyn Bennett, CORINNE PEANUT ROASTER Agreement renewed; Abnormal UTOX 02/28/2025 Orders Only [address] [address] Liset Estrada RN 02/28/2025 Travel 02/09/2025 Orders Only [facility] External Provider, [facility] 02/08/2025 Results Follow-Up [address] [address] Bonny Coto MD XR Foot 3+ Views Right 02/07/2025 6:00 PM EDT Office Visit [facility] [address] [place] [address] Bonny Coto MD Onychomycosis (Primary Dx); Pain of toe of right foot 02/07/2025 Travel 02/07/[address] [address] Kavon Sultana [place] oct recalls 01/26/2025 Refill [facility] [address] [place] [address] Shaka Ashley MD Chronic hip pain, unspecified laterality 01/25/2025 Refill [facility] [address] [place], [place] [phone] Shaka Ashley MD 01/18/2025 Refill [facility] [address] [place] [address] Shaka Ashley MD Essential hypertension 12/28/2024 Refill [facility] [address] [place] [address] NameShaka MD Chronic hip pain, unspecified laterality 12/21/2024 Refill [facility] [address] [place], [place] [phone] NameShaka MD Allergic rhinitis, unspecified seasonality, unspecified trigger 12/11/2024 Refill [facility] [address] [place] [address] NameShaka MD 12/06/2024 3:30 PM EDT Office Visit [facility] [address] [place] [address] NameShaka MD Essential hypertension (Primary Dx); Acquired hypothyroidism; Tinea pedis, unspecified laterality 12/06/2024 Travel 12/05/2024 Telephone [facility] [address] [place] [address] Name, MD Shaka Chart Prep from Last 3 Months Immunizations Immunization Administration [...] Description 05/02/2025 9:00 AM EST Office Visit [address] [address] Name, MD Shaka [address] [place] [address] 05/02/2025 9:45 AM EST Office Visit [address] [address] Health Maintenance Due Date Last Done Comments [...] 5:40 PM EDT) No Puia, Alison, PharmD Procedures Procedure Name Priority Date/Time Associated Diagnosis Comments POCT ABHIEJET-14 URINE DRUG SCREEN Routine 02/28/2025 10:19 AM EDT Spinal stenosis of cervical region roasterman (current) use of opiate analgesic OTHER REF TEST - MISC Routine 02/28/2025 9:45 AM EDT STRESS TEST WITH MYOCARDIAL PERFUSION Routine 02/09/2025 7:57 AM EDT XR FOOT 3+ VIEWS RIGHT Routine 02/08/2025 8:20 AM EDT Pain of toe of right foot TSH W/REFLEX TO FT4 Routine 12/06/2024 3 :58 PM EDT Acquired hypothyroidism PROPHYLAXIS - ADULT Routine 06/02/2024 8 :00 [...] - 02/28/2025 10:19 AM EDT UTOX cup Lot#[id number] Exp. 03/28/26 Internal Pass Control us Shaka Ashley MD POINT OF CARE TEST ENTER/EDIT OR DERABLES Final Result * Other Reference Test - Misc (02/28/2025 9:45 AM EDT) 02/28/2025 9:45 AM EDT 02/28/2025 11:27 AM EDT [facility] LABS - 03/06/2025 10:17 AM EDT DRUG MONITORING MDMA, WITH CONFIRMATION, URINE - [phone] us Shaka Ashley MD LAB BLOOD ORDERABLES Final Resul t [facility] [address] [place] [phone] * Stress test with myocardial perfusion (02/09/2025 7:57 AM EDT) 02/09/2025 7:57 AM EDT [facility] IMAGING - 02/10/2025 4:19 PM EDT [address] [address] Nuclear Medicine Report Signed Patient: William Zavala MR#: [id number] : 1975 Acct:[id number] Age/Sex: 49 / M ADM Date: 02/09/25 Loc: .CARD Attending Dr: Austin Tinsley MD Ordering Physician: Austin Tinsley MD Date of Service: 02/09/25 Procedure(s): NM cardiolite stress test Accession Number(s): [id number] cc: Name,Shaka TURNER; Austin Tinsley MD EXERCISE [...] 02/10/25 1617 DD/ 0757 TD/TT: 02/10/25 0900 Retail Team Leader: Procedure Note Donotuseinterpreter, Image - 02/10/[address] [address] Nuclear Medicine Report Signed Patient: William ZavalaMR#: [id number] : 1975Acct:[id number] Age/Sex: 49 / MADM Date: 02/09/25 Loc: [facility] Attending Dr: Austin Tinsley MD Ordering Physician: Austin Tinsley MD Date of Service: 02/09/25 Procedure(s): NM cardiolite stress test Accession Number(s): [id number] cc: Name,Shaka TURNER; Austin Tinsley MD EXERCISE [...] 02/10/25 1617 DD/ 0757 TD/TT: 02/10/25 0900 Retail Team Leader: [facility] External Provider CV STRE SS PROCEDURES Final Result Performing Organization Address City/State/[facility] Co de Phone Number [facility] IMAGING [address] [place], [place] [phone] * XR Foot 3+ Views Right (02/08/2025 8:20 AM EDT) Anatomical Region Laterality Modality Lower Extremities, Foot Right Radiogra phic Imaging 02/08/2025 8:20 AM EDT Narrative 02/08/2025 8:45 AM EDT [address] [address] XRay Report Signed Patient: William Zavala MR#: [id number] : 1975 Acct:[id number] Age/Sex: 49 / M ADM Date: 02/08/25 Loc: [facility] Attending Dr: Bonny Talavera MD Ordering Physician: Bonny Coto MD Date of Service: 02/08/25 Procedure(s): XR foot RT min 3V Accession Number(s): [id number] cc: Bonny Coto MD; Name,Shaka TURNER EXAMINATION: [...] Shun Mayo MD 02/08/2025 08:43 AM EDT Dictated By: Shun Trujillo MD Signed By: <Electronically signed by Shun Rojo MD in OV> 02/08/2543 DD/ 9 TD/TT: 02/08/25824 Retail Team Leader: Procedure Note Donotuseinterpreter, Image - 02/08/2025 [place] [address] XRay Report Signed Patient: William Zavala#: [id number] : 1975Acct:[id number] Age/Sex: 49 / MADM Date: 02/08/25 Loc: [facility] Attending Dr: Bonny Talavera MD Ordering Physician: Bonny Coto MD Date of Service: 02/08/25 Procedure(s): XR foot RT min 3V Accession Number(s): [id number] cc: Bonny Coto MD; Name,Shaka TURNER EXAMINATION: [...] MDin OV> 02/08/25842 DD/ 9 TD/TT: 02/08/25824 Retail Team Leader: Bonny Talavera MD IMG XR PROCEDURES Fin al Result * TSH W/Reflex to FT4 (12/06/2024 3:58 PM EDT) Pathologist [facility] TSH reflex Free T4 1.23 0.32 - 4.0 uIU/mL [facility] Blood Venous blood specimen / Unknown 12/06/2024 3:58 PM EDT 12/06/2024 5:30 PM EDT Shaka Ashley MD LAB BLOOD ORDERABLES Final Resul t [facility] [address] [place] [phone] * (ABNORMAL) POCT HGB A1C (06/01/2024 11:52 AM EST) Hemoglobin A1C 6.4(A) 4.0 - 6.0 % QC Media Lot # [id number] Lot# Expiration Date 2373 Blood 06/01/2024 11:5 2 AM EST Shaka Ashley MD POINT OF CARE TEST ENTER/EDIT OR DERABLES Final Result * HIV Ab/Ag ([facility]) (10/27/2022 8:46 AM EDT) HIV AB/AG Nonreactive Nonreactive [facility] Comment:HIV-1 p24 Ag and/or HIV-1/HIV-2 Ab not detected.A test result that is nonreactive does not exclude thepossibility of exposure to or infection with HIV-1 and/orHIV-2. Nonreactive results in this assay for individualswith prior exposure to HIV-1 and/or HIV-2 may be due toantigen and antibody levels that are below the limit ofdetection of this assay.The [employer] Supervisor HIV Ag/Ab Combo assay result andsupplemental assay results should be interpreted inconjunction with the patient's clinical presentation,history and other laboratory results. If the results areinconsistent with clinical evidence, additional testing issuggested to confirm the result. 10/27/2022 8:46 AM EDT 10/27/2022 8:46 AM EDT [facility] External Provider LAB BLO OD ORDERABLES Final Result [facility] [address] [place] [phone] * Hepatitis C Viral RNA, Quantitative, Real-Time PCR (10/27/2022 8:46 AM EDT) Hepatitis C Viral Load <15 NOT DETECTED NOT DETECTED IU/mL [facility] HCV Log PCR <1.18 NOT DETECTED NOT DETECTED Log IU/mL [facility] Comment:This test was perfor med using Real-Time Polymerase ChainReaction.Reportable Range: 15 IU/mL to 100,000,000 IU/mL(1.18 Log IU/mL to 8.00 Log IU/mL).The analytical performance characteristics of thisassay have been determined by [employer].The modifications have not been cleared or approved bythe FDA. This assay has been validated pursuant to theCLIA regulations and is used for clinical purposes.For more information on this test, go to:http://education.[employer] Mason.mGenerator/faq/LNB13t0(This link is being provided for informational/educational purposes only.)THIS TEST WAS PERFORMED AT:[employer] [place] [phone] LUIS RAINES MD 10/27/2022 8:46 AM EDT 10/27/2022 8:46 AM EDT [facility] External Provider LAB BLO OD ORDERABLES Final Result [facility] [address] [place] [address] [phone] * Hm Colonoscopy (09/05/2022) Pathologist [facility] Colonoscopy Normal Normal Comment:ifobt Historical Provider HEALTH MAINTENANCE Final Result * (ABNORMAL) LIPID PANEL, STANDARD (01/22/2021 10:21 AM EDT) [facility] Chol/HDLC Ratio 4.2 <5.0 (calc) [facility] Cholesterol, Total 143 <200 mg/dL [facility] HDL Cholesterol 34(L) > OR = 40 mg/dL [facility] LDL Cholesterol 90 mg/dL (calc) [facility] Comment: Reference range: <100 Desirable range <100 mg/dL for primary prevention; <70 mg/dL for patients with CHD or diabetic patients with > or = 2 CHD risk factors. LDL-C is now calculated using the Jt-Cagle calculation, which is a validated novel method providing better accuracy than the Friedewald equation in the estimation of LDL-C. Jt AGUIRRE et al. JAMAL. 2013;310(19): 0405-0163 (http://education.[employer].com/faq/VVF279) Non-HDL Cholesterol 109 <130 mg/dL (calc) [facility] Comment: For patients with diabetes plus 1 major ASCVD risk factor, treating to a non-HDL-C goal of <100 mg/dL (LDL-C of <70 mg/dL) is considered a therapeutic option. Triglycerides 92 <150 mg/dL [facility] 01/22/2021 10:2 1 AM EDT us Shaka Ashley MD LAB BLOOD ORDERABLES Final Resul t [facility] [address] from Last 3 Months or Most Recently Relevant to Health Maintenance Insurance [employer] ONE CARE < 65 [place] [id number] Care Teams Rag Collector Relationship Specialty Start Date End Date Name, MD Shaka [address] [place] [address] [phone] PCP - General Family Medicine 08/27/15 Alison Maurice, DlD [address] [place] [address] [phone] Pharmacist Internal Medicine 12/16/22
== END 2025-03-07 09:48 | disposition home or self-care (01) ==
LOC: HO.HCS 09:06
PROVIDERS: PCP Internal Medicine Geriatric Medicine; Visit Provider Nurse Practitioner Family
DX: R07.2 Precordial pain (principal); I10 Essential (primary) hypertension; G47.33 Obstructive sleep apnea (adult) (pediatric); E78.5 Hyperlipidemia, unspecified
CPT/HCPCS: 99214; G2211

== ENCOUNTER → 2025-03-07 09:05 | Outpatient (BNVA) | payer OTHER, SELFPAY | PROVIDERS: PCP Internal Medicine Geriatric Medicine; Visit Provider Nurse Practitioner Family | DX: R07.2 Precordial pain (principal); I10 Essential (primary) hypertension; G47.33 Obstructive sleep apnea (adult) (pediatric); Z99.89 Dependence on other enabling machines and devices; E78.5 Hyperlipidemia, unspecified | CPT/HCPCS: 99212 ==

== ENCOUNTER 2025-03-09 23:14 | Emergency (ER) | payer OTHER, SELFPAY ==
[2025-03-09 23:27] VITALS: BP 160/84; PULSE 58; RESP 18; TEMP 36.4; O2SAT 97; BMI 28.8
--- OUTSIDE RECORDS SUMMARY | 2025-03-10 00:40 | XMS_ITS | Encounter Summary ---
Author Organization [facility], Address [address] [place] [address] Phone Care Team Providers Care Production Solderer Name Role Phone Name, Shaka TURNER Primary Care Provider [phone] Encounter Details Date Type Department Care Team ([facility] Contact Info) Description 05/06/2022 Telephone [facility] [address] [place] [address] Shalini Rascon [address] [place] [phone] Social History Tobacco Use Types Packs/Day Years [...] Upcoming Encounters Date Type Department Care Team ([facility] Contact Info) Description 05/05/2025 9:15 AM EST Office Visit [facility] [phone] Zhen Sifuentes MD [address] [phone] documented as of this encounter Visit Diagnoses Not on filedocumented in this encounter Care Teams Production Solderer Relationship Specialty Start Date End Date Name, MD Shaka [address] [place] [address] PCP - General 07/02/20 documented as of this encounter
--- OUTSIDE RECORDS SUMMARY | 2025-03-10 00:40 | XMS_ITS | Encounter Summary ---
Author Organization [facility], Address [address] [place] [address] Phone Care Team Providers Care Box Annealer Name Role Phone Name, Shaka TURNER Primary Care Provider [phone] Reason for Visit * Reason Comments Med Refill Encounter Details Date Type Department Care Team ([facility] Contact Info) Description 05/31/2022 Refill [facility] [address] [place] [address] Cady Powell PA Social History Tobacco Use [...] the [facility] [address] [address] Zhen Sifuentes MD [address] [phone] documented as of this encounter Visit Diagnoses Not on filedocumented in this encounter Care Teams Box Annealer Relationship Specialty Start Date End Date Name, MD Shaka [address] [place] [address] PCP - General 07/02/20 documented as of this encounter
--- OUTSIDE RECORDS SUMMARY | 2025-03-10 00:40 | XMS_ITS | Clinical Summary ---
Author Organization [facility] Address [address] [facility] [address] [place] [address] Phone Care Team Providers Care Crew Boss Name Role Phone Name, Shaka TURNER Primary Care Provider [phone] Allergies Active Allergy Reactions Criticality Noted Date [...] Insurance ONE CARE MEDICARE REPLACEMENT [place] [id number] CARE MEDICARE REPLACEMENT CARE MEDICARE REPLACEMENT ONE CARE MEDICARE [place] [address] [address] [address] CARE MEDICARE REPLACEMENT Care Teams Crew Boss Relationship Specialty Start Date End Date Name, MD Shaka [address] [place] [address] PCP - General Internal Medicine 04/02/23 Additional Source Comments The information contained in this document represents components of the legal health record. It is not the complete legal health record.[facility]
--- OUTSIDE RECORDS SUMMARY | 2025-03-10 00:41 | XMS_ITS | Encounter Summary ---
Author Organization [employer] Address [address] [facility] 7t [place] [address] Care Team Providers Care Seam Checker Name Role Phone Name, Shaka TURNER Primary Care Provider Alison Maurice PharmD Unavailable Reason for Visit * Reason Comments Med Refill Encounter Details Date Type Department Care Team ([facility] st Contact Info) Description 12/17/2022 Refill [facility] [address] [place], [place] [phone] Name, MD Shaka [address] [place], [place] [phone] Essential hypertension; Allergic rhinitis, unspecified seasonality, unspecified [...] Description 05/02/2025 9:00 AM EST Office Visit [facility] [place] [address] Name, [place] [address] 05/02/2025 9:45 AM EST Office Visit [address] [address] documented as of this encounter Goals Goal [...] documented as of this encounter Care Teams Seam Checker Relationship Specialty Start Date End [place] [address] PCP - General Family Medicine 08/27/15 Alison Maurice, PharmD [address] [place] [address] Pharmacist Internal Medicine 12/16/22 documented as of this encounter
--- OUTSIDE RECORDS SUMMARY | 2025-03-10 00:41 | XMS_ITS | Encounter Summary ---
Author Organization [facility] Address [address] [facility] [address] [place] [address] Phone Care Team Providers Care Portable Power Tool Repairer Name Role Phone Name, Shaka TURNER Primary Care Provider [phone] Encounter Details Date Type Department Care Team (Late st Contact Info) Description 12/03/2023 Office Communication [facility] [address] [facility] [address] [place] [address] Zhen Sifuentes MD [facility] [address] Social History Tobacco Use Types [...] Visit [facility] [address] [phone] Zhen Sifuentes MD [address] [address] documented as of this encounter Visit Diagnoses Not on filedocumented in this encounter Care Teams Portable Power Tool Repairer Relationship Specialty Start Date End Date Name, MD Shaka [address] [place] [address] PCP - General 07/02/20 documented as of this encounter
--- OUTSIDE RECORDS SUMMARY | 2025-03-10 00:41 | XMS_ITS | Clinical Summary ---
Author Organization [facility] Address [address] [facility] [address] [place] [address] Phone Care Team Providers Care Tag Clerk Name Role Phone Name, Shaka TURNER Primary Care Provider [phone] Allergies Active Allergy Reactions Criticality Noted Date [...] (SYNTHROID, LEVOTHROID) 150 MCG tablet 2 Active clonazePAM (KlonoPIN) 1 MG tabletIndicatio ns:Other specified anxiety disorders Take 1 tablet (1 mg total) by mouth 2 (two) times a day if needed for anxiety 60 tablet 4 Active ampicillin (PRINCIPEN) 500 MG capsule TAKE 2 CAPSULE BY MOUTH DIRECTED TAKE 1 HOUR PRIOR TO DENTAL PROCEDURE 2 capsule 3 4 Active mycophenolate (MYFORTIC) 180 MG EC tablet Take 3 tablets (540 mg total) by mouth in the morning and 3 tablets (540 mg total) in the evening. 540 tablet 3 4 05/11/20 25 Active calcitriol (ROCALTROL) 0.25 MCG capsule TAKE 1 CAPSULE BY MOUTH EVERY OTHER DAY 45 capsule 3 5 Active doxazosin (Cardura) 4 MG tablet Take 1 tablet (4 mg total) by mouth every night 90 tablet 3 5 09/16/19 26 Active losartan (Cozaar) 50 MG tabletIndicatio ns:Hypertension Take 2 tablets (100 mg total) by mouth 1 (one) time each day 180 tablet 3 5 11/30/19 26 Active labetalol (NORMODYNE) 200 MG tablet TAKE 1 TABLET (200 MG) BY MOUTH IN THE MORNING AND IN THE EVENING 180 tablet 5 Active Tacrolimus ER 4 MG tablet sustained-relea se 24 hourIndications :Kidney transplant status Take 12 mg by mouth 1 (one) time each day Take three 4 mg tablets for a total daily dose of 12 mg. 270 tablet 3 5 02/03/20 26 Active Iron, Ferrous Sulfate, 325 (65 Fe) MG tablet Take 1 tablet by mouth 3 times weekly: Thu and Thursday morning 36 tablet 1 5 05/07/20 25 Active Active Problems Problem Noted Date Diagnosed Date [...] rhinitis 07/25/2015 Atherosclerotic heart diseas e of [place] coronary artery without angina pectoris 05/15/2015 Anxiety [...] 02/09/2025 Orders Only [facility] [place] [id number] [facility] [address] [place] [address] Zhen Sifuentes MD Kidney transplant status 02/06/2025 Orders Only [facility] [address] [place] [address] Zhen Sifuentes MD 02/02/2025 9:15 AM EDT Office Visit [facility] [address] [address] Zhen Sifuentes MD Kidney transplant status (Primary Dx) 01/22/2025 Refill [facility] [address] [address] Zhen Sifuentes MD 01/06/2025 Orders Only [facility] [address] [facility] [address] [place] [address] Ghassan Junior MD Kidney transplant status; Other terminal superintendent current drug therapy; Secondary hyperparathyroidism of renal [...] kg (197 lb 3.2 oz) 02/02/2025 9:11 AM EDT Height 177.8 cm (5' 10 ) 04/21/2023 11:10 AM EDT Body Mass Index 28.3 04/21/2023 11:10 AM EDT Plan of Treatment Upcoming Encounters Date Type Department Care Team (Late st Contact Info) Description 05/05/2025 9:15 AM EST Office Visit [facility] [address] [phone] Zhen Sifuentes MD [address] [phone] Health Maintenance Due Date Last Done Comments [...] 8:08 AM EDT Kidney transplant status Other retirement current drug therapy Anemia, not otherwise specified IRON PANEL (FE, TIBC, TSAT) Routine 01/27/2025 8:08 AM EDT Kidney transplant status Other retirement current drug therapy Anemia, not otherwise specified PTH, INTACT Routine 01/27/2025 8:08 AM EDT Kidney transplant status Other retirement current drug therapy Secondary hyperparathyroidism of renal origin (HCC) URINE ALBUMIN / CREATININE RATIO Routine 01/27/2025 8:08 AM EDT Kidney transplant status LIPID PANEL Routine 01/27/2025 8:08 AM EDT Kidney transplant status Other retirement current drug therapy URIC ACID Routine 01/27/2025 8:08 AM EDT Kidney transplant status Other terminal superintendent current drug therapy TACROLIMUS LEVEL Routine 01/27/2025 8:08 AM EDT Kidney transplant status Other retirement current drug therapy CBC Routine 01/27/2025 8:08 AM EDT Kidney transplant status Other terminal superintendent current drug therapy BASIC METABOLIC PANEL Routine 01/27/2025 8:08 AM EDT Kidney transplant status Other terminal superintendent current drug therapy from Last 3 Months Results * (ABNORMAL) Tacrolimus level (01/27/2025 8:08 AM EDT) Tacrolimus Lvl 4.6(L) 5.0 - 20.0 ng/mL [facility] Comment: Target steady state trough concentration for [...] [facility] - 01/30/2025 6:06 PM EDT Test(s) 468674-[id number] (FK506), Blood was developed and its performance characteristics determined by [facility]. It has not been cleared or approved by the Food and Drug Administration. Ghassan Junior MD LAB BLOOD ORDERABLES Final Result [facility] [address] [place] [phone] * Iron Panel (Fe, TIBC, TSAT) (01/27/2025 8:08 AM EDT) TIBC 325 250 - 450 ug/dL [facility] UIBC 272 111 - 343 ug/dL [facility] Iron 53 38 - 169 ug/dL [facility] Iron Saturation (TSat) 16 15 - 55 % [facility] Blood specimen (specimen) Venous blood / Unknown 01/27/2025 8:08 AM EDT 01/27/2025 Ghassan Junior MD LAB BLOOD ORDERABLES Final Result [facility] [address] [place] [address] * Albumin / Creatinine Urine Ratio (01/27/2025 8:08 AM EDT) Pathologist [facility] Creatinine, Ur 49.4 Not Estab. mg/dL [facility] Albumin, Urine 7.1 Not Estab. ug/mL [facility] Albumin/Creatin ine Ratio 14 0 - 29 mg/g creat [facility] Comment: Normal: 0 - 29 Moderately increased: 30 - 300 Severely increased: >300 Urine specimen (specimen) Urine specimen obtained by clean catch procedure / Unknown 01/27/2025 8:08 AM EDT 01/27/2025 Ghassan Junior MD LAB URINE ORDERABLES Final Result [facility] [address] [place] [address] * (ABNORMAL) CBC (01/27/2025 8:08 AM EDT) Pathologist [facility] WBC 6.5 3.4 - 10.8 x10E3/uL [facility] RBC 4.31 4.14 - 5.80 x10E6/uL [facility] Hemoglobin 11.6(L) 13.0 - 17.7 g/dL [facility] Hematocrit 36.4(L) 37.5 - 51.0 % [facility] MCV 85 79 - 97 fL [facility] MCH 26.9 26.6 - 33.0 pg [facility] MCHC 31.9 31.5 - 35.7 g/dL [facility] RDW 12.9 11.6 - 15.4 % [facility] Platelets 146(L) 150 - 450 x10E3/uL [facility] Blood specimen (specimen) Venous blood / Unknown 01/27/2025 8:08 AM EDT 01/27/2025 us Ghassan Junior MD LAB BLOOD ORDERABLES Final Result [facility] [address] [place] [address] * Uric acid (01/27/2025 8:08 AM EDT) Uric Acid 5.8 3.8 - 8.4 mg/dL [facility] Comment:Therapeutic target f or gout patients: <6.0 Blood specimen (specimen) Venous blood / Unknown 01/27/2025 8:08 AM EDT 01/27/2025 us Ghassan Junior MD LAB BLOOD ORDERABLES Final Result Performing Organization Address City/[facility]/ZIP Co de Phone Number [facility] [address] [place] [address] * PTH, intact (01/27/2025 8:08 AM EDT) PTH 61 15 - 65 pg/mL [facility] Blood specimen (specimen) Venous blood / Unknown 01/27/2025 8:08 AM EDT 01/27/2025 us Ghassan Junior MD LAB BLOOD ORDERABLES Final Result Performing Organization Address City/[facility]/ZIP Co de Phone Number [facility] [address] [place] [address] * (ABNORMAL) Ferritin (01/27/2025 8:08 AM EDT) Ferritin 547(H) 30 - 400 ng/mL [facility] Blood specimen (specimen) Venous blood / Unknown 01/27/2025 8:08 AM EDT 01/27/2025 Ghassan Junior MD LAB BLOOD ORDERABLES Final Result [facility] [address] [place] [address] * Lipid panel (01/27/2025 8:08 AM EDT) Pathologist [facility] Cholesterol 120 100 - 199 mg/dL [facility] Triglycerides 72 0 - 149 mg/dL [facility] HDL 51 >39 mg/dL [facility] VLDL Cholesterol Ald[place] 15 5 - 40 mg/dL [facility] LDL Calculated 54 0 - 99 mg/dL [facility] Blood specimen (specimen) Venous blood / Unknown 01/27/2025 8:08 AM EDT 01/27/2025 Ghassan Junior MD LAB BLOOD ORDERABLES Final Result [facility] [address] [place] [address] * (ABNORMAL) BMP (01/27/2025 8:08 AM EDT) Glucose 121(H) 70 - 99 mg/dL [facility] BUN 27(H) 6 - 24 mg/dL [facility] Sodium 138 134 - 144 mmol/L [facility] Chloride 104 96 - 106 mmol/L [facility] Bicarbonate (CO2) 18(L) 20 - 29 mmol/L [facility] Calcium 9.7 8.7 - 10.2 mg/dL [facility] Creatinine 1.15 0.76 - 1.27 mg/dL [facility] eGFR CKD-EPI CR 2020 79 >59 mL/min/1.7 3 [facility] BUN/Creatinine Ratio 23(H) 9 - 20 [facility] Potassium 4.4 3.5 - 5.2 mmol/L [facility] Blood specimen (specimen) Venous blood / Unknown 01/27/2025 8:08 AM EDT 01/27/2025 us Ghassan Junior MD LAB BLOOD ORDERABLES Final Result [facility] [address] [place] [address] from Last 3 Months Insurance [facility] ([id number]) DREW RICE [id number] [facility] [place] [facility] ([id number]) Care Teams Tag Clerk Relationship Specialty Start Date End Date Name, MD Shaka [address] [place] [id number] PCP - General 07/02/20
--- OUTSIDE RECORDS SUMMARY | 2025-03-10 00:41 | XMS_ITS | Encounter Summary ---
Author Organization [employer] Address [address] [facility] [address] [place] [address] Care Team Providers Care Snack Bar Cashier Name Role Phone Name, Shaka TURNER Primary Care Provider [phone] Alison Maurice PharmD Unavailable Encounter Details Date [...] 9:00 AM EST Office Visit [facility] [address] [place] [phone] Name, MD Shaka [address] [place] [phone] 05/02/2025 9:45 AM EST Office Visit [facility] [address] [place] [phone] documented as of this encounter Visit Diagnoses Not on filedocumented in this encounter Care Teams Snack Bar Cashier Relationship Specialty Start Date End Date Name, MD Shaka [address] [place] [phone] PCP - General Family Medicine 08/27/15 Alison Maurice, DlD [address] [place] [phone] Pharmacist Internal Medicine 12/16/22 documented as of this encounter
--- OUTSIDE RECORDS SUMMARY | 2025-03-10 00:41 | XMS_ITS | Encounter Summary ---
Author Organization [facility] Address [address] [facility] [address] [place] [address] Phone Care Team Providers Care Welder Shielded Metal Arc Name Role Phone Name, Shaka TURNER Primary Care Provider [phone] Reason for Visit * Reason Comments Med Change Request Encounter Details Date Type Department Care Team ([facility] Contact Info) Description 11/30/2023 [facility]ill [facility] [address] [place] [address] Daysi Truong MD Kidney transplant [...] Visit [facility] [address] [facility] [address] [place] [address] Zhen Sifuentes MD [address] [facility] [address] [place] [address] documented as of this encounter Visit Diagnoses Diagnosis Kidney transplant status documented in this encounter Care Teams Welder Shielded Metal Arc Relationship Specialty Start Date End Date Name, MD Shaka [address] [place] [address] PCP - General 07/02/20 documented as of this encounter
--- OUTSIDE RECORDS SUMMARY | 2025-03-10 00:41 | XMS_ITS | Encounter Summary ---
Author Organization [employer] Address [address] [facility] [address] [place] [address] Care Team Providers Care Transfer And Pumphouse Operator Chief Name Role Phone Name, Shaka TURNER Primary Care Provider [phone] Alison Maurice PharmD Unavailable Encounter Details Date Type Department Care Team ([facility] Contact Info) Description 03/20/2023 Abstract [facility] [address] [place] [address] Kandru, Dillan, DDS [address] [place] [address] Social History Tobacco Use Types Packs/Day Years [...] Upcoming Encounters Date Type Department Care Team ([facility] Contact Info) Description 05/02/2025 9:00 AM EST Office Visit [facility] [address] [place], [place] [phone] Name, MD [facility] [place] [address] 05/02/2025 9:45 AM EST Office Visit [facility] [place] [address] documented as of this encounter Goals Goal [...] documented as of this encounter Care Teams Transfer And Pumphouse Operator Chief Relationship Specialty Start Date End Date Name, [place] [address] PCP - General Family Medicine 08/27/15 Alison Maurice, [place] [address] Pharmacist Internal Medicine 12/16/22 documented as of this encounter
--- OUTSIDE RECORDS SUMMARY | 2025-03-10 00:41 | XMS_ITS | Encounter Summary ---
Author Organization [facility] [employer] Address [address] [facility] 7 [place] [address] Care Team Providers Care Transfer Iron Operator Name Role Phone Name, Shaka TURNER Primary Care Provider [phone] Alison Maurice PharmD Unavailable [phone] Encounter Details Date Type Department Care Team ([facility] Contact Info) Description 06/04/2022 Orders Only [facility] [address] [place], [place] [phone] Name, MD Shaka [address] [place] [address] Social History Tobacco Use Types Packs/Day Years [...] Description 05/02/2025 9:00 AM EST Office Visit [facility] [address] [place] [phone] Name, [place] [address] 05/02/2025 9:45 AM EST Office Visit [facility] [place] [place] [address] documented as of this encounter Procedures Procedure [...] ANTIBODY (IGG) Routine 10/20/2022 2:44 PM EDT [id number] QN Routine 2:44 PM EDT MITOCHONDRIAL ANTIBODY WITH REFLEX TO TITER Routine 10/20/2022 2:44 PM EDT DAVID SCREEN, IFA, W/REFL TITER AND PATTERN Routine 10/20/2022 2:44 PM EDT COMPREHENSIVE METABOLIC PANEL Routine 10/20/2022 2:44 PM EDT documented in this encounter Results * (ABNORMAL) Basic Metabolic Panel (01/19/2023 12:57 PM EDT) Sodium 141 135 - 145 mmol/L [facility] Potassium 4.2 3.3 - 5.1 mmol/L [facility] Chloride 106 96 - 108 mmol/L [facility] Carbon Dioxide 23 22 - 29 mmol/L [facility] Anion Gap 16 12 - 20 [facility] Urea Nitrogen (BUN) 14 9 - 16 mg/dL [facility] Creatinine, Serum 0.86 0.5 - 1.4 mg/dL [facility] Estimated Glomerular Filt Rate >60 [facility] Comment:NOTE: For -Am erican individuals, multiply the result by 1.210.Chronic Kidney Disease: Estimated GFR < 60 mL/min/1.16n5Soifmd Kidney Disease: Estimated GFR < 15 mL/min/1.73m2 Glucose 167(H) 60 - 115 mg/dL [facility] Calcium 9.6 8.4 - 10.2 mg/dL [facility] 01/19/2023 12:5 7 PM EDT 01/19/2023 4:10 PM EDT us Shaka Ashley MD LAB BLOOD ORDERABLES Final Resul t [facility] [address] [place] [phone] * Liver Fibrosis, FibroTest-ActiTest Panel (10/27/2022 8:46 AM EDT) Liver Fibrosis Score 0.15 [facility] Liver Fibrosis Stage F0 [facility] Liver Fibrosis Interpretation SEE NOTE [facility] Comment:no fibrosisFibro Emily t Score [...] (severe fibrosis) Nec Inflam Act Score 0.13 [facility] Nec Inflam Act Grade A0 [facility] Nec Inflam Act Interpretation SEE NOTE [facility] Comment:no activityActiTest Score (a) Metavir Score a>=0 and a<=0.17 : A0 (no activity)a>0.17 and a<=0.29 : A0-A1 (no activity)a>0.29 and a<=0.36 : A1 (minimal activity)a>0.36 and a<=0.52 : A1-A2 (minimal activity)a>0.52 and a<=0.60 : A2 (significant activity)a>0.60 and a<=0.62 : A2-A3 (significant activity)a>0.62 and a<=1.00 : A3 (severe activity) VNU-Oviwl-5-Macroglo bulin 194 106 - 279 mg/dL [facility] FIB-Haptoglobin 109 43 - 212 mg/dL [facility] FIB-Apolipoprotein A1 144 94 - 176 mg/dL [facility] FIB-Total Bilirubin 0.3 0.2 - 1.2 mg/dL [facility] FIB-GGT 24 3 - 95 U/L [facility] FIB-ALT 32 9 - 46 U/L [facility] Reference ID [id number] [facility] Footnote SEE NOTE [facility] Comment: The reliability of results [...] and C.The performance characteristics have been determined by[employer] [facility]. Ithas not been cleared or approved by the U.S. Food and DrugAdministration. Performance characteristics refer to theanalytical performance of the test.[employer], [employer], the associated logo, [employer] and all associated [employer] jay are theregistered trademarks of [employer]. All third partymarks - (R) and (TM) - are the property of their respectiveowners. (C) 0466-8898 [employer]. Allrights reserved.THIS TEST WAS PERFORMED AT:[employer]/[facility] [id number] [place] [address]OYGDMLINDA STOCKTON MD,PHD,SATHISH 10/27/2022 8:46 AM EDT 10/27/2022 8:46 AM EDT [facility] External Provider LAB BLO OD ORDERABLES Final Result [facility] [address] [place] [phone] * Hepatitis C Viral RNA, Quantitative, Real-Time PCR (10/27/2022 8:46 AM EDT) Hepatitis C Viral Load <15 NOT DETECTED NOT DETECTED IU/mL [facility] HCV Log PCR <1.18 NOT DETECTED NOT DETECTED Log IU/mL [facility] Comment:This test was perfor med using Real-Time Polymerase ChainReaction.Reportable Range: 15 IU/mL to 100,000,000 IU/mL(1.18 Log IU/mL to 8.00 Log IU/mL).The analytical performance characteristics of thisassay have been determined by [employer].The modifications have not been cleared or approved bythe FDA. This assay has been validated pursuant to theCLIA regulations and is used for clinical purposes.For more information on this test, go to:http://education.Meme/faq/XDB74k4(This link is being provided for informational/educational purposes only.)THIS TEST WAS PERFORMED AT:[facility] [place] [id number] LUIS RAINES MD 10/27/2022 8:46 AM EDT 10/27/2022 8:46 AM EDT [facility] External Provider LAB BLO OD ORDERABLES Final Result Performing Organization Address [facility] de Phone Number [facility] [address] [place] [phone] * HIV Ab/Ag (TENISHA LINK) (10/27/2022 8:46 AM EDT) [facility] HIV AB/AG Nonreactive Nonreactive [facility] Comment:HIV-1 p24 Ag and/or HIV-1/HIV-2 Ab not detected.A test result that is nonreactive does not exclude thepossibility of exposure to or infection with HIV-1 and/orHIV-2. Nonreactive results in this assay for individualswith prior exposure to HIV-1 and/or HIV-2 may be due toantigen and antibody levels that are below the limit ofdetection of this assay.The C[employer] Painter HIV Ag/Ab Combo assay result andsupplemental assay results should be interpreted inconjunction with the patient's clinical presentation,history and other laboratory results. If the results areinconsistent with clinical evidence, additional testing issuggested to confirm the result. 10/27/2022 8:46 AM EDT 10/27/2022 8:46 AM EDT [facility] External Provider LAB BLO OD ORDERABLES Final Result Performing Organization Address [facility] Co de Phone Number [facility] [address] [place] [address] [phone] * Actin (Smooth Muscle) Antibody (IgG) (10/20/2022 2:44 PM EDT) Smooth Muscle Antibody <20 <20 U [facility] Comment:Reference Range: <20 U: Negative>or=20 [...] with AIH type 1.THIS TEST WAS PERFORMED AT:[id number] [place] [address]ONQNWGFSCOTTIE PELLETIER MD,PHD 10/20/2022 2:44 PM EDT 10/20/2022 2:44 PM EDT [facility] External Provider LAB BLO OD ORDERABLES Final Result Performing Organization Address [facility]/ZIP Co de Phone Number [facility] [address] [place] [phone] * Mitochondrial Antibody with Reflex to Titer (10/20/2022 2:44 PM EDT) Mitochondrial Antibodies NEGATIVE NEGATIVE [facility] Comment:THIS TEST WAS PERFOR MED AT:[facility] [address] [address]IOTMNJOSE LUIS RAINES MD Mitochondrial Ab Titer TNP [facility] 10/20/2022 2:44 PM EDT 10/20/2022 2:44 PM EDT [facility] External Provider LAB BLO OD ORDERABLES Final Result Performing Organization Address City/[facility]/ZIP Co de Phone Number [facility] [address] [place] [phone] * DAVID SCR, IFA W/Refl Titer and Pattern (10/20/2022 2:44 PM EDT) Pathologist [facility] Anti Nuclear Antibody Screen NEGATIVE NEGATIVE [facility] Comment:DAVID IFA is a first [...] clinicallysuspected inflammatory myopathies.AC-0: NegativeInternational Consensus on DAVID Patterns(https://doi.org/10.1515/ajzz-5073-4574)For additional information, please refer tohttp://education.[facility]/faq/YTO549(This link is being provided for informational/educational purposes only.)THIS TEST WAS PERFORMED AT:[facility] [place] [id number] LUIS RAINES MD DAVID Titer [facility] DAVID Pattern [facility] DAVID TITER 2 (REF LAB) [facility] DAVID Pattern 2 [facility] DAVID TITER 3 [facility] DAVID PATTERN 3 [facility] 10/20/2022 2:44 PM EDT 10/20/2022 2:44 PM EDT us [facility] External Provider LAB BLO OD ORDERABLES Final Result [facility] [address] [place] [address] [phone] * Jjbdn-9-Fareqjafkfs, Quantitative (10/20/2022 2:44 PM EDT) Pathologist [facility] Xmrfi-6-Ytvrogcd sin QN 140 83 - 199 mg/dL [facility] Comment:THIS TEST WAS PERFOR MED AT:[facility] [place] [id number] LUIS RAINES MD 10/20/2022 2:44 PM EDT 10/20/2022 2:44 PM EDT [facility] External Provider LAB BLO OD ORDERABLES Final Result Performing Organization Address [facility] Co de Phone Number [facility] [address] [place] [address] [phone] * Protein Electrophoresis and [place] (10/20/2022 2:44 PM EDT) Prot Elec - Total Protein 7.5 6.1 - 8.1 g/dL [facility] Prot Elec - Albumin 4.5 3.8 - 4.8 g/dL [facility] Prot Elec - Alpha1 0.3 0.2 - 0.3 g/dL [facility] Prot Elec - Alpha2 0.8 0.5 - 0.9 g/dL [facility] Prot Elec - Beta 1 0.5 0.4 - 0.6 g/dL [facility] Prot Elec - Beta 2 0.4 0.2 - 0.5 g/dL [facility] Prot Elec - Gamma 1.2 0.8 - 1.7 g/dL [facility] PES - Abn Protein Band 1 [facility] PES-Abn Protein Band 2 TNP [facility] PES-Abn Protein Band 3 [facility] Prot Elec - Interpretation SEE NOTE [facility] Comment:Normal Electrophoret ic PatternTHIS TEST WAS PERFORMED AT:[facility] [place] [id number] LUIS RAINES MD 10/20/2022 2:44 PM EDT 10/20/2022 2:44 PM EDT [facility] External Provider LAB BLO OD ORDERABLES Final Result Performing Organization Address [facility] de Phone Number [facility] [address] [place] [address] [phone] * (ABNORMAL) Hepatitis Panel, General (10/20/2022 2:44 PM EDT) Hepatitis A IgM Nonreactive Nonreactive [facility] Comment:IgM antibodies to SIMON V not detected; does not exclude earlyacute or recovered HAV infection. ~Hepatitis B Surface Antibody REACTIVE Nonreactive [facility] Comment:REACTIVE: > 11.99 mI U/mL Hepatitis B Core Antibody Nonreactive Nonreactive [facility] Hepatitis C Antibody Reactive(A) Nonreactive [facility] Comment:Presumptive evidence of antibodies to HCV. Hepatitis B Surface Ag Negative Negative [facility] 10/20/2022 2:44 PM EDT 10/20/2022 2:44 PM EDT [facility] External Provider LAB BLO OD ORDERABLES Final Result Performing Organization Address [facility] Co de Phone Number [facility] [address] [place] [address] [phone] * (ABNORMAL) Comprehensive Metabolic Panel (10/20/2022 2:44 PM EDT) Sodium 142 135 - 145 mmol/L [facility] Potassium 4.6 3.3 - 5.1 mmol/L [facility] Chloride 108 96 - 108 mmol/L [facility] Carbon Dioxide 27 22 - 29 mmol/L [facility] Anion Gap 12 12 - 20 [facility] Urea Nitrogen (BUN) 14 9 - 16 mg/dL [facility] Creatinine, Serum 0.82 0.5 - 1.4 mg/dL [facility] Estimated Glomerular Filt Rate >60 [facility] Comment:NOTE: For -Am erican individuals, multiply the result by 1.210.Chronic Kidney Disease: Estimated GFR < 60 mL/min/1.10g5Fisvyw Kidney Disease: Estimated GFR < 15 mL/min/1.73m2 Glucose 122(H) 60 - 115 mg/dL [facility] Calcium 9.5 8.4 - 10.2 mg/dL [facility] Bilirubin, Total 0.5 0.0 - 1.0 mg/dL [facility] Aspartate Amino Transferase 26 5 - 37 U/L [facility] Alanine Aminotransferase 43(H) 0 - 40 U/L [facility] Total Protein 7.4 6.5 - 8.0 g/dL [facility] Albumin Level 4.5 3.5 - 5.0 g/dL [facility] Alkaline Phosphatase 107 39 - 117 U/L [facility] 10/20/2022 2:44 PM EDT 10/20/2022 2:44 PM EDT us [facility] External Provider LAB BLO OD ORDERABLES Final Result [facility] [address] [place] [phone] * (ABNORMAL) CBC auto differential (10/20/2022 2:44 PM EDT) White Blood Count 8.0 4.8 - 10.8 X10*3/uL [facility] Red Blood Count 5.76 4.60 - 5.80 X10*6/uL [facility] Hemoglobin 15.2 14.0 - 18.0 g/dl [facility] Hematocrit 46.9 42.0 - 52.0 % [facility] Mean Corpuscular Volume 81.4 80.0 - 98.0 fL [facility] Mean Corpuscular Hemoglobin 26.4(L) 27.0 - 33.0 pg [facility] Mean Corpuscular HGB Conc 32.4 31.0 - 36.0 g/dl [facility] Red Cell Distribution Width 12.9 11.0 - 16.0 % [facility] Platelet Count 213 160 - 400 X10*3/uL [facility] Mean Platelet Volume 12.1 9.4 - 12.4 fL [facility] Neutrophils Percent Auto 69.3 45 - 73 % [facility] Imm Gran Pct Auto 0.4 0.0 - 0.4 % [facility] Lymphocytes Percent Auto 18.9(L) 20 - 40 % [facility] Monocytes Percent Auto 9.5 2 - 11 % [facility] Eosinophils Percent Auto 1.5 0 - 4 % [facility] Basophils Percent Auto 0.4 0 - 2 % [facility] NRBC Pct Auto 0.0 0.0 - 0.2 /100WBC [facility] Neutrophils Absolute Auto 5.6 2.0 - 8.3 x10*3/uL [facility] Imm Gran Abs Auto 0.03 0.00 - 0.03 X10*3/uL [facility] Lymphocytes Absolute Auto 1.5 1.2 - 4.9 X10*3/uL [facility] Monocytes Absolute Auto 0.8 0.1 - 1.2 X10*3/uL [facility] Eosinophils Absolute Auto 0.1 0.0 - 0.4 X10*3/uL [facility] Basophils Absolute Auto 0.0 0.0 - 0.2 X10*3/uL [facility] NRBC Abs Auto 0.000 0.0 - 0.012 X10*3/uL [facility] 10/20/2022 2:44 PM EDT 10/20/2022 2:44 PM EDT us [facility] External Provider LAB BLO OD ORDERABLES Final Result [facility] [address] [place] [address] [phone] documented in this encounter Visit Diagnoses Not on filedocumented in this encounter Care Teams Transfer Iron Operator Relationship Specialty Start Date End Date Name, MD Shaka [address] [place] [phone] PCP - General Family Medicine 08/27/15 Alison Maurice PharmD [address] [place] [phone] Pharmacist Internal Medicine 12/16/22 documented as of this encounter
--- OUTSIDE RECORDS SUMMARY | 2025-03-10 00:41 | XMS_ITS | Encounter Summary ---
Author Organization [employer] Address [address] [facility] 7t [place] [address] Care Team Providers Care Grease Remover Name Role Phone Name, Shaka TURNER Primary Care Provider [phone] Alison Maurice PharmD Unavailable Reason for Visit * Reason Comments Med Refill Encounter Details Date Type Department Care Team (Late st Contact Info) Description 08/31/2023 Refill [facility] [address] [place], [place] [phone] Name, MD Shaka [address] [place], [place] [phone] Essential hypertension Social History Tobacco Use Types [...] Description 05/02/2025 9:00 AM EST Office Visit [facility] [address] [place] [phone] NameShaka MD [address] [place] [address] 05/02/2025 9:45 AM EST Office Visit [address] [address] documented as of this encounter Goals Goal [...] documented as of this encounter Care Teams Grease Remover Relationship Specialty Start Date End Date Shaka Ashley MD [address] [place] [address] PCP - General Family Medicine 08/27/15 Alison Maurice PharmD [address] [place] [phone] Pharmacist Internal Medicine 12/16/22 documented as of this encounter
--- OUTSIDE RECORDS SUMMARY | 2025-03-10 00:41 | XMS_ITS | Encounter Summary ---
Author Organization [employer] Address [address] [facility] 7t [place] [address] Care Team Providers Care It Infrastructure Specialist Name Role Phone Name, Shaka TURNER Primary Care Provider [phone] Alison Maurice PharmD Unavailable Reason for Visit * Reason Comments Med Refill Encounter Details Date Type Department Care Team ([facility] st Contact Info) Description 10/03/2022 Refill [facility] [address] [place], [place] [phone] Name, MD Shaka [address] [place], [place] [phone] Social History Tobacco Use Types Packs/Day Years [...] Description 05/02/2025 9:00 AM EST Office Visit [facility] [address] Name, MD Shaka [facility] [place] [id number] 05/02/2025 9:45 AM EST Office Visit [facility] [place] [id number] documented as of this encounter Visit Diagnoses Not on filedocumented in this encounter Additional Health Concerns Assessment Noted Time PHQ-9 Depression Total Score: 10 06/05/ 022 10:24 AM EST documented as of this encounter Care Teams It Infrastructure Specialist Relationship Specialty Start Date End Date Name, MD Shaka [facility] [place] [address] PCP - General Family Medicine 08/27/15 Alison Maurice, DlD [facility] [place] [address] Pharmacist Internal Medicine 12/16/22 documented as of this encounter
--- OUTSIDE RECORDS SUMMARY | 2025-03-10 00:41 | XMS_ITS | Clinical Summary ---
Author Organization [address] [place] [address] Address [address] [place] [address] Phone Care Team Providers Care Manager Field Sales Name Role Phone Name, Shaka TURNER Primary Care Provider [phone] Immunizations Name Administration Dates Next Due Pfizer [...] ID:[id number] Group ID:[id number] Type:Not on file Address: [place] [address] [address] [phone] Care Teams Manager Field Sales Relationship Specialty Start Date End Date Name, MD Shaka [address] [place], [place] PCP - General Internal Medicine 03/10/06
--- OUTSIDE RECORDS SUMMARY | 2025-03-10 00:41 | XMS_ITS | Encounter Summary ---
Author Organization [employer] Address [address] [facility] 7t [place] [address] Care Team Providers Care Door Manager Name Role Phone Name, Shaka TURNER Primary Care Provider [phone] Alison Maurice PharmD Unavailable [phone] Encounter Details Date Type Department Care Team (Latest Contact Info) Description 06/19/2020 Abstract [facility] CONVERSIONS Dental, Provider, DDS Social History [...] Description 05/02/2025 9:00 AM EST Office Visit [facility] [address] [place] [phone] Name, MD Shaka [address] [place] [address] 05/02/2025 9:45 AM EST Office Visit [facility] [address] [place] [address] documented as of this encounter Visit Diagnoses Not on filedocumented in this encounter Care Teams Door Manager Relationship Specialty Start Date End Date Name, MD Shaka [address] [place] [phone] PCP - General Family Medicine 08/27/15 Alison Maurice, DlD [address] [place] [phone] Pharmacist Internal Medicine 12/16/22 documented as of this encounter
--- OUTSIDE RECORDS SUMMARY | 2025-03-10 00:41 | XMS_ITS | Encounter Summary ---
Author Organization [employer] Address [address] [facility] 7t [place] [address] Care Team Providers Care Park Ranger Name Role Phone Name, Shaka TURNER Primary Care Provider [phone] Alison Maurice PharmD Unavailable [phone] Encounter Details Date Type Department Care Team (Late st Contact Info) Description 02/28/2025 Orders Only [facility] [address] [place] [address] Liset Estrada, RN [address] [place] [address] Social History Tobacco Use Types Packs/Day Years [...] Description 05/02/2025 9:00 AM EST Office Visit [address] [address] Name, MD Shaka [address] [place] [address] 05/02/2025 9:45 AM EST Office Visit [address] [address] documented as of this encounter Goals Goal Patient Goal Type Associated Problems Recent Progress Patient-Stated? Author Record your blood pressure once per day Blood Pressure No Puia, Alison, PharmD Blood Pressure < 140/90 Blood Pressure 143/84( 025 5:40 PM EDT) No Puia, Alison, PharmD documented as of this encounter Procedures Procedure Name Priority Date/Time Associated Diagnosis Comments OTHER REF TEST - [facility] Routine 02/28/2025 9:45 AM EDT documented in this encounter Results * Other Reference Test - Mis (02/28/2025 9:45 AM EDT) 02/28/2025 9:45 AM EDT 02/28/2025 11:27 AM EDT Narrative [facility] - 03/06/2025 10:17 AM EDT DRUG MONITORING MDMA, WITH CONFIRMATION, URINE - [phone] us Shaka Name LAB BLOOD ORDERABLES Final Resul t [facility] [address] [place] [address] [phone] documented in this encounter Visit Diagnoses Not on filedocumented in this encounter Additional Health Concerns Assessment Noted Time PHQ-9 Depression Total Score: 15 12/06/ 025 4:00 PM EDT documented as of this encounter Care Teams Park Ranger Relationship Specialty Start Date End Date Name, MD Shaka [address] [place] [address] PCP - General Family Medicine 08/27/15 Alison Maurice PharmD [address] [place] [address] Pharmacist Internal Medicine 12/16/22 documented as of this encounter
--- OUTSIDE RECORDS SUMMARY | 2025-03-10 00:41 | XMS_ITS | Encounter Summary ---
Author Organization [employer] Address [address] [facility] 7t [place] [address] Care Team Providers Care Mexican Food Cook Name Role Phone Name, Shaka TURNER Primary Care Provider [phone] Alison Maurice PharmD Unavailable [phone] Reason for Visit * Reason Comments Med Refill Encounter Details Date Type Department Care Team ([facility] st Contact Info) Description 04/22/[address] [facility]S [address] [place], [place] [phone] Name, MD Shaka [address] [place], [place] [phone] Allergic rhinitis, unspecified seasonality, unspecified trigger Social [...] 05/02/2025 9:00 AM EST Office Visit [address] [address] Name, MD Shaka [address] [place] [address] 05/02/2025 9:45 AM EST Office Visit [address] [address] documented as of this encounter Goals Goal [...] documented as of this encounter Care Teams Mexican Food Cook Relationship Specialty Start Date End Date Shaka Ashley MD [address] [place] [address] PCP - General Family Medicine 08/27/15 Puia, Alison, PharmD [address] [place] [address] Pharmacist Internal Medicine 12/16/22 documented as of this encounter
--- OUTSIDE RECORDS SUMMARY | 2025-03-10 00:41 | XMS_ITS | Encounter Summary ---
Author Organization [employer] Address 75 [facility] 7t [place] [address] Care Team Providers Care Pantograph Setter Name Role Phone Name, Shaka TURNER Primary Care Provider [phone] Alison Maurice PharmD Unavailable Reason for Visit * Reason Onset Date Comments Med Refill 12/19/2022 Encounter Details Date Type Department Care Team ([facility] st Contact Info) Description 12/19/[address] [facility] MEDICINE [address] [place], [place] [phone] Name, MD Shaka [address] [place], [place] [phone] Med Refill Social History Tobacco Use Types [...] immediate release tablet chana sent to [facility]/pharmacy #[id number] - [place], [place] - [address] documented in this encounter Plan of Treatment Upcoming Encounters Date Type Department Care Team (Late st Contact Info) Description 05/02/2025 9:00 AM EST Office Visit [facility] MEDICINE [address] [place] [address] Name, MD Shaka [address] [place] [address] 05/02/2025 9:45 AM EST Office Visit [address] [address] documented as of this encounter Goals Goal [...] documented as of this encounter Care Teams Pantograph Setter Relationship Specialty Start Date End Date Name, MD Shaka [address] [place] [address] PCP - General Family Medicine 08/27/15 Puia, Alison, PharmD [address] [place] [address] Pharmacist Internal Medicine 12/16/22 documented as of this encounter
--- OUTSIDE RECORDS SUMMARY | 2025-03-10 00:41 | XMS_ITS ---
Author Organization [employer] Address 75 [facility] 7 [place] [address] Care Team Providers Care Foreclosure Home Inspector Name Role Phone Name, Shaka TURNER Primary Care Provider Alison Maurice PharmD Unavailable [employer] Status:Enrolled (Active) Start date:04/15/2022 Enrollment date:04/15/2022 Enrollment reason:Identified using pharmacy data Current support & services provided:Tier 4 ([employer]ING [employer]) Case Team Name Relationship Phone Merlyn Bennett RN(Responsible Staff) Registered Nu [facility] Continued Care and Services Coordination
--- OUTSIDE RECORDS SUMMARY | 2025-03-10 00:41 | XMS_ITS | Encounter Summary ---
Author Organization [employer] Address 75 [facility] 7t [place] [address] Care Team Providers Care Airdox Fitter Name Role Phone Name, Shaka TURNER Primary Care Provider [phone] Alison Maurice PharmD Unavailable [phone] Reason for Visit * Reason Comments Med Refill Encounter Details Date Type Department Care Team ([facility] st Contact Info) Description 03/08/2025 Refill [facility] MEDICINE 230 [place], [place] [phone] Name, MD Shaka 230 [place] [address] Social History Tobacco Use Types Packs/Day Years [...] Description 05/02/2025 9:00 AM EST Office Visit [address] [address] Name, MD Shaka [address] [place] [address] 05/02/2025 9:45 AM EST Office Visit [address] [address] documented as of this encounter Goals Goal [...] documented as of this encounter Care Teams Airdox Fitter Relationship Specialty Start Date End Date Name, MD Shaka 230 [place] [address] PCP - General Family Medicine 08/27/15 Alison Maurice PharmD 230 [place] [address] Pharmacist Internal Medicine 12/16/22 documented as of this encounter
--- OUTSIDE RECORDS SUMMARY | 2025-03-10 00:41 | XMS_ITS | Encounter Summary ---
Author Organization [employer] Address [address] [facility] [address] 7t [place] [address] Care Team Providers Care Arborer Name Role Phone Name, Shaka TURNER Primary Care Provider [phone] Alison Maurice PharmD Unavailable [phone] Encounter Details Date Type Department Care Team ([facility] st Contact Info) Description 05/10/2023 Abstract [facility] MEDICINE 230 [place] [address] Sariah Rodriguez Social History Tobacco Use Types [...] Description 05/02/2025 9:00 AM EST Office Visit [address] [address] NameShaka MD [address] [place] [address] 05/02/2025 9:45 AM EST Office Visit [address] [address] documented as of this encounter Goals Goal [...] documented as of this encounter Care Teams Arborer Relationship Specialty Start Date End Date Shaka Ashley MD [address] [place] [address] PCP - General Family Medicine 08/27/15 Puia, Alison, PharmD [address] [place] [address] Pharmacist Internal Medicine 12/16/22 documented as of this encounter
--- OUTSIDE RECORDS SUMMARY | 2025-03-10 00:41 | XMS_ITS | Encounter Summary ---
Author Organization [employer] Address [address] [facility] [address] 7t [place] [address] Care Team Providers Care Dairy Specialist Name Role Phone Name, Shaka TURNER Primary Care Provider [phone] Alison Maurice PharmD Unavailable [phone] Reason for Visit * Reason Onset Date Comments Urine testing 02/28/25 - MDMA 03/06/2025 Encounter Details Date Type Department Care Team (Late st Contact Info) Description 03/06/2025 Telephone [facility] MED[facility] 230 [place], [place] [phone] Merlyn Bennett RN Urine testing 02/28/25 - [...] t he electric, gas, oil or water [employer] threatened to shut off services in your [...] - 03/06/2025 12:00 PM EDT TC to [facility], spoke with Ani @ [place] [address]. Ani to fax results to [facility]. She reports the labs arenegative for MDMA. documented in this encounter Plan of Treatment Upcoming Encounters Date Type Department Care Team (Late st Contact Info) Description 05/02/2025 9:00 AM EST Office Visit [facility] MEDICINE [address] [place] [address] Name, MD Shaka 230 [place] [address] 05/02/2025 9:45 AM EST Office Visit [facility] MED[facility] [address] [place] [address] documented as of this encounter Goals Goal [...] documented as of this encounter Care Teams Dairy Specialist Relationship Specialty Start Date End Date Name, MD Shaka 230 [place] [address] PCP - General Family Medicine 08/27/15 Alison Maurice PharmD 230 [place] [address] Pharmacist Internal Medicine 12/16/22 documented as of this encounter
--- OUTSIDE RECORDS SUMMARY | 2025-03-10 00:41 | XMS_ITS | Encounter Summary ---
Author Organization [employer] Address 75 [facility] 7t [place] [address] Care Team Providers Care Olive Knocker Name Role Phone Name, Shaka TURNER Primary Care Provider [phone] Alison Maurice PharmD Unavailable Encounter Details Date Type Department Care Team ([facility] Contact Info) Description 06/25/2022 Telephone [facility] MEDICINE 230 [place], [place] [phone] Name, MD Shaka 230 [place] [address] Social History Tobacco Use Types Packs/Day Years [...] Description 05/02/2025 9:00 AM EST Office Visit [address] [address] Name, [place] [address] 05/02/2025 9:45 AM EST Office Visit [address] [address] documented as of this encounter Visit Diagnoses Not on filedocumented in this encounter Additional Health Concerns Assessment Noted Time PHQ-9 Depression Total Score: 10 022 10:24 AM EST documented as of this encounter Care Teams Olive Knocker Relationship Specialty Start Date End Date Name, MD Shaka [address] [place] [address] PCP - General Family Medicine 08/27/15 Alison Maurice PharmD [address] [place] [address] Pharmacist Internal Medicine 12/16/22 documented as of this encounter
--- OUTSIDE RECORDS SUMMARY | 2025-03-10 00:41 | XMS_ITS | Clinical Summary ---
Author Organization [facility] Address [address] [place] [address] Care Team Providers Care Channel Worker Name Role Phone Pcp, No Primary Care [...] 02/20/2021 Insurance MEDICAID OUT OF STATE [facility] MGD MEDICARE OUT OF NETWORK MEDICARE PART A & B Care Teams Channel Worker Relationship Specialty Start Date End Date Pcp, No [address] [place] [address] PCP - General 02/20/21
--- OUTSIDE RECORDS SUMMARY | 2025-03-10 00:41 | XMS_ITS | Encounter Summary ---
Author Organization [employer] Address 75 [facility] 7t [place] [address] Care Team Providers Care Tin Assorter Name Role Phone Name, Shaka TURNER Primary Care Provider [phone] Alison Maurice PharmD Unavailable [phone] Encounter Details Date Type Department Care Team ([facility] st Contact Info) Description 07/07/[address] [facility] MEDICINE 230 [place], [place] [phone] Name, MD Shaka 230 [place] [address] Social History Tobacco Use Types Packs/Day Years [...] Description 05/02/2025 9:00 AM EST Office Visit [address] [address] Name, MD Shaka [address] [place] [address] 05/02/2025 9:45 AM EST Office Visit [address] [address] documented as of this encounter Goals Goal [...] documented as of this encounter Care Teams Tin Assorter Relationship Specialty Start Date End Date Name, MD Shaka [address] [place] [address] PCP - General Family Medicine 08/27/15 Puia, Alison, PharmD [address] [place] [address] Pharmacist Internal Medicine 12/16/22 documented as of this encounter
--- OUTSIDE RECORDS SUMMARY | 2025-03-10 00:41 | XMS_ITS | Clinical Summary ---
Author Organization [employer] Address 75 [facility] 7t [place] [address] Care Team Providers Care Ripshear Operator Name Role Phone Name, Shaka TURNER Primary Care Provider [phone] Alison Maurice PharmD Unavailable [phone] Allergies Active Allergy Reactions Criticality Noted [...] 23 Active ergocalciferol (Vitamin D2) 1.25 MG (70927 UT) capsule 10/22/19 23 Active escitalopram (Lexapro) [...] days. 84 tablet 02/29/20 25 025 Active clotrimazole-be tamethasone (Lotrisone) cream APPLY TOPICALLY TWICE A DAY FOR 28 DAYS 45 g 2 03/08/20 25 Active clotrimazole-be tamethasone (Lotrisone) cream Apply topically 2 times daily for 28 days. 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 Date Type Department Care Team Description 03/08/[address] [address] Name, MD Shaka 03/06/[address] [address] Merlyn Bennett, CORINNE Urine testing 02/28/25 - MDMA 02/28/2025 9:45 AM EDT Office Visit [address] [address] Nandini Rowland FNP Spinal stenosis of cervical region (Primary Dx); Dietary counseling; Exercise counseling; superintendent container terminal (current) use of opiate analgesic 02/28/[address] [address] Merlyn Bennett, director corporate communications hip pain, unspecified laterality 02/28/[address] [address] Merlyn Bennett, RN TAX PREPARER Agreement renewed; Abnormal UTOX 02/28/2025 Orders Only [address] [address] Liset Estrada RN 02/28/2025 Travel 02/09/2025 Orders Only [facility] External Provider, [facility] 02/08/2025 Results Follow-Up [address] [address] Bonny Coto MD XR Foot 3+ Views Right 02/07/2025 6:00 PM EDT Office Visit [facility] [address] [address] Bonny Coto MD Onychomycosis (Primary Dx); Pain of toe of right foot 02/07/2025 Travel 02/07/[address] [address] Kavon Sultana [place] oct recalls 01/26/2025 Refill [facility] 230 [place] [address] Name, MD Shaka Chronic hip pain, unspecified laterality 01/25/2025 Refill [facility] P[facility] [address] [place] [address] NameShaka MD 01/18/2025 Refill [facility] [address] [place] [address] Name, MD Shaka Essential hypertension 12/28/2024 Refill [facility]IC[facility] [address] [place] [address] Name, MD Shaka Chronic hip pain, unspecified laterality 12/21/2024 Refill [facility] [address] [place], [place] [phone] Name, MD Shaka Allergic rhinitis, unspecified seasonality, unspecified trigger 12/11/2024 Refill [facility] MEDICINE [address] [place], [place] [phone] Name, MD Shaka from Last 3 Months Immunizations Immunization Administration [...] Description 05/02/2025 9:00 AM EST Office Visit [facility] MEDICINE [address] [place] [address] Name, MD Shaka [address] [place] [address] 05/02/2025 9:45 AM EST Office Visit [address] [address] Health Maintenance Due Date Last Done Comments [...] 01/15/2023, Additional history exists COVID-19 Vaccine ( - season) 2025 03/31/2023, 01/16/2021, 10/22/2020, Additional history [...] AM EDT Spinal stenosis of cervical region care home (current) use of opiate analgesic OTHER REF TEST - MISC Routine 02/28/2025 9:45 AM EDT STRESS TEST WITH MYOCARDIAL PERFUSION Routine 02/09/2025 7:57 AM EDT XR FOOT 3+ VIEWS RIGHT Routine 02/08/2025 8:20 AM EDT Pain of toe of right foot PROPHYLAXIS - ADULT Routine 06/02/2024 8 :00 [...] - 02/28/2025 10:19 AM EDT UTOX cup Lot#[id number] Exp. 03/28/26 Internal Pass Control us Shaka Ashley MD POINT OF CARE TEST ENTER/EDIT OR DERABLES Final Result * Other Reference Test - Misc (02/28/2025 9:45 AM EDT) 02/28/2025 9:45 AM EDT 02/28/2025 11:27 AM EDT [facility]S - 03/06/2025 10:17 AM EDT DRUG MONITORING MDMA, WITH CONFIRMATION, URINE - [phone] us Shaka Ashley MD LAB BLOOD ORDERABLES Final Resul t [facility] [address] [place] [phone] * Stress test with myocardial perfusion (02/09/2025 7:57 AM EDT) 02/09/2025 7:57 AM EDT [facility] IMAGING - 02/10/2025 4:19 PM EDT [address] [address] Nuclear Medicine Report Signed Patient: William Zavala MR#: [id number] : 1975 Acct:[id number] Age/Sex: 49 / M ADM Date: 02/09/25 Loc: SARINA Attending Dr: Austin Tinsley MD Ordering Physician: Austin Tinsley MD Date of Service: 02/09/25 Procedure(s): NM cardiolite stress test Accession Number(s): [id number] cc: Dion,Shkaa TURNER; Austin Tinsley MD EXERCISE MYOCARDIAL PERFUSION [...] findings are consistent with normal myocardial perfusion. NM/[place] cardiolite stress test IMPRESSION: 1. Myocardial perfusion imaging study shows normal myocardial perfusion. 2. Gated LVEF is 66%. 3. Transient ischemic dilatation not present. EKG revealed negative for ischemia. Electronically signed by: Sven Feliciano MD 02/10/2025 04:17 PM EDT Dictated By: Sven Feliciano MD Signed By: <Electronically signed by Sven Feliciano MD in OV> 02/10/25 1617 DD/ 0757 TD/TT: 02/10/25 0900 Motor Vehicle Technician: Procedure Note Donotuseinterpreter, Image - 02/10/2025 [place] [address] Nuclear Medicine Report Signed Patient: Dell Zavala#: [id number] : 1975Acct:[id number] Age/Sex: 49 / MADM Date: 02/09/25 Loc: .[facility] Attending Dr: Austin Tinsley MD Ordering Physician: Austin Tinsley MD Date of Service: 02/09/25 Procedure(s): NM cardiolite stress test Accession Number(s): [id number] cc: Name,Shaka TURNER; Austin Tinsley MD EXERCISE [...] 02/10/25 1617 DD/ 0757 TD/TT: 02/10/25 0900 Motor Vehicle Technician: us [facility] External Provider CV STRE SS PROCEDURES Final Result Performing Organization Address City/State/[facility] Co de Phone Number [facility] [address] [place] [address] * XR Foot 3+ Views Right (02/08/2025 8:20 AM EDT) Anatomical Region Laterality Modality Lower Extremities, Foot Right Radiogra phic Imaging 02/08/2025 8:20 AM EDT Narrative 02/08/2025 8:45 AM EDT [address] [address] XRay Report Signed Patient: William Zavala MR#: [id number] : 1975 Acct:[id number] Age/Sex: 49 / M ADM Date: 02/08/25 Loc: HO.XRAY Attending Dr: Bonny Talavera MD Ordering Physician: Bonny Coto MD Date of Service: 02/08/25 Procedure(s): XR foot RT min 3V Accession Number(s): [id number] cc: Bonny Coto MD; Name,Shaka TURNER EXAMINATION: [...] in OV> 02/08/2543 DD/ 9 TD/TT: 02/08/25824 Motor Vehicle Technician: Procedure Note Donotameenainterpreter, Image - 02/08/2025 [place] [address] XRay Report Signed Patient: William Zavala#: [id number] : 1975Acct:[id number] Age/Sex: 49 / MADM Date: 02/08/25 Loc: HO.JOCELYNEAY Attending Dr: Bonny Talavera MD Ordering Physician: Bonny Coto MD Date of Service: 02/08/25 Procedure(s): XR foot RT min 3V Accession Number(s): [id number] cc: Bonny Coto MD; Name,Shaka TURNER EXAMINATION: [...] MDin OV> 02/08/25842 DD/ 9 TD/TT: 02/08/25824 Motor Vehicle Technician: Bonny Talavera MD IMG XR PROCEDURES Fin al Result * (ABNORMAL) POCT HGB A1C (06/01/2024 11:52 AM EST) Hemoglobin A1C 6.4(A) 4.0 - 6.0 % QC Media Lot # [id number] Lot# Expiration Date [id number] Blood 06/01/2024 11:5 2 AM EST Result [facility] Shaka Ashley MD POINT OF CARE TEST ENTER/EDIT OR DERABLES Final Result * HIV Ab/Ag ([place] DP) (10/27/2022 8:46 AM EDT) HIV AB/AG Nonreactive Nonreactive [facility] Comment:HIV-1 p24 Ag and/or HIV-1/HIV-2 Ab not detected.A test result that is nonreactive does not exclude thepossibility of exposure to or infection with HIV-1 and/orHIV-2. Nonreactive results in this assay for individualswith prior exposure to HIV-1 and/or HIV-2 may be due toantigen and antibody levels that are below the limit ofdetection of this assay.The [employer] HIV Ag/Ab Combo assay result andsupplemental assay results should be interpreted inconjunction with the patient's clinical presentation,history and other laboratory results. If the results areinconsistent with clinical evidence, additional testing issuggested to confirm the result. 10/27/2022 8:46 AM EDT 10/27/2022 8:46 AM EDT [facility] External Provider LAB BLO OD ORDERABLES Final Result Performing Organization Address [facility] Co de Phone Number [facility] [address] [place] [address] [phone] * Hepatitis C Viral RNA, Quantitative, Real-Time PCR (10/27/2022 8:46 AM EDT) [facility] Hepatitis C Viral Load <15 NOT DETECTED NOT DETECTED IU/mL [facility] HCV Log PCR <1.18 NOT DETECTED NOT DETECTED Log IU/mL [facility] Comment:This test was perfor med using Real-Time Polymerase ChainReaction.Reportable Range: 15 IU/mL to 100,000,000 IU/mL(1.18 Log IU/mL to 8.00 Log IU/mL).The analytical performance characteristics of thisassay have been determined by [employer].The modifications have not been cleared or approved bythe FDA. This assay has been validated pursuant to theCLIA regulations and is used for clinical purposes.For more information on this test, go to:http://education.[employer]/faq/YEY53w7(This link is being provided for informational/educational purposes only.)THIS TEST WAS PERFORMED AT:[employer] [place] [id number] LUIS RAINES MD 10/27/2022 8:46 AM EDT 10/27/2022 8:46 AM EDT [facility] External Provider LAB BLO OD ORDERABLES Final Result Performing Organization Address City/[facility]/ZIP Co de Phone Number [facility] [address] [place] [phone] * Hm Colonoscopy (09/05/2022) [facility] Colonoscopy Normal Normal Comment:ifobt Historical Provider HEALTH MAINTENANCE Final Result * (ABNORMAL) LIPID PANEL, STANDARD (01/22/2021 10:21 AM EDT) [facility] Chol/HDLC Ratio 4.2 <5.0 (calc) [facility] [...] LDL-C. Jt AGUIRRE et al. JAMAL. 2013;310(19): 6819-8491 (http://education.[employer]Triples[employer]/faq/TZO437) Non-HDL Cholesterol 109 <130 mg/dL (calc) [facility] Comment: For patients with diabetes plus 1 major ASCVD risk factor, treating to a non-HDL-C goal of <100 mg/dL (LDL-C of <70 mg/dL) is considered a therapeutic option. Triglycerides 92 <150 mg/dL [facility] 01/22/2021 10:2 1 AM EDT us Shaka Name LAB BLOOD ORDERABLES Final Resul t [facility] [address] from Last 3 Months or Most Recently Relevant to Health Maintenance Insurance [facility] ONE CARE < 65 [place] [id number] Care Teams Ripshear Operator Relationship Specialty Start Date End Date Name, MD Shaka [address] [place] [address] PCP - General Family Medicine 08/27/15 Alison Maurice PharmD [address] [place] [address] Pharmacist Internal Medicine 12/16/22
--- OUTSIDE RECORDS SUMMARY | 2025-03-10 00:41 | XMS_ITS | Encounter Summary ---
Author Organization [employer] Address 75 [facility] 7t [place] [address] Care Team Providers Care Cell Efficiency Supervisor Name Role Phone Name, Shaka TURNER Primary Care Provider [phone] Alison Maurice PharmD Unavailable Encounter Details Date Type Department Care Team (Latest Contact Info) Description 01/18/[address] [facility] CONVERSIONS Dental, Provider, DDS Social History [...] Description 05/02/2025 9:00 AM EST Office Visit [facility] MEDICINE [address] [place] [address] Name, MD Shaka [address] [place] [address] 05/02/2025 9:45 AM EST Office Visit [facility] MEDICINE [address] [place] [address] documented as of this encounter Visit Diagnoses Not on filedocumented in this encounter Care Teams Cell Efficiency Supervisor Relationship Specialty Start Date End Date Name, MD Shaka [address] [place] [address] PCP - General Family Medicine 08/27/15 Alison Maurice, DlD [address] [place] [address] [place] [address] Pharmacist Internal Medicine 12/16/22 documented as of this encounter
--- OUTSIDE RECORDS SUMMARY | 2025-03-10 00:41 | XMS_ITS | Encounter Summary ---
Author Organization [employer] Address [address] [facility] [address] [place] [address] Care Team Providers Care Threading Machine Operator Name Role Phone Name, Shaka TURNER Primary Care Provider [phone] Alison Maurice PharmD Unavailable Encounter Details Date Type Department Care Team (Late Contact Info) Description 11/20/2022 Abstract [facility] [address] [place] [phone] Shaka Ashley MD [address] [place] [phone] Social History Tobacco Use Types Packs/Day Years [...] Description 05/02/2025 9:00 AM EST Office Visit [facility] [address] [place] [phone] NameShaka MD [address] [place] [address] 05/02/2025 9:45 AM EST Office Visit [facility] [place] [address] documented as of this encounter Visit Diagnoses Not on filedocumented in this encounter Additional Health Concerns Assessment Noted Time PHQ-9 Depression Total Score: 10 06/05/ 022 10:24 AM EST documented as of this encounter Care Teams Threading Machine Operator Relationship Specialty Start Date End Date Name, MD Shaka [facility] [place] [address] PCP - General Family Medicine 08/27/15 Aliosn Maurice PharmD [facility] [place] [address] Pharmacist Internal Medicine 12/16/22 documented as of this encounter
--- NOTE | 2025-03-10 00:45 | ED.GENADULT ---
HPI - General Adult General Chief complaint: Eye Problems Stated complaint: foreign object in left eye Time Seen by Provider: 03/10/25 00:35 Source: patient Mode of arrival: ambulatory Limitations: no limitations History of Present Illness ED Provider: Dr. Madrid [facility] narrative: 49-year-old male presented hospital today for evaluation of foreign object sensation in his left eye. Patient was working on his car where he had the sudden sensation. He did rinse his left eye with water however this sensation remains. Related Data Home Medications ?Medication ?Instructions ?Recorded ?Confirmed albuterol sulfate 2.5 mg/3 mL 2.5 mg inhalation NEEDED PRN 04/11/20 03/07/25 (0.083 %) solution for nebulization Shortness Of Breath atorvastatin 20 mg tablet 20 mg PO DAILY 04/11/20 03/07/25 montelukast 10 mg tablet 10 mg PO BEDTIME 04/11/20 03/07/25 omeprazole 20 mg capsule,delayed 40 mg PO DAILY 04/11/20 12/05/24 release fluticasone propionate 50 1 spray intranasal DAILY 08/03/20 03/07/25 mcg/actuation nasal spray,suspension mycophenolate sodium 180 mg 540 mg PO BID 08/07/20 03/07/25 tablet,delayed release (Myfortic) ciclopirox 0.77 % topical cream appl topical BID 12/03/20 03/07/25 ampicillin 500 mg capsule 0 cap PO 10/22/21 03/07/25 azelastine 0.05 % eye drops 0 drp ophthalmic (eye) 10/22/21 03/07/25 levothyroxine 200 mcg tablet 150 mcg PO .COMPLEX 10/22/21 03/07/25 loratadine 10 mg tablet 10 mg PO DAILY 10/22/21 03/07/25 tacrolimus 4 mg tablet,extended 8 mg PO DAILY 10/20/22 03/07/25 release 24 hr (Envarsus XR) calcitriol 0.25 mcg capsule mcg PO 12/05/24 03/07/25 doxazosin 4 mg tablet 4 mg PO DAILY 12/05/24 03/07/25 losartan 50 mg tablet 50 mg PO BID 12/05/24 03/07/25 magnesium oxide 400 mg (241.3 mg 400 mg PO DAILY 12/05/24 03/07/25 magnesium) tablet famotidine 20 mg tablet 20 mg PO DAILY 03/07/25 03/07/25 labetalol 200 mg tablet 200 mg PO BID 03/07/25 03/07/25 Previous Rx's ?Medication ?Instructions ?Recorded Raised toilet seat #1 ea 08/09/20 walker #1 ea 08/09/20 aspirin 81 mg tablet,delayed 81 mg PO DAILY 30 days #30 tabs 08/16/20 release cane #1 ea 08/30/20 acetaminophen 325 mg tablet 650 mg (2 x 325 mg) PO Q6H PRN for 05/03/24 mild pain #240 tabs Allergies Allergy/AdvReac Type Severity Reaction Status Date / Time ibuprofen (From MOTRIN) Allergy Unknown PT STATES Verified 03/09/25 23:30 HE CAN'T TAKE BECAUSE OF MY KIDNEY grass pollen Allergy Itching Verified 03/09/25 23:30 Review of Systems Review of Systems: Pertinent review of systems as mentioned in HPI. All other system otherwise negative. [facility] Past Medical History [facility] Narrative: Medical history as mentioned in HPI Medical History (Updated 03/10/25 @ 01:41 by Ree Madrid DO) Knee effusion, right A-V fistula Chronic back pain Hx of gout Allergic rhinitis ESRD (end stage renal disease) Hyperlipidemia Depression Hx of anxiety disorder FLORENTINO (obstructive sleep apnea) CKD (chronic kidney disease) Hypertension GERD (gastroesophageal reflux disease) Hypothyroidism Asthma Avascular necrosis of bones of both hips Avascular necrosis Surgical History S/P hip replacement Kidney replaced by transplant Family History Family History Mother No problems noted. Father No problems noted. Paternal Grandmother Cancer Social History Social History Are you a primary health care technician to a significant other at home: No Do you presently have visiting nurse or other home services: No (home health aide) Alcohol intake: never Comment: patient sleeping Patient Tobacco Use Status: Former Tobacco user Smoked in Last 30 Days: No Second Hand Smoke Exposure: No Use of substances other than those prescribed or required for medical reasons: No Advance Directives: No service: No Current occupational status: disabled Current occupation: leftHanded Physical Exam ED Exam Exam: General: Pleasant, no distress, interacting appropriately Head: Normacephalic, atraumatic, visual acuity is intact, no sign of foreign object under leave his eyelid, no sign of corneal abrasion with lamp exam. Extraocular movements intact, pupils PERRLA Neurological: Awake and alert, no facial droop noted Skin: Warm and dry Psychiatric: Appropriate mood and thoughts Vital Signs: Vital Signs - 24 hr 03/09/25 23:27 03/10/25 02:00 Temperature 97.6 F 97.6 F Pulse Rate 58 58 Respiratory Rate 18 18 Blood Pressure 160/84 H 160/84 H Pulse Oximetry 97 97 Oxygen Delivery Method Room Air Room Air BMI result Body Mass Index 28.8 Medications Administered Discontinued Medications Generic Name Dose Route Start Last Admin Trade Name Freq PRN Reason Stop Dose Admin Fluorescein Sodium 1 strip 03/10/25 00:36 03/10/25 00:59 Fluorescein Sodium Strip EYE-LEFT 03/10/25 00:37 1 strip ONCE ONE Administration Tetracaine HCl 1 drop 03/10/25 00:36 03/10/25 00:59 Tetracaine Hcl 0.5% Oph Anabella 5 Ml Drops EYE-LEFT 03/10/25 00:37 1 drop ONCE ONE Administration Medical Decision Making Medical Decision Making MDM Narrative: 49-year-old male presented hospital today for evaluation of foreign object sensation in the left eye I did not identify any signs of foreign object in his left eye. No sign of corneal abrasion appreciated on we will lamp exam. At this time we will plan to discharge patient home. I did explore patient's eyelid upper and lower eyelid. No sign of foreign object. Procedure: Wood lamp Exam Anethesize with tetracaine. Stained with fluorescin dye. No abrasion on exam or ulcers. No Shital sign. Differential Diagnosis Differential Diagnoses: The differential diagnosis associated with the presentation includes Corneal abrasion, corneal ulcer, foreign object in left eye, conjunctivitis Discharge Plan Discharge Clinical Impression: Corneal irritation of left eye Patient Disposition: Home, Self-Care Additional Instructions: Follow up with your primary care doctor. There is no signs of foreign object in your eye on exam. Your cornea did not have any signs of abrasion. Prescriptions: No Action acetaminophen 325 mg tablet 650 mg PO Q6H PRN (Reason: for mild pain) Qty: 240 0RF fluticasone propionate 50 mcg/actuation spray,suspension 1 spray intranasal DAILY mycophenolate sodium [Myfortic] 180 mg Tablet,Delayed Release (Dr/Ec) 540 mg PO BID aspirin 81 mg tablet,delayed release (DR/EC) 81 mg PO DAILY 30 Days Qty: 30 0RF ciclopirox 0.77 % cream topical BID omeprazole 20 mg capsule,delayed release(DR/EC) 40 mg PO DAILY atorvastatin 20 mg tablet 20 mg PO DAILY albuterol sulfate 2.5 mg /3 mL (0.083 %) solution for nebulization 2.5 mg inhalation NEEDED PRN (Reason: Shortness Of Breath) montelukast 10 mg tablet 10 mg PO BEDTIME levothyroxine 200 mcg tablet 150 mcg PO .COMPLEX Rx Instructions: 150 mcg PO Thu to Thursday, skip Thursday and Thursday; (DME) walker Misc See Rx Instructions .MEDSUPPLY Qty: 1 0RF Rx Instructions: Folding Front wheeled walker (DME) Raised toilet seat See Rx Instructions .ROUTE .MEDSUPPLY Qty: 1 0RF Rx Instructions: As directed (DME) cane Device See Rx Instructions .MEDSUPPLY Qty: 1 0RF Rx Instructions: As directed ampicillin 500 mg capsule 0 cap PO loratadine 10 mg tablet 10 mg PO DAILY azelastine 0.05 % drops 0 drp ophthalmic (eye) Envarsus XR 4 mg tablet extended release 24 hr 8 mg PO DAILY losartan 50 mg tablet 50 mg PO BID calcitriol 0.25 mcg capsule PO doxazosin 4 mg tablet 4 mg PO DAILY magnesium oxide 400 mg (241.3 mg magnesium) tablet 400 mg PO DAILY famotidine 20 mg tablet 20 mg PO DAILY labetalol 200 mg tablet 200 mg PO BID Interventions: ED Discharge Assessment Last Done: 03/10/25 02:00 Discharge Date/Time: 03/10/25 02:02 Print Language: [place]
[2025-03-10] MEDS: Tetracaine HCl 0.5% Oph Sol 5 ML DROPS 1 DROP EYE-LEFT (00:59)
[2025-03-10] MEDS: Fluorescein Sodium STRIP 1 STRIP EYE-LEFT (00:59)
[2025-03-10 02:00] VITALS: BP 160/84; PULSE 58; RESP 18; TEMP 36.4; O2SAT 97
--- NOTE | 2025-03-10 02:00 | PC.NURSE ---
pt reports eye feels better, provider in and discharge pt. no sign of distress, pt verbalized understanding,
== END 2025-03-10 02:02 | disposition home or self-care (01) ==
PROVIDERS: Emergency Provider Student in an Organized Health Care Education/Training Program; PCP Internal Medicine Geriatric Medicine
DX: S05.02XA Injury of conjunctiva and corneal abrasion without foreign body, left eye, initial encounter (principal); X58.XXXA Exposure to other specified factors, initial encounter; Y93.9 Activity, unspecified; Y92.9 Unspecified place or not applicable; Y99.8 Other external cause status
CPT/HCPCS: 99283; 99284